=== PATIENT | male | born 1960 | race Caucasian/White ===

== ENCOUNTER 2016-09-27 12:57 | Emergency (ER) | payer MEDICARE, MEDICAID ==
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
[2016-09-27] MEDS ORDERED: Sodium Chloride 0.9% 1,000 ML IV SCH (14:15)
[2016-09-27 15:37] VITALS: BP 91/59
== END 2016-09-27 15:38 | disposition home or self-care (01) ==
LOC: JP.ED 12:57
DX: R53.1 Weakness (principal); A09 Infectious gastroenteritis and colitis, unspecified; F17.210 Nicotine dependence, cigarettes, uncomplicated; Z88.8 Allergy status to other drugs, medicaments and biological substances; Z98.84 Bariatric surgery status; Z90.49 Acquired absence of other specified parts of digestive tract; Z98.890 Other specified postprocedural states
CPT/HCPCS: 36415; 80053; 85025; 96360; 99285; J7040; 99284

== ENCOUNTER 2016-12-14 15:26 | Inpatient (IN) | payer MEDICARE, MEDICAID ==
[2016-12-14] MEDS ORDERED: Sodium Chloride 0.9% 1,000 ML IV SCH (16:15)
[2016-12-14] MEDS ORDERED: Acetaminophen 325 MG Tab PO ONE (16:16)
--- NOTE | 2016-12-14 16:30 | EDM.PDOC ---
ED HPI GENERAL MEDICAL PROBLEM - General Chief Complaint: Abdominal Pain Stated Complaint: pain in l side Time Seen by Provider: 12/14/16 16:25 Source of Information: Reports: Patient, Family History Limitations: Reports: No Limitations - History of Present Illness INITIAL COMMENTS - FREE TEXT/NARRATIVE: pt has a fever and is having left flank pain. He has not been vomiting. He thinks his urine looks dark and is foul smelling. . He has had normal bms. Onset: Gradual Duration: Day(s):, Other ( he has had an ingrown hair on the top of his scalp and it was dug at yesterday. There is pus coming from the site The area is red and hot. ) Location: Reports: Head, Abdomen Associated Symptoms: Reports: Other (pt is having left flank pain. ) - Related Data Allergies Allergy/AdvReac Type Severity Reaction Status Date / Time fluconazole [From Diflucan] Allergy Swelling Verified 12/14/16 17:40 Home Meds: Home Meds ALPRAZolam [Alprazolam Odt] 12/14/16 [History] ARIPiprazole [Abilify] 12/14/16 [History] Mirtazapine [Mirtazapine] 12/14/16 [History] Omeprazole 12/14/16 [History] Pantoprazole Sodium 12/14/16 [History] Pregabalin [Lyrica] 12/14/16 [History] Topiramate 12/14/16 [History] oxyCODONE 12/14/16 [History] Past Medical History HEENT History: Reports: Impaired Vision Cardiovascular History: Reports: Aneurysm, CAD, High Cholesterol, Stents Gastrointestinal History: Reports: GERD Neurological History: Reports: CVA Psychiatric History: Reports: Anxiety, Depression Endocrine/Metabolic History: Reports: Hypothyroidism - Infectious Disease History Infectious Disease History: Reports: Chicken Pox, Mumps - Past Surgical History Cardiovascular Surgical History: Reports: Aneurysm, Carotid Stents GI Surgical History: Reports: Bariatric Procedure, Cholecystectomy, Colonoscopy , EGD, Hernia Repair/Other Social & Family History - Tobacco Use Smoking Status *Q: Current Every Day Smoker Years of Tobacco use: 30 Packs/Tins Daily: 0.5 - Caffeine Use Caffeine Use: Reports: Coffee - Recreational Drug Use Recreational Drug Use: No ED ROS GENERAL - Review of Systems Review Of Systems: See Below Constitutional: Reports: Fever, Chills, Malaise HEENT: Reports: No Symptoms Respiratory: Reports: No Symptoms Cardiovascular: Reports: No Symptoms Endocrine: Reports: No Symptoms GI/Abdominal: Reports: Other ( left flank pain. ) : Reports: Other ( left flankpain) Musculoskeletal: Reports: No Symptoms Skin: Reports: No Symptoms Neurological: Reports: No Symptoms Psychiatric: Reports: No Symptoms ED EXAM, GI/ABD - Physical Exam Exam: See Below Text/Narrative:: pt arrived with pain in left flank. He had an ingrown hair on his scalp and he dug after it. He has a large red area and there is pus draining from the site. Exam Limited By: No Limitations General Appearance: Alert, Anxious, Mild Distress Eyes: Bilateral: Normal Appearance, EOMI Ears: Normal TMs Nose: Normal Inspection Throat/Mouth: Normal Inspection Head: Other (pt has a large red area in the occipital area and there is pus draining from this site. ) Neck: Normal Inspection, Lymphadenopathy (R), Lymphadenopathy (L) Respiratory/Chest: No Respiratory Distress Cardiovascular: Regular Rate, Rhythm, Tachycardia GI/Abdominal: Other ( left flank pain. ) (Male) Exam: Other ( smelly dark looking urine) Rectal (Males) Exam: Deferred Neurological: Alert, Oriented, Normal Cognition Psychiatric: Normal Affect Course - Vital Signs Last Recorded V/S: Last Vital Signs Temp 38.8 C H 12/14/16 16:39 Pulse 85 12/14/16 16:39 Resp 22 H 12/14/16 16:39 BP 110/73 12/14/16 16:39 Pulse Ox 98 12/14/16 16:39 - Orders/Labs/Meds Orders: Active Orders 24 hr Category Date Time Status Abdomen Pelvis w Cont [CT] Stat Exams 12/14/16 16:55 Taken Chest 1V Frontal [CR] Stat Exams 12/14/16 16:13 Taken CULTURE BLOOD [BC] Urgent Lab 12/14/16 16:25 Received CULTURE BLOOD [BC] Urgent Lab 12/14/16 16:30 Received CULTURE URINE [RM] Stat Lab 12/14/16 18:20 Uncollected CULTURE WOUND + SMEAR [RM] Stat Lab 12/14/16 16:28 Results Iopamidol [Isovue-300 (61%)] Med 12/14/16 17:34 Active 96 ml IV . DIRECTED PRN Sodium Chloride 0.9% [Normal Saline] 1,000 ml Med 12/14/16 16:15 Active IV ASDIRECTED Sodium Chloride 0.9% [Normal Saline] 70 ml Med 12/14/16 17:45 Active IV ASDIRECTED Sodium Chloride 0.9% [Saline Flush] Med 12/14/16 17:34 Active 10 ml FLUSH ONETIME PRN Blood Culture x2 Reflex Set [OM.PC] Urgent Oth 12/14/16 16:11 Ordered Medication Orders Sodium Chloride (Normal Saline) 1,000 mls @ 500 mls/hr IV ASDIRECTED ROMAN Last Admin: 12/14/16 16:31 Dose: 500 mls/hr Sodium Chloride (Normal Saline) 70 mls @ 3 mls/sec IV ASDIRECTED ROMAN Last Admin: 12/14/16 17:47 Dose: 3 mls/sec Iopamidol (Isovue-300 (61%)) 96 ml IV . DIRECTED PRN PRN Reason: RADIOLOGY EXAM Stop: 12/15/16 17:35 Last Admin: 12/14/16 17:46 Dose: 96 ml Sodium Chloride (Saline Flush) 10 ml FLUSH ONETIME PRN PRN Reason: per radiology protocol Last Admin: 12/14/16 17:46 Dose: 10 ml Labs: Laboratory Tests 12/14/16 12/14/16 12/14/16 Range/Units 16:05 16:05 16:12 WBC 14.9 H (4.5-11.0) K/uL RBC 4.46 (4.30-5.90) M/uL Hgb 13.4 (12.0-15.0) g/dL Hct 40.2 (40.0-54.0) % MCV 90 (80-98) fL MCH 30 (27-31) pg MCHC 33 (32-36) % Plt Count 182 (150-400) K/uL Neut % (Auto) 80 H (36-66) % Lymph % (Auto) 12 L (24-44) % [place] % (Auto) 6 (2-6) % Eos % (Auto) 2 (2-4) % Baso % (Auto) 0 (0-1) % Sodium 136 L (140-148) mmol/L Potassium 3.9 (3.6-5.2) mmol/L Chloride 103 (100-108) mmol/L Carbon Dioxide 22 (21-32) mmol/L Anion Gap 14.9 H (5.0-14.0) mmol/L BUN 14 (7-18) mg/dL Creatinine 0.8 (0.8-1.3) mg/dL Est Cr Clr Drug Dosing 92.61 mL/min Estimated GFR (MDRD) > 60 (>60) Glucose 98 (74-106) mg/dL Lactic Acid 1.8 (0.4-2.0) mmol/L Calcium 8.3 L (8.5-10.1) mg/dL Total Bilirubin 0.4 (0.2-1.0) mg/dL AST 11 L D (15-37) U/L ALT 15 (12-78) U/L Alkaline Phosphatase 84 (46-116) U/L Total Protein 7.4 (6.4-8.2) g/dL Albumin 2.8 L (3.4-5.0) g/dL Globulin 4.6 H (2.3-3.5) g/dL Albumin/Globulin Ratio 0.6 L (1.2-2.2) Urine Color Urine Appearance Urine pH (4.5-8.0) Ur Specific [place] (1.008-1.030) Urine Protein (NEGATIVE) mg/dL Urine Glucose (UA) (NEGATIVE) mg/dL Urine Ketones (NEGATIVE) mg/dL Urine Occult Blood (NEGATIVE) Urine Nitrite (NEGAITVE) Urine Bilirubin (NEGATIVE) Urine Urobilinogen (NORMAL) mg/dL Ur Leukocyte Esterase (NEGATIVE) Urine RBC (0-5) Urine WBC (0-5) Ur Epithelial Cells Amorphous Sediment Urine Bacteria Urine Mucus 12/14/16 Range/Units 18:08 WBC (4.5-11.0) K/uL RBC (4.30-5.90) M/uL Hgb (12.0-15.0) g/dL Hct (40.0-54.0) % MCV (80-98) fL MCH (27-31) pg MCHC (32-36) % Plt Count (150-400) K/uL Neut % (Auto) (36-66) % Lymph % (Auto) (24-44) % [place] % (Auto) (2-6) % Eos % (Auto) (2-4) % Baso % (Auto) (0-1) % Sodium (140-148) mmol/L Potassium (3.6-5.2) mmol/L Chloride (100-108) mmol/L Carbon Dioxide (21-32) mmol/L Anion Gap (5.0-14.0) mmol/L BUN (7-18) mg/dL Creatinine (0.8-1.3) mg/dL Est Cr Clr Drug Dosing mL/min Estimated GFR (MDRD) (>60) Glucose (74-106) mg/dL Lactic Acid (0.4-2.0) mmol/L Calcium (8.5-10.1) mg/dL Total Bilirubin (0.2-1.0) mg/dL AST (15-37) U/L ALT (12-78) U/L Alkaline Phosphatase (46-116) U/L Total Protein (6.4-8.2) g/dL Albumin (3.4-5.0) g/dL Globulin (2.3-3.5) g/dL Albumin/Globulin Ratio (1.2-2.2) Urine Color Yellow Urine Appearance Turbid Urine pH 6.0 (4.5-8.0) Ur Specific [place] 1.015 (1.008-1.030) Urine Protein Trace (NEGATIVE) mg/dL Urine Glucose (UA) Normal (NEGATIVE) mg/dL Urine Ketones Negative (NEGATIVE) mg/dL Urine Occult Blood Large (NEGATIVE) Urine Nitrite Negative (NEGAITVE) Urine Bilirubin Negative (NEGATIVE) Urine Urobilinogen 1 (NORMAL) mg/dL Ur Leukocyte Esterase Large (NEGATIVE) Urine RBC 20-30 H (0-5) Urine WBC Semi-packed H (0-5) Ur Epithelial Cells Few Amorphous Sediment Not seen Urine Bacteria Many Urine Mucus Moderate Meds: Medications Generic Name Dose Route Start Last Admin Trade Name Freq PRN Reason Stop Dose Admin Sodium Chloride 1,000 mls @ 500 mls/hr 12/14/16 16:15 12/14/16 16:31 Normal Saline IV 500 mls/hr ASDIRECTED ROMAN Administration Sodium Chloride 70 mls @ 3 mls/sec 12/14/16 17:45 12/14/16 17:47 Normal Saline IV 3 mls/sec ASDIRECTED ROMAN Administration Iopamidol 96 ml 12/14/16 17:34 12/14/16 17:46 Isovue-300 (61%) IV 12/15/16 17:35 96 ml . DIRECTED PRN Administration RADIOLOGY EXAM Sodium Chloride 10 ml 12/14/16 17:34 12/14/16 17:46 Saline Flush FLUSH 10 ml ONETIME PRN Administration per radiology protocol Discontinued Medications Generic Name Dose Route Start Last Admin Trade Name Oneil PRN Reason Stop Dose Admin Acetaminophen 650 mg 12/14/16 16:16 12/14/16 16:30 Tylenol PO 12/14/16 16:17 650 mg NOW ONE Administration Hydromorphone HCl 0.5 mg 12/14/16 16:56 12/14/16 17:04 Dilaudid IVPUSH 12/14/16 16:57 0.5 mg ONETIME ONE Administration - Re-Assessments/Exams Free Text/Narrative Re-Assessment/Exam: 12/14/16 16:47 pt arrived with left flank pain. He had a temp of 38. He has a wbc of 14,900. 12/14/16 18:24 pt has a very infected urine. This was culured and he had blood cultures drawn. He had a cat scan of the abdoman to rule out a stone or other type of obstruction. Departure - Departure Time of Disposition: 18:25 Disposition: Admitted As Inpatient 66 Condition: fair Clinical Impression: Pyelonephritis, Infected scalp abrasion - Discharge Information Forms: ED Department Discharge Care Plan Goals: admit to Dr kirk. - My Orders Last 24 Hours: My Active Orders 12/14/16 16:11 Blood Culture x2 Reflex Set [OM.PC] Urgent 12/14/16 16:13 Chest 1V Frontal [CR] Stat 12/14/16 16:15 Sodium Chloride 0.9% [Normal Saline] 1,000 ml IV ASDIRECTED 12/14/16 16:25 CULTURE BLOOD [BC] Urgent 12/14/16 16:28 CULTURE WOUND + SMEAR [RM] Stat 12/14/16 16:30 CULTURE BLOOD [BC] Urgent 12/14/16 16:55 Abdomen Pelvis w Cont [CT] Stat 12/14/16 17:34 Iopamidol [Isovue-300 (61%)] 96 ml IV . DIRECTED PRN Sodium Chloride 0.9% [Saline Flush] 10 ml FLUSH ONETIME PRN 12/14/16 17:45 Sodium Chloride 0.9% [Normal Saline] 70 ml IV ASDIRECTED 12/14/16 18:20 CULTURE URINE [RM] Stat - Assessment/Plan Last 24 Hours: My Active Orders 12/14/16 16:11 Blood Culture x2 Reflex Set [OM.PC] Urgent 12/14/16 16:13 Chest 1V Frontal [CR] Stat 12/14/16 16:15 Sodium Chloride 0.9% [Normal Saline] 1,000 ml IV ASDIRECTED 12/14/16 16:25 CULTURE BLOOD [BC] Urgent 12/14/16 16:28 CULTURE WOUND + SMEAR [RM] Stat 12/14/16 16:30 CULTURE BLOOD [BC] Urgent 12/14/16 16:55 Abdomen Pelvis w Cont [CT] Stat 12/14/16 17:34 Iopamidol [Isovue-300 (61%)] 96 ml IV . DIRECTED PRN Sodium Chloride 0.9% [Saline Flush] 10 ml FLUSH ONETIME PRN 12/14/16 17:45 Sodium Chloride 0.9% [Normal Saline] 70 ml IV ASDIRECTED 12/14/16 18:20 CULTURE URINE [RM] Stat
[2016-12-14] MEDS ORDERED: HYDROmorphone 0.5 MG/0.5 ML Syringe IVPUSH ONE (16:56)
[2016-12-14] MEDS ORDERED: Sodium Chloride 0.9% 10 ML Syringe FLUSH PRN (17:34)
[2016-12-14] MEDS ORDERED: Iopamidol 612 MG/ML 100 ML Bottle IV PRN (17:34)
[2016-12-14] MEDS ORDERED: cefTRIAXone 2 GM in Sodium Chloride 0.9% 50 ML IV SCH (19:15)
--- NOTE | 2016-12-14 19:19 | PCM.HP ---
H&P History of Present Illness - General Date of Service: 12/14/16 Admit Problem/Dx: Admission Diagnosis/Problem Admission Diagnosis/Problem UTI, Urinary tract infectious disease Source of Information: Patient, Family, Provider History Limitations: Reports: No Limitations - History of Present Illness Initial Comments - Free Text/Narative: Jesús presented to the emergency room today with 2 days of progressive left upper quadrant abdominal pain. This is a sharp pain that comes and goes but is worse with laying on his back or his left side. Can be anywhere from mild to severe nature but is moderate for the most part. Moving around makes the pain becomes severe. Pain pills at home help a little bit. Taking a deep breath also makes the pain much worse. He has noticed some chills at home as well as a decrease in energy and appetite. He does not drink much water at home. He has noticed that his urine has been dark and foul-smelling compared normal. He has increased urinary frequency and some urgency but no dysuria. He is not aware of any obvious fevers but does not have a thermometer at home. No complaints of chest pain or shortness of breath beyond baseline shortness of breath. No obvious sick contacts or recent travel. Bowels have been on the slow side of normal moving every 3 days but this has been relatively normal for him. Workup in the emergency room has revealed leukocytosis and evidence for urinary tract infection. CT scan of the abdomen showed moderate stool and a 12 mm left lower lung nodule. He'll be admitted for management of a complicated urinary tract infection with fever and borderline blood pressures. - Related Data Allergies/Adverse Reactions: Allergies Allergy/AdvReac Type Severity Reaction Status Date / Time fluconazole [From Diflucan] Allergy Swelling Verified 12/14/16 17:40 Home Medications: Home Meds ALPRAZolam [Alprazolam Odt] 0.5 mg PO TID PRN 12/14/16 [History] ARIPiprazole [Abilify] 15 mg PO DAILY 12/14/16 [History] Mirtazapine [Mirtazapine] 60 mg PO BEDTIME 12/14/16 [History] Pantoprazole Sodium 40 mg PO DAILY 12/14/16 [History] Pregabalin [Lyrica] 150 mg PO BID 12/14/16 [History] Topiramate 50 mg PO BID 12/14/16 [History] oxyCODONE 5 mg PO QID PRN 12/14/16 [History] Past Medical History HEENT History: Reports: Impaired Vision Cardiovascular History: Reports: Aneurysm, CAD, High Cholesterol, Stents Gastrointestinal History: Reports: GERD Neurological History: Reports: CVA Psychiatric History: Reports: Anxiety, Depression Endocrine/Metabolic History: Reports: Hypothyroidism - Infectious Disease History Infectious Disease History: Reports: Chicken Pox, Mumps - Past Surgical History Cardiovascular Surgical History: Reports: Aneurysm, Carotid Stents GI Surgical History: Reports: Bariatric Procedure, Cholecystectomy, Colonoscopy , EGD, Hernia Repair/Other Social & Family History - Family History Respiratory: Reports: COPD - Tobacco Use Smoking Status *Q: Current Every Day Smoker Years of Tobacco use: 30 Packs/Tins Daily: 0.5 - Caffeine Use Caffeine Use: Reports: Coffee - Alcohol Use Alcohol Use History: No - Recreational Drug Use Recreational Drug Use: No H&P Review of Systems - Review of Systems: Review Of Systems: See Below Free Text/Narrative: A complete 12 point review of systems was obtained. Pertinent positives and negatives are noted in the history of present illness. All other systems were reviewed and were negative except as noted. Exam - Exam Exam: See Below - Vital Signs Vital Signs: Last Vital Signs Temp 37.7 C 12/14/16 18:36 Pulse 67 12/14/16 18:36 Resp 18 12/14/16 18:36 BP 87/33 L 12/14/16 18:36 Pulse Ox 96 12/14/16 18:36 Weight: 63.503 kg - Exam Quality Assessment: No: Supplemental Oxygen General: Alert, Oriented, Cooperative. No: Mild Distress HEENT: Conjunctiva Clear, Other (debrided scalp abscess with mild surrounding erythema left posterior scalp). No: Mucosa Moist & [place] (dry), Scleral Icterus Neck: Supple, Trachea Midline. No: Lymphadenopathy, Thyromegaly Lungs: Clear to Auscultation, Normal Respiratory Effort Cardiovascular: Regular Rate, Regular Rhythm. No: Systolic Murmur Abdomen: Normal Bowel Sounds, Soft. No: Distention, Tenderness, Mass Back Exam: Normal Inspection, Full Range of Motion Extremities: Normal Pulses. No: Cyanosis Skin: Warm, Dry, Other (evidence for skin grafts on legs and arms) Neuro Extensive - Mental Status: Alert, Oriented x3, Nl Response to Commands Neuro Extensive - Motor, Sensory, Reflexes: CN II-XII Intact. No: Dysarthria, Abnormal Motor, Tremor Psychiatric: Alert, Normal Affect - Patient Data Lab Results last 24 hrs: Laboratory Results - last 24 hr 12/14/16 12/14/16 12/14/16 Range/Units 16:05 16:05 16:12 WBC 14.9 H (4.5-11.0) K/uL RBC 4.46 (4.30-5.90) M/uL Hgb 13.4 (12.0-15.0) g/dL Hct 40.2 (40.0-54.0) % MCV 90 (80-98) fL MCH 30 (27-31) pg MCHC 33 (32-36) % Plt Count 182 (150-400) K/uL Neut % (Auto) 80 H (36-66) % Lymph % (Auto) 12 L (24-44) % [place] % (Auto) 6 (2-6) % Eos % (Auto) 2 (2-4) % Baso % (Auto) 0 (0-1) % Sodium 136 L (140-148) mmol/L Potassium 3.9 (3.6-5.2) mmol/L Chloride 103 (100-108) mmol/L Carbon Dioxide 22 (21-32) mmol/L Anion Gap 14.9 H (5.0-14.0) mmol/L BUN 14 (7-18) mg/dL Creatinine 0.8 (0.8-1.3) mg/dL Est Cr Clr Drug Dosing 92.61 mL/min Estimated GFR (MDRD) > 60 (>60) Glucose 98 (74-106) mg/dL Lactic Acid 1.8 (0.4-2.0) mmol/L Calcium 8.3 L (8.5-10.1) mg/dL Total Bilirubin 0.4 (0.2-1.0) mg/dL AST 11 L D (15-37) U/L ALT 15 (12-78) U/L Alkaline Phosphatase 84 (46-116) U/L Total Protein 7.4 (6.4-8.2) g/dL Albumin 2.8 L (3.4-5.0) g/dL Globulin 4.6 H (2.3-3.5) g/dL Albumin/Globulin Ratio 0.6 L (1.2-2.2) Urine Color Urine Appearance Urine pH (4.5-8.0) Ur Specific [place] (1.008-1.030) Urine Protein (NEGATIVE) mg/dL Urine Glucose (UA) (NEGATIVE) mg/dL Urine Ketones (NEGATIVE) mg/dL Urine Occult Blood (NEGATIVE) Urine Nitrite (NEGAITVE) Urine Bilirubin (NEGATIVE) Urine Urobilinogen (NORMAL) mg/dL Ur Leukocyte Esterase (NEGATIVE) Urine RBC (0-5) Urine WBC (0-5) Ur Epithelial Cells Amorphous Sediment Urine Bacteria Urine Mucus 12/14/16 Range/Units 18:08 WBC (4.5-11.0) K/uL RBC (4.30-5.90) M/uL Hgb (12.0-15.0) g/dL Hct (40.0-54.0) % MCV (80-98) fL MCH (27-31) pg MCHC (32-36) % Plt Count (150-400) K/uL Neut % (Auto) (36-66) % Lymph % (Auto) (24-44) % [place] % (Auto) (2-6) % Eos % (Auto) (2-4) % Baso % (Auto) (0-1) % Sodium (140-148) mmol/L Potassium (3.6-5.2) mmol/L Chloride (100-108) mmol/L Carbon Dioxide (21-32) mmol/L Anion Gap (5.0-14.0) mmol/L BUN (7-18) mg/dL Creatinine (0.8-1.3) mg/dL Est Cr Clr Drug Dosing mL/min Estimated GFR (MDRD) (>60) Glucose (74-106) mg/dL Lactic Acid (0.4-2.0) mmol/L Calcium (8.5-10.1) mg/dL Total Bilirubin (0.2-1.0) mg/dL AST (15-37) U/L ALT (12-78) U/L Alkaline Phosphatase (46-116) U/L Total Protein (6.4-8.2) g/dL Albumin (3.4-5.0) g/dL Globulin (2.3-3.5) g/dL Albumin/Globulin Ratio (1.2-2.2) Urine Color Yellow Urine Appearance Turbid Urine pH 6.0 (4.5-8.0) Ur Specific [place] 1.015 (1.008-1.030) Urine Protein Trace (NEGATIVE) mg/dL Urine Glucose (UA) Normal (NEGATIVE) mg/dL Urine Ketones Negative (NEGATIVE) mg/dL Urine Occult Blood Large (NEGATIVE) Urine Nitrite Negative (NEGAITVE) Urine Bilirubin Negative (NEGATIVE) Urine Urobilinogen 1 (NORMAL) mg/dL Ur Leukocyte Esterase Large (NEGATIVE) Urine RBC 20-30 H (0-5) Urine WBC Semi-packed H (0-5) Ur Epithelial Cells Few Amorphous Sediment Not seen Urine Bacteria Many Urine Mucus Moderate Result Diagrams: 12/14/16 16:05 12/14/16 16:05 Bill Results last 24 hrs: Microbiology 12/14/16 16:28 Gram Stain - Final Scalp - Back, Unspecified Imaging Impressions last 24 hrs: cXR - images personally reviewed - there is no infiltrate, mass, effusion or cardiomegally. CT abd/pelvis - images personally reviewed - moderate stool throughout colon. no hydronephrosis or kidney stone. 12 mm left lung nodule, non-calcified *Q Meaningful Use (ADM) - VTE *Q VTE Criteria *Q: - VTE Risk Assess *Q Each Risk Factor Represents 1 Point: Age 41 - 59 years, History of Prior Major Surgery, Abnormal Pulmonary Function (COPD) Total Score 1 Point Risk Factors: 3 Each Risk Factor Represents 2 Points: None Total Score 2 Point Risk Factors: 0 Each Risk Factor Represents 3 Points: None Total Score 3 Point Risk Factors: 0 Each Risk Factor Represents 5 Points: None Total Score 5 Point Risk Factors: 0 Venous Thromboembolism Risk Factor Score *Q: 3 - Stroke *Q Stroke Criteria *Q: - AMI *Q AMI Criteria *Q: - Problem List (1) Complicated UTI (urinary tract infection) SNOMED Code(s): 51318389 ICD Code: N39.0 - URINARY TRACT INFECTION, SITE NOT SPECIFIED Status: Acute Current Visit: Yes (2) 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 Current Visit: Yes (3) Hypothyroidism (acquired) SNOMED Code(s): 450141511 ICD Code: E03.9 - HYPOTHYROIDISM, UNSPECIFIED Status: Chronic Current Visit: Yes (4) Tobacco dependence SNOMED Code(s): 87987328 ICD Code: F17.200 - NICOTINE DEPENDENCE, UNSPECIFIED, UNCOMPLICATED Status : Chronic Current Visit: Yes Problem List Initiated/Reviewed/Updated: Yes Orders Last 24hrs: Active Orders 24 hr Category Date Time Status Patient Status Manage Transfer [TRANSFER] Routine ADT 12/14/16 19:06 Active Abdomen Pelvis w Cont [CT] Stat Exams 12/14/16 16:55 Taken Chest 1V Frontal [CR] Stat Exams 12/14/16 16:13 Taken CULTURE BLOOD [BC] Urgent Lab 12/14/16 16:25 Received CULTURE BLOOD [BC] Urgent Lab 12/14/16 16:30 Received CULTURE URINE [RM] Stat Lab 12/14/16 18:20 Uncollected CULTURE WOUND + SMEAR [RM] Stat Lab 12/14/16 16:28 Results Iopamidol [Isovue-300 (61%)] Med 12/14/16 17:34 Active 96 ml IV . DIRECTED PRN Sodium Chloride 0.9% [Normal Saline] 1,000 ml Med 12/14/16 16:15 Active IV ASDIRECTED Sodium Chloride 0.9% [Normal Saline] 1,000 ml Med 12/14/16 19:15 Active IV ASDIRECTED Sodium Chloride 0.9% [Normal Saline] 70 ml Med 12/14/16 17:45 Active IV ASDIRECTED Sodium Chloride 0.9% [Saline Flush] Med 12/14/16 17:34 Active 10 ml FLUSH ONETIME PRN cefTRIAXone [Rocephin] 2 gm Med 12/14/16 19:15 Active Sodium Chloride 0.9% [Normal Saline] 50 ml IV Q24H Blood Culture x2 Reflex Set [OM.PC] Urgent Oth 12/14/16 16:11 Ordered Resuscitation Status Routine Resus Stat 12/14/16 19:11 Ordered Medication Orders Sodium Chloride (Normal Saline) 1,000 mls @ 500 mls/hr IV ASDIRECTED ROMAN Last Admin: 12/14/16 16:31 Dose: 500 mls/hr Sodium Chloride (Normal Saline) 70 mls @ 3 mls/sec IV ASDIRECTED ROMAN Last Admin: 12/14/16 17:47 Dose: 3 mls/sec Sodium Chloride (Normal Saline) 1,000 mls @ 125 mls/hr IV ASDIRECTED ROMAN Ceftriaxone Sodium 2 gm/ (Sodium Chloride) 50 mls @ 100 mls/hr IV Q24H ROMAN Iopamidol (Isovue-300 (61%)) 96 ml IV . DIRECTED PRN PRN Reason: RADIOLOGY EXAM Stop: 12/15/16 17:35 Last Admin: 12/14/16 17:46 Dose: 96 ml Sodium Chloride (Saline Flush) 10 ml FLUSH ONETIME PRN PRN Reason: per radiology protocol Last Admin: 12/14/16 17:46 Dose: 10 ml Assessment/Plan Comment:: Assessment and plan - Complicated urinary tract infection - this would explain fever and urinary symptoms. Blood pressures are borderline but no obvious evidence for sepsis at this time. Heart rate is okay and lactic acid is normal. No history of resistant organisms. -Ceftriaxone -IV fluids -Follow-up urine culture Pleuritic left-sided pain - no obvious cause on the CT scan but a 12 mm noncalcified nodule was noted. This could possibly be related to the stool noted throughout the colon. No evidence for pulmonary infection. He is not currently hypoxic. -Pain control -He will need follow-up for his pulmonary nodule Tobacco dependence - he is working on cessation at this time. Developed a rash while taking varenicline. 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 -Continue home medications Maintenance issues - - DVT prophylaxis - enoxaparin - GI prophylaxis - PPI - Nutrition - regular diet - Boland catheter - not indicated CODE STATUS - full code Admission justification - This patient will be admitted for inpatient services and is medically appropriate meeting medical necessity for inpatient admission as outlined in my documentation. I reasonably expect the patient will require inpatient services that span a period time over 2 midnights. I reasonably expect this patient to be discharged or transferred within 96 hours [facility] Disposition - anticipate discharge to home after the hospital stay Primary care physician - Dr Phuong Cedeno M.D.
[2016-12-14] MEDS ORDERED: Magnesium Hydroxide 400 MG/5 ML Susp 30 ML Cup PO PRN (19:33)
[2016-12-14] MEDS ORDERED: Albuterol 0.083% 2.5 MG/3 ML Neb Soln NEB PRN (19:33)
[2016-12-14] MEDS ORDERED: ALPRAZolam 0.5 MG Tab PO PRN (19:33)
[2016-12-14] MEDS ORDERED: Ondansetron 4 MG Tab.DIS PO PRN (19:33)
[2016-12-14] MEDS ORDERED: Polyethylene Glycol 3350 Powder 17 GM Packet PO PRN (19:33)
[2016-12-14] MEDS ORDERED: Ondansetron 4 MG/2 ML SDV IV PRN (19:33)
[2016-12-14] MEDS: Sodium Chloride 0.9% 1,000 ML IV SCH (20:21)
[2016-12-14] MEDS: Mirtazapine 15 MG Tab PO SCH (21:33)
[2016-12-14] MEDS: Topiramate 25 MG Tab PO SCH (21:34)
[2016-12-14] MEDS: Pregabalin 75 MG Cap PO SCH (21:34)
[2016-12-14] MEDS: oxyCODONE 5 MG Tab PO PRN (21:34)
[2016-12-14] MEDS: Ibuprofen 600 MG Tab PO PRN (22:53)
[2016-12-15] MEDS: oxyCODONE 5 MG Tab PO PRN ×3 (03:50→17:20)
[2016-12-15] MEDS: Sodium Chloride 0.9% 1,000 ML IV SCH ×3 (03:52→21:33)
[2016-12-15] MEDS ORDERED: Levothyroxine 25 MCG Tab PO SCH (07:30)
[2016-12-15] MEDS: Ibuprofen 600 MG Tab PO PRN ×3 (07:32→19:41)
[2016-12-15] MEDS: ARIPiprazole 10 MG Tab PO SCH (09:52)
[2016-12-15] MEDS: Pantoprazole 40 MG Tab.CR PO SCH (09:53)
[2016-12-15] MEDS: Levothyroxine 50 MCG Tab PO SCH (09:53)
[2016-12-15] MEDS: Topiramate 25 MG Tab PO SCH ×2 (09:54→20:44)
[2016-12-15] MEDS: Enoxaparin 40 MG/0.4 ML Syringe SUBCUT SCH (09:54)
[2016-12-15] MEDS: Acetaminophen 325 MG Tab PO PRN ×2 (10:01→15:36)
[2016-12-15] MEDS: Pregabalin 75 MG Cap PO SCH ×2 (10:01→20:47)
--- NOTE | 2016-12-15 11:16 | CR ---
Chest 1V Frontal INDICATION: fever. FINDINGS: Comparison 09/27/2012. Extensive benign calcified granulomas in both lungs. Small esophagea l hiatal hernia. Right PICC line has been removed. Chest otherwise negative.
[2016-12-15] MEDS ORDERED: Sodium Chloride 0.9% 500 ML IV ONE ×2 (12:38→15:15)
--- NOTE | 2016-12-15 12:46 | PCM.PN ---
- General Info Date of Service: 12/15/16 Functional Status: Reports: pain controlled, tolerating diet, urinating - Review of Systems General: Reports: Fever, Weakness, Chills Pulmonary: Reports: no symptoms Cardiovascular: Reports: No Symptoms Gastrointestinal: Reports: No symptoms Genitourinary: Reports: dysuria, flank pain Systems Review Comment:: This patient is a 56-year-old gentleman who was admitted through the emergency department with fever and probable urinary tract infection. He also has had significant left flank pain, CT scan of the abdomen showed no evidence of pyelonephritis. This morning his shown some evidence of sepsis with hypotension and is currently receiving a fluid bolus for management. In addition he's had a abscess on the posterior aspect of his scalp that was drained yesterday in the emergency department. Blood cultures thus far are growing gram-positive cocci final ID and sensitivities are pending. Urine culture and wound cultures are also pending. - Patient Data Vitals - most recent: Last Vital Signs Temp 99.6 F 12/15/16 12:34 Pulse 88 12/15/16 12:34 Resp 16 12/15/16 12:34 BP 87/45 L 12/15/16 12:34 Pulse Ox 98 12/15/16 12:34 Weight - most recent: 145 lb 8 oz I&O - last 24 hours: Intake & Output 12/14/16 12/15/16 12/15/16 22:59 06:59 14:59 Intake Total 50 1973 360 Output Total 1875 550 Balance 50 98 -190 Lab Results last 24 hrs: Laboratory Results - last 24 hr 12/15/16 12/15/16 Range/Units 06:00 06:00 WBC 12.0 H (4.5-11.0) K/uL RBC 3.76 L (4.30-5.90) M/uL Hgb 11.1 L D (12.0-15.0) g/dL Hct 34.5 L (40.0-54.0) % MCV 92 (80-98) fL MCH 30 (27-31) pg MCHC 32 (32-36) % Plt Count 173 (150-400) K/uL Sodium 144 (140-148) mmol/L Potassium 3.6 (3.6-5.2) mmol/L Chloride 113 H (100-108) mmol/L Carbon Dioxide 23 (21-32) mmol/L Anion Gap 11.6 (5.0-14.0) mmol/L BUN 10 (7-18) mg/dL Creatinine 0.7 L (0.8-1.3) mg/dL Est Cr Clr Drug Dosing 110.00 mL/min Estimated GFR (MDRD) > 60 (>60) Glucose 85 (74-106) mg/dL Calcium 8.0 L (8.5-10.1) mg/dL Med Orders - Current: Current Medications Acetaminophen (Tylenol) 650 mg PO Q4H PRN PRN Reason: Pain (Mild 1-3)/fever Last Admin: 12/15/16 10:01 Dose: 650 mg Albuterol (Proventil Neb Soln) 2.5 mg NEB Q4H PRN PRN Reason: Shortness Of Breath/wheezing Alprazolam (Xanax) 0.5 mg PO TID PRN PRN Reason: Anxiety Aripiprazole (Abilify) 15 mg PO DAILY [facility] Last Admin: 12/15/16 09:52 Dose: 15 mg Bacitracin (Bacitracin Oint) 0 gm TOP BID [facility] Bacitracin (Bacitracin Oint) 0 gm TOP ASDIRECTED PRN PRN Reason: WOUND CARE Enoxaparin Sodium (Lovenox) 40 mg SUBCUT DAILY [facility] Last Admin: 12/15/16 09:54 Dose: 40 mg Sodium Chloride (Normal Saline) 1,000 mls @ 125 mls/hr IV ASDIRECTED [facility] Last Admin: 12/15/16 12:10 Dose: 125 mls/hr Ceftriaxone Sodium 2 gm/ (Sodium Chloride) 50 mls @ 100 mls/hr IV Q24H [facility] Sodium Chloride (Normal Saline) 500 mls @ 500 mls/hr IV .BOLUS ONE Stop: 12/15/16 13:37 Ibuprofen (Motrin) 600 mg PO Q6H PRN PRN Reason: Pain/Fever Last Admin: 12/15/16 07:32 Dose: 600 mg Levothyroxine Sodium (Synthroid) 50 mcg PO DAILY@0730 [facility] Last Admin: 12/15/16 09:53 Dose: 50 mcg Magnesium Hydroxide (Milk Of Magnesia) 30 ml PO Q12H PRN PRN Reason: Constipation Mirtazapine (Remeron) 60 mg PO BEDTIME [facility] Last Admin: 12/14/16 21:33 Dose: 60 mg Ondansetron HCl (Zofran Odt) 4 mg PO Q6H PRN PRN Reason: Nausea able to take PO Ondansetron HCl (Zofran) 4 mg IV Q6H PRN PRN Reason: Nausea/Vomiting Oxycodone HCl (Oxycodone) 5 mg PO QID PRN PRN Reason: Pain Last Admin: 12/15/16 10:02 Dose: 5 mg Pantoprazole Sodium (Protonix) 40 mg PO DAILY@0730 [facility] Last Admin: 12/15/16 09:53 Dose: 40 mg Polyethylene Glycol (Miralax) 17 gm PO DAILY PRN PRN Reason: Constipation Pregabalin (Lyrica) 150 mg PO BID [facility] Last Admin: 12/15/16 10:01 Dose: 150 mg Senna/Docusate Sodium (Senna Plus) 1 tab PO BID PRN PRN Reason: Constipation Sodium Chloride (Saline Flush) 10 ml FLUSH ONETIME PRN PRN Reason: per radiology protocol Last Admin: 12/14/16 17:46 Dose: 10 ml Topiramate (Topamax) 50 mg PO BID [facility] Last Admin: 12/15/16 09:54 Dose: 50 mg Vancomycin HCl (Vancomycin) 1 gm IV .PHARMACY TO DOSE [facility] Discontinued Medications Acetaminophen (Tylenol) 650 mg PO NOW ONE Stop: 12/14/16 16:17 Last Admin: 12/14/16 16:30 Dose: 650 mg Hydromorphone HCl (Dilaudid) 0.5 mg IVPUSH ONETIME ONE Stop: 12/14/16 16:57 Last Admin: 12/14/16 17:04 Dose: 0.5 mg Sodium Chloride (Normal Saline) 1,000 mls @ 500 mls/hr IV ASDIRECTED [facility] Last Admin: 12/14/16 16:31 Dose: 500 mls/hr Sodium Chloride (Normal Saline) 70 mls @ 3 mls/sec IV ASDIRECTED [facility] Last Admin: 12/14/16 17:47 Dose: 3 mls/sec Ceftriaxone Sodium 2 gm/ (Sodium Chloride) 50 mls @ 100 mls/hr IV Q24H [facility] Last Admin: 12/14/16 20:34 Dose: 100 mls/hr Iopamidol (Isovue-300 (61%)) 96 ml IV . DIRECTED PRN PRN Reason: RADIOLOGY EXAM Stop: 12/15/16 17:35 Last Admin: 12/14/16 17:46 Dose: 96 ml - Exam Quality Assessment: DVT prophylaxis General: alert, oriented, cooperative Lungs: Clear to auscultation, Normal respiratory effort Cardiovascular: Regular Rate, Regular Rhythm Abdomen: bowel sounds present, soft, no tenderness, no distension Back Exam: CVA Tenderness (L) Extremities: no edema - Problem List Review Problem List Initiated/Reviewed/Updated: Yes - My Orders Last 24 Hours: My Active Orders 12/15/16 11:49 Bacitracin [Bacitracin Oint] 0 gm TOP ASDIRECTED PRN 12/15/16 12:00 Bacitracin [Bacitracin Oint] 0 gm TOP BID 12/15/16 12:38 Sodium Chloride 0.9% [Normal Saline] 500 ml IV .BOLUS 12/15/16 13:00 Vancomycin 1 gm IV .PHARMACY TO DOSE 12/16/16 05:00 BASIC METABOLIC PANEL,BMP [CHEM] Timed CBC WITH AUTO DIFF [HEME] Timed - Plan Plan:: Assessment and plan - Complicated urinary tract infection -with probable pyelonephritis and sepsis. He has significant flank pain consistent with pyelonephritis although CT scan did not show evidence of inflammation. Blood cultures are growing gram-positive cocci, wound and urine cultures are pending. -Ceftriaxone -IV vancomycin pending culture results and sensitivities -IV fluidsfor management of sepsis -Follow-up urine culture 12 mm pulmonary nodule -He will need follow-up for his pulmonary nodule Tobacco dependence - he is working on cessation at this time. Developed a rash while taking varenicline. 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 -Continue home medications Maintenance issues - - DVT prophylaxis - enoxaparin - GI prophylaxis - PPI - Nutrition - regular diet - Boland catheter - not indicated CODE STATUS - full code Admission justification - This patient will be admitted for inpatient services and is medically appropriate meeting medical necessity for inpatient admission as outlined in my documentation. I reasonably expect the patient will require inpatient services that span a period time over 2 midnights. I reasonably expect this patient to be discharged or transferred within 96 hours [facility]. Disposition - anticipate discharge to home after the hospital stay Primary care physician - Dr Baca
[2016-12-15] MEDS: Bacitracin Oint 28.35 GM Tube TOP SCH ×2 (13:00→20:43)
[2016-12-15] MEDS ORDERED: Vancomycin 1 GM SDV IV SCH (13:00)
[2016-12-15] MEDS ORDERED: Bacitracin Oint 28.35 GM Tube TOP SCH (14:00)
[2016-12-15] MEDS ORDERED: Vancomycin 1.3 GM in Sodium Chloride 0.9% 250 ML IV ONE (14:00)
[2016-12-15] MEDS ORDERED: Sodium Chloride 0.9% 1,000 ML IV ONE (16:32)
[2016-12-15] MEDS ORDERED: Sodium Chloride 0.9% 1,000 ML IV SCH (19:00)
[2016-12-15] MEDS: Mirtazapine 15 MG Tab PO SCH (20:44)
[2016-12-15] MEDS ORDERED: cefTRIAXone 2 GM in Sodium Chloride 0.9% 50 ML IV SCH (21:00)
[2016-12-16] MEDS: Acetaminophen 325 MG Tab PO PRN ×2 (00:53→15:31)
[2016-12-16] MEDS: Ibuprofen 600 MG Tab PO PRN (05:39)
[2016-12-16] MEDS: Levothyroxine 50 MCG Tab PO SCH (07:28)
[2016-12-16] MEDS: Pantoprazole 40 MG Tab.CR PO SCH (07:29)
[2016-12-16] MEDS: Sodium Chloride 0.9% 1,000 ML IV SCH (07:57)
[2016-12-16] MEDS ORDERED: Potassium Chloride 20 MEQ Tab.ER PO ONE (09:00)
[2016-12-16] MEDS: ARIPiprazole 10 MG Tab PO SCH (09:51)
[2016-12-16] MEDS: Bacitracin Oint 28.35 GM Tube TOP SCH ×2 (09:52→21:36)
[2016-12-16] MEDS: Enoxaparin 40 MG/0.4 ML Syringe SUBCUT SCH (09:53)
[2016-12-16] MEDS: Topiramate 25 MG Tab PO SCH ×2 (09:53→21:34)
[2016-12-16] MEDS: Pregabalin 75 MG Cap PO SCH ×2 (10:18→21:33)
--- NOTE | 2016-12-16 16:44 | PCM.PN ---
- General Info Date of Service: 12/16/16 Functional Status: Reports: pain controlled, tolerating diet, urinating - Review of Systems General: Reports: Fever, Weakness. Denies: Chills Pulmonary: Reports: no symptoms Cardiovascular: Reports: No Symptoms Gastrointestinal: Reports: No symptoms Genitourinary: Reports: flank pain. Denies: dysuria, frequency, burning, pain, urgency Systems Review Comment:: This patient has improved since yesterday, vital signs of stabilized and he has been afebrile since yesterday afternoon. Continues to have some flank pain although this is improved from yesterday. Remains fairly weak and fatigued. - Patient Data Vitals - most recent: Last Vital Signs Temp 99.0 F 12/16/16 15:31 Pulse 69 12/16/16 15:13 Resp 16 12/16/16 15:13 BP 93/49 L 12/16/16 15:13 Pulse Ox 99 12/16/16 15:13 Weight - most recent: 145 lb 8.011 oz I&O - last 24 hours: Intake & Output 12/16/16 12/16/16 12/16/16 06:59 14:59 22:59 Intake Total 2200 234 294 Output Total 1875 475 Balance 325 -241 294 Lab Results last 24 hrs: Laboratory Results - last 24 hr 12/16/16 12/16/16 Range/Units 05:15 05:15 WBC 10.6 (4.5-11.0) K/uL RBC 3.63 L (4.30-5.90) M/uL Hgb 10.8 L (12.0-15.0) g/dL Hct 33.3 L (40.0-54.0) % MCV 92 (80-98) fL MCH 30 (27-31) pg MCHC 32 (32-36) % Plt Count 156 (150-400) K/uL Neut % (Auto) 72 H (36-66) % Lymph % (Auto) 17 L (24-44) % [place] % (Auto) 6 (2-6) % Eos % (Auto) 6 H (2-4) % Baso % (Auto) 0 (0-1) % Sodium 146 (140-148) mmol/L Potassium 3.4 L (3.6-5.2) mmol/L Chloride 117 H (100-108) mmol/L Carbon Dioxide 20 L (21-32) mmol/L Anion Gap 12.4 (5.0-14.0) mmol/L BUN 6 L (7-18) mg/dL Creatinine 0.6 L (0.8-1.3) mg/dL Est Cr Clr Drug Dosing 128.33 mL/min Estimated GFR (MDRD) > 60 (>60) Glucose 79 (74-106) mg/dL Calcium 7.6 L (8.5-10.1) mg/dL Bill Results last 24 hrs: Microbiology 12/14/16 19:42 Urine Culture - Final Urine, Clean Catch (Mrsa) Staphylococcus Aureus Med Orders - Current: Current Medications Acetaminophen (Tylenol) 650 mg PO Q4H PRN PRN Reason: Pain (Mild 1-3)/fever Last Admin: 12/16/16 15:31 Dose: 650 mg Albuterol (Proventil Neb Soln) 2.5 mg NEB Q4H PRN PRN Reason: Shortness Of Breath/wheezing Alprazolam (Xanax) 0.5 mg PO TID PRN PRN Reason: Anxiety Aripiprazole (Abilify) 15 mg PO DAILY [facility] Last Admin: 12/16/16 09:51 Dose: 15 mg Bacitracin (Bacitracin Oint) 0 gm TOP BID [facility] Last Admin: 12/16/16 09:52 Dose: 1 applic Bacitracin (Bacitracin Oint) 0 gm TOP ASDIRECTED PRN PRN Reason: WOUND CARE Enoxaparin Sodium (Lovenox) 40 mg SUBCUT DAILY [facility] Last Admin: 12/16/16 09:53 Dose: 40 mg Clindamycin Phosphate 600 mg/ (Sodium Chloride) 54 mls @ 100 mls/hr IV Q6H [facility] Last Admin: 12/16/16 15:32 Dose: 100 mls/hr Sodium Chloride (Sodium Chloride 0.45%) 1,000 mls @ 125 mls/hr IV ASDIRECTED [facility] Ibuprofen (Motrin) 600 mg PO Q6H PRN PRN Reason: Pain/Fever Last Admin: 12/16/16 05:39 Dose: 600 mg Levothyroxine Sodium (Synthroid) 50 mcg PO DAILY@0730 [facility] Last Admin: 12/16/16 07:28 Dose: 50 mcg Magnesium Hydroxide (Milk Of Magnesia) 30 ml PO Q12H PRN PRN Reason: Constipation Mirtazapine (Remeron) 60 mg PO BEDTIME [facility] Last Admin: 12/15/16 20:44 Dose: 60 mg Ondansetron HCl (Zofran Odt) 4 mg PO Q6H PRN PRN Reason: Nausea able to take PO Ondansetron HCl (Zofran) 4 mg IV Q6H PRN PRN Reason: Nausea/Vomiting Oxycodone HCl (Oxycodone) 5 mg PO QID PRN PRN Reason: Pain Last Admin: 12/15/16 17:20 Dose: 5 mg Pantoprazole Sodium (Protonix) 40 mg PO DAILY@0730 [facility] Last Admin: 12/16/16 07:29 Dose: 40 mg Polyethylene Glycol (Miralax) 17 gm PO DAILY PRN PRN Reason: Constipation Pregabalin (Lyrica) 150 mg PO BID [facility] Last Admin: 12/16/16 10:18 Dose: 150 mg Senna/Docusate Sodium (Senna Plus) 1 tab PO BID PRN PRN Reason: Constipation Sodium Chloride (Saline Flush) 10 ml FLUSH ONETIME PRN PRN Reason: per radiology protocol Last Admin: 12/14/16 17:46 Dose: 10 ml Topiramate (Topamax) 50 mg PO BID [facility] Last Admin: 12/16/16 09:53 Dose: 50 mg Discontinued Medications Acetaminophen (Tylenol) 650 mg PO NOW ONE Stop: 12/14/16 16:17 Last Admin: 12/14/16 16:30 Dose: 650 mg Hydromorphone HCl (Dilaudid) 0.5 mg IVPUSH ONETIME ONE Stop: 12/14/16 16:57 Last Admin: 12/14/16 17:04 Dose: 0.5 mg Sodium Chloride (Normal Saline) 1,000 mls @ 500 mls/hr IV ASDIRECTED [facility] Last Admin: 12/14/16 16:31 Dose: 500 mls/hr Sodium Chloride (Normal Saline) 70 mls @ 3 mls/sec IV ASDIRECTED [facility] Last Admin: 12/14/16 17:47 Dose: 3 mls/sec Sodium Chloride (Normal Saline) 1,000 mls @ 125 mls/hr IV ASDIRECTED [facility] Last Admin: 12/16/16 07:57 Dose: 125 mls/hr Ceftriaxone Sodium 2 gm/ (Sodium Chloride) 50 mls @ 100 mls/hr IV Q24H [facility] Last Admin: 12/14/16 20:34 Dose: 100 mls/hr Ceftriaxone Sodium 2 gm/ (Sodium Chloride) 50 mls @ 100 mls/hr IV Q24H [facility] Last Admin: 12/15/16 20:44 Dose: 100 mls/hr Sodium Chloride (Normal Saline) 500 mls @ 500 mls/hr IV .BOLUS ONE Stop: 12/15/16 13:37 Last Admin: 12/15/16 12:58 Dose: 500 mls/hr Vancomycin HCl 1.3 gm/ Sodium (Chloride) 250 mls @ 167 mls/hr IV ONETIME ONE Stop: 12/15/16 15:29 Last Admin: 12/15/16 13:36 Dose: 167 mls/hr Vancomycin HCl 1 gm/ Sodium (Chloride) 250 mls @ 167 mls/hr IV Q12H [facility] Last Admin: 12/16/16 01:54 Dose: 167 mls/hr Sodium Chloride (Normal Saline) 500 mls @ 500 mls/hr IV BOLUS ONE Stop: 12/15/16 16:14 Last Admin: 12/15/16 15:22 Dose: 500 mls/hr Sodium Chloride (Normal Saline) 1,000 mls @ 500 mls/hr IV .BOLUS ONE Stop: 12/15/16 18:31 Last Admin: 12/15/16 16:43 Dose: 500 mls/hr Sodium Chloride (Normal Saline) 1,000 mls @ 500 mls/hr IV STAT [facility] Stop: 12/19/16 18:55 Last Admin: 12/15/16 19:10 Dose: 500 mls/hr Iopamidol (Isovue-300 (61%)) 96 ml IV . DIRECTED PRN PRN Reason: RADIOLOGY EXAM Stop: 12/15/16 17:35 Last Admin: 12/14/16 17:46 Dose: 96 ml Potassium Chloride (Klor-Con M20) 40 meq PO ONETIME ONE Stop: 12/16/16 09:01 Last Admin: 12/16/16 09:52 Dose: 40 meq Vancomycin HCl (Vancomycin) 1 gm IV .PHARMACY TO DOSE [facility] Stop: 12/15/16 14:00 - Exam Quality Assessment: DVT prophylaxis General: alert, oriented, cooperative, mild distress Lungs: Clear to auscultation, Normal respiratory effort Cardiovascular: Regular Rate, Regular Rhythm Abdomen: bowel sounds present, soft, no tenderness, no distension Back Exam: CVA Tenderness (L) Extremities: no edema Skin: other (Continued drainage from skin abscess on the scalp) - Problem List Review Problem List Initiated/Reviewed/Updated: Yes - My Orders Last 24 Hours: My Active Orders 12/16/16 10:00 Clindamycin Phosphate [Cleocin] 600 mg Sodium Chloride 0.9% [Normal Saline] 50 ml IV Q6H 12/16/16 16:45 Sodium Chloride 0.45% 1,000 ml IV ASDIRECTED 12/17/16 05:00 BASIC METABOLIC PANEL,BMP [CHEM] Timed CBC WITH AUTO DIFF [HEME] Timed - Plan Plan:: Assessment and plan - Pyelonephritis with sepsis -He has significant flank pain consistent with pyelonephritis although CT scan did not show evidence of inflammation. Wound and urine cultures are growing MRSA, blood cultures are pending. Flank pain has improved over the past 24 hours and sepsis appears to have resolved. -Clindamycin 600 mg IV every 6 hours -IV fluidsfor management of sepsis -Follow-up urine culture Scalp abscess-continues to drain, culture has grown MRSA. -Clindamycin as above 12 mm pulmonary nodule -He will need follow-up for his pulmonary nodule Tobacco dependence - he is working on cessation at this time. Developed a rash while taking varenicline. 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 -Continue home medications Maintenance issues - - DVT prophylaxis - enoxaparin - GI prophylaxis - PPI - Nutrition - regular diet - Boland catheter - not indicated CODE STATUS - full code Admission justification - This patient will be admitted for inpatient services and is medically appropriate meeting medical necessity for inpatient admission as outlined in my documentation. I reasonably expect the patient will require inpatient services that span a period time over 2 midnights. I reasonably expect this patient to be discharged or transferred within 96 hours [facility] Disposition - anticipate discharge to home after the hospital stay Primary care physician - Dr Baca
[2016-12-16] MEDS: Sodium Chloride 0.45% 1,000 ML IV SCH (17:40)
[2016-12-16] MEDS: Mirtazapine 15 MG Tab PO SCH (21:34)
[2016-12-16] MEDS ORDERED: Calcium Carbonate 500 MG Tab.Chew PO PRN (21:47)
[2016-12-16] MEDS ORDERED: Aluminum Hydroxide/Magnesium Hydroxide/Simethicone Susp 30 ML Cup PO PRN (21:48)
[2016-12-17] MEDS: oxyCODONE 5 MG Tab PO PRN ×2 (01:09→15:16)
[2016-12-17] MEDS: Sodium Chloride 0.45% 1,000 ML IV SCH (02:09)
[2016-12-17] MEDS: Bacitracin Oint 28.35 GM Tube TOP PRN ×2 (05:16→15:18)
[2016-12-17] MEDS: Pantoprazole 40 MG Tab.CR PO SCH (07:30)
[2016-12-17] MEDS: Levothyroxine 50 MCG Tab PO SCH (07:30)
[2016-12-17] MEDS: Acetaminophen 325 MG Tab PO PRN (07:40)
[2016-12-17] MEDS ORDERED: Potassium Chloride 20 MEQ Tab.ER PO ONE (08:00)
[2016-12-17] MEDS: Enoxaparin 40 MG/0.4 ML Syringe SUBCUT SCH (09:46)
[2016-12-17] MEDS: Topiramate 25 MG Tab PO SCH ×2 (09:47→22:27)
[2016-12-17] MEDS: ARIPiprazole 10 MG Tab PO SCH (09:47)
[2016-12-17] MEDS: Bacitracin Oint 28.35 GM Tube TOP SCH ×2 (09:49→22:24)
[2016-12-17] MEDS: Pregabalin 75 MG Cap PO SCH ×2 (09:56→22:54)
--- NOTE | 2016-12-17 13:09 | PCM.PN ---
- General Info Date of Service: 12/17/16 Functional Status: Reports: pain controlled, tolerating diet, ambulating - Review of Systems General: Reports: Weakness. Denies: Fever, Chills Pulmonary: Reports: no symptoms Cardiovascular: Reports: No Symptoms Gastrointestinal: Reports: No symptoms Systems Review Comment:: This patient has improved significantly in the last 24 hours. He has remained hemodynamically stable and has been afebrile, white blood cell count has normalized. Abscess and drainage from his scalp is significantly improved with only minimal drainage at the present time. Energy level has improved and his appetite is also significantly better. - Patient Data Vitals - most recent: Last Vital Signs Temp 98.3 F 12/17/16 10:24 Pulse 69 12/17/16 10:24 Resp 16 12/17/16 10:24 BP 122/72 12/17/16 10:24 Pulse Ox 97 12/17/16 10:24 Weight - most recent: 145 lb 8.011 oz I&O - last 24 hours: Intake & Output 12/16/16 12/17/16 12/17/16 22:59 06:59 14:59 Intake Total 1576 1855 700 Output Total 450 2125 2300 Balance 1126 -270 -1600 Lab Results last 24 hrs: Laboratory Results - last 24 hr 12/17/16 12/17/16 Range/Units 06:27 06:27 WBC 10.0 (4.5-11.0) K/uL RBC 3.83 L (4.30-5.90) M/uL Hgb 11.3 L (12.0-15.0) g/dL Hct 34.7 L (40.0-54.0) % MCV 91 (80-98) fL MCH 30 (27-31) pg MCHC 33 (32-36) % Plt Count 216 (150-400) K/uL Neut % (Auto) 67 H (36-66) % Lymph % (Auto) 21 L (24-44) % [place] % (Auto) 6 (2-6) % Eos % (Auto) 7 H (2-4) % Baso % (Auto) 0 (0-1) % Sodium 141 (140-148) mmol/L Potassium 3.4 L (3.6-5.2) mmol/L Chloride 110 H (100-108) mmol/L Carbon Dioxide 22 (21-32) mmol/L Anion Gap 12.4 (5.0-14.0) mmol/L BUN 4 L (7-18) mg/dL Creatinine 0.6 L (0.8-1.3) mg/dL Est Cr Clr Drug Dosing 128.33 mL/min Estimated GFR (MDRD) > 60 (>60) Glucose 73 L (74-106) mg/dL Calcium 7.8 L (8.5-10.1) mg/dL Med Orders - Current: Current Medications Acetaminophen (Tylenol) 650 mg PO Q4H PRN PRN Reason: Pain (Mild 1-3)/fever Last Admin: 12/17/16 07:40 Dose: 650 mg Al Hydroxide/Mg Hydroxide (Mag-Al Plus) 30 ml PO Q4H PRN PRN Reason: Heartburn Albuterol (Proventil Neb Soln) 2.5 mg NEB Q4H PRN PRN Reason: Shortness Of Breath/wheezing Alprazolam (Xanax) 0.5 mg PO TID PRN PRN Reason: Anxiety Aripiprazole (Abilify) 15 mg PO DAILY [facility] Last Admin: 12/17/16 09:47 Dose: 15 mg Bacitracin (Bacitracin Oint) 0 gm TOP BID [facility] Last Admin: 12/17/16 09:49 Dose: 1 applic Bacitracin (Bacitracin Oint) 0 gm TOP ASDIRECTED PRN PRN Reason: WOUND CARE Last Admin: 12/17/16 05:16 Dose: 1 applic Calcium Carbonate/Glycine (Tums) 1,000 mg PO Q2H PRN PRN Reason: Indigestion Last Admin: 12/16/16 21:58 Dose: 1,000 mg Enoxaparin Sodium (Lovenox) 40 mg SUBCUT DAILY [facility] Last Admin: 12/17/16 09:46 Dose: 40 mg Clindamycin Phosphate 600 mg/ (Sodium Chloride) 54 mls @ 100 mls/hr IV Q6H [facility] Last Admin: 12/17/16 09:48 Dose: 100 mls/hr Ibuprofen (Motrin) 600 mg PO Q6H PRN PRN Reason: Pain/Fever Last Admin: 12/16/16 05:39 Dose: 600 mg Lactobacillus Rhamnosus (Culturelle) 2 cap PO BID [facility] Levothyroxine Sodium (Synthroid) 50 mcg PO DAILY@0730 [facility] Last Admin: 12/17/16 07:30 Dose: 50 mcg Magnesium Hydroxide (Milk Of Magnesia) 30 ml PO Q12H PRN PRN Reason: Constipation Mirtazapine (Remeron) 60 mg PO BEDTIME [facility] Last Admin: 12/16/16 21:34 Dose: 60 mg Ondansetron HCl (Zofran Odt) 4 mg PO Q6H PRN PRN Reason: Nausea able to take PO Last Admin: 12/17/16 05:12 Dose: 4 mg Ondansetron HCl (Zofran) 4 mg IV Q6H PRN PRN Reason: Nausea/Vomiting Oxycodone HCl (Oxycodone) 5 mg PO QID PRN PRN Reason: Pain Last Admin: 12/17/16 01:09 Dose: 5 mg Pantoprazole Sodium (Protonix) 40 mg PO DAILY@0730 [facility] Last Admin: 12/17/16 07:30 Dose: 40 mg Polyethylene Glycol (Miralax) 17 gm PO DAILY PRN PRN Reason: Constipation Pregabalin (Lyrica) 150 mg PO BID [facility] Last Admin: 12/17/16 09:56 Dose: 150 mg Senna/Docusate Sodium (Senna Plus) 1 tab PO BID PRN PRN Reason: Constipation Sodium Chloride (Saline Flush) 10 ml FLUSH ONETIME PRN PRN Reason: per radiology protocol Last Admin: 12/14/16 17:46 Dose: 10 ml Topiramate (Topamax) 50 mg PO BID [facility] Last Admin: 12/17/16 09:47 Dose: 50 mg Discontinued Medications Acetaminophen (Tylenol) 650 mg PO NOW ONE Stop: 12/14/16 16:17 Last Admin: 12/14/16 16:30 Dose: 650 mg Hydromorphone HCl (Dilaudid) 0.5 mg IVPUSH ONETIME ONE Stop: 12/14/16 16:57 Last Admin: 12/14/16 17:04 Dose: 0.5 mg Sodium Chloride (Normal Saline) 1,000 mls @ 500 mls/hr IV ASDIRECTED [facility] Last Admin: 12/14/16 16:31 Dose: 500 mls/hr Sodium Chloride (Normal Saline) 70 mls @ 3 mls/sec IV ASDIRECTED [facility] Last Admin: 12/14/16 17:47 Dose: 3 mls/sec Sodium Chloride (Normal Saline) 1,000 mls @ 125 mls/hr IV ASDIRECTED [facility] Last Admin: 12/16/16 07:57 Dose: 125 mls/hr Ceftriaxone Sodium 2 gm/ (Sodium Chloride) 50 mls @ 100 mls/hr IV Q24H [facility] Last Admin: 12/14/16 20:34 Dose: 100 mls/hr Ceftriaxone Sodium 2 gm/ (Sodium Chloride) 50 mls @ 100 mls/hr IV Q24H [facility] Last Admin: 12/15/16 20:44 Dose: 100 mls/hr Sodium Chloride (Normal Saline) 500 mls @ 500 mls/hr IV .BOLUS ONE Stop: 12/15/16 13:37 Last Admin: 12/15/16 12:58 Dose: 500 mls/hr Vancomycin HCl 1.3 gm/ Sodium (Chloride) 250 mls @ 167 mls/hr IV ONETIME ONE Stop: 12/15/16 15:29 Last Admin: 12/15/16 13:36 Dose: 167 mls/hr Vancomycin HCl 1 gm/ Sodium (Chloride) 250 mls @ 167 mls/hr IV Q12H [facility] Last Admin: 12/16/16 01:54 Dose: 167 mls/hr Sodium Chloride (Normal Saline) 500 mls @ 500 mls/hr IV BOLUS ONE Stop: 12/15/16 16:14 Last Admin: 12/15/16 15:22 Dose: 500 mls/hr Sodium Chloride (Normal Saline) 1,000 mls @ 500 mls/hr IV .BOLUS ONE Stop: 12/15/16 18:31 Last Admin: 12/15/16 16:43 Dose: 500 mls/hr Sodium Chloride (Normal Saline) 1,000 mls @ 500 mls/hr IV STAT [facility] Stop: 12/19/16 18:55 Last Admin: 12/15/16 19:10 Dose: 500 mls/hr Sodium Chloride (Sodium Chloride 0.45%) 1,000 mls @ 125 mls/hr IV ASDIRECTED [facility] Last Admin: 12/17/16 02:09 Dose: 125 mls/hr Iopamidol (Isovue-300 (61%)) 96 ml IV . DIRECTED PRN PRN Reason: RADIOLOGY EXAM Stop: 12/15/16 17:35 Last Admin: 12/14/16 17:46 Dose: 96 ml Potassium Chloride (Klor-Con M20) 40 meq PO ONETIME ONE Stop: 12/16/16 09:01 Last Admin: 12/16/16 09:52 Dose: 40 meq Potassium Chloride (Klor-Con M20) 40 meq PO ONETIME ONE Stop: 12/17/16 08:01 Last Admin: 12/17/16 09:47 Dose: 40 meq Vancomycin HCl (Vancomycin) 1 gm IV .PHARMACY TO DOSE [facility] Stop: 12/15/16 14:00 - Exam Quality Assessment: DVT prophylaxis General: alert, oriented, cooperative, no acute distress Lungs: Clear to auscultation, Normal respiratory effort Cardiovascular: Regular Rate, Regular Rhythm, No Murmurs Abdomen: bowel sounds present, soft, no tenderness, no distension Back Exam: No: CVA Tenderness (L) Extremities: no edema Skin: warm, dry, intact - Problem List Review Problem List Initiated/Reviewed/Updated: Yes - My Orders Last 24 Hours: My Active Orders 12/16/16 21:47 Calcium Carbonate [Tums] 1,000 mg PO Q2H PRN 12/16/16 21:48 Alum Hydrox/Mag Hydrox/Simeth [Mag-Al Plus] 30 ml PO Q4H PRN 12/17/16 13:03 Convert IV to Saline Lock [OM.PC] Routine 12/17/16 13:15 Lactobacillus Rhamnosus GG [Culturelle] 2 cap PO BID 12/18/16 05:00 BASIC METABOLIC PANEL,BMP [CHEM] Timed - Plan Plan:: Assessment and plan - Pyelonephritis with sepsis -He has significant flank pain consistent with pyelonephritis although CT scan did not show evidence of inflammation. Wound and urine cultures are growing MRSA, blood cultures are pending. Flank pain is essentially resolved and he's been hemodynamically stable and afebrile over the past 24 hours -Clindamycin 600 mg IV every 6 hours -Saline lock IV -Follow-up urine culture Scalp abscess-significantly improved since admission with only minimal drainage -Clindamycin as above 12 mm pulmonary nodule -He will need follow-up for his pulmonary nodule Tobacco dependence - he is working on cessation at this time. Developed a rash while taking varenicline. 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 -Continue home medications Maintenance issues - - DVT prophylaxis - enoxaparin - GI prophylaxis - PPI - Nutrition - regular diet - Boland catheter - not indicated CODE STATUS - full code Admission justification - This patient will be admitted for inpatient services and is medically appropriate meeting medical necessity for inpatient admission as outlined in my documentation. I reasonably expect the patient will require inpatient services that span a period time over 2 midnights. I reasonably expect this patient to be discharged or transferred within 96 hours [facility]. Disposition - anticipate discharge to home after the hospital stay Primary care physician - Dr Baca
[2016-12-17] MEDS: Lactobacillus Rhamnosus GG (Probiotic) Cap PO SCH ×2 (15:16→22:25)
[2016-12-17] MEDS: Mirtazapine 15 MG Tab PO SCH (22:27)
[2016-12-18] MEDS: Pantoprazole 40 MG Tab.CR PO SCH (08:46)
[2016-12-18] MEDS: Levothyroxine 50 MCG Tab PO SCH (08:46)
[2016-12-18] MEDS: ARIPiprazole 10 MG Tab PO SCH (08:48)
[2016-12-18] MEDS: Enoxaparin 40 MG/0.4 ML Syringe SUBCUT SCH (08:48)
[2016-12-18] MEDS: Topiramate 25 MG Tab PO SCH (08:48)
[2016-12-18] MEDS: Lactobacillus Rhamnosus GG (Probiotic) Cap PO SCH (08:49)
[2016-12-18] MEDS: Bacitracin Oint 28.35 GM Tube TOP SCH (08:49)
[2016-12-18] MEDS: Pregabalin 75 MG Cap PO SCH (08:59)
[2016-12-18 11:18] VITALS: BP 111/68
--- NOTE | 2016-12-18 11:54 | PCM.DCSUM1 ---
Discharge Summary - Hospital Course Brief History: Mr. López is a 56-year-old gentleman who was admitted through the emergency department with weakness and fever,secondary to complicated urinary tract infection with pyelonephritis. - Discharge Data Discharge Date: 12/18/16 Discharge Disposition: Home, Self-Care 01 Condition: Fair - Discharge Diagnosis/Problem(s) (1) MRSA (methicillin resistant Staphylococcus aureus) septicemia SNOMED Code(s): 110681062, 522586723723 ICD Code: A41.02 - SEPSIS DUE TO METHICILLIN RESISTANT STAPHYLOCOCCUS AUREUS Status: Acute Current Visit: Yes (2) Pyelonephritis SNOMED Code(s): 54400086 ICD Code: N12 - TUBULO-INTERSTITIAL NEPHRITIS, NOT SPCF ACUTE OR CHRONIC Status: Acute Current Visit: Yes (3) Infected scalp abrasion SNOMED Code(s): 733327058 ICD Code: S00.01XA - ABRASION OF SCALP, INITIAL ENCOUNTER; L08.9 - LOCAL INFECTION OF THE SKIN AND SUBCUTANEOUS TISSUE, UNSP Status: Acute Current Visit: Yes (4) Complicated UTI (urinary tract infection) SNOMED Code(s): 74451524 ICD Code: N39.0 - URINARY TRACT INFECTION, SITE NOT SPECIFIED Status: Acute Current Visit: Yes - Patient Summary/Data Hospital Course: This patient presented to the emergency room with fever and severe left flank pain. It been into the emergency department earlier in the day and had a abscess on his scalp lanced. He had ongoing difficulty with severe left flank pain and on evaluation during his second emergency department visit was found to have evidence of urinary tract infection with presumed pyelonephritis. CT scan was obtained and showed no intra-abdominal source of infection and also showed no obvious inflammation with the kidneys. Blood cultures and urine cultures were obtained as well as culture from his scalp lesion. He was admitted to the hospital and placed on IV antibiotic therapy with Rocephin. Was also given IV fluids for hydration. On the second hospital day developed evidence of sepsis with hypotension and tachycardia, vancomycin was added to his antibiotic regimen. His sepsis was managed with vigorous IV fluid replacement and he stabilized with these interventions. Cultures from the scalp as well as urine grew out methicillin-resistant staph aureus and blood cultures also grew out methicillin-resistant staph aureus. Antibiotic coverage was changed to clindamycin 600 mg IV every 6 hours. By the day of discharge was feeling well ambulating and tolerating a regular diet. He had been afebrile and hemodynamically stable for a period of 48 hours. He will be discharged home with oral antibiotic therapy with clindamycin 300 mg every 6 hours for 14 days because of his MRSA bacteremia. Activity will be as tolerated and he will continue his usual diet. Follow-up appointment will be scheduled with his primary care provider Dr. Baca within 1 week. - Patient Instructions Diet: Usual Diet as Tolerated Activity: As Tolerated Other/Special Instructions: Please schedule follow-up appointment with Dr. Baca within 1 week. - Discharge Plan Prescriptions/Med Rec: Clindamycin HCl 300 mg PO Q6H #56 capsule Lactobacillus Rhamnosus GG [Culturelle] 2 cap PO BID #120 cap oxyCODONE 5 mg PO QID PRN #12 tablet PRN Reason: Pain Home Medications: Home Meds ALPRAZolam [Alprazolam Odt] 0.5 mg PO TID PRN 12/14/16 [History] ARIPiprazole [Abilify] 15 mg PO DAILY 12/14/16 [History] Mirtazapine 60 mg PO BEDTIME 12/14/16 [History] Pantoprazole Sodium 40 mg PO DAILY 12/14/16 [History] Pregabalin [Lyrica] 150 mg PO BID 12/14/16 [History] Topiramate 50 mg PO BID 12/14/16 [History] Clindamycin HCl 300 mg PO Q6H #56 capsule 12/18/16 [Rx] Lactobacillus Rhamnosus GG [Culturelle] 2 cap PO BID #120 cap 12/18/16 [Rx] oxyCODONE 5 mg PO QID PRN #12 tablet 12/18/16 [Rx] Referrals: Carlin Baca MD [Primary Care Provider] - - Patient Data Vitals - Most Recent: Last Vital Signs Temp 97.7 F 12/18/16 11:00 Pulse 75 12/18/16 11:00 Resp 16 12/18/16 11:00 BP 111/68 12/18/16 11:00 Pulse Ox 98 12/18/16 11:00 Weight - Most Recent: 145 lb 8.011 oz I&O - Last 24 hours: Intake & Output 12/17/16 12/18/16 12/18/16 22:59 06:59 14:59 Intake Total 170 105 200 Output Total 0 810 Balance 170 -705 200 Lab Results - Last 24 hrs: Laboratory Results - last 24 hr 12/18/16 Range/Units 05:00 Sodium 143 (140-148) mmol/L Potassium 3.8 (3.6-5.2) mmol/L Chloride 110 H (100-108) mmol/L Carbon Dioxide 20 L (21-32) mmol/L Anion Gap 16.8 H (5.0-14.0) mmol/L BUN 6 L (7-18) mg/dL Creatinine 0.6 L (0.8-1.3) mg/dL Est Cr Clr Drug Dosing 128.33 mL/min Estimated GFR (MDRD) > 60 (>60) Glucose 84 (74-106) mg/dL Calcium 8.0 L (8.5-10.1) mg/dL Med Orders - Current: Current Medications Acetaminophen (Tylenol) 650 mg PO Q4H PRN PRN Reason: Pain (Mild 1-3)/fever Last Admin: 12/17/16 07:40 Dose: 650 mg Al Hydroxide/Mg Hydroxide (Mag-Al Plus) 30 ml PO Q4H PRN PRN Reason: Heartburn Albuterol (Proventil Neb Soln) 2.5 mg NEB Q4H PRN PRN Reason: Shortness Of Breath/wheezing Alprazolam (Xanax) 0.5 mg PO TID PRN PRN Reason: Anxiety Aripiprazole (Abilify) 15 mg PO DAILY [facility] Last Admin: 12/18/16 08:48 Dose: 15 mg Bacitracin (Bacitracin Oint) 0 gm TOP BID [facility] Last Admin: 12/18/16 08:49 Dose: 1 applic Bacitracin (Bacitracin Oint) 0 gm TOP ASDIRECTED PRN PRN Reason: WOUND CARE Last Admin: 12/17/16 15:18 Dose: 1 applic Calcium Carbonate/Glycine (Tums) 1,000 mg PO Q2H PRN PRN Reason: Indigestion Last Admin: 12/16/16 21:58 Dose: 1,000 mg Enoxaparin Sodium (Lovenox) 40 mg SUBCUT DAILY [facility] Last Admin: 12/18/16 08:48 Dose: 40 mg Clindamycin Phosphate 600 mg/ (Sodium Chloride) 54 mls @ 100 mls/hr IV Q6H [facility] Last Admin: 12/18/16 04:15 Dose: 100 mls/hr Ibuprofen (Motrin) 600 mg PO Q6H PRN PRN Reason: Pain/Fever Last Admin: 12/16/16 05:39 Dose: 600 mg Lactobacillus Rhamnosus (Culturelle) 2 cap PO BID [facility] Last Admin: 12/18/16 08:49 Dose: 2 cap Levothyroxine Sodium (Synthroid) 50 mcg PO DAILY@0730 [facility] Last Admin: 12/18/16 08:46 Dose: 50 mcg Magnesium Hydroxide (Milk Of Magnesia) 30 ml PO Q12H PRN PRN Reason: Constipation Mirtazapine (Remeron) 60 mg PO BEDTIME [facility] Last Admin: 12/17/16 22:27 Dose: 60 mg Ondansetron HCl (Zofran Odt) 4 mg PO Q6H PRN PRN Reason: Nausea able to take PO Last Admin: 12/17/16 05:12 Dose: 4 mg Ondansetron HCl (Zofran) 4 mg IV Q6H PRN PRN Reason: Nausea/Vomiting Oxycodone HCl (Oxycodone) 5 mg PO QID PRN PRN Reason: Pain Last Admin: 12/17/16 15:16 Dose: 5 mg Pantoprazole Sodium (Protonix) 40 mg PO DAILY@0730 [facility] Last Admin: 12/18/16 08:46 Dose: 40 mg Polyethylene Glycol (Miralax) 17 gm PO DAILY PRN PRN Reason: Constipation Pregabalin (Lyrica) 150 mg PO BID [facility] Last Admin: 12/18/16 08:59 Dose: 150 mg Senna/Docusate Sodium (Senna Plus) 1 tab PO BID PRN PRN Reason: Constipation Sodium Chloride (Saline Flush) 10 ml FLUSH ONETIME PRN PRN Reason: per radiology protocol Last Admin: 12/14/16 17:46 Dose: 10 ml Topiramate (Topamax) 50 mg PO BID [facility] Last Admin: 12/18/16 08:48 Dose: 50 mg Discontinued Medications Acetaminophen (Tylenol) 650 mg PO NOW ONE Stop: 12/14/16 16:17 Last Admin: 12/14/16 16:30 Dose: 650 mg Hydromorphone HCl (Dilaudid) 0.5 mg IVPUSH ONETIME ONE Stop: 12/14/16 16:57 Last Admin: 12/14/16 17:04 Dose: 0.5 mg Sodium Chloride (Normal Saline) 1,000 mls @ 500 mls/hr IV ASDIRECTED [facility] Last Admin: 12/14/16 16:31 Dose: 500 mls/hr Sodium Chloride (Normal Saline) 70 mls @ 3 mls/sec IV ASDIRECTED [facility] Last Admin: 12/14/16 17:47 Dose: 3 mls/sec Sodium Chloride (Normal Saline) 1,000 mls @ 125 mls/hr IV ASDIRECTED [facility] Last Admin: 12/16/16 07:57 Dose: 125 mls/hr Ceftriaxone Sodium 2 gm/ (Sodium Chloride) 50 mls @ 100 mls/hr IV Q24H [facility] Last Admin: 12/14/16 20:34 Dose: 100 mls/hr Ceftriaxone Sodium 2 gm/ (Sodium Chloride) 50 mls @ 100 mls/hr IV Q24H [facility] Last Admin: 12/15/16 20:44 Dose: 100 mls/hr Sodium Chloride (Normal Saline) 500 mls @ 500 mls/hr IV .BOLUS ONE Stop: 12/15/16 13:37 Last Admin: 12/15/16 12:58 Dose: 500 mls/hr Vancomycin HCl 1.3 gm/ Sodium (Chloride) 250 mls @ 167 mls/hr IV ONETIME ONE Stop: 12/15/16 15:29 Last Admin: 12/15/16 13:36 Dose: 167 mls/hr Vancomycin HCl 1 gm/ Sodium (Chloride) 250 mls @ 167 mls/hr IV Q12H [facility] Last Admin: 12/16/16 01:54 Dose: 167 mls/hr Sodium Chloride (Normal Saline) 500 mls @ 500 mls/hr IV BOLUS ONE Stop: 12/15/16 16:14 Last Admin: 12/15/16 15:22 Dose: 500 mls/hr Sodium Chloride (Normal Saline) 1,000 mls @ 500 mls/hr IV .BOLUS ONE Stop: 12/15/16 18:31 Last Admin: 12/15/16 16:43 Dose: 500 mls/hr Sodium Chloride (Normal Saline) 1,000 mls @ 500 mls/hr IV STAT [facility] Stop: 12/19/16 18:55 Last Admin: 12/15/16 19:10 Dose: 500 mls/hr Sodium Chloride (Sodium Chloride 0.45%) 1,000 mls @ 125 mls/hr IV ASDIRECTED [facility] Last Admin: 12/17/16 02:09 Dose: 125 mls/hr Iopamidol (Isovue-300 (61%)) 96 ml IV . DIRECTED PRN PRN Reason: RADIOLOGY EXAM Stop: 12/15/16 17:35 Last Admin: 12/14/16 17:46 Dose: 96 ml Potassium Chloride (Klor-Con M20) 40 meq PO ONETIME ONE Stop: 12/16/16 09:01 Last Admin: 12/16/16 09:52 Dose: 40 meq Potassium Chloride (Klor-Con M20) 40 meq PO ONETIME ONE Stop: 12/17/16 08:01 Last Admin: 12/17/16 09:47 Dose: 40 meq Vancomycin HCl (Vancomycin) 1 gm IV .PHARMACY TO DOSE [facility] Stop: 12/15/16 14:00 *Q Meaningful Use (DIS) - VTE *Q VTE Criteria *Q: - Stroke *Q Stroke Criteria *Q: - AMI *Q AMI Criteria *Q:
== END 2016-12-18 13:20 | disposition home or self-care (01) | DRG 689 ==
LOC: JP.ED 15:26 → JP.MS 19:06
PROVIDERS: ADMIT Internal Medicine; ATTEND Hospitalist
DX: N12 Tubulo-interstitial nephritis, not specified as acute or chronic (principal); A41.02 Sepsis due to Methicillin resistant Staphylococcus aureus; E03.9 Hypothyroidism, unspecified; R65.20 Severe sepsis without septic shock; N39.0 Urinary tract infection, site not specified; R07.89 Other chest pain; S00.01XA Abrasion of scalp, initial encounter; R53.1 Weakness; R50.9 Fever, unspecified; R10.9 Unspecified abdominal pain; L08.9 Local infection of the skin and subcutaneous tissue, unspecified; B95.62 Methicillin resistant Staphylococcus aureus infection as the cause of diseases classified elsewhere; R91.1 Solitary pulmonary nodule; G89.29 Other chronic pain; F17.210 Nicotine dependence, cigarettes, uncomplicated; F41.9 Anxiety disorder, unspecified; F32.9 Major depressive disorder, single episode, unspecified; I25.10 Atherosclerotic heart disease of native coronary artery without angina pectoris; H54.7 Unspecified visual loss; Z95.5 Presence of coronary angioplasty implant and graft; Z86.73 Personal history of transient ischemic attack (TIA), and cerebral infarction without residual deficits; Z98.84 Bariatric surgery status; Z88.8 Allergy status to other drugs, medicaments and biological substances; Z87.898 Personal history of other specified conditions
CPT/HCPCS: 36415; 71010 ×2; 74177; 80053; 81001; 83605; 85025; 87040 ×2; 87070; 87077 ×2; 87088; 87186 ×2; 87205; 96361; 96374; 99284; 99285; A9270; J1170; J7030; J7040; J7050; Q9967; 80048; 85027; 87086; J0696; J1650; J3370; J3490; S0077

== ENCOUNTER 2017-01-13 17:37 | Emergency (ER) | payer MEDICARE, MEDICAID ==
[2017-01-13] MEDS ORDERED: Sodium Chloride 0.9% 10 ML Syringe FLUSH PRN (19:08)
[2017-01-13] MEDS: Sodium Chloride 0.9% 2,000 ML IV SCH ×2 (19:29→20:59)
--- NOTE | 2017-01-13 22:11 | EDM.PDOC ---
ED HPI GENERAL MEDICAL PROBLEM - General Chief Complaint: General Stated Complaint: NAUSEA / TIRED Time Seen by Provider: 01/13/17 18:59 Source of Information: Reports: Patient History Limitations: Reports: No Limitations - History of Present Illness INITIAL COMMENTS - FREE TEXT/NARRATIVE: This patient comes in saying he just feels lethargic. He feels malnourished and dehydrated. He doesn't have much appetite. It's been going on for 3 days. He doesn't eat much that he frequently drinks pop and coffee. He sees Dr. Polk. He denies any fever. Occasionally he is nauseated but there's no vomiting. No diarrhea. He lives alone he cooks for himself but says she's just not been hungry lately. He does not have any problems purchasing food. - Related Data Allergies Allergy/AdvReac Type Severity Reaction Status Date / Time fluconazole [From Diflucan] Allergy Swelling Verified 01/13/17 18:08 Home Meds: Home Meds ALPRAZolam [Alprazolam Odt] 0.5 mg PO TID PRN 12/14/16 [History] ARIPiprazole [Abilify] 15 mg PO DAILY 12/14/16 [History] Mirtazapine 60 mg PO BEDTIME 12/14/16 [History] Pantoprazole Sodium 40 mg PO DAILY 12/14/16 [History] Pregabalin [Lyrica] 150 mg PO BID 12/14/16 [History] Topiramate 50 mg PO BID 12/14/16 [History] Clindamycin HCl 300 mg PO Q6H #56 capsule 12/18/16 [Rx] Lactobacillus Rhamnosus GG [Culturelle] 2 cap PO BID #120 cap 12/18/16 [Rx] oxyCODONE 5 mg PO QID PRN #12 tablet 12/18/16 [Rx] Past Medical History HEENT History: Reports: Impaired Vision Cardiovascular History: Reports: Aneurysm, CAD, High Cholesterol, Stents Gastrointestinal History: Reports: GERD Genitourinary History: Reports: Pyelonephritis Neurological History: Reports: CVA Psychiatric History: Reports: Anxiety, Depression Endocrine/Metabolic History: Reports: Hypothyroidism - Infectious Disease History Infectious Disease History: Reports: MRSA - Past Surgical History Cardiovascular Surgical History: Reports: Aneurysm, Carotid Stents Other Respiratory Surgeries/Procedures: C/O HX OF R LUNG NODULE GI Surgical History: Reports: Bariatric Procedure, Cholecystectomy, Colonoscopy , EGD, Hernia Repair/Other Social & Family History - Family History Respiratory: Reports: COPD - Tobacco Use Smoking Status *Q: Current Every Day Smoker Years of Tobacco use: 40 Packs/Tins Daily: 0.5 - Caffeine Use Caffeine Use: Reports: Coffee, Soda, Tea - Recreational Drug Use Recreational Drug Use: No ED ROS GENERAL - Review of Systems Review Of Systems: See Below Constitutional: Reports: Fatigue, Decreased Appetite HEENT: Reports: No Symptoms Respiratory: Reports: No Symptoms Cardiovascular: Reports: No Symptoms Endocrine: Reports: No Symptoms GI/Abdominal: Reports: Nausea : Reports: No Symptoms Musculoskeletal: Reports: No Symptoms Skin: Reports: No Symptoms Neurological: Reports: No Symptoms Psychiatric: Reports: No Symptoms Hematologic/Lymphatic: Reports: No Symptoms ED EXAM, GENERAL - Physical Exam Exam: See Below Exam Limited By: No Limitations General Appearance: Alert, Thin (Emaciated appearing white male looks like he might be dehydrated.) Eye Exam: Bilateral Eye: Normal Inspection Ears: Normal External Exam Throat/Mouth: Normal Oropharynx Head: Atraumatic (Membranes moist) Neck: Normal Inspection Respiratory/Chest: Lungs Clear Cardiovascular: Regular Rate, Rhythm, No Murmur GI/Abdominal: Normal Bowel Sounds, Soft, Non-Tender Extremities: Normal Inspection Neurological: Alert, Oriented, CN II-XII Intact, Normal Cognition, No Motor/ Sensory Deficits Psychiatric: Normal Affect Skin Exam: Warm, Dry Course - Vital Signs Last Recorded V/S: Last Vital Signs Temp 36.7 C 01/13/17 18:12 Pulse 63 01/13/17 21:01 Resp 14 01/13/17 21:01 BP 97/49 L 01/13/17 21:01 Pulse Ox 96 01/13/17 21:01 - Orders/Labs/Meds Orders: Active Orders 24 hr Category Date Time Status Chest 2V [CR] Urgent Exams 01/13/17 19:07 Taken Sodium Chloride 0.9% [Normal Saline] 2,000 ml Med 01/13/17 19:15 Active IV ASDIRECTED Sodium Chloride 0.9% [Saline Flush] Med 01/13/17 19:08 Active 10 ml FLUSH ASDIRECTED PRN Saline Lock Insert [OM.PC] Urgent Oth 01/13/17 19:08 Ordered Medication Orders Sodium Chloride (Normal Saline) 2,000 mls @ 999 mls/hr IV ASDIRECTED [facility] Last Admin: 01/13/17 20:59 Dose: 999 mls/hr Infusion: 01/13/17 20:59 Dose: 999 mls/hr Admin: 01/13/17 19:29 Dose: 999 mls/hr Sodium Chloride (Saline Flush) 10 ml FLUSH ASDIRECTED PRN PRN Reason: Keep Vein Open Last Admin: 01/13/17 19:28 Dose: 10 ml Labs: Laboratory Tests 01/13/17 01/13/17 01/13/17 Range/Units 18:43 19:17 19:17 WBC 10.3 (4.5-11.0) K/uL RBC 4.71 (4.30-5.90) M/uL Hgb 13.8 D (12.0-15.0) g/dL Hct 42.7 (40.0-54.0) % MCV 91 (80-98) fL MCH 29 (27-31) pg MCHC 32 (32-36) % Plt Count 194 (150-400) K/uL Neut % (Auto) 44 (36-66) % Lymph % (Auto) 41 (24-44) % [place] % (Auto) 6 (2-6) % Eos % (Auto) 8 H (2-4) % Baso % (Auto) 1 (0-1) % Sodium 143 (140-148) mmol/L Potassium 3.7 (3.6-5.2) mmol/L Chloride 110 H (100-108) mmol/L Carbon Dioxide 25 (21-32) mmol/L Anion Gap 11.7 (5.0-14.0) mmol/L BUN 15 D (7-18) mg/dL Creatinine 0.9 (0.8-1.3) mg/dL Est Cr Clr Drug Dosing 82.32 mL/min Estimated GFR (MDRD) > 60 (>60) Glucose 87 (74-106) mg/dL Calcium 8.6 (8.5-10.1) mg/dL Total Bilirubin 0.3 (0.2-1.0) mg/dL AST 5 L (15-37) U/L ALT 15 (12-78) U/L Alkaline Phosphatase 92 (46-116) U/L Total Protein 7.9 (6.4-8.2) g/dL Albumin 3.2 L (3.4-5.0) g/dL Globulin 4.7 H (2.3-3.5) g/dL Albumin/Globulin Ratio 0.7 L (1.2-2.2) Urine Color Yellow Urine Appearance Cloudy Urine pH 6.0 (4.5-8.0) Ur Specific [place] 1.020 (1.008-1.030) Urine Protein Negative (NEGATIVE) mg/dL Urine Glucose (UA) Normal (NEGATIVE) mg/dL Urine Ketones Negative (NEGATIVE) mg/dL Urine Occult Blood Negative (NEGATIVE) Urine Nitrite Negative (NEGAITVE) Urine Bilirubin Small (NEGATIVE) Urine Urobilinogen 4 (NORMAL) mg/dL Ur Leukocyte Esterase Negative (NEGATIVE) Urine RBC 0-5 (0-5) Urine WBC 5-10 H (0-5) Ur Epithelial Cells Few Amorphous Sediment Numerous Urine Bacteria Few Urine Mucus Few Meds: Medications Generic Name Dose Route Start Last Admin Trade Name Freq PRN Reason Stop Dose Admin Sodium Chloride 2,000 mls @ 999 mls/hr 01/13/17 19:15 01/13/17 20:59 Normal Saline IV 999 mls/hr ASDIRECTED ROMAN Administration Sodium Chloride 10 ml 01/13/17 19:08 01/13/17 19:28 Saline Flush FLUSH 10 ml ASDIRECTED PRN Administration Keep Vein Open - Radiology Interpretation Free Text/Narrative:: Chest x-ray shows some chronic granulomatous disease. No evidence of an acute infiltrate - Re-Assessments/Exams Free Text/Narrative Re-Assessment/Exam: 01/13/17 22:12 Patient received 2 L IV normal saline. His blood pressure has come up. He feels quite a bit better. Departure - Departure Time of Disposition: 22:12 Disposition: Home, Self-Care 01 Condition: Fair Clinical Impression: Dehydration, Malnutrition - Discharge Information Forms: ED Department Discharge Additional Instructions: Be sure to drink plenty of liquids. Take and is much calories as you can even if it's just to eat ice cream or something like that. If you are nauseated then try the ondansetron one or 2 tablets under your tongue every 6-8 hours. Follow- up with Dr. Baca in the next couple of days - My Orders Last 24 Hours: My Active Orders 01/13/17 19:07 Chest 2V [CR] Urgent 01/13/17 19:08 Sodium Chloride 0.9% [Saline Flush] 10 ml FLUSH ASDIRECTED PRN Saline Lock Insert [OM.PC] Urgent 01/13/17 19:15 Sodium Chloride 0.9% [Normal Saline] 2,000 ml IV ASDIRECTED - Assessment/Plan Last 24 Hours: My Active Orders 01/13/17 19:07 Chest 2V [CR] Urgent 01/13/17 19:08 Sodium Chloride 0.9% [Saline Flush] 10 ml FLUSH ASDIRECTED PRN Saline Lock Insert [OM.PC] Urgent 01/13/17 19:15 Sodium Chloride 0.9% [Normal Saline] 2,000 ml IV ASDIRECTED
[2017-01-13 22:13] VITALS: BP 126/73
--- NOTE | 2017-01-14 08:56 | CR ---
Chest 2V INDICATION: pain FINDINGS: Comparison 12/14/2016. Stable extensive benign calcified granulomas in both lungs. Small es ophageal hiatal hernia. Chest otherwise unremarkable.
== END 2017-01-13 22:29 | disposition home or self-care (01) ==
LOC: JP.ED 17:37
DX: E86.0 Dehydration (principal); E46 Unspecified protein-calorie malnutrition; I25.10 Atherosclerotic heart disease of native coronary artery without angina pectoris; E78.00 Pure hypercholesterolemia, unspecified; F17.210 Nicotine dependence, cigarettes, uncomplicated; K21.9 Gastro-esophageal reflux disease without esophagitis; F32.9 Major depressive disorder, single episode, unspecified; E03.9 Hypothyroidism, unspecified; Z95.5 Presence of coronary angioplasty implant and graft; Z90.49 Acquired absence of other specified parts of digestive tract; Z98.84 Bariatric surgery status; Z86.73 Personal history of transient ischemic attack (TIA), and cerebral infarction without residual deficits; F41.9 Anxiety disorder, unspecified; Z79.899 Other long term (current) drug therapy; Z88.8 Allergy status to other drugs, medicaments and biological substances
CPT/HCPCS: 36415; 71020; 80053; 81001; 85025; 96360; 96361; 99284; J7040; J7050

== ENCOUNTER 2018-08-18 07:29 | Day surgery (SDC) | payer MEDICARE ==
[~2018-08-18 07:29] MED LIST: Dexamethasone 4 MG/ML SDV ONE; Glycopyrrolate 0.2 MG/ML 5 ML MDV ONE; Neostigmine Methylsulfate 1 MG/ML 5 ML Syringe ONE; Ondansetron 4 MG/2 ML SDV ONE; Propofol 200 MG/20 ML SDV ONE; Rocuronium 50 MG/5 ML Vial ONE; Succinylcholine 200 MG/10 ML MDV ONE; fentaNYL 250 MCG/5 ML SDV ONE
[2018-08-18] MEDS: Sodium Chloride 0.9% 1,000 ML IV SCH (07:47)
[2018-08-18] MEDS: ceFAZolin 1 GM in Premix Bag 1 BAG IV ONE (10:45)
[2018-08-18] MEDS: Bupivacaine 0.5% 50 ML MDV ONE (11:30)
[2018-08-18] MEDS: Morphine 2 MG/ML Syringe IVPUSH ONE (12:16)
[2018-08-18 13:02] VITALS: BP 139/75
[2018-08-18] MEDS: Acetaminophen/HYDROcodone 325-5 MG Tab PO ONE (13:21)
--- NOTE | 2018-08-18 16:55 | PCM.OPNOTE ---
- General Post-Op/Procedure Note Date of Surgery/Procedure: 08/18/18 Operative Procedure(s): Open reduction and internal fixation with tension band wiring of left olecranon Findings: Mildly displaced olecranon fracture Pre Op Diagnosis: Olecranon fracture left elbow Post-Op Diagnosis: Same Anesthesia Technique: General ET Tube Secondary Surgeon: Vinicius Thornton Complications: None Condition: Good Free Text/Narrative:: Intake & Output 08/18/18 08/18/18 08/18/18 06:59 14:59 22:59 Intake Total 1075 Balance 1075 Indications:Luis Fernando is a 58-year-old with a history of fall resulting in a fracture of his left olecranon. This is very mildly displaced. He has a history of stroke with limited use of his right upper extremity and decision is made to proceed with tension band fixation in order to allow him early range of motion. Risks, benefits and potential complications were discussed with the patient and he agrees with the plan. Procedure:After adequate general anesthesia was obtained patient was placed supine and a tourniquet was placed about the left upper arm.The arm was prepped and draped in a sterile fashion.Arm and hand were then exsanguinated and tourniquet inflated to 250 mg of mercury pressure.A longitudinal incision was made over the olecranon. This was carried down through the subcutaneous tissues. Fascia over the olecranon was divided and cleared for a distance of a few centimeters distal to the fracture. Thefracture hematoma was cleared with a [place] elevator. A drill was then used to make drill hole on the medial and lateral sides of the ulna approximately 2-1/2 cm distal to the fracture.A towel clip was used to connect the 2 drill holes and form a passage for placement of wire. Two 0.062 K wires were then placed from the posterior aspect of the olecranon across the fracture site and into the shaft of the ulna. Position was confirmed using fluoroscopy. An 18-gauge wire was then passed through the drill holes and in a figure-of- eight fashion over the fracture site and around the K wires. Excess wire was cut and the tension band wire was then tightened compressing the fracture site. He arm was taken through a range of motion and fixation was stable. The 2 K wires were then cut and bent.Small incisions were made in the triceps tendon in line with the K wires to provide a place to bury the ends of the K wires. Cut end of the tension band wire was bent and buried into the tendon. The bent ends of the K wires were then tapped into the tendon. Thi a flush position for all hardware. Arm was again taken through a range of motion and the fixation was stable. Final fixation was visualized using C-arm. Wound was irrigated. Fascia of the muscle flexor and extensors on the forearm are then closed over the ulna.This was done using a 0 Vicryl in interrupted fashion. Skin was used was closed using a 2-0 Vicryl and a 3-0 Monocryl in running fashion. Steri- Strips were applied. Surgical site was infiltrated with 0.5% Marcaine. Sterile dressing was then applied. A well-padded posterior splint was then placed. Patient tolerated the procedure very well there were no comlications and he was taken from the operating room in stable condition.
== END 2018-08-18 13:47 | disposition home or self-care (01) ==
LOC: JP.SDS 07:29
PROVIDERS: ATTEND Specialist
DX: S52.022A Displaced fracture of olecranon process without intraarticular extension of left ulna, initial encounter for closed fracture (principal); I25.10 Atherosclerotic heart disease of native coronary artery without angina pectoris; J44.9 Chronic obstructive pulmonary disease, unspecified; G47.33 Obstructive sleep apnea (adult) (pediatric); E78.5 Hyperlipidemia, unspecified; E03.9 Hypothyroidism, unspecified; F41.1 Generalized anxiety disorder; Z79.82 Long term (current) use of aspirin; Z79.890 Hormone replacement therapy; Z79.899 Other long term (current) drug therapy; Z88.6 Allergy status to analgesic agent; Z88.8 Allergy status to other drugs, medicaments and biological substances; W00.0XXA Fall on same level due to ice and snow, initial encounter
CPT/HCPCS: 76000; A9270-GY; J0330; J0690; J1100; J2270; J2405; J2704; J2710; J3010; J3490; J7030

== ENCOUNTER 2018-09-10 20:30 | Emergency (ER) | payer MEDICARE ==
--- NOTE | 2018-09-10 20:44 | EDM.PDOC ---
ED HPI GENERAL MEDICAL PROBLEM - General Chief Complaint: Upper Extremity Injury/Pain Stated Complaint: SURGERY AUG 18 HURTING Time Seen by Provider: 09/10/18 21:10 Source of Information: Reports: Patient, Family History Limitations: Reports: No Limitations - History of Present Illness INITIAL COMMENTS - FREE TEXT/NARRATIVE: 50-year-old male who underwent surgery on his left elbow 3 weeks ago after a fracture. He had been doing well but over the past 3 days she's had increased swelling, redness, some increased pain and now purulent drainage from a small hole on the olecranon. No fevers or chills. Onset: Gradual Duration: Day(s): (3 days) Associated Symptoms: Reports: No Other Symptoms left shoulder Pain Score (Numeric/FACES): 9 - Related Data Allergies Allergy/AdvReac Type Severity Reaction Status Date / Time fluconazole [From Diflucan] Allergy Swelling Verified 09/10/18 20:57 Home Meds: Home Meds ARIPiprazole [Abilify] 15 mg PO DAILY 12/14/16 [History] Mirtazapine 60 mg PO BEDTIME 12/14/16 [History] Pantoprazole Sodium 40 mg PO BID 12/14/16 [History] Pregabalin [Lyrica] 150 mg PO BID 12/14/16 [History] Esomeprazole [NexIUM] 40 mg PO DAILY 08/08/18 [History] Levothyroxine 25 mcg PO ACBREAKFAST 08/08/18 [History] Varenicline Tartrate [Chantix] 1 tab PO DAILY 08/08/18 [History] levETIRAcetam [Levetiracetam] 500 mg PO DAILY 08/08/18 [History] oxyCODONE 5 mg PO ASDIRECTED PRN 08/08/18 [History] Past Medical History HEENT History: Reports: Impaired Vision Cardiovascular History: Reports: Aneurysm, CAD, High Cholesterol, Stents Respiratory History: Reports: COPD Gastrointestinal History: Reports: GERD Genitourinary History: Reports: Pyelonephritis Musculoskeletal History: Reports: Fracture, Other (See Below) Other Musculoskeletal History: s/p orif L elbow 08/18/18 Neurological History: Reports: CVA, Headaches, Chronic, Migraines, Seizure Other Neuro History: Right side weakness Psychiatric History: Reports: Anxiety, Depression Endocrine/Metabolic History: Reports: Hypothyroidism Dermatologic History: Reports: Other (See Below) Other Dermatologic History: Severe buns to lower legs - Infectious Disease History Infectious Disease History: Reports: Chicken Pox, MRSA - Past Surgical History Cardiovascular Surgical History: Reports: Aneurysm, Carotid Stents Other Respiratory Surgeries/Procedures: C/O HX OF R LUNG NODULE GI Surgical History: Reports: Bariatric Procedure, Cholecystectomy, Colonoscopy , EGD, Hernia Repair/Other Endocrine Surgical History: Reports: None Musculoskeletal Surgical History: Reports: None Social & Family History - Family History Respiratory: Reports: COPD - Caffeine Use Caffeine Use: Reports: Coffee Review of Systems - Review of Systems Review Of Systems: See Below Constitutional: Denies: Fever Respiratory: Denies: Shortness of Breath GI/Abdominal: Denies: Nausea, Vomiting Skin: Reports: Erythema (Over the surgical wound) Neurological: Denies: Paresthesia ED EXAM, GENERAL - Physical Exam Exam: See Below Exam Limited By: No Limitations General Appearance: Alert, No Apparent Distress Respiratory/Chest: No Respiratory Distress Extremities: Other (Exam is otherwise limited to the left elbow. There is erythema along the underside of the elbow with slight swelling and tenderness. With pressure there is purulent material expelled from the small opening. After sterilizing with alcohol a culture was taken of the exudate. Continued pressure was applied until everything could be expelled that was present.) Course - Vital Signs Last Recorded V/S: Last Vital Signs Temp 97.6 F 09/10/18 20:52 Pulse 78 09/10/18 20:52 Resp 14 09/10/18 20:52 BP 108/69 09/10/18 20:52 Pulse Ox 100 09/10/18 20:52 - Orders/Labs/Meds Orders: Active Orders 24 hr Category Date Time Status CULTURE WOUND + SMEAR [RM] Stat Lab 09/10/18 21:22 Results - Re-Assessments/Exams Free Text/Narrative Re-Assessment/Exam: 09/10/18 21:23 Patient will be placed on Augmentin 875 mg twice daily, given 10 extra Percocet for pain control, and encouraged to have him rechecked on Thursday by the orthopedic surgeon. He can return sooner if worsening despite treatment. It's very important to keep the elbow clean and warm, warm soapy baths would be best several times daily. Departure - Departure Time of Disposition: 21:39 Disposition: Home, Self-Care 01 Condition: Good Clinical Impression: Postoperative infection Qualifiers: Encounter type: initial encounter Postoperative infection type: deep incisional surgical site Qualified Code(s): T81.42XA - Infection following a procedure, deep incisional surgical site, initial encounter - Discharge Information Instructions: Cellulitis, Adult, [id number] Referrals: Alexandre Macdonald MD [Primary Care Provider] - Forms: ED Department Discharge Care Plan Goals: Take antibiotic with food twice daily, moist heat to the elbow frequently and keep the elbow clean. Use pain medication as directed if needed. Call Dr. Thornton on Thursday to discuss a likely recheck. Return sooner if worsening despite treatment - My Orders Last 24 Hours: My Active Orders 09/10/18 21:22 CULTURE WOUND + SMEAR [RM] Stat - Assessment/Plan Last 24 Hours: My Active Orders 09/10/18 21:22 CULTURE WOUND + SMEAR [RM] Stat
[2018-09-10 20:48] VITALS: BP 108/69
== END 2018-09-10 21:39 | disposition home or self-care (01) ==
LOC: JP.ED 20:30
DX: T81.42XA Infection following a procedure, deep incisional surgical site, initial encounter (principal); I25.10 Atherosclerotic heart disease of native coronary artery without angina pectoris; F41.9 Anxiety disorder, unspecified; F32.9 Major depressive disorder, single episode, unspecified; E03.9 Hypothyroidism, unspecified; Z95.5 Presence of coronary angioplasty implant and graft; Z98.84 Bariatric surgery status; Z90.49 Acquired absence of other specified parts of digestive tract
CPT/HCPCS: 87070; 87077; 87186; 87205; 99283

== ENCOUNTER 2019-06-15 07:41 | Day surgery (SDC) | payer MEDICARE ==
[~2019-06-15 07:41] MED LIST changes: +Bupivacaine 0.5% 30 ML SDV ONE; -Dexamethasone 4 MG/ML SDV ONE; -Glycopyrrolate 0.2 MG/ML 5 ML MDV ONE; -Neostigmine Methylsulfate 1 MG/ML 5 ML Syringe ONE; -Ondansetron 4 MG/2 ML SDV ONE; -Propofol 200 MG/20 ML SDV ONE; -Rocuronium 50 MG/5 ML Vial ONE; -Succinylcholine 200 MG/10 ML MDV ONE; -fentaNYL 250 MCG/5 ML SDV ONE
[2019-06-15] MEDS ORDERED: Nozin Nasal Sanitizer NASBOTH ONE (07:50)
[2019-06-15] MEDS ORDERED: Lactated Ringers 1,000 ML IV SCH (08:15)
[2019-06-15] MEDS ORDERED: ceFAZolin 2 GM in Premix Bag 1 BAG IV ONE (09:00)
[2019-06-15] MEDS ORDERED: ceFAZolin 2 GM in Sodium Chloride 0.9% 50 ML IV ONE (09:00)
[2019-06-15] MEDS ORDERED: Propofol 200 MG/20 ML SDV ONE (09:27)
[2019-06-15] MEDS ORDERED: fentaNYL 100 MCG/2 ML SDV ONE (09:27)
[2019-06-15] MEDS ORDERED: Midazolam 1 MG/ML 2 ML SDV ONE (09:27)
[2019-06-15] MEDS ORDERED: Acetaminophen/HYDROcodone 325-5 MG Tab PO ONE (10:46)
[2019-06-15 11:04] VITALS: BP 112/74; PULSE 76
--- NOTE | 2019-06-22 16:17 | OR ---
DATE OF PROCEDURE: 06/15/2019 SURGEON: Vinicius Thornton MD PREOPERATIVE DIAGNOSIS: Infected hardware, left elbow. POSTOPERATIVE DIAGNOSIS: Minor infection, hardware, left elbow. PROCEDURE: Removal of pins and tension band wire, left elbow, with minor debridement of bursa and subcutaneous tissue. ANESTHESIA: General. PROCEDURE IN DETAIL: The patient was placed supine on the operating table with a tourniquet about the upper arm. The area surrounding the small pinhole drainage site was infiltrated with Marcaine. The arm was then prepped and draped in a sterile fashion. Previous incision was utilized, and superior portion of the incision was carried down through the subcutaneous tissue. A very mild amount of bursa was present over the transfixing pins. Dissection carried down through the triceps tendon to the tension band wire. This was cut and then removed with a heavy needle superintendent drivers without difficulty. Both of the K- wires were then removed also without difficulty. There was no excessive drainage, abscesses, pockets of purulent material, or other evidence of an overt infection. A portion of the bursa overlying the wires was sent for Gram stain and culture. Once hardware was removed, the wound was irrigated. A portion of the bursa debrided was excised sharply with a scalpel. Very minor amount of the triceps tendon was also sharply debrided with a scalpel. This was irrigated once again and then the triceps was closed with 0 Vicryl. The skin was closed with 2-0 Vicryl and a running 3-0 Monocryl. Steri-Strips were applied. Light compressive dressing was then placed. The patient tolerated the procedure very well. There were no complications. He was taken from the operating room in stable condition. Vinicius Thornton MD /[id number] [place]
== END 2019-06-15 11:20 | disposition home or self-care (01) ==
LOC: JP.SDS 07:41
PROVIDERS: ATTEND Specialist
DX: T84.59XA Infection and inflammatory reaction due to other internal joint prosthesis, initial encounter (principal); I25.10 Atherosclerotic heart disease of native coronary artery without angina pectoris; E78.00 Pure hypercholesterolemia, unspecified; J44.9 Chronic obstructive pulmonary disease, unspecified; K21.9 Gastro-esophageal reflux disease without esophagitis; E03.9 Hypothyroidism, unspecified; G43.909 Migraine, unspecified, not intractable, without status migrainosus; F41.9 Anxiety disorder, unspecified; F32.9 Major depressive disorder, single episode, unspecified; F17.210 Nicotine dependence, cigarettes, uncomplicated; Z88.3 Allergy status to other anti-infective agents; Z79.899 Other long term (current) drug therapy
CPT/HCPCS: 20680; 36415; 80048; 85027; 85651; 86140; 87070; 87075; 87077; 87186; 87205; A9270; J0690; J2250; J2704; J3010; J3490; J7050; J7120

== ENCOUNTER 2019-07-05 14:20 | Emergency (ER) | payer MEDICARE ==
[2019-07-05] MEDS ORDERED: Ondansetron 4 MG Tab.DIS PO ONE (15:15)
[2019-07-05] MEDS ORDERED: Lactated Ringers 1,000 ML IV ONE (15:17)
--- NOTE | 2019-07-05 15:29 | EDM.PDOC ---
ED HPI GENERAL MEDICAL PROBLEM - General Chief Complaint: General Stated Complaint: NOT FEELING SOB Time Seen by Provider: 07/05/19 14:50 Source of Information: Reports: Patient History Limitations: Reports: No Limitations - History of Present Illness INITIAL COMMENTS - FREE TEXT/NARRATIVE: This 58-year-old male with history of recent infected orthopedic hardware, chronic pain with an implanted spinal stimulator, malnutrition presents with concerns of nausea and generally feeling unwell. He reports that his symptoms started approximately 48-72 hours ago. His primary concern is nausea, but has not had any vomiting. He is unable to take anything by mouth during this time. He denies any significant pain he is having a mild nonproductive cough. He had no fevers. No urinary symptoms. Has been several days since he had a bowel movement, no blood. No abdominal pain. No change in the chronic wound on his right foot. No purulence or change in the wound is left elbow surgical site. He was on antibiotics, surgical wound grew MRSA, until about 3 days ago. Bilateral Leg Pain Score (Numeric/FACES): 7 - Related Data Allergies Allergy/AdvReac Type Severity Reaction Status Date / Time fluconazole [From Diflucan] Allergy Swelling Verified 06/15/19 08:23 Home Meds: Home Meds ARIPiprazole [Abilify] 15 mg PO DAILY 12/14/16 [History] Mirtazapine 60 mg PO BEDTIME 12/14/16 [History] Pantoprazole Sodium 40 mg PO BID 12/14/16 [History] Pregabalin [Lyrica] 150 mg PO BID 12/14/16 [History] Esomeprazole [NexIUM] 40 mg PO DAILY 08/08/18 [History] Levothyroxine 25 mcg PO ACBREAKFAST 08/08/18 [History] levETIRAcetam [Levetiracetam] 500 mg PO DAILY 08/08/18 [History] oxyCODONE 5 mg PO ASDIRECTED PRN 08/08/18 [History] Prochlorperazine [Compazine] 10 mg PO Q6H PRN #6 tab 07/05/19 [Rx] Past Medical History HEENT History: Reports: Impaired Vision Cardiovascular History: Reports: Aneurysm, CAD, High Cholesterol, Stents Respiratory History: Reports: COPD Gastrointestinal History: Reports: GERD Genitourinary History: Reports: None, Pyelonephritis Musculoskeletal History: Reports: Fracture, Other (See Below) Other Musculoskeletal History: s/p orif L elbow 08/18/18. Fell 06/08/19- injured R buttocks and 3rd/4th fingers and upper back. Tips of his 3rd/4th fingers are dark pink and swollen. No other bruising/lacerations noted fx left elbow Neurological History: Reports: CVA, Headaches, Chronic, Migraines, Seizure Other Neuro History: Right side weakness Psychiatric History: Reports: Anxiety, Depression Endocrine/Metabolic History: Reports: Hypothyroidism Hematologic History: Reports: None Immunologic History: Reports: None Oncologic (Cancer) History: Reports: None Dermatologic History: Reports: Other (See Below) Other Dermatologic History: Severe buns to lower legs - Infectious Disease History Infectious Disease History: Reports: Chicken Pox - Past Surgical History Head Surgeries/Procedures: Reports: None HEENT Surgical History: Reports: None Cardiovascular Surgical History: Reports: Aneurysm, Carotid Stents Respiratory Surgical History: Reports: None, Other (See Below) Other Respiratory Surgeries/Procedures: C/O HX OF R LUNG NODULE GI Surgical History: Reports: Bariatric Procedure, Cholecystectomy, Colonoscopy , EGD, Hernia Repair/Other Endocrine Surgical History: Reports: None Musculoskeletal Surgical History: Reports: None Social & Family History - Family History Respiratory: Reports: COPD - Tobacco Use Smoking Status *Q: Current Every Day Smoker Years of Tobacco use: 40 Packs/Tins Daily: 1 - Caffeine Use Caffeine Use: Reports: Coffee - Recreational Drug Use Recreational Drug Use: No ED ROS GENERAL - Review of Systems Review Of Systems: See Below Constitutional: Reports: Malaise, Weakness HEENT: Reports: No Symptoms Respiratory: Reports: Shortness of Breath Cardiovascular: Reports: No Symptoms Endocrine: Reports: No Symptoms GI/Abdominal: Reports: Nausea. Denies: Vomiting : Reports: No Symptoms Musculoskeletal: Reports: No Symptoms Skin: Reports: No Symptoms Neurological: Reports: No Symptoms Psychiatric: Reports: No Symptoms Hematologic/Lymphatic: Reports: No Symptoms Immunologic: Reports: No Symptoms ED EXAM, GENERAL - Physical Exam Exam: See Below Exam Limited By: No Limitations General Appearance: Alert, Mild Distress, Thin Throat/Mouth: Normal Inspection Head: Atraumatic, Normocephalic Neck: Supple, Non-Tender Respiratory/Chest: No Respiratory Distress, Lungs Clear Cardiovascular: Regular Rate, Rhythm GI/Abdominal: Soft, Non-Tender Back Exam: Normal Inspection Extremities: Other (Ambutated toes of the right foot, erythematous chronic wound but does not appear infected) Neurological: Alert, Oriented Psychiatric: Normal Affect, Normal Mood Skin Exam: Warm, Dry Course - Vital Signs Last Recorded V/S: Last Vital Signs Temp 36.8 C 07/05/19 14:45 Pulse 73 07/05/19 16:00 Resp 16 07/05/19 14:45 BP 117/79 07/05/19 16:00 Pulse Ox 99 07/05/19 16:00 - Orders/Labs/Meds Orders: Active Orders 24 hr Category Date Time Status EKG Documentation Completion [RC] ASDIRECTED Care 07/05/19 15:20 Active CULTURE BLOOD [BC] Urgent Lab 07/05/19 15:20 Received CULTURE BLOOD [BC] Urgent Lab 07/05/19 15:30 Received Blood Culture x2 Reflex Set [OM.PC] Urgent Oth 07/05/19 15:16 Ordered EKG 12 Lead [EK] Routine Ther 07/05/19 15:19 Ordered Labs: Laboratory Tests 07/05/19 07/05/19 07/05/19 Range/Units 15:20 15:20 15:20 WBC 10.4 (4.5-11.0) K/uL RBC 5.67 (4.30-5.90) M/uL Hgb 14.2 (12.0-15.0) g/dL Hct 44.7 (40.0-54.0) % MCV 79 L (80-98) fL MCH 25 L (27-31) pg MCHC 32 (32-36) % Plt Count 342 (150-400) K/uL Sodium 134 L (140-148) mmol/L Potassium 4.1 (3.6-5.2) mmol/L Chloride 101 (100-108) mmol/L Carbon Dioxide 21 (21-32) mmol/L Anion Gap 16.1 H (5.0-14.0) mmol/L BUN 9 (7-18) mg/dL Creatinine 0.6 L (0.8-1.3) mg/dL Est Cr Clr Drug Dosing 114.51 mL/min Estimated GFR (MDRD) > 60 (>60) Glucose 91 (74-106) mg/dL Lactic Acid 2.1 H (0.4-2.0) mmol/L Calcium 8.1 L (8.5-10.1) mg/dL Total Bilirubin 0.6 D (0.2-1.0) mg/dL AST 8 L D (15-37) U/L ALT 24 (12-78) U/L Alkaline Phosphatase 137 H (46-116) U/L C-Reactive Protein (0.0-0.3) mg/dL Total Protein 7.9 (6.4-8.2) g/dL Albumin 3.2 L (3.4-5.0) g/dL Globulin 4.7 H (2.3-3.5) g/dL Albumin/Globulin Ratio 0.7 L (1.2-2.2) Lipase 37 L (73-393) U/L Urine Color (YELLOW) Urine Appearance (CLEAR) Urine pH (5.0-8.0) Ur Specific [place] (1.008-1.030) Urine Protein (NEGATIVE) mg/dL Urine Glucose (UA) (NEGATIVE) mg/dL Urine Ketones (NEGATIVE) mg/dL Urine Occult Blood (NEGATIVE) Urine Nitrite (NEGATIVE) Urine Bilirubin (NEGATIVE) Urine Urobilinogen (0.2-1.0) EU/dL Ur Leukocyte Esterase (NEGATIVE) Urine RBC (0-5) Urine WBC (0-5) Ur Epithelial Cells Amorphous Sediment Urine Bacteria Urine Mucus 07/05/19 07/05/19 07/05/19 Range/Units 15:20 16:56 17:36 WBC (4.5-11.0) K/uL RBC (4.30-5.90) M/uL Hgb (12.0-15.0) g/dL Hct (40.0-54.0) % MCV (80-98) fL MCH (27-31) pg MCHC (32-36) % Plt Count (150-400) K/uL Sodium (140-148) mmol/L Potassium (3.6-5.2) mmol/L Chloride (100-108) mmol/L Carbon Dioxide (21-32) mmol/L Anion Gap (5.0-14.0) mmol/L BUN (7-18) mg/dL Creatinine (0.8-1.3) mg/dL Est Cr Clr Drug Dosing mL/min Estimated GFR (MDRD) (>60) Glucose (74-106) mg/dL Lactic Acid 2.1 H (0.4-2.0) mmol/L Calcium (8.5-10.1) mg/dL Total Bilirubin (0.2-1.0) mg/dL AST (15-37) U/L ALT (12-78) U/L Alkaline Phosphatase (46-116) U/L C-Reactive Protein 0.71 H (0.0-0.3) mg/dL Total Protein (6.4-8.2) g/dL Albumin (3.4-5.0) g/dL Globulin (2.3-3.5) g/dL Albumin/Globulin Ratio (1.2-2.2) Lipase (73-393) U/L Urine Color Yellow (YELLOW) Urine Appearance Clear (CLEAR) Urine pH 6.5 (5.0-8.0) Ur Specific [place] 1.025 (1.008-1.030) Urine Protein Negative (NEGATIVE) mg/dL Urine Glucose (UA) Negative (NEGATIVE) mg/dL Urine Ketones 15 H (NEGATIVE) mg/dL Urine Occult Blood Trace-intact H (NEGATIVE) Urine Nitrite Negative (NEGATIVE) Urine Bilirubin Negative (NEGATIVE) Urine Urobilinogen 1.0 (0.2-1.0) EU/dL Ur Leukocyte Esterase Negative (NEGATIVE) Urine RBC 0-5 (0-5) Urine WBC Not seen (0-5) Ur Epithelial Cells Rare Amorphous Sediment Not seen Urine Bacteria Few Urine Mucus Few Meds: Medications Discontinued Medications Generic Name Dose Route Start Last Admin Trade Name Freq PRN Reason Stop Dose Admin Lactated Ringer's 1,000 mls @ 1,000 mls/hr 07/05/19 15:17 07/05/19 15:36 Ringers, Lactated IV 07/05/19 16:16 1,000 mls/hr BOLUS ONE Administration Ondansetron HCl 4 mg 07/05/19 15:15 07/05/19 15:36 Zofran Odt PO 07/05/19 15:16 4 mg ONETIME ONE Administration - Re-Assessments/Exams Free Text/Narrative Re-Assessment/Exam: 58-year-old male, overall appears to be in poor general health is he is cachectic, recently with infected surgical hardware now status post removal presents to concerns of malaise and nausea. He appears quite unwell on exam, although his vital signs are unremarkable. No focal source of infection by history or exam. I am concerned that perhaps he has occult bacterial infection or bacteremia given his overall poor health status, he recently grew MRSA out of his surgical wound and has additional hardware still in place so perhaps bacteremic. We're going to do a broad infectious workup, treat his nausea with Zofran administered IV fluids then re-assess. 07/05/19 15:35 Patient feels much improved after IVF, anti-emetics Labs generally unremarkable - small rise in lactate which did not respond to fluids but he otherwise feels well with normal vitals. I think he is safe for discharge Blood cultures have been drawn. No current indications for antibiotics He knows to return for worsening symptoms 07/05/19 18:08 Departure - Departure Time of Disposition: 18:09 Disposition: Home, Self-Care 01 Clinical Impression: Nausea - Discharge Information Prescriptions: Prochlorperazine [Compazine] 10 mg PO Q6H PRN #6 tab PRN Reason: Nausea Instructions: Nausea, Adult Referrals: PCP,None [Primary Care Provider] - Forms: ED Department Discharge Additional Instructions: We did not reveal a cause for your symptoms on your evaluation in the ED today. You may have a viral illness, however a more serious bacterial infection has not been completely excluded. It is important that you return to the ER if you feel like your symptoms are worsening for this reason. Continue to use the prescribed medications for nausea and push fluids. Sepsis Event Note - Focused Exam Vital Signs: Vital Signs Temp Pulse Resp BP Pulse Ox 07/05/19 16:00 73 117/79 99 07/05/19 14:45 36.8 C 86 16 130/90 98 Date Exam was Performed: 07/05/19 Time Exam was Performed: 18:08 - My Orders Last 24 Hours: My Active Orders 07/05/19 15:16 Blood Culture x2 Reflex Set [OM.PC] Urgent 07/05/19 15:19 EKG 12 Lead [EK] Routine 07/05/19 15:20 EKG Documentation Completion [RC] ASDIRECTED CULTURE BLOOD [BC] Urgent 07/05/19 15:30 CULTURE BLOOD [BC] Urgent - Assessment/Plan Last 24 Hours: My Active Orders 07/05/19 15:16 Blood Culture x2 Reflex Set [OM.PC] Urgent 07/05/19 15:19 EKG 12 Lead [EK] Routine 07/05/19 15:20 EKG Documentation Completion [RC] ASDIRECTED CULTURE BLOOD [BC] Urgent 07/05/19 15:30 CULTURE BLOOD [BC] Urgent
[2019-07-05 16:01] VITALS: BP 117/79; PULSE 73
--- NOTE | 2019-07-05 16:32 | CRLCR ---
INDICATION: Cough COMPARISON: None available. FINDINGS: PA and lateral views of the chest were obtained. There are numerous small calcified granulomata scattered throughout the lower lungs bilaterally and in the left midlung. There is mild prominence of interstitial markings throughout the lungs with a basilar predominance, consistent with mild pulmonary fibrosis. No focal infiltrates are present to suggest pneumonia. There is prominence of the central pulmonary vessels, raising the possibility of pulmonary arterial hypertension. The heart is normal in size. The mediastinum is normal in appearance. The osseous structures are normal in appearance for the patient`s age. Intraspinal stimulator electrodes are seen extending from the mid T7 through the inferior T10 levels. There is moderate anterior wedging of the T5 vertebral body and mild anterior wedging of the T10-T12 vertebral bodies, findings of compression fractures of indeterminate age. IMPRESSION: No active disease seen in the chest. Numerous small calcified granulomata throughout the lower lungs and in the left midlung. Mild pulmonary fibrosis with prominence of central pulmonary vessels suggesting pulmonary arterial hypertension. Moderate T5 and mild T10-T12 compression fractures of indeterminate age. Dictated by Cameron Henson MD @ Jul 05 2019 4:26PM Signed by Dr. Cameron Henson @ Jul 05 2019 4:30PM
== END 2019-07-05 18:28 | disposition home or self-care (01) ==
LOC: JP.ED 14:20
DX: R11.0 Nausea (principal); I25.10 Atherosclerotic heart disease of native coronary artery without angina pectoris; E78.00 Pure hypercholesterolemia, unspecified; J44.9 Chronic obstructive pulmonary disease, unspecified; K21.9 Gastro-esophageal reflux disease without esophagitis; F41.9 Anxiety disorder, unspecified; F32.9 Major depressive disorder, single episode, unspecified; E03.9 Hypothyroidism, unspecified; Z86.73 Personal history of transient ischemic attack (TIA), and cerebral infarction without residual deficits; F17.210 Nicotine dependence, cigarettes, uncomplicated; Z88.8 Allergy status to other drugs, medicaments and biological substances; Z79.899 Other long term (current) drug therapy
CPT/HCPCS: 36415; 71046; 80053; 81001; 83605; 83690; 85027; 86140; 87040; 87804; 93005; 96360; 99284; A9270; J7120; 93010; 99283

== ENCOUNTER 2020-12-07 19:26 | Emergency (ER) | payer MEDICARE ==
[2020-12-07] MEDS ORDERED: Sodium Chloride 0.9% 10 ML Syringe FLUSH PRN (20:25)
[2020-12-07] MEDS ORDERED: Ondansetron 4 MG/2 ML SDV IVPUSH ONE (20:26)
[2020-12-07] MEDS ORDERED: Alum Hydrox/Mag Hydrox/Simeth 15 ML, Lidocaine 2% 15 ML PO ONE ×2 (20:26)
--- NOTE | 2020-12-07 20:29 | EDM.PDOC ---
ED HPI GENERAL MEDICAL PROBLEM - General Chief Complaint: General Stated Complaint: dehydrated, acid reflux Time Seen by Provider: 12/07/20 20:11 Source of Information: Reports: Patient, Family, RN Notes Reviewed History Limitations: Reports: No Limitations - History of Present Illness INITIAL COMMENTS - FREE TEXT/NARRATIVE: 60-year-old gentleman presents emergency department a complaint of weakness and dehydration, he has a known history of gastric bypass status post revision he has been fishing couple days ago admits that he has not had good oral intake because his reflux is so bad complains of burning in the center of his chest he does take Nexium which has not helped him much. He does have shortness of breath but not beyond baseline for his COPD no diaphoresis continued nausea Epigastric Pain Score (Numeric/FACES): 4 - Related Data Allergies Allergy/AdvReac Type Severity Reaction Status Date / Time fluconazole [From Diflucan] Allergy Swelling Verified 12/07/20 20:02 Home Meds: Home Meds Mirtazapine 60 mg PO BEDTIME 12/14/16 [History] Pregabalin [Lyrica] 150 mg PO BID 12/14/16 [History] Esomeprazole [NexIUM] 40 mg PO DAILY 08/08/18 [History] Levothyroxine 25 mcg PO ACBREAKFAST 08/08/18 [History] levETIRAcetam [Levetiracetam] 500 mg PO DAILY 08/08/18 [History] oxyCODONE 5 mg PO ASDIRECTED PRN 08/08/18 [History] Prochlorperazine [Compazine] 10 mg PO Q6H PRN #6 tab 07/05/19 [Rx] ALPRAZolam [Alprazolam] 0.25 mg PO ASDIRECTED 12/07/20 [History] Past Medical History HEENT History: Reports: Cataract, Impaired Vision Cardiovascular History: Reports: Aneurysm, CAD, High Cholesterol, Stents Respiratory History: Reports: COPD, Other (See Below) Other Respiratory History: lung nodule Gastrointestinal History: Reports: GERD Genitourinary History: Reports: Pyelonephritis Musculoskeletal History: Reports: Fracture, Other (See Below) Other Musculoskeletal History: s/p orif L elbow 08/18/18. Fell 06/08/19- injured R buttocks and 3rd/4th fingers and upper back. Tips of his 3rd/4th fingers are dark pink and swollen. No other bruising/lacerations noted fx left elbow Neurological History: Reports: CVA, Headaches, Chronic, Migraines, Seizure Other Neuro History: Right side weakness Psychiatric History: Reports: Anxiety, Depression Endocrine/Metabolic History: Reports: Hypothyroidism, Obesity/BMI 30+ Hematologic History: Reports: None Immunologic History: Reports: None Oncologic (Cancer) History: Reports: None Dermatologic History: Reports: Other (See Below) Other Dermatologic History: Severe buns to lower legs - Infectious Disease History Infectious Disease History: Reports: Chicken Pox, Mumps - Past Surgical History HEENT Surgical History: Reports: Cataract Surgery Cardiovascular Surgical History: Reports: Aneurysm, Carotid Stents Other Respiratory Surgeries/Procedures: C/O HX OF R LUNG NODULE GI Surgical History: Reports: Bariatric Procedure, Cholecystectomy, Colonoscopy, EGD, Hernia Repair/Other, Other (See Below) Other GI Surgeries/Procedures: reversal of RNY at [facility] Musculoskeletal Surgical History: Reports: Other (See Below) Other Musculoskeletal Surgeries/Procedures:: left elbow Social & Family History - Family History Respiratory: Reports: COPD - Tobacco Use Tobacco Use Status *Q: Current Every Day Tobacco User Years of Tobacco use: 40 Packs/Tins Daily: 1 - Caffeine Use Caffeine Use: Reports: Coffee - Recreational Drug Use Recreational Drug Use: No ED ROS GENERAL - Review of Systems Review Of Systems: See Below Constitutional: Reports: Weakness HEENT: Reports: No Symptoms Respiratory: Reports: Shortness of Breath GI/Abdominal: Reports: Abdominal Pain (Epigastric), Nausea. Denies: Constipation, Diarrhea, Vomiting : Reports: No Symptoms ED EXAM, GENERAL - Physical Exam Exam: See Below Exam Limited By: No Limitations General Appearance: Alert, Mild Distress Respiratory/Chest: No Respiratory Distress, No Accessory Muscle Use, Chest Non- Tender, Decreased Breath Sounds. No: Accessory Muscle Use Cardiovascular: Regular Rate, Rhythm, No Murmur GI/Abdominal: Soft, Non-Tender #1 Interpretation EKG Date: 12/07/20 Time: 21:11 Rhythm: NSR [place]: Normal P-Wave: Present QRS: Normal ST-T: Depressed QT: Normal Comparison: Change From Previous EKG Course - Vital Signs Last Recorded V/S: Last Vital Signs Temp 98.1 F 12/07/20 20:08 Pulse 78 12/07/20 22:03 Resp 17 12/07/20 22:03 BP 110/72 12/07/20 22:03 Pulse Ox 94 L 12/07/20 22:03 - Orders/Labs/Meds Orders: Active Orders 24 hr Category Date Time Status EKG Documentation Completion [RC] ASDIRECTED Care 12/07/20 20:28 Active Peripheral IV Care [RC] . DIRECTED Care 12/07/20 20:25 Active Lactated Ringers [Ringers, Lactated] 1,000 ml Med 12/07/20 20:30 Active IV ASDIRECTED Lactated Ringers [Ringers, Lactated] 1,000 ml Med 12/07/20 22:01 Active IV BOLUS Sodium Chloride 0.9% [Saline Flush] Med 12/07/20 20:25 Active 10 ml FLUSH ASDIRECTED PRN Peripheral IV Insertion Adult [OM.PC] Urgent Oth 12/07/20 20:25 Ordered EKG 12 Lead [EK] Stat Ther 12/07/20 20:28 Ordered Medication Orders Lactated Ringer's (Ringers, Lactated) 1,000 mls @ 999 mls/hr IV ASDIRECTED ROMAN Last Admin: 12/07/20 20:54 Dose: 999 mls/hr Documented by: SUSANNA Lactated Ringer's (Ringers, Lactated) 1,000 mls @ 999 mls/hr IV BOLUS ONE Stop: 12/07/20 23:01 Last Admin: 12/07/20 22:05 Dose: 999 mls/hr Documented by: IRIS Sodium Chloride (Sodium Chloride 0.9% 10 Ml Syringe) 10 ml FLUSH ASDIRECTED PRN PRN Reason: Keep Vein Open Last Admin: 12/07/20 20:59 Dose: 10 ml Documented by: SUSANNA Labs: Laboratory Tests 12/07/20 12/07/20 12/07/20 Range/Units 20:48 20:48 20:48 WBC 8.9 (4.5-11.0) K/uL RBC 5.62 (4.30-5.90) M/uL Hgb 16.0 H (12.0-15.0) g/dL Hct 48.6 (40.0-54.0) % MCV 87 (80-98) fL MCH 29 (27-31) pg MCHC 33 (32-36) % Plt Count 201 (150-400) K/uL Neut % (Auto) 50.5 (36-66) % Lymph % (Auto) 39.2 (24-44) % [place] % (Auto) 6.8 H (2-6) % Eos % (Auto) 2.9 (2-4) % Baso % (Auto) 0.6 (0-1) % Sodium 139 L (140-148) mmol/L Potassium 4.0 (3.6-5.2) mmol/L Chloride 104 (100-108) mmol/L Carbon Dioxide 22 (21-32) mmol/L Anion Gap 17.0 H (5.0-14.0) mmol/L BUN 6 L (7-18) mg/dL Creatinine 0.7 L (0.8-1.3) mg/dL Est Cr Clr Drug Dosing 112.22 mL/min Estimated GFR (MDRD) > 60 (>60) Glucose 68 L (74-106) mg/dL Lactic Acid 1.1 (0.4-2.0) mmol/L Calcium 8.6 (8.5-10.1) mg/dL Total Bilirubin 0.5 (0.2-1.0) mg/dL AST 8 L (15-37) U/L ALT 13 (12-78) U/L Alkaline Phosphatase 127 H (46-116) U/L Troponin I < 0.017 (0.000-0.056) ng/mL Total Protein 7.6 (6.4-8.2) g/dL Albumin 2.9 L (3.4-5.0) g/dL Globulin 4.7 H (2.3-3.5) g/dL Albumin/Globulin Ratio 0.6 L (1.2-2.2) Lipase 40 L (73-393) U/L Urine Color (YELLOW) Urine Appearance (CLEAR) Urine pH (5.0-8.0) Ur Specific [place] (1.008-1.030) Urine Protein (NEGATIVE) mg/dL Urine Glucose (UA) (NEGATIVE) mg/dL Urine Ketones (NEGATIVE) mg/dL Urine Occult Blood (NEGATIVE) Urine Nitrite (NEGATIVE) Urine Bilirubin (NEGATIVE) Urine Urobilinogen (0.2-1.0) EU/dL Ur Leukocyte Esterase (NEGATIVE) Urine RBC (0-5) Urine WBC (0-5) Ur Epithelial Cells Amorphous Sediment Urine Bacteria Urine Mucus 12/07/20 Range/Units 22:11 WBC (4.5-11.0) K/uL RBC (4.30-5.90) M/uL Hgb (12.0-15.0) g/dL Hct (40.0-54.0) % MCV (80-98) fL MCH (27-31) pg MCHC (32-36) % Plt Count (150-400) K/uL Neut % (Auto) (36-66) % Lymph % (Auto) (24-44) % [place] % (Auto) (2-6) % Eos % (Auto) (2-4) % Baso % (Auto) (0-1) % Sodium (140-148) mmol/L Potassium (3.6-5.2) mmol/L Chloride (100-108) mmol/L Carbon Dioxide (21-32) mmol/L Anion Gap (5.0-14.0) mmol/L BUN (7-18) mg/dL Creatinine (0.8-1.3) mg/dL Est Cr Clr Drug Dosing mL/min Estimated GFR (MDRD) (>60) Glucose (74-106) mg/dL Lactic Acid (0.4-2.0) mmol/L Calcium (8.5-10.1) mg/dL Total Bilirubin (0.2-1.0) mg/dL AST (15-37) U/L ALT (12-78) U/L Alkaline Phosphatase (46-116) U/L Troponin I (0.000-0.056) ng/mL Total Protein (6.4-8.2) g/dL Albumin (3.4-5.0) g/dL Globulin (2.3-3.5) g/dL Albumin/Globulin Ratio (1.2-2.2) Lipase (73-393) U/L Urine Color Yellow (YELLOW) Urine Appearance Clear (CLEAR) Urine pH 7.5 (5.0-8.0) Ur Specific [place] 1.015 (1.008-1.030) Urine Protein Negative (NEGATIVE) mg/dL Urine Glucose (UA) Negative (NEGATIVE) mg/dL Urine Ketones Negative (NEGATIVE) mg/dL Urine Occult Blood Negative (NEGATIVE) Urine Nitrite Negative (NEGATIVE) Urine Bilirubin Negative (NEGATIVE) Urine Urobilinogen 4.0 H (0.2-1.0) EU/dL Ur Leukocyte Esterase Negative (NEGATIVE) Urine RBC Not seen (0-5) Urine WBC Not seen (0-5) Ur Epithelial Cells Not seen Amorphous Sediment Rare Urine Bacteria Not seen Urine Mucus Not seen Meds: Medications Generic Name Dose Route Start Last Admin Trade Name Freq PRN Reason Stop Dose Admin Lactated Ringer's 1,000 mls @ 999 mls/hr 12/07/20 20:30 12/07/20 20:54 Ringers, Lactated IV 999 mls/hr ASDIRECTED ROMAN Administration Lactated Ringer's 1,000 mls @ 999 mls/hr 12/07/20 22:01 12/07/20 22:05 Ringers, Lactated IV 12/07/20 23:01 999 mls/hr BOLUS ONE Administration Sodium Chloride 10 ml 12/07/20 20:25 12/07/20 20:59 Sodium Chloride 0.9% 10 Ml Syringe FLUSH 10 ml ASDIRECTED PRN Administration Keep Vein Open Discontinued Medications Generic Name Dose Route Start Last Admin Trade Name Freq PRN Reason Stop Dose Admin Al Hydroxide/Mg Hydroxide 15 0 ml 12/07/20 20:26 12/07/20 20:55 ml/ Lidocaine HCl 15 ml PO 12/07/20 20:27 15 ml ONETIME ONE Administration Ondansetron HCl 4 mg 12/07/20 20:26 12/07/20 20:56 Ondansetron 4 Mg/2 Ml Sdv IVPUSH 12/07/20 20:27 4 mg ONETIME ONE Administration Departure - Departure Time of Disposition: 22:30 Disposition: Home, Self-Care 01 Condition: Fair Clinical Impression: Gastroesophageal reflux disease Qualifiers: Esophagitis presence: esophagitis presence not specified Qualified Code(s): K21.9 - Gastro-esophageal reflux disease without esophagitis - Discharge Information Instructions: Gastroesophageal Reflux Disease, Adult, [id number] Referrals: Alexandre Macdonald MD [Primary Care Provider] - Forms: ED Department Discharge Additional Instructions: Continue with your regular medications, please followup with your primary care provider in 3-5 days if not better, please call return to the emergency department with worsening of symptoms. Sepsis Event Note (ED) - Evaluation Sepsis Screening Result: No Definite Risk - Focused Exam Vital Signs: Vital Signs Temp Pulse Resp BP Pulse Ox 12/07/20 22:03 78 17 110/72 94 L 12/07/20 20:08 98.1 F 79 16 125/90 91 L 12/07/20 19:55 98.1 F 79 16 125/90 91 L - My Orders Last 24 Hours: My Active Orders 12/07/20 20:25 Peripheral IV Care [RC] . DIRECTED Sodium Chloride 0.9% [Saline Flush] 10 ml FLUSH ASDIRECTED PRN Peripheral IV Insertion Adult [OM.PC] Urgent 12/07/20 20:28 EKG Documentation Completion [RC] ASDIRECTED EKG 12 Lead [EK] Stat 12/07/20 20:30 Lactated Ringers [Ringers, Lactated] 1,000 ml IV ASDIRECTED 12/07/20 22:01 Lactated Ringers [Ringers, Lactated] 1,000 ml IV BOLUS - Assessment/Plan Last 24 Hours: My Active Orders 12/07/20 20:25 Peripheral IV Care [RC] . DIRECTED Sodium Chloride 0.9% [Saline Flush] 10 ml FLUSH ASDIRECTED PRN Peripheral IV Insertion Adult [OM.PC] Urgent 12/07/20 20:28 EKG Documentation Completion [RC] ASDIRECTED EKG 12 Lead [EK] Stat 12/07/20 20:30 Lactated Ringers [Ringers, Lactated] 1,000 ml IV ASDIRECTED 12/07/20 22:01 Lactated Ringers [Ringers, Lactated] 1,000 ml IV BOLUS Plan: Assessment Acuity = acute Site and laterality = gastroesophageal reflux disease Etiology = unknown Manifestations = none Location of injury = Home Lab values = CBC, CMP, troponin all within normal limits urinalysis unremarkable Plan For good improvement with 1 L of fluids and a GI cocktail plan is to continue w ith his Nexium twice daily follow-up primary care 3 to 5 days if not better This note was dictated using [employer] voice recognition software please call with any questions on syntax or grammar.
[2020-12-07] MEDS ORDERED: Lactated Ringers 1,000 ML IV SCH (20:30)
[2020-12-07] MEDS ORDERED: Lactated Ringers 1,000 ML IV ONE (22:01)
[2020-12-07 22:03] VITALS: BP 110/72; PULSE 78
== END 2020-12-07 23:05 | disposition home or self-care (01) ==
LOC: JP.ED 19:26
DX: K21.9 Gastro-esophageal reflux disease without esophagitis (principal); E03.9 Hypothyroidism, unspecified; E66.9 Obesity, unspecified; I25.10 Atherosclerotic heart disease of native coronary artery without angina pectoris; Z95.5 Presence of coronary angioplasty implant and graft; Z68.30 Body mass index [BMI] 30.0-30.9, adult; Z88.8 Allergy status to other drugs, medicaments and biological substances
CPT/HCPCS: 36415; 80053; 81001; 83605; 83690; 84484; 85025; 93005; 96374; 99285; A9270; J2405; J7120

== ENCOUNTER 2021-05-20 10:14 | Inpatient (IN) | payer MEDICARE ==
--- NOTE | 2021-05-20 10:19 | EDM.PDOC ---
ED HPI GENERAL MEDICAL PROBLEM - General Chief Complaint: Neuro Symptoms/Deficits Stated Complaint: MEDICAL [facility]IA [facility] Time Seen by Provider: 05/20/21 10:19 Source of Information: Reports: EMS, Old Records History Limitations: Reports: Altered Mental Status - History of Present Illness INITIAL COMMENTS - FREE TEXT/NARRATIVE: 60 yo male is brought in by EMS from his home [place] when he awoke today with altered LOC. Is not communicating except in short one word sentences or to say "God Damn it". He is a smoker with a pHx of CVA. He has a pHx of gastric bypass. 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 Had the foot surgery at [facility]. Awoke today with the altered LOC and ? slightly unequal pupils. Onset: Today Onset Date: 05/20/21 Duration: Other (unsure) Location: Reports: Generalized Quality: Reports: Other (pain not reported) Severity: Moderate Improves with: Reports: None Worsens with: Reports: Other (unsure) Context: Reports: Other (See HPI) Associated Symptoms: Reports: Other (expressive aphasia) Treatments [employer]PECTOR: Reports: Other (see below) (IV start by EMS) - Related Data Allergies Allergy/AdvReac Type Severity Reaction Status Date / Time fluconazole [From Diflucan] Allergy Swelling Verified 05/20/21 10:28 Home Meds: Home Meds Mirtazapine 60 mg PO BEDTIME 12/14/16 [History] Pregabalin [Lyrica] 150 mg PO QID 12/14/16 [History] Esomeprazole [NexIUM] 40 mg PO BID 08/08/18 [History] Levothyroxine 25 mcg PO ACBREAKFAST 08/08/18 [History] levETIRAcetam [Levetiracetam] 500 mg PO BID 08/08/18 [History] oxyCODONE 5 mg PO TID 08/08/18 [History] ALPRAZolam [Alprazolam] 0.25 mg PO Q8H PRN 12/07/20 [History] Amitriptyline HCl 50 mg PO BEDTIME 05/20/21 [History] Cholecalciferol (Vitamin D3) [Vitamin D3] 1 cap PO DAILY 05/20/21 [History] Ferrous Sulfate 1 tab PO DAILY 05/20/21 [History] Lovastatin 10 mg PO BEDTIME 05/20/21 [History] Ondansetron [Ondansetron ODT] 1 tab PO Q8H PRN 05/20/21 [History] Sucralfate [Carafate] 1 gram PO QID 05/20/21 [History] hydrOXYzine HCL [Hydroxyzine HCl] 1 tab PO QID PRN 05/20/21 [History] miSOPROStoL [Misoprostol] 1 tab PO QID 05/20/21 [History] Past Medical History HEENT History: Reports: Cataract, Impaired Vision Cardiovascular History: Reports: Aneurysm, CAD, High Cholesterol, Stents Respiratory History: Reports: COPD, Other (See Below) Other Respiratory History: lung nodule Gastrointestinal History: Reports: GERD Genitourinary History: Reports: Pyelonephritis Musculoskeletal History: Reports: Fracture, Other (See Below) Other Musculoskeletal History: s/p orif L elbow 08/18/18. Fell 06/08/19- injured R buttocks and 3rd/4th fingers and upper back. Tips of his 3rd/4th fingers are dark pink and swollen. No other bruising/lacerations noted fx left elbow Neurological History: Reports: CVA, Headaches, Chronic, Migraines, Seizure Other Neuro History: Right side weakness Psychiatric History: Reports: Anxiety, Depression Endocrine/Metabolic History: Reports: Hypothyroidism, Obesity/BMI 30+ Hematologic History: Reports: None Immunologic History: Reports: None Oncologic (Cancer) History: Reports: None Dermatologic History: Reports: Other (See Below) Other Dermatologic History: Severe buns to lower legs - Infectious Disease History Infectious Disease History: Reports: Chicken Pox, Mumps - Past Surgical History HEENT Surgical History: Reports: Cataract Surgery Cardiovascular Surgical History: Reports: Aneurysm, Carotid Stents Other Respiratory Surgeries/Procedures: C/O HX OF R LUNG NODULE GI Surgical History: Reports: Bariatric Procedure, Cholecystectomy, Colonoscopy, EGD, Hernia Repair/Other, Other (See Below) Other GI Surgeries/Procedures: reversal of RNY at [facility] Musculoskeletal Surgical History: Reports: Other (See Below) Other Musculoskeletal Surgeries/Procedures:: left elbow Social & Family History - Family History Respiratory: Reports: COPD - Caffeine Use Caffeine Use: Reports: Coffee ED ROS GENERAL - Review of Systems Review Of Systems: Unable To Obtain Reason Not Obtained: due to altered LOC, ? expressive aphasia ED EXAM, NEURO - Physical Exam Exam: See Below Exam Limited By: Altered Mental Status General Appearance: Alert, No Apparent Distress, Thin Eye Exam: Bilateral Eye: Other (pupils slightly unequal) Ears: Normal External Exam, Normal Canal Nose: Normal Inspection, No Blood Throat/Mouth: Normal Inspection, Normal Lips, No Airway Compromise. No: Normal Teeth (edentulous) Head Exam: Atraumatic, Normocephalic Neck: Normal Inspection Respiratory/Chest: No Respiratory Distress, Lungs Clear, Normal Breath Sounds, No Accessory Muscle Use Cardiovascular: Regular Rate, Rhythm, No Edema GI/Abdominal: Soft, Non-Tender Neurological: Alert, No Motor/Sensory Deficits, Other (speech is clear, but limited. Able to follow simple commands. ) Extremities: Other (R foot in a protective boot) Skin Exam: Warm, Dry, Intact, Normal Color, No Rash, Other (wounds with dressing in place to RLE) #1 Interpretation EKG Date: 05/20/21 Time: 12:20 Rhythm: NSR Rate (Beats/Min): 67 [place]: RAD-Right [place] Deviation P-Wave: Present QRS: Normal QT: Prolonged Comparison: Change From Previous EKG (ST depression anterior leads slightly greater. ? slight ST elevation in II) #2 Interpretation EKG Date: 05/20/21 Time: 13:35 Rhythm: NSR Rate (Beats/Min): 68 [place]: RAD-Right [place] Deviation P-Wave: Present QRS: Normal ST-T: Other (not significantly changed from earlier today EKG) Course - Vital Signs Text/Narrative:: Case discussed with both Dr. Walton(cardiology) and Dr. Wood(hospitalist) @ [facility]. Not able to take. Recommended medical management. Dr. Cedeno called and made aware. Last Recorded V/S: Last Vital Signs Temp 36.7 C 05/20/21 10:21 Pulse 75 05/20/21 15:01 Resp 31 H 05/20/21 16:31 BP 135/88 05/20/21 16:31 Pulse Ox 95 05/20/21 16:31 - Orders/Labs/Meds Orders: Active Orders 24 hr Category Date Time Status HUMAN GRANULOCYTIC ESTELA-HGE Stat Lab 05/20/21 11:05 Received LEVETIRACETAM (KEPPRA), S Stat Lab 05/20/21 10:15 Received PTT,PARTIAL THROMBOPLSTIN TIME [COAG] Stat Lab 05/20/21 19:00 Ordered UA W/MICROSCOPIC [URIN] Stat Lab 05/20/21 15:12 Ordered Sodium Chloride 0.9% [Normal Saline] 1,000 ml Med 05/20/21 17:00 Active IV ASDIRECTED EKG 12 Lead [EK] Routine Ther 05/20/21 11:12 Stop Req EKG 12 Lead [EK] Routine Ther 05/20/21 12:00 Stop Req Medication Orders Acetaminophen (Acetaminophen 325 Mg Tab) 650 mg PO Q4H PRN PRN Reason: Pain (Mild 1-3)/fever Aspirin (Aspirin 81 Mg Tab.Chew) 81 mg PO DAILY ROMAN Aspirin (Aspirin 300 Mg Supp) 300 mg RECTAL ONETIME ONE Stop: 05/20/21 18:01 Hydromorphone HCl (Hydromorphone 1 Mg/Ml Syringe) 0.5 mg IVPUSH Q2H PRN PRN Reason: Pain (severe 7-10) Sodium Chloride (Normal Saline) 1,000 mls @ 100 mls/hr IV ASDIRECTED ROMAN Stop: 05/21/21 03:01 Last Admin: 05/20/21 17:01 Dose: 100 mls/hr Documented by: OLIVIER Heparin Sodium/Dextrose (Heparin 25,000 Units In D5w 500 Ml) 25,000 units in 500 mls @ 20 mls/hr IV TITRATE ROMAN; Protocol Lorazepam (Lorazepam 2 Mg/Ml Sdv) 0.5 mg IVPUSH Q4H PRN PRN Reason: Nausea/Vomiting Magnesium Hydroxide (Magnesium Hydroxide 400 Mg/5 Ml Susp 30 Ml Cup) 30 ml PO Q12H PRN PRN Reason: Constipation Ondansetron HCl (Ondansetron 4 Mg/2 Ml Sdv) 4 mg IV Q6H PRN PRN Reason: Nausea/Vomiting Ondansetron HCl (Ondansetron 4 Mg Tab.Dis) 4 mg PO Q6H PRN PRN Reason: Nausea able to take PO Oxycodone HCl (Oxycodone 5 Mg Tab) 5 - 10 mg PO Q4H PRN PRN Reason: Pain Pantoprazole Sodium (Pantoprazole 40 Mg Vial) 40 mg IV Q24H ROMAN Senna/Docusate Sodium (Docusate Sodium/Sennosides 50-8.6 Mg Tab) 1 tab PO BID PRN PRN Reason: Constipation Labs: Laboratory Tests 05/20/21 05/20/21 05/20/21 Range/Units 10:15 10:15 10:15 WBC 4.8 (4.5-11.0) K/uL RBC 6.04 H (4.30-5.90) M/uL Hgb 16.9 H (12.0-15.0) g/dL Hct 50.6 (40.0-54.0) % MCV 84 (80-98) fL MCH 28 (27-31) pg MCHC 33 (32-36) % Plt Count 86 L (150-400) K/uL D-Dimer, Quantitative (0.0-500.0) ng/mL Sodium 146 (140-148) mmol/L Potassium 4.2 (3.6-5.2) mmol/L Chloride 106 (100-108) mmol/L Carbon Dioxide 25 (21-32) mmol/L Anion Gap 14.6 H (5.0-14.0) mmol/L BUN 14 D (7-18) mg/dL Creatinine 0.8 (0.8-1.3) mg/dL Est Cr Clr Drug Dosing 91.81 mL/min Estimated GFR (MDRD) > 60 (>60) Glucose 100 (74-106) mg/dL Calcium 7.9 L (8.5-10.1) mg/dL Troponin I 1.377 H* (0.000-0.056) ng/mL C-Reactive Protein (0.0-0.3) mg/dL Procalcitonin ng/mL TSH, Ultra Sensitive 0.521 (0.358-3.740) uIU/mL Urine Opiates Screen (NEGATIVE) Ur Oxycodone Screen (NEGATIVE) Urine Methadone Screen (NEGATIVE) Ur Propoxyphene Screen (NEGATIVE) Ur Barbiturates Screen (NEGATIVE) Ur Tricyclics Screen (NEGATIVE) Ur Phencyclidine Scrn (NEGATIVE) Ur Amphetamine Screen (NEGATIVE) U Methamphetamines Scrn (NEGATIVE) Urine MDMA Screen (NEGATIVE) U Benzodiazepines Scrn (NEGATIVE) U Cocaine Metab Screen (NEGATIVE) U Marijuana (THC) Screen (NEGATIVE) SARS CoV-2 RNA Rapid GILMA 05/20/21 05/20/21 05/20/21 Range/Units 11:13 11:20 13:24 WBC (4.5-11.0) K/uL RBC (4.30-5.90) M/uL Hgb (12.0-15.0) g/dL Hct (40.0-54.0) % MCV (80-98) fL MCH (27-31) pg MCHC (32-36) % Plt Count (150-400) K/uL D-Dimer, Quantitative (0.0-500.0) ng/mL Sodium (140-148) mmol/L Potassium (3.6-5.2) mmol/L Chloride (100-108) mmol/L Carbon Dioxide (21-32) mmol/L Anion Gap (5.0-14.0) mmol/L BUN (7-18) mg/dL Creatinine (0.8-1.3) mg/dL Est Cr Clr Drug Dosing mL/min Estimated GFR (MDRD) (>60) Glucose (74-106) mg/dL Calcium (8.5-10.1) mg/dL Troponin I 1.347 H* (0.000-0.056) ng/mL C-Reactive Protein (0.0-0.3) mg/dL Procalcitonin ng/mL TSH, Ultra Sensitive (0.358-3.740) uIU/mL Urine Opiates Screen Negative (NEGATIVE) Ur Oxycodone Screen Negative (NEGATIVE) Urine Methadone Screen Negative (NEGATIVE) Ur Propoxyphene Screen Negative (NEGATIVE) Ur Barbiturates Screen Negative (NEGATIVE) Ur Tricyclics Screen Presumptive positive H (NEGATIVE) Ur Phencyclidine Scrn Negative (NEGATIVE) Ur Amphetamine Screen Negative (NEGATIVE) U Methamphetamines Scrn Negative (NEGATIVE) Urine MDMA Screen Negative (NEGATIVE) U Benzodiazepines Scrn Negative (NEGATIVE) U Cocaine Metab Screen Negative (NEGATIVE) U Marijuana (THC) Screen Negative (NEGATIVE) SARS CoV-2 RNA Rapid GILMA Positive H 05/20/21 05/20/21 05/20/21 Range/Units 14:55 16:47 16:51 WBC (4.5-11.0) K/uL RBC (4.30-5.90) M/uL Hgb (12.0-15.0) g/dL Hct (40.0-54.0) % MCV (80-98) fL MCH (27-31) pg MCHC (32-36) % Plt Count (150-400) K/uL D-Dimer, Quantitative 2083.64 H (0.0-500.0) ng/mL Sodium (140-148) mmol/L Potassium (3.6-5.2) mmol/L Chloride (100-108) mmol/L Carbon Dioxide (21-32) mmol/L Anion Gap (5.0-14.0) mmol/L BUN (7-18) mg/dL Creatinine (0.8-1.3) mg/dL Est Cr Clr Drug Dosing mL/min Estimated GFR (MDRD) (>60) Glucose (74-106) mg/dL Calcium (8.5-10.1) mg/dL Troponin I (0.000-0.056) ng/mL C-Reactive Protein 0.29 (0.0-0.3) mg/dL Procalcitonin < 0.05 ng/mL TSH, Ultra Sensitive (0.358-3.740) uIU/mL Urine Opiates Screen (NEGATIVE) Ur Oxycodone Screen (NEGATIVE) Urine Methadone Screen (NEGATIVE) Ur Propoxyphene Screen (NEGATIVE) Ur Barbiturates Screen (NEGATIVE) Ur Tricyclics Screen (NEGATIVE) Ur Phencyclidine Scrn (NEGATIVE) Ur Amphetamine Screen (NEGATIVE) U Methamphetamines Scrn (NEGATIVE) Urine MDMA Screen (NEGATIVE) U Benzodiazepines Scrn (NEGATIVE) U Cocaine Metab Screen (NEGATIVE) U Marijuana (THC) Screen (NEGATIVE) SARS CoV-2 RNA Rapid GILMA Meds: Medications Generic Name Dose Route Start Last Admin Trade Name Freq PRN Reason Stop Dose Admin Acetaminophen 650 mg 05/20/21 17:18 Acetaminophen 325 Mg Tab PO Q4H PRN Pain (Mild 1-3)/fever Aspirin 81 mg 05/21/21 09:00 Aspirin 81 Mg Tab.Chew PO DAILY ROMAN Aspirin 300 mg 05/20/21 18:00 Aspirin 300 Mg Supp RECTAL 05/20/21 18:01 ONETIME ONE Hydromorphone HCl 0.5 mg 05/20/21 17:18 Hydromorphone 1 Mg/Ml Syringe IVPUSH Q2H PRN Pain (severe 7-10) Sodium Chloride 1,000 mls @ 100 mls/hr 05/20/21 17:00 05/20/21 17:01 Normal Saline IV 05/21/21 03:01 100 mls/hr ASDIRECTED ROMAN Administration Heparin Sodium/Dextrose 25,000 units in 500 mls @ 20 mls/hr 05/20/21 17:18 Heparin 25,000 Units In D5w 500 Ml IV TITRATE ROMAN Protocol Lorazepam 0.5 mg 05/20/21 17:18 Lorazepam 2 Mg/Ml Sdv IVPUSH Q4H PRN Nausea/Vomiting Magnesium Hydroxide 30 ml 05/20/21 17:18 Magnesium Hydroxide 400 Mg/5 Ml Susp 30 Ml Cup PO Q12H PRN Constipation Ondansetron HCl 4 mg 05/20/21 17:18 Ondansetron 4 Mg/2 Ml Sdv IV Q6H PRN Nausea/Vomiting Ondansetron HCl 4 mg 05/20/21 17:18 Ondansetron 4 Mg Tab.Dis PO Q6H PRN Nausea able to take PO Oxycodone HCl 5 - 10 mg 05/20/21 17:18 Oxycodone 5 Mg Tab PO Q4H PRN Pain Pantoprazole Sodium 40 mg 05/20/21 18:00 Pantoprazole 40 Mg Vial IV Q24H ROMAN Senna/Docusate Sodium 1 tab 05/20/21 17:18 Docusate Sodium/Sennosides 50-8.6 Mg Tab PO BID PRN Constipation Discontinued Medications Generic Name Dose Route Start Last Admin Trade Name Freq PRN Reason Stop Dose Admin Aspirin 324 mg 05/20/21 11:13 05/20/21 11:30 Aspirin 81 Mg Tab.Chew PO 05/20/21 11:14 Not Given ONETIME ONE Heparin Sodium (Porcine) 4,000 units 05/20/21 14:46 05/20/21 15:00 Heparin Sodium 5,000 Units/Ml Vial IVPUSH 05/20/21 14:47 4,000 units ONETIME ONE Administration Heparin Sodium/Dextrose 25,000 units in 500 mls @ 18 mls/hr 05/20/21 15:00 05/20/21 15:01 Heparin 25,000 Units In D5w 500 Ml IV 900 units/hr TITRATE ROMAN 18 mls/hr Administration 900 UNITS/HR Sodium Chloride 100 mls @ 3 mls/sec 05/20/21 16:00 05/20/21 16:29 Normal Saline IV 3 mls/sec ASDIRECTED ROMAN Administration Iopamidol 100 ml 05/20/21 16:00 05/20/21 16:29 Iopamidol 755 Mg/Ml 100 Ml Bottle IV 100 ml . DIRECTED ROMAN Administration - Radiology Interpretation Free Text/Narrative:: Head CT scan-nothing acute CTA chest- IMPRESSION: 1. Poor opacification of the pulmonary arterial tree, rendering the exam nondiagnostic for pulmonary embolism. 2. Advanced pulmonary emphysema. No evidence of superimposed airspace disease. 3. Large hiatal hernia. Circumferential wall thickening of the distal esophagus, suggesting esophagitis. Correlate clinically. 4. Other chronic findings, as above. Please note that all CT scans at this facility use dose modulation, iterative reconstruction, and/or weight-based dosing when appropriate to reduce radiation dose to as low as reasonably achievable. Dictated by Lola Fisher MD @ 05/20/2021 5:32:45 PM (Electronic Signature) CT Results Date: 05/20/21 CT Results Time: 11:40 - Re-Assessments/Exams Free Text/Narrative Re-Assessment/Exam: 05/20/21 14:48 refusing ASA so far. Departure - Departure Time of Disposition: 17:36 Disposition: Admitted As Inpatient 66 Condition: Serious Clinical Impression: Elevated troponin, COVID-19 - Discharge Information Sepsis Event Note (ED) - Focused Exam Vital Signs: Vital Signs Temp Pulse Resp BP Pulse Ox 05/20/21 16:31 31 H 135/88 95 05/20/21 15:01 75 28 H 102/78 93 L 05/20/21 13:15 26 H 104/71 96 05/20/21 11:45 25 H 111/72 96 05/20/21 10:47 22 H 108/76 96 05/20/21 10:21 36.7 C 68 15 85/56 L 94 L - My Orders Last 24 Hours: My Active Orders 05/20/21 10:15 LEVETIRACETAM (KEPPRA), S Stat 05/20/21 11:05 HUMAN GRANULOCYTIC ESTELA-HGE Stat 05/20/21 11:12 EKG 12 Lead [EK] Routine 05/20/21 12:00 EKG 12 Lead [EK] Routine 05/20/21 15:12 UA W/MICROSCOPIC [URIN] Stat 05/20/21 19:00 PTT,PARTIAL THROMBOPLSTIN TIME [COAG] Stat - Assessment/Plan Last 24 Hours: My Active Orders 05/20/21 10:15 LEVETIRACETAM (KEPPRA), S Stat 05/20/21 11:05 HUMAN GRANULOCYTIC ESTELA-HGE Stat 05/20/21 11:12 EKG 12 Lead [EK] Routine 05/20/21 12:00 EKG 12 Lead [EK] Routine 05/20/21 15:12 UA W/MICROSCOPIC [URIN] Stat 05/20/21 19:00 PTT,PARTIAL THROMBOPLSTIN TIME [COAG] Stat
[2021-05-20] MEDS: Aspirin 81 MG Tab.Chew PO ONE ×2 (11:18→11:30)
--- NOTE | 2021-05-20 11:31 | CRLCT ---
For Patients: As a result of the Century Cures Act, medical imaging exams and procedure reports are released immediately into your electronic medical record. You may view this report before your referring provider. If you have questions, please contact your health care provider. Indication: Altered mental status Technique: Volumetric multidetector CT images of the head were obtained without the administration of low osmolar intravenous contrast. Comparison: None available Findings: There is no intra-axial or extra-axial fluid collection. There is no mass effect or midline shift. There is age-related cortical atrophy with mild sulcal widening and ex vacuo dilatation of the lateral ventricles. There is extensive encephalomalacia of the left frontal and left parietal lobes with mild leukomalacia of the associated subcortical white matter. There is moderate chronic small vessel disease change within the subcortical and periventricular white matter. Otherwise the brain parenchyma is preserved in attenuation and grouped differentiation. The orbits and their contents are grossly within normal limits. The bony calvarium is grossly intact. The paranasal sinuses are clear. The mastoid air cells are well aerated. Impression: Extensive encephalomalacia of the left frontal and left parietal lobes commensurate with prior infarct with moderate chronic small vessel disease change in the subcortical and periventricular white matter. Otherwise, no definite acute intracranial abnormality is appreciated. Please note that all CT scans at this facility use dose modulation, iterative reconstruction, and/or weight-based dosing when appropriate to reduce radiation dose to as low as reasonably achievable. Dictated by Luis Meredith MD @ 05/20/2021 11:30:13 AM (Electronically Signed)
[2021-05-20] MEDS ORDERED: Heparin Sodium 5,000 Units/ML Vial IVPUSH ONE (14:46)
[2021-05-20] MEDS ORDERED: Heparin Sodium/D5W 25,000 UNITS/500 ML BAG IV SCH ×2 (15:00→17:18)
[2021-05-20] MEDS ORDERED: Iopamidol 755 Mg/ML 100 ML Bottle IV SCH (16:00)
[2021-05-20] MEDS ORDERED: Sodium Chloride 0.9% 100 ML IV SCH (16:00)
[2021-05-20] MEDS ORDERED: Sodium Chloride 0.9% 1,000 ML IV SCH (17:00)
--- NOTE | 2021-05-20 17:08 | PCM.HP.2 ---
H&P History of Present Illness - General Date of Service: 05/20/21 Admit Problem/Dx: Admission Diagnosis/Problem Admission Diagnosis/Problem NSTEMI, initial episode of care Source of Information: Provider. No: Patient History Limitations: Reports: Altered Mental Status - History of Present Illness Initial Comments - Free Text/Narative: CC: confused HPI: Jesús was brought to the emergency room by ambulance today because of a decreased level of consciousness. He is not able to answer any questions or respond during our conversation so history is gathered from emergency room personnel. Per report he was sent from home because he was confused. Since he has been in the emergency room he has been moving all 4 extremities and sometimes answering with one-word but often just saying "God damn it ". He appears restless but does not appear uncomfortable. I tried contacting family members to gather more history but was unable to reach anyone who has seen him recently. His head CT did not show any acute findings. His Covid test was positive. Troponin level is elevated at 1.3. The plan was for transfer to a higher level of care and cardiology evaluation but unfortunately no hospitals in the region have beds available. During discussion with the silk screen painter there was concern for non-ST elevation ACS versus myocarditis with his Covid infection. Heparin infusion and additional work-up was recommended. Patient will be admitted to the intensive care unit for further management. - Related Data Allergies/Adverse Reactions: Allergies Allergy/AdvReac Type Severity Reaction Status Date / Time fluconazole [From Diflucan] Allergy Swelling Verified 05/20/21 10:28 Home Medications: Home Meds Mirtazapine 60 mg PO BEDTIME 12/14/16 [History] Pregabalin [Lyrica] 150 mg PO QID 12/14/16 [History] Esomeprazole [NexIUM] 40 mg PO BID 08/08/18 [History] Levothyroxine 25 mcg PO ACBREAKFAST 08/08/18 [History] levETIRAcetam [Levetiracetam] 500 mg PO BID 08/08/18 [History] oxyCODONE 5 mg PO TID 08/08/18 [History] ALPRAZolam [Alprazolam] 0.25 mg PO Q8H PRN 12/07/20 [History] Amitriptyline HCl 50 mg PO BEDTIME 05/20/21 [History] Cholecalciferol (Vitamin D3) [Vitamin D3] 1 cap PO DAILY 05/20/21 [History] Ferrous Sulfate 1 tab PO DAILY 05/20/21 [History] Lovastatin 10 mg PO BEDTIME 05/20/21 [History] Ondansetron [Ondansetron ODT] 1 tab PO Q8H PRN 05/20/21 [History] Sucralfate [Carafate] 1 gram PO QID 05/20/21 [History] hydrOXYzine HCL [Hydroxyzine HCl] 1 tab PO QID PRN 05/20/21 [History] miSOPROStoL [Misoprostol] 1 tab PO QID 05/20/21 [History] Past Medical History HEENT History: Reports: Cataract, Impaired Vision Cardiovascular History: Reports: Aneurysm, CAD, High Cholesterol, Stents Respiratory History: Reports: COPD, Other (See Below) Other Respiratory History: lung nodule Gastrointestinal History: Reports: GERD Genitourinary History: Reports: Pyelonephritis Musculoskeletal History: Reports: Fracture, Other (See Below) Other Musculoskeletal History: s/p orif L elbow 08/18/18. Fell 06/08/19- injured R buttocks and 3rd/4th fingers and upper back. Tips of his 3rd/4th fingers are dark pink and swollen. No other bruising/lacerations noted fx left elbow Neurological History: Reports: CVA, Headaches, Chronic, Migraines, Seizure Other Neuro History: Right side weakness Psychiatric History: Reports: Anxiety, Depression Endocrine/Metabolic History: Reports: Hypothyroidism, Obesity/BMI 30+ Hematologic History: Reports: None Immunologic History: Reports: None Oncologic (Cancer) History: Reports: None Dermatologic History: Reports: Other (See Below) Other Dermatologic History: Severe buns to lower legs - Infectious Disease History Infectious Disease History: Reports: Chicken Pox, Mumps - Past Surgical History Head Surgeries/Procedures: Reports: None HEENT Surgical History: Reports: Cataract Surgery Cardiovascular Surgical History: Reports: Aneurysm, Carotid Stents Respiratory Surgical History: Reports: None, Other (See Below) Other Respiratory Surgeries/Procedures: C/O HX OF R LUNG NODULE GI Surgical History: Reports: Bariatric Procedure, Cholecystectomy, Colonoscopy, EGD, Hernia Repair/Other, Other (See Below) Other GI Surgeries/Procedures: reversal of RNY at [facility] Endocrine Surgical History: Reports: None Musculoskeletal Surgical History: Reports: Other (See Below) Other Musculoskeletal Surgeries/Procedures:: left elbow Social & Family History - Family History Respiratory: Reports: COPD - Tobacco Use Tobacco Use Status *Q: Heavy Tobacco User Years of Tobacco use: 45 Packs/Tins Daily: 0.5 - Caffeine Use Caffeine Use: Reports: Coffee - Recreational Drug Use Recreational Drug Use: No H&P Review of Systems - Review of Systems: Review Of Systems: Unable To Obtain Reason Not Obtained: does not respond to/answer questions Exam - Exam Exam: See Below - Vital Signs Vital Signs: Last Vital Signs Temp 36.7 C 05/20/21 10: Pulse 75 05/20/21 15:01 Resp 31 H 05/20/21 16:31 BP 135/88 05/20/21 16:31 Pulse Ox 95 05/20/21 16:31 Weight: 73.028 kg - Exam Quality Assessment: No: Supplemental Oxygen General: Alert, Lethargic. No: Oriented, Cooperative, Mild Distress HEENT: No: Conjunctiva Clear, Mucosa Moist & [place] (dry), Pupils Equal (slightly larger on the right ) Neck: Supple, Trachea Midline. No: Lymphadenopathy Lungs: Normal Respiratory Effort, Crackles (mild in both mid lungs, moderate lower lungs) Cardiovascular: Regular Rate, Regular Rhythm. No: Systolic Murmur, Rubs GI/Abdominal Exam: Normal Bowel Sounds, Soft, No Distention, Tender (pt groans with deep palpation) Extremities: No Pedal Edema, Other (right foot with all toes amputated). No: Increased Warmth Skin: Warm, Dry Neuro Extensive - Mental Status: Alert, Slow Response to Commands. No: Oriented x3 Neuro Extensive - Motor, Sensory, Reflexes: Dysarthria. No: Abnormal Motor, Tremor Psychiatric: Alert. No: Agitated - Patient Data Lab Results Last 24 hrs: Laboratory Results - last 24 hr 05/20/21 05/20/21 05/20/21 Range/Units 10:15 10:15 10:15 WBC 4.8 (4.5-11.0) K/uL RBC 6.04 H (4.30-5.90) M/uL Hgb 16.9 H (12.0-15.0) g/dL Hct 50.6 (40.0-54.0) % MCV 84 (80-98) fL MCH 28 (27-31) pg MCHC 33 (32-36) % Plt Count 86 L (150-400) K/uL D-Dimer, Quantitative (0.0-500.0) ng/mL Sodium 146 (140-148) mmol/L Potassium 4.2 (3.6-5.2) mmol/L Chloride 106 (100-108) mmol/L Carbon Dioxide 25 (21-32) mmol/L Anion Gap 14.6 H (5.0-14.0) mmol/L BUN 14 D (7-18) mg/dL Creatinine 0.8 (0.8-1.3) mg/dL Est Cr Clr Drug Dosing 91.81 mL/min Estimated GFR (MDRD) > 60 (>60) Glucose 100 (74-106) mg/dL Calcium 7.9 L (8.5-10.1) mg/dL Troponin I 1.377 H* (0.000-0.056) ng/mL C-Reactive Protein (0.0-0.3) mg/dL TSH, Ultra Sensitive 0.521 (0.358-3.740) uIU/mL Urine Opiates Screen (NEGATIVE) Ur Oxycodone Screen (NEGATIVE) Urine Methadone Screen (NEGATIVE) Ur Propoxyphene Screen (NEGATIVE) Ur Barbiturates Screen (NEGATIVE) Ur Tricyclics Screen (NEGATIVE) Ur Phencyclidine Scrn (NEGATIVE) Ur Amphetamine Screen (NEGATIVE) U Methamphetamines Scrn (NEGATIVE) Urine MDMA Screen (NEGATIVE) U Benzodiazepines Scrn (NEGATIVE) U Cocaine Metab Screen (NEGATIVE) U Marijuana (THC) Screen (NEGATIVE) SARS CoV-2 RNA Rapid GILMA 05/20/21 05/20/21 05/20/21 Range/Units 11:13 11:20 13:24 WBC (4.5-11.0) K/uL RBC (4.30-5.90) M/uL Hgb (12.0-15.0) g/dL Hct (40.0-54.0) % MCV (80-98) fL MCH (27-31) pg MCHC (32-36) % Plt Count (150-400) K/uL D-Dimer, Quantitative (0.0-500.0) ng/mL Sodium (140-148) mmol/L Potassium (3.6-5.2) mmol/L Chloride (100-108) mmol/L Carbon Dioxide (21-32) mmol/L Anion Gap (5.0-14.0) mmol/L BUN (7-18) mg/dL Creatinine (0.8-1.3) mg/dL Est Cr Clr Drug Dosing mL/min Estimated GFR (MDRD) (>60) Glucose (74-106) mg/dL Calcium (8.5-10.1) mg/dL Troponin I 1.347 H* (0.000-0.056) ng/mL C-Reactive Protein (0.0-0.3) mg/dL TSH, Ultra Sensitive (0.358-3.740) uIU/mL Urine Opiates Screen Negative (NEGATIVE) Ur Oxycodone Screen Negative (NEGATIVE) Urine Methadone Screen Negative (NEGATIVE) Ur Propoxyphene Screen Negative (NEGATIVE) Ur Barbiturates Screen Negative (NEGATIVE) Ur Tricyclics Screen Presumptive positive H (NEGATIVE) Ur Phencyclidine Scrn Negative (NEGATIVE) Ur Amphetamine Screen Negative (NEGATIVE) U Methamphetamines Scrn Negative (NEGATIVE) Urine MDMA Screen Negative (NEGATIVE) U Benzodiazepines Scrn Negative (NEGATIVE) U Cocaine Metab Screen Negative (NEGATIVE) U Marijuana (THC) Screen Negative (NEGATIVE) SARS CoV-2 RNA Rapid GILMA Positive H 05/20/21 05/20/21 Range/Units 14:55 16:47 WBC (4.5-11.0) K/uL RBC (4.30-5.90) M/uL Hgb (12.0-15.0) g/dL Hct (40.0-54.0) % MCV (80-98) fL MCH (27-31) pg MCHC (32-36) % Plt Count (150-400) K/uL D-Dimer, Quantitative 2083.64 H (0.0-500.0) ng/mL Sodium (140-148) mmol/L Potassium (3.6-5.2) mmol/L Chloride (100-108) mmol/L Carbon Dioxide (21-32) mmol/L Anion Gap (5.0-14.0) mmol/L BUN (7-18) mg/dL Creatinine (0.8-1.3) mg/dL Est Cr Clr Drug Dosing mL/min Estimated GFR (MDRD) (>60) Glucose (74-106) mg/dL Calcium (8.5-10.1) mg/dL Troponin I (0.000-0.056) ng/mL C-Reactive Protein 0.29 (0.0-0.3) mg/dL TSH, Ultra Sensitive (0.358-3.740) uIU/mL Urine Opiates Screen (NEGATIVE) Ur Oxycodone Screen (NEGATIVE) Urine Methadone Screen (NEGATIVE) Ur Propoxyphene Screen (NEGATIVE) Ur Barbiturates Screen (NEGATIVE) Ur Tricyclics Screen (NEGATIVE) Ur Phencyclidine Scrn (NEGATIVE) Ur Amphetamine Screen (NEGATIVE) U Methamphetamines Scrn (NEGATIVE) Urine MDMA Screen (NEGATIVE) U Benzodiazepines Scrn (NEGATIVE) U Cocaine Metab Screen (NEGATIVE) U Marijuana (THC) Screen (NEGATIVE) SARS CoV-2 RNA Rapid GILMA Result Diagrams: 05/20/21 10:15 05/20/21 10:15 Imaging Impressions Last 24 hrs: Head CT -extensive encephalomalacia left frontal lobe with history of infarct in this region. There is some chronic small vessel ischemic disease. No acute findings such as mass or hemorrhage. CT pulmonary angiogram-these images were also personally reviewed-part opacification of the contrast bolus. Nondiagnostic for pulmonary embolism. Heart size is normal with coronary artery calcifications. Extensive emphysema. No obvious mass or infiltrate. #1 Interpretation EKG Date: 05/20/21 Time: 12:20 Rhythm: NSR Rate (Beats/Min): 67 [place]: Normal P-Wave: Present QRS: Normal ST-T: Normal QT: Normal PA/PQ Interval: normal Comparison: No Change #2 Interpretation EKG Date: 05/20/21 Time: 13:36 Rhythm: NSR Rate (Beats/Min): 68 [place]: Normal P-Wave: Present QRS: Normal ST-T: Normal QT: Normal PA/PQ Interval: normal Comparison: No Change Sepsis Event Note - Evaluation Sepsis Screening Result: No Definite Risk - Focused Exam Vital Signs: Vital Signs Temp Pulse Resp BP Pulse Ox 05/20/21 16:31 31 H 135/88 95 05/20/21 15:01 75 28 H 102/78 93 L 05/20/21 13:15 26 H 104/71 96 05/20/21 11:45 25 H 111/72 96 05/20/21 10:47 22 H 108/76 96 05/20/21 10:21 36.7 C 68 15 85/56 L 94 L *Q Meaningful Use (ADM) - VTE Risk Assess *Q Each Risk Factor Represents 1 Point: Serious lung disease including pneumonia Total Score 1 Point Risk Factors: 1 Each Risk Factor Represents 2 Points: Age 60 - 74 Years Total Score 2 Point Risk Factors: 2 Each Risk Factor Represents 3 Points: None Total Score 3 Point Risk Factors: 0 Each Risk Factor Represents 5 Points: None Total Score 5 Point Risk Factors: 0 Venous Thromboembolism Risk Factor Score *Q: 3 - Problem List (1) NSTEMI (non-ST elevated myocardial infarction) SNOMED Code(s): 15075600 ICD Code: I21.4 - NON-ST ELEVATION (NSTEMI) MYOCARDIAL INFARCTION Status: Acute Current Visit: Yes (2) COVID-19 SNOMED Code(s): 288269251 ICD Code: U07.1 - COVID-19 Status: Acute Current Visit: Yes (3) Acute hypoactive delirium due to multiple etiologies SNOMED Code(s): 940661511, 185073437 ICD Code: F05 - DELIRIUM DUE TO KNOWN PHYSIOLOGICAL CONDITION Status: Acute Current Visit: Yes (4) Tobacco dependence SNOMED Code(s): 89160032 ICD Code: F17.200 - NICOTINE DEPENDENCE, UNSPECIFIED, UNCOMPLICATED Status: Chronic Current Visit: No Problem List Initiated/Reviewed/Updated: Yes Orders Last 24hrs: Active Orders 24 hr Category Date Time Status Patient Status Manage Transfer [TRANSFER] Routine ADT 05/20/21 16:53 Active Cardiac Monitoring [RC] .As Directed Care 05/20/21 10:21 Active Ang Chest [CT] Stat Exams 05/20/21 15:43 Taken HUMAN GRANULOCYTIC ESTELA-HGE Stat Lab 05/20/21 11:05 Received LEVETIRACETAM (KEPPRA), S Stat Lab 05/20/21 10:15 Received PROCALCITONIN [CHEM] Stat Lab 05/20/21 16:51 Received PTT,PARTIAL THROMBOPLSTIN TIME [COAG] Stat Lab 05/20/21 19:00 Ordered UA W/MICROSCOPIC [URIN] Stat Lab 05/20/21 15:12 Ordered Heparin Sodium/D5W [Heparin 25,000 Units in D5W 500 ML] Med 05/20/21 15:00 Active 25,000 units in 500 ml IV TITRATE Iopamidol [Isovue-370 (76%)] Med 05/20/21 16:00 Active 100 ml IV . DIRECTED Sodium Chloride 0.9% [Normal Saline] 1,000 ml Med 05/20/21 17:00 Active IV ASDIRECTED Resuscitation Status Routine Resus Stat 05/20/21 16:55 Ordered EKG 12 Lead [EK] Routine Ther 05/20/21 11:12 Ordered EKG 12 Lead [EK] Routine Ther 05/20/21 12:00 Ordered Medication Orders Heparin Sodium/Dextrose (Heparin 25,000 Units In D5w 500 Ml) 25,000 units in 500 mls @ 18 mls/hr IV TITRATE ROMAN Last Admin: 05/20/21 15:01 Dose: 900 units/hr, 18 mls/hr Documented by: OLIVIER Cosigned by: PAOLA Sodium Chloride (Normal Saline) 1,000 mls @ 100 mls/hr IV ASDIRECTED ROMAN Stop: 05/21/21 03:01 Last Admin: 05/20/21 17:01 Dose: 100 mls/hr Documented by: OLIVIER Iopamidol (Iopamidol 755 Mg/Ml 100 Ml Bottle) 100 ml IV . DIRECTED ROMAN Last Admin: 05/20/21 16:29 Dose: 100 ml Documented by: MINH Assessment/Plan Comment:: ASSESSMENT AND PLAN - Non-ST elevation ACS-differential would include myocarditis from Covid infection. First 2 troponin levels are similar. Patient does not able to provide any history. High risk for vascular disease. -Continue heparin infusion -Daily aspirin if he will take it -Serial troponins -Cardiac monitoring -echo in the morning COVID-19 positive-unable to get any history so duration of symptoms if they are present is unclear. Unable to reach family for additional information. He is not currently hypoxic. D-dimer moderately elevated. CRP normal. -Isolation protocol -Steroids if he becomes hypoxic Hypoactive delirium-etiology not entirely clear. Could be related to Covid. Could be related to medications. Drug screen was clear other than tricyclic's. Does not seem like a seizure or postictal state. He is quite dehydrated. Head CT with no acute findings. -Gentle IV fluids -Hold home medications Tobacco dependence- -encourage cessation Maintenance issues - -DVT prophylaxis-enoxaparin -GI prophylaxis-PPI -Nutrition-n.p.o. until he wakes up -Boland catheter-not currently indicated but could be considered if vital signs deteriorate CODE STATUS -presumed to be full code Admission justification -this patient will be admitted for inpatient services and is medically appropriate meeting medical necessity for inpatient admission as outlined in my documentation. I reasonably expect the patient will require inpatient services that span a period time over 2 midnights. I reasonably expect this patient to be discharged or transferred within 96 hours after admission to the [facility]. Disposition -I anticipate discharge home after the hospital stay Primary care physician - Dr Srinivasan Cedeno M.D. - Mortality Measure Prognosis:: Poor
[2021-05-20] MEDS ORDERED: Magnesium Hydroxide 400 MG/5 ML Susp 30 ML Cup PO PRN (17:18)
[2021-05-20] MEDS ORDERED: Ondansetron 4 MG/2 ML SDV IV PRN (17:18)
[2021-05-20] MEDS ORDERED: LORazepam 2 MG/ML SDV IVPUSH PRN (17:18)
[2021-05-20] MEDS ORDERED: Acetaminophen 325 MG Tab PO PRN (17:18)
[2021-05-20] MEDS ORDERED: Ondansetron 4 MG Tab.DIS PO PRN (17:18)
--- NOTE | 2021-05-20 17:33 | CRLCT ---
For Patients: As a result of the 21st Century Cures Act, medical imaging exams and procedure reports are released immediately into your electronic medical record. You may view this report before your referring provider. If you have questions, please contact your health care provider. INDICATION: COVID positive, elevated D-dimer, elevated troponin, mild tachypnea TECHNIQUE: Contrast enhanced axial CT imaging through the chest, optimized for assessment of the pulmonary arterial tree. 100 mL Isovue 370 contrast agent was administered intravenously. Sagittal and coronal reconstructions are provided. COMPARISON: None FINDINGS: There is poor opacification of the pulmonary arterial tree, rendering the exam nondiagnostic for pulmonary embolism. The main pulmonary artery is nonenlarged. The heart is normal in size. Coronary artery calcification is present. There is no pericardial effusion. The thoracic aorta is normal in caliber. There are advanced changes of pulmonary emphysema. There is no pleural effusion or pneumothorax. Scattered bilateral small calcified pulmonary nodules and calcified lymph nodes in the mediastinum and pulmonary romero are consistent with chronic granulomatous disease. There is a large hiatal hernia containing at least half the stomach. Circumferential wall thickening is noted in the distal esophagus. There is diffuse osseous demineralization, consistent osteopenia. Chronic vertebral compression deformities noted at T6. There is exaggerated thoracic kyphosis. IMPRESSION: 1. Poor opacification of the pulmonary arterial tree, rendering the exam nondiagnostic for pulmonary embolism. 2. Advanced pulmonary emphysema. No evidence of superimposed airspace disease. 3. Large hiatal hernia. Circumferential wall thickening of the distal esophagus, suggesting esophagitis. Correlate clinically. 4. Other chronic findings, as above. Please note that all CT scans at this facility use dose modulation, iterative reconstruction, and/or weight-based dosing when appropriate to reduce radiation dose to as low as reasonably achievable. Dictated by Lola Fisher MD @ 05/20/2021 5:32:45 PM (Electronically Signed)
[2021-05-20] MEDS ORDERED: Aspirin 300 MG Supp RECTAL ONE (18:00)
[2021-05-20] MEDS: Pantoprazole 40 MG Vial IV SCH (18:34)
[2021-05-20] MEDS: levETIRAcetam 500 MG in Sodium Chloride 0.9% 100 ML IV SCH (22:15)
[2021-05-21] MEDS: HYDROmorphone 1 MG/ML Syringe IVPUSH PRN ×2 (08:09→15:38)
[2021-05-21] MEDS: Aspirin 81 MG Tab.Chew PO SCH (08:15)
--- NOTE | 2021-05-21 09:27 | PCM.PN ---
- General Info Date of Service: 05/21/21 Subjective Update: There were no acute events overnight. Patient's troponin level has remained essentially stable between 1 and 1.3. He is a little bit more talkative today but still mostly minimally responsive. He is able to tell me that he is having some pain in his back as well as some pain in his abdomen. He did not report shortness of breath. He has not required supplemental oxygen. He is moving all 4 extremities. He is able to swallow pills. Vital signs have been stable. - Review of Systems General: Reports: Weakness. Denies: Fever Neurological: Reports: Confusion - Patient Data Vitals - Most Recent: Last Vital Signs Temp 36.7 C 05/21/21 08:00 Pulse 94 05/21/21 08:00 Resp 27 H 05/21/21 08:00 BP 126/74 05/21/21 08:00 Pulse Ox 93 L 05/21/21 08:00 Weight - Most Recent: 73.028 kg I&O - Last 24 Hours: Intake & Output 05/20/21 05/21/21 05/21/21 22:59 06:59 14:59 Intake Total 1320 Balance 1320 Lab Results Last 24 Hours: Laboratory Results - last 24 hr 05/20/21 05/20/21 05/20/21 Range/Units 10:15 10:15 10:15 WBC 4.8 (4.5-11.0) K/uL RBC 6.04 H (4.30-5.90) M/uL Hgb 16.9 H (12.0-15.0) g/dL Hct 50.6 (40.0-54.0) % MCV 84 (80-98) fL MCH 28 (27-31) pg MCHC 33 (32-36) % Plt Count 86 L (150-400) K/uL APTT (21.4-31.8) sec D-Dimer, Quantitative (0.0-500.0) ng/mL Sodium 146 (140-148) mmol/L Potassium 4.2 (3.6-5.2) mmol/L Chloride 106 (100-108) mmol/L Carbon Dioxide 25 (21-32) mmol/L Anion Gap 14.6 H (5.0-14.0) mmol/L BUN 14 D (7-18) mg/dL Creatinine 0.8 (0.8-1.3) mg/dL Est Cr Clr Drug Dosing 91.81 mL/min Estimated GFR (MDRD) > 60 (>60) Glucose 100 (74-106) mg/dL Calcium 7.9 L (8.5-10.1) mg/dL Troponin I 1.377 H* (0.000-0.056) ng/mL C-Reactive Protein (0.0-0.3) mg/dL Procalcitonin ng/mL TSH, Ultra Sensitive 0.521 (0.358-3.740) uIU/mL Urine Opiates Screen (NEGATIVE) Ur Oxycodone Screen (NEGATIVE) Urine Methadone Screen (NEGATIVE) Ur Propoxyphene Screen (NEGATIVE) Ur Barbiturates Screen (NEGATIVE) Ur Tricyclics Screen (NEGATIVE) Ur Phencyclidine Scrn (NEGATIVE) Ur Amphetamine Screen (NEGATIVE) U Methamphetamines Scrn (NEGATIVE) Urine MDMA Screen (NEGATIVE) U Benzodiazepines Scrn (NEGATIVE) U Cocaine Metab Screen (NEGATIVE) U Marijuana (THC) Screen (NEGATIVE) SARS CoV-2 RNA Rapid [facility] 05/20/21 05/20/21 05/20/21 Range/Units 11:13 11:20 13:24 WBC (4.5-11.0) K/uL RBC (4.30-5.90) M/uL Hgb (12.0-15.0) g/dL Hct (40.0-54.0) % MCV (80-98) fL MCH (27-31) pg MCHC (32-36) % Plt Count (150-400) K/uL APTT (21.4-31.8) sec D-Dimer, Quantitative (0.0-500.0) ng/mL Sodium (140-148) mmol/L Potassium (3.6-5.2) mmol/L Chloride (100-108) mmol/L Carbon Dioxide (21-32) mmol/L Anion Gap (5.0-14.0) mmol/L BUN (7-18) mg/dL Creatinine (0.8-1.3) mg/dL Est Cr Clr Drug Dosing mL/min Estimated GFR (MDRD) (>60) Glucose (74-106) mg/dL Calcium (8.5-10.1) mg/dL Troponin I 1.347 H* (0.000-0.056) ng/mL C-Reactive Protein (0.0-0.3) mg/dL Procalcitonin ng/mL TSH, Ultra Sensitive (0.358-3.740) uIU/mL Urine Opiates Screen Negative (NEGATIVE) Ur Oxycodone Screen Negative (NEGATIVE) Urine Methadone Screen Negative (NEGATIVE) Ur Propoxyphene Screen Negative (NEGATIVE) Ur Barbiturates Screen Negative (NEGATIVE) Ur Tricyclics Screen Presumptive positive H (NEGATIVE) Ur Phencyclidine Scrn Negative (NEGATIVE) Ur Amphetamine Screen Negative (NEGATIVE) U Methamphetamines Scrn Negative (NEGATIVE) Urine MDMA Screen Negative (NEGATIVE) U Benzodiazepines Scrn Negative (NEGATIVE) U Cocaine Metab Screen Negative (NEGATIVE) U Marijuana (THC) Screen Negative (NEGATIVE) SARS CoV-2 RNA Rapid [facility] Positive H 05/20/21 05/20/21 05/20/21 Range/Units 14:55 16:47 16:51 WBC (4.5-11.0) K/uL RBC (4.30-5.90) M/uL Hgb (12.0-15.0) g/dL Hct (40.0-54.0) % MCV (80-98) fL MCH (27-31) pg MCHC (32-36) % Plt Count (150-400) K/uL APTT (21.4-31.8) sec D-Dimer, Quantitative 2083.64 H (0.0-500.0) ng/mL Sodium (140-148) mmol/L Potassium (3.6-5.2) mmol/L Chloride (100-108) mmol/L Carbon Dioxide (21-32) mmol/L Anion Gap (5.0-14.0) mmol/L BUN (7-18) mg/dL Creatinine (0.8-1.3) mg/dL Est Cr Clr Drug Dosing mL/min Estimated GFR (MDRD) (>60) Glucose (74-106) mg/dL Calcium (8.5-10.1) mg/dL Troponin I (0.000-0.056) ng/mL C-Reactive Protein 0.29 (0.0-0.3) mg/dL Procalcitonin < 0.05 ng/mL TSH, Ultra Sensitive (0.358-3.740) uIU/mL Urine Opiates Screen (NEGATIVE) Ur Oxycodone Screen (NEGATIVE) Urine Methadone Screen (NEGATIVE) Ur Propoxyphene Screen (NEGATIVE) Ur Barbiturates Screen (NEGATIVE) Ur Tricyclics Screen (NEGATIVE) Ur Phencyclidine Scrn (NEGATIVE) Ur Amphetamine Screen (NEGATIVE) U Methamphetamines Scrn (NEGATIVE) Urine MDMA Screen (NEGATIVE) U Benzodiazepines Scrn (NEGATIVE) U Cocaine Metab Screen (NEGATIVE) U Marijuana (THC) Screen (NEGATIVE) SARS CoV-2 RNA Rapid GILMA 05/20/21 05/20/21 05/21/21 Range/Units 19:11 19:11 03:43 WBC (4.5-11.0) K/uL RBC (4.30-5.90) M/uL Hgb (12.0-15.0) g/dL Hct (40.0-54.0) % MCV (80-98) fL MCH (27-31) pg MCHC (32-36) % Plt Count (150-400) K/uL APTT 96.0 H* (21.4-31.8) sec D-Dimer, Quantitative (0.0-500.0) ng/mL Sodium (140-148) mmol/L Potassium (3.6-5.2) mmol/L Chloride (100-108) mmol/L Carbon Dioxide (21-32) mmol/L Anion Gap (5.0-14.0) mmol/L BUN (7-18) mg/dL Creatinine (0.8-1.3) mg/dL Est Cr Clr Drug Dosing mL/min Estimated GFR (MDRD) (>60) Glucose (74-106) mg/dL Calcium (8.5-10.1) mg/dL Troponin I 1.080 H* 1.322 H* (0.000-0.056) ng/mL C-Reactive Protein (0.0-0.3) mg/dL Procalcitonin ng/mL TSH, Ultra Sensitive (0.358-3.740) uIU/mL Urine Opiates Screen (NEGATIVE) Ur Oxycodone Screen (NEGATIVE) Urine Methadone Screen (NEGATIVE) Ur Propoxyphene Screen (NEGATIVE) Ur Barbiturates Screen (NEGATIVE) Ur Tricyclics Screen (NEGATIVE) Ur Phencyclidine Scrn (NEGATIVE) Ur Amphetamine Screen (NEGATIVE) U Methamphetamines Scrn (NEGATIVE) Urine MDMA Screen (NEGATIVE) U Benzodiazepines Scrn (NEGATIVE) U Cocaine Metab Screen (NEGATIVE) U Marijuana (THC) Screen (NEGATIVE) SARS CoV-2 RNA Rapid [facility] 05/21/21 05/21/21 05/21/21 Range/Units 03:43 03:43 03:43 WBC 4.9 (4.5-11.0) K/uL RBC 5.60 (4.30-5.90) M/uL Hgb 15.8 H (12.0-15.0) g/dL Hct 47.3 (40.0-54.0) % MCV 85 (80-98) fL MCH 28 (27-31) pg MCHC 33 (32-36) % Plt Count 85 L (150-400) K/uL APTT 64.9 H (21.4-31.8) sec D-Dimer, Quantitative (0.0-500.0) ng/mL Sodium 147 (140-148) mmol/L Potassium 3.5 L (3.6-5.2) mmol/L Chloride 110 H (100-108) mmol/L Carbon Dioxide 25 (21-32) mmol/L Anion Gap 15.5 H (5.0-14.0) mmol/L BUN 9 (7-18) mg/dL Creatinine 0.7 L (0.8-1.3) mg/dL Est Cr Clr Drug Dosing 104.92 mL/min Estimated GFR (MDRD) > 60 (>60) Glucose 90 (74-106) mg/dL Calcium 7.5 L (8.5-10.1) mg/dL Troponin I (0.000-0.056) ng/mL C-Reactive Protein (0.0-0.3) mg/dL Procalcitonin ng/mL TSH, Ultra Sensitive (0.358-3.740) uIU/mL Urine Opiates Screen (NEGATIVE) Ur Oxycodone Screen (NEGATIVE) Urine Methadone Screen (NEGATIVE) Ur Propoxyphene Screen (NEGATIVE) Ur Barbiturates Screen (NEGATIVE) Ur Tricyclics Screen (NEGATIVE) Ur Phencyclidine Scrn (NEGATIVE) Ur Amphetamine Screen (NEGATIVE) U Methamphetamines Scrn (NEGATIVE) Urine MDMA Screen (NEGATIVE) U Benzodiazepines Scrn (NEGATIVE) U Cocaine Metab Screen (NEGATIVE) U Marijuana (THC) Screen (NEGATIVE) SARS CoV-2 RNA Rapid GIL[facility] Med Orders - Current: Current Medications Acetaminophen (Acetaminophen 325 Mg Tab) 650 mg PO Q4H PRN PRN Reason: Pain (Mild 1-3)/fever Aspirin (Aspirin 81 Mg Tab.Chew) 81 mg PO DAILY [facility] Last Admin: 05/21/21 08:15 Dose: 81 mg Documented by: Hydromorphone HCl (Hydromorphone 1 Mg/Ml Syringe) 0.5 mg IVPUSH Q2H PRN PRN Reason: Pain (severe 7-10) Last Admin: 05/21/21 08:09 Dose: 0.5 mg Documented by: Heparin Sodium/Dextrose (Heparin 25,000 Units In D5w 500 Ml) 25,000 units in 500 mls @ 20 mls/hr IV TITRATE [facility]; Protocol Last Admin: 05/20/21 21:35 Dose: 13.6 ml/hr, 13.6 mls/hr Documented by: Levetiracetam 500 mg/ Sodium (Chloride) 105 mls @ 400 mls/hr IV Q12H [facility] Last Admin: 05/20/21 22:15 Dose: 400 mls/hr Documented by: Lorazepam (Lorazepam 2 Mg/Ml Sdv) 0.5 mg IVPUSH Q4H PRN PRN Reason: Nausea/Vomiting Magnesium Hydroxide (Magnesium Hydroxide 400 Mg/5 Ml Susp 30 Ml Cup) 30 ml PO Q12H PRN PRN Reason: Constipation Ondansetron HCl (Ondansetron 4 Mg/2 Ml Sdv) 4 mg IV Q6H PRN PRN Reason: Nausea/Vomiting Ondansetron HCl (Ondansetron 4 Mg Tab.Dis) 4 mg PO Q6H PRN PRN Reason: Nausea able to take PO Oxycodone HCl (Oxycodone 5 Mg Tab) 5 - 10 mg PO Q4H PRN PRN Reason: Pain Pantoprazole Sodium (Pantoprazole 40 Mg Vial) 40 mg IV Q24H [facility] Last Admin: 05/20/21 18:34 Dose: 40 mg Documented by: Senna/Docusate Sodium (Docusate Sodium/Sennosides 50-8.6 Mg Tab) 1 tab PO BID PRN PRN Reason: Constipation Discontinued Medications Aspirin (Aspirin 81 Mg Tab.Chew) 324 mg PO ONETIME ONE Stop: 05/20/21 11:14 Last Admin: 05/20/21 11:30 Dose: Not Given Documented by: Aspirin (Aspirin 300 Mg Supp) 300 mg RECTAL ONETIME ONE Stop: 05/20/21 18:01 Last Admin: 05/20/21 18:23 Dose: 300 mg Documented by: Heparin Sodium (Porcine) (Heparin Sodium 5,000 Units/Ml Vial) 4,000 units IVPUSH ONETIME ONE Stop: 05/20/21 14:47 Last Admin: 05/20/21 15:00 Dose: 4,000 units Documented by: Heparin Sodium/Dextrose (Heparin 25,000 Units In D5w 500 Ml) 25,000 units in 500 mls @ 18 mls/hr IV TITRATE [facility] Last Admin: 05/20/21 15:01 Dose: 900 units/hr, 18 mls/hr Documented by: Sodium Chloride (Normal Saline) 100 mls @ 3 mls/sec IV ASDIRECTED [facility] Last Admin: 05/20/21 16:29 Dose: 3 mls/sec Documented by: Sodium Chloride (Normal Saline) 1,000 mls @ 100 mls/hr IV ASDIRECTED [facility] Stop: 05/21/21 03:01 Last Admin: 05/20/21 17:01 Dose: 100 mls/hr Documented by: Iopamidol (Iopamidol 755 Mg/Ml 100 Ml Bottle) 100 ml IV . DIRECTED [facility] Last Admin: 05/20/21 16:29 Dose: 100 ml Documented by: - Exam Quality Assessment: Supplemental Oxygen General: Alert, Cooperative, No Acute Distress, Lethargic. No: Oriented HEENT: No: Pupils Equal (right slightly larger) Lungs: Normal Respiratory Effort, Crackles (mild scattered diffusely ) Cardiovascular: Regular Rate, Regular Rhythm, No Murmurs. No: Rubs GI/Abdominal Exam: Soft, No Distention, Tender (mild diffuse ) Extremities: No Pedal Edema, Other (multiple skin grafts on lower extremities ). No: Increased Warmth Skin: Warm, Dry Psy/Mental Status: Alert. No: Agitated - Patient Data Lab Results Last 24 hrs: Laboratory Results - last 24 hr 05/20/21 05/20/21 05/20/21 Range/Units 10:15 10:15 10:15 WBC 4.8 (4.5-11.0) K/uL RBC 6.04 H (4.30-5.90) M/uL Hgb 16.9 H (12.0-15.0) g/dL Hct 50.6 (40.0-54.0) % MCV 84 (80-98) fL MCH 28 (27-31) pg MCHC 33 (32-36) % Plt Count 86 L (150-400) K/uL APTT (21.4-31.8) sec D-Dimer, Quantitative (0.0-500.0) ng/mL Sodium 146 (140-148) mmol/L Potassium 4.2 (3.6-5.2) mmol/L Chloride 106 (100-108) mmol/L Carbon Dioxide 25 (21-32) mmol/L Anion Gap 14.6 H (5.0-14.0) mmol/L BUN 14 D (7-18) mg/dL Creatinine 0.8 (0.8-1.3) mg/dL Est Cr Clr Drug Dosing 91.81 mL/min Estimated GFR (MDRD) > 60 (>60) Glucose 100 (74-106) mg/dL Calcium 7.9 L (8.5-10.1) mg/dL Troponin I 1.377 H* (0.000-0.056) ng/mL C-Reactive Protein (0.0-0.3) mg/dL Procalcitonin ng/mL TSH, Ultra Sensitive 0.521 (0.358-3.740) uIU/mL Urine Opiates Screen (NEGATIVE) Ur Oxycodone Screen (NEGATIVE) Urine Methadone Screen (NEGATIVE) Ur Propoxyphene Screen (NEGATIVE) Ur Barbiturates Screen (NEGATIVE) Ur Tricyclics Screen (NEGATIVE) Ur Phencyclidine Scrn (NEGATIVE) Ur Amphetamine Screen (NEGATIVE) U Methamphetamines Scrn (NEGATIVE) Urine MDMA Screen (NEGATIVE) U Benzodiazepines Scrn (NEGATIVE) U Cocaine Metab Screen (NEGATIVE) U Marijuana (THC) Screen (NEGATIVE) SARS CoV-2 RNA Rapid [facility] 05/20/21 05/20/21 05/20/21 Range/Units 11:13 11:20 13:24 WBC (4.5-11.0) K/uL RBC (4.30-5.90) M/uL Hgb (12.0-15.0) g/dL Hct (40.0-54.0) % MCV (80-98) fL MCH (27-31) pg MCHC (32-36) % Plt Count (150-400) K/uL APTT (21.4-31.8) sec D-Dimer, Quantitative (0.0-500.0) ng/mL Sodium (140-148) mmol/L Potassium (3.6-5.2) mmol/L Chloride (100-108) mmol/L Carbon Dioxide (21-32) mmol/L Anion Gap (5.0-14.0) mmol/L BUN (7-18) mg/dL Creatinine (0.8-1.3) mg/dL Est Cr Clr Drug Dosing mL/min Estimated GFR (MDRD) (>60) Glucose (74-106) mg/dL Calcium (8.5-10.1) mg/dL Troponin I 1.347 H* (0.000-0.056) ng/mL C-Reactive Protein (0.0-0.3) mg/dL Procalcitonin ng/mL TSH, Ultra Sensitive (0.358-3.740) uIU/mL Urine Opiates Screen Negative (NEGATIVE) Ur Oxycodone Screen Negative (NEGATIVE) Urine Methadone Screen Negative (NEGATIVE) Ur Propoxyphene Screen Negative (NEGATIVE) Ur Barbiturates Screen Negative (NEGATIVE) Ur Tricyclics Screen Presumptive positive H (NEGATIVE) Ur Phencyclidine Scrn Negative (NEGATIVE) Ur Amphetamine Screen Negative (NEGATIVE) U Methamphetamines Scrn Negative (NEGATIVE) Urine MDMA Screen Negative (NEGATIVE) U Benzodiazepines Scrn Negative (NEGATIVE) U Cocaine Metab Screen Negative (NEGATIVE) U Marijuana (THC) Screen Negative (NEGATIVE) SARS CoV-2 RNA Rapid [facility] Positive H 05/20/21 05/20/21 05/20/21 Range/Units 14:55 16:47 16:51 WBC (4.5-11.0) K/uL RBC (4.30-5.90) M/uL Hgb (12.0-15.0) g/dL Hct (40.0-54.0) % MCV (80-98) fL MCH (27-31) pg MCHC (32-36) % Plt Count (150-400) K/uL APTT (21.4-31.8) sec D-Dimer, Quantitative 2083.64 H (0.0-500.0) ng/mL Sodium (140-148) mmol/L Potassium (3.6-5.2) mmol/L Chloride (100-108) mmol/L Carbon Dioxide (21-32) mmol/L Anion Gap (5.0-14.0) mmol/L BUN (7-18) mg/dL Creatinine (0.8-1.3) mg/dL Est Cr Clr Drug Dosing mL/min Estimated GFR (MDRD) (>60) Glucose (74-106) mg/dL Calcium (8.5-10.1) mg/dL Troponin I (0.000-0.056) ng/mL C-Reactive Protein 0.29 (0.0-0.3) mg/dL Procalcitonin < 0.05 ng/mL TSH, Ultra Sensitive (0.358-3.740) uIU/mL Urine Opiates Screen (NEGATIVE) Ur Oxycodone Screen (NEGATIVE) Urine Methadone Screen (NEGATIVE) Ur Propoxyphene Screen (NEGATIVE) Ur Barbiturates Screen (NEGATIVE) Ur Tricyclics Screen (NEGATIVE) Ur Phencyclidine Scrn (NEGATIVE) Ur Amphetamine Screen (NEGATIVE) U Methamphetamines Scrn (NEGATIVE) Urine MDMA Screen (NEGATIVE) U Benzodiazepines Scrn (NEGATIVE) U Cocaine Metab Screen (NEGATIVE) U Marijuana (THC) Screen (NEGATIVE) SARS CoV-2 RNA Rapid [facility] 05/20/21 05/20/21 05/21/21 Range/Units 19:11 19:11 03:43 WBC (4.5-11.0) K/uL RBC (4.30-5.90) M/uL Hgb (12.0-15.0) g/dL Hct (40.0-54.0) % MCV (80-98) fL MCH (27-31) pg MCHC (32-36) % Plt Count (150-400) K/uL APTT 96.0 H* (21.4-31.8) sec D-Dimer, Quantitative (0.0-500.0) ng/mL Sodium (140-148) mmol/L Potassium (3.6-5.2) mmol/L Chloride (100-108) mmol/L Carbon Dioxide (21-32) mmol/L Anion Gap (5.0-14.0) mmol/L BUN (7-18) mg/dL Creatinine (0.8-1.3) mg/dL Est Cr Clr Drug Dosing mL/min Estimated GFR (MDRD) (>60) Glucose (74-106) mg/dL Calcium (8.5-10.1) mg/dL Troponin I 1.080 H* 1.322 H* (0.000-0.056) ng/mL C-Reactive Protein (0.0-0.3) mg/dL Procalcitonin ng/mL TSH, Ultra Sensitive (0.358-3.740) uIU/mL Urine Opiates Screen (NEGATIVE) Ur Oxycodone Screen (NEGATIVE) Urine Methadone Screen (NEGATIVE) Ur Propoxyphene Screen (NEGATIVE) Ur Barbiturates Screen (NEGATIVE) Ur Tricyclics Screen (NEGATIVE) Ur Phencyclidine Scrn (NEGATIVE) Ur Amphetamine Screen (NEGATIVE) U Methamphetamines Scrn (NEGATIVE) Urine MDMA Screen (NEGATIVE) U Benzodiazepines Scrn (NEGATIVE) U Cocaine Metab Screen (NEGATIVE) U Marijuana (THC) Screen (NEGATIVE) SARS CoV-2 RNA Rapid [facility] 05/21/21 05/21/21 05/21/21 Range/Units 03:43 03:43 03:43 WBC 4.9 (4.5-11.0) K/uL RBC 5.60 (4.30-5.90) M/uL Hgb 15.8 H (12.0-15.0) g/dL Hct 47.3 (40.0-54.0) % MCV 85 (80-98) fL MCH 28 (27-31) pg MCHC 33 (32-36) % Plt Count 85 L (150-400) K/uL APTT 64.9 H (21.4-31.8) sec D-Dimer, Quantitative (0.0-500.0) ng/mL Sodium 147 (140-148) mmol/L Potassium 3.5 L (3.6-5.2) mmol/L Chloride 110 H (100-108) mmol/L Carbon Dioxide 25 (21-32) mmol/L Anion Gap 15.5 H (5.0-14.0) mmol/L BUN 9 (7-18) mg/dL Creatinine 0.7 L (0.8-1.3) mg/dL Est Cr Clr Drug Dosing 104.92 mL/min Estimated GFR (MDRD) > 60 (>60) Glucose 90 (74-106) mg/dL Calcium 7.5 L (8.5-10.1) mg/dL Troponin I (0.000-0.056) ng/mL C-Reactive Protein (0.0-0.3) mg/dL Procalcitonin ng/mL TSH, Ultra Sensitive (0.358-3.740) uIU/mL Urine Opiates Screen (NEGATIVE) Ur Oxycodone Screen (NEGATIVE) Urine Methadone Screen (NEGATIVE) Ur Propoxyphene Screen (NEGATIVE) Ur Barbiturates Screen (NEGATIVE) Ur Tricyclics Screen (NEGATIVE) Ur Phencyclidine Scrn (NEGATIVE) Ur Amphetamine Screen (NEGATIVE) U Methamphetamines Scrn (NEGATIVE) Urine MDMA Screen (NEGATIVE) U Benzodiazepines Scrn (NEGATIVE) U Cocaine Metab Screen (NEGATIVE) U Marijuana (THC) Screen (NEGATIVE) SARS CoV-2 RNA Rapid [facility] Result Diagrams: 05/21/21 03:43 05/21/21 03:43 Sepsis Event Note - Evaluation Sepsis Screening Result: No Definite Risk - Focused Exam Vital Signs: Vital Signs Temp Pulse Resp BP Pulse Ox 05/21/21 08:00 36.7 C 94 27 H 126/74 93 L 05/21/21 06:00 66 26 H 115/68 93 L 05/21/21 03:25 36.4 C 66 14 107/66 93 L 05/21/21 02:00 62 26 H 107/66 92 L 05/21/21 01:52 91 L 05/21/21 00:00 65 28 H 118/72 94 L 05/20/21 22:00 36.4 C 64 29 H 114/73 93 L - Problem List & Annotations (1) NSTEMI (non-ST elevated myocardial infarction) SNOMED Code(s): 06586777 Code(s): I21.4 - NON-ST ELEVATION (NSTEMI) MYOCARDIAL INFARCTION Status: Acute Current Visit: Yes (2) COVID-19 SNOMED Code(s): 433913752 Code(s): U07.1 - COVID-19 Status: Acute Current Visit: Yes (3) Acute hypoactive delirium due to multiple etiologies SNOMED Code(s): 836008821, 436186329 Code(s): F05 - DELIRIUM DUE TO KNOWN PHYSIOLOGICAL CONDITION Status: Acute Current Visit: Yes (4) Tobacco dependence SNOMED Code(s): 89611782 Code(s): F17.200 - NICOTINE DEPENDENCE, UNSPECIFIED, UNCOMPLICATED Status: Chronic Current Visit: No - Problem List Review Problem List Initiated/Reviewed/Updated: Yes - My Orders Last 24 Hours: My Active Orders 05/20/21 16:55 Resuscitation Status Routine 05/20/21 Dinner Nothing per Oral Now Diet [DIET] 05/20/21 17:18 Acetaminophen [TylenoL] 650 mg PO Q4H PRN Docusate Sodium/Sennosides [Senna Plus] 1 tab PO BID PRN HYDROmorphone [Dilaudid] 0.5 mg IVPUSH Q2H PRN Heparin Sodium/D5W [Heparin 25,000 Units in D5W 500 ML] 25,000 units in 500 ml IV TITRATE LORazepam [Ativan] 0.5 mg IVPUSH Q4H PRN Magnesium Hydroxide [Milk of Magnesia] 30 ml PO Q12H PRN Ondansetron [Zofran ODT] 4 mg PO Q6H PRN Ondansetron [Zofran] 4 mg IV Q6H PRN oxyCODONE 5 - 10 mg PO Q4H PRN 05/20/21 17:18 Patient Status [ADT] Routine Bedrest Bedside Commode [RC] ASDIRECTED Cardiac Monitoring [RC] CONTINUOUS Intake and Output [RC] QSHIFT Notify Provider Vital Signs [RC] ASDIRECTED Oxygen Therapy [RC] PRN Pulse Oximetry [RC] CONTINUOUS VTE/DVT Education [RC] Per Unit Routine Vital Signs [RC] Q2HR Isolation [COMM] Routine 05/20/21 18:00 Pantoprazole [ProTONIX IV] 40 mg IV Q24H 05/20/21 21:00 levETIRAcetam [Keppra] 500 mg Sodium Chloride 0.9% [Normal Saline] 100 ml IV Q12H 05/21/21 07:00 TXCOM [] Routine 05/21/21 09:00 Aspirin 81 mg PO DAILY 05/21/21 09:30 PTT,PARTIAL THROMBOPLSTIN TIME [COAG] Routine Pregabalin [Lyrica] 150 mg PO BID 05/21/21 10:00 miSOPROStoL [Cytotec] 200 mcg PO QID 05/21/21 15:00 TROPONIN I [CHEM] Timed 05/21/21 21:00 Lovastatin [Lovastatin] 10 mg PO BEDTIME Mirtazapine [Mirtazapine] 60 mg PO BEDTIME levETIRAcetam [Keppra] 500 mg PO BID 05/22/21 05:00 CBC W/O DIFF,HEMOGRAM [HEME] Timed (1) COMPREHENSIVE METABOLIC PN,CMP [CHEM] Timed CRP [C-REACTIVE PROTEIN] [CHEM] Timed D-DIMER QUANTITATIVE [COAG] Timed TROPONIN I [CHEM] Timed 05/22/21 07:30 Levothyroxine 25 mcg PO ACBREAKFAST - Plan Plan:: ASSESSMENT AND PLAN - Non-ST elevation ACS-differential would include myocarditis from Covid infection . Troponin level has been stable. I did discuss the case with cardiology at [facility] in [place]. They felt this was not consistent with a primary ACS and probably fit better with clinically suspicious myocarditis. They did not recommend any specific treatment. Patient was not cooperative with the echoc ardiogram today but limited images did show a normal ejection fraction. -Continue heparin infusion today, transition to oral medications tomorrow -Daily aspirin if he will take it -Repeat troponin in the morning -Cardiac monitoring -Try to repeat echo on COVID-19 positive-I was able to gather some history from his ex-. He was normal on Thursday other than an upset stomach. He did have a Covid exposure last week at [employer] six mile run. Since he has not been hypoxic and was admitted for his acute coronary syndrome and also has a very high risk for progression to severe disease our plan is to give him monoclonal antibodies today. -Monoclonal antibodies per protocol -Isolation protocol -Steroids if he becomes hypoxic Hypoactive delirium-etiology not entirely clear. Could be related to Covid. Could be related to medications. Head CT stable. Doing little better today but not back to baseline. No strong evidence to support bacterial infection. -Continue to monitor with dose reductions of home medications Tobacco dependence- -encourage cessation Maintenance issues - -DVT prophylaxis-Heparin -GI prophylaxis-PPI -Nutrition-mechanical soft diet -[place] catheter-not currently indicated but could be considered if vital signs deteriorate Disposition -I anticipate discharge home after the hospital stay Primary care physician - Dr Srinivasan Cedeno M.D.
[2021-05-21] MEDS ORDERED: diphenhydrAMINE 50 MG/ML SDV IVPUSH PRN (09:57)
[2021-05-21] MEDS ORDERED: Famotidine 20 MG/2 ML SDV IVPUSH PRN (09:57)
[2021-05-21] MEDS ORDERED: EPINEPHrine 1 MG/ML SDV IM PRN (09:57)
[2021-05-21] MEDS ORDERED: methylPREDNISolone Sodium Succinate 125 MG/2 ML SDV IVPUSH PRN (09:57)
[2021-05-21] MEDS ORDERED: Potassium Chloride 20 MEQ Tab.ER PO ONE (09:58)
[2021-05-21] MEDS ORDERED: Sodium Chloride 0.9% 10 ML Syringe FLUSH SCH (10:00)
[2021-05-21] MEDS: levETIRAcetam 500 MG in Sodium Chloride 0.9% 100 ML IV SCH (10:35)
[2021-05-21] MEDS: Misoprostol 200 MCG Tab PO SCH ×3 (11:02→21:27)
[2021-05-21] MEDS ORDERED: Bamlanivimab 700 MG, ETESEVIMAB 1,400 MG in Sodium Chloride 0.9% 100 ML IV ONE (11:30)
[2021-05-21] MEDS: oxyCODONE 5 MG Tab PO PRN (11:32)
[2021-05-21] MEDS ORDERED: [UNRECOGNIZED DRUG - OTHER] SUBCUT ONE (14:00)
[2021-05-21] MEDS ORDERED: [UNRECOGNIZED DRUG - OTHER] SUBCUT ONE (14:00)
[2021-05-21] MEDS: Pantoprazole 40 MG Vial IV SCH (18:20)
[2021-05-21] MEDS: Pregabalin 75 MG Cap PO SCH (21:27)
[2021-05-21] MEDS: Mirtazapine 15 MG Tab PO SCH (21:27)
[2021-05-21] MEDS: levETIRAcetam 250 MG Tab PO SCH (21:27)
[2021-05-21] MEDS ORDERED: Sodium Chloride 0.9% 10 ML Syringe FLUSH PRN (22:01)
[2021-05-22] MEDS: Misoprostol 200 MCG Tab PO SCH ×4 (06:39→21:21)
[2021-05-22] MEDS: Levothyroxine 25 MCG Tab PO SCH (08:50)
[2021-05-22] MEDS ORDERED: Potassium Chloride 20 MEQ Tab.ER PO ONE (09:00)
--- NOTE | 2021-05-22 09:05 | PCM.PN ---
- General Info Date of Service: 05/22/21 Subjective Update: No acute events overnight. Patient is a little bit more alert and interactive today but mostly minimally conversant. He is reporting ongoing back pain but thinks it is about his usual level. No report of abdominal pain today. No nausea. He does not feel short of breath. No fevers. Blood pressures were slightly low overnight. Troponin level is trending down. Heparin was stopped overnight after it infiltrated. Functional Status: Reports: Pain Controlled, Tolerating Diet - Review of Systems General: Reports: Weakness Musculoskeletal: Reports: Back Pain Neurological: Reports: Confusion - Patient Data Vitals - Most Recent: Last Vital Signs Temp 37.3 C 05/22/21 04:00 Pulse 83 05/22/21 06:00 Resp 29 H 05/22/21 06:00 BP 86/57 L 05/22/21 06:00 Pulse Ox 92 L 05/22/21 07:37 Weight - Most Recent: 73.028 kg I&O - Last 24 Hours: Intake & Output 05/21/21 05/22/21 05/22/21 22:59 06:59 14:59 Intake Total 770 600 Output Total 50 Balance 720 600 Lab Results Last 24 Hours: Laboratory Results - last 24 hr 05/21/21 05/21/21 05/21/21 Range/Units 09:30 15:52 15:52 WBC (4.5-11.0) K/uL RBC (4.30-5.90) M/uL Hgb (12.0-15.0) g/dL Hct (40.0-54.0) % MCV (80-98) fL MCH (27-31) pg MCHC (32-36) % Plt Count (150-400) K/uL APTT 61.7 H 69.5 H (21.4-31.8) sec D-Dimer, Quantitative (0.0-500.0) ng/mL Sodium (140-148) mmol/L Potassium (3.6-5.2) mmol/L Chloride (100-108) mmol/L Carbon Dioxide (21-32) mmol/L Anion Gap (5.0-14.0) mmol/L BUN (7-18) mg/dL Creatinine (0.8-1.3) mg/dL Est Cr Clr Drug Dosing mL/min Estimated GFR (MDRD) (>60) Glucose (74-106) mg/dL Calcium (8.5-10.1) mg/dL Total Bilirubin (0.2-1.0) mg/dL AST (15-37) U/L ALT (12-78) U/L Alkaline Phosphatase (46-116) U/L Troponin I 0.997 H* (0.000-0.056) ng/mL C-Reactive Protein (0.0-0.3) mg/dL Total Protein (6.4-8.2) g/dL Albumin (3.4-5.0) g/dL Globulin (2.3-3.5) g/dL Albumin/Globulin Ratio (1.2-2.2) 05/22/21 05/22/21 05/22/21 Range/Units 06:28 06:28 06:28 WBC 4.0 L (4.5-11.0) K/uL RBC 5.49 (4.30-5.90) M/uL Hgb 15.6 H (12.0-15.0) g/dL Hct 46.3 (40.0-54.0) % MCV 84 (80-98) fL MCH 28 (27-31) pg MCHC 34 (32-36) % Plt Count 80 L (150-400) K/uL APTT (21.4-31.8) sec D-Dimer, Quantitative 723.17 H (0.0-500.0) ng/mL Sodium 144 (140-148) mmol/L Potassium 3.4 L (3.6-5.2) mmol/L Chloride 109 H (100-108) mmol/L Carbon Dioxide 23 (21-32) mmol/L Anion Gap 15.4 H (5.0-14.0) mmol/L BUN 7 (7-18) mg/dL Creatinine 0.5 L (0.8-1.3) mg/dL Est Cr Clr Drug Dosing 146.89 mL/min Estimated GFR (MDRD) > 60 (>60) Glucose 71 L (74-106) mg/dL Calcium 7.2 L (8.5-10.1) mg/dL Total Bilirubin 0.8 D (0.2-1.0) mg/dL AST 174 H D (15-37) U/L ALT 94 H (12-78) U/L Alkaline Phosphatase 150 H (46-116) U/L Troponin I 0.902 H* (0.000-0.056) ng/mL C-Reactive Protein 1.03 H (0.0-0.3) mg/dL Total Protein 6.3 L (6.4-8.2) g/dL Albumin 2.4 L (3.4-5.0) g/dL Globulin 3.9 H (2.3-3.5) g/dL Albumin/Globulin Ratio 0.6 L (1.2-2.2) 05/22/21 Range/Units 06:28 WBC (4.5-11.0) K/uL RBC (4.30-5.90) M/uL Hgb (12.0-15.0) g/dL Hct (40.0-54.0) % MCV (80-98) fL MCH (27-31) pg MCHC (32-36) % Plt Count (150-400) K/uL APTT 33.2 H (21.4-31.8) sec D-Dimer, Quantitative (0.0-500.0) ng/mL Sodium (140-148) mmol/L Potassium (3.6-5.2) mmol/L Chloride (100-108) mmol/L Carbon Dioxide (21-32) mmol/L Anion Gap (5.0-14.0) mmol/L BUN (7-18) mg/dL Creatinine (0.8-1.3) mg/dL Est Cr Clr Drug Dosing mL/min Estimated GFR (MDRD) (>60) Glucose (74-106) mg/dL Calcium (8.5-10.1) mg/dL Total Bilirubin (0.2-1.0) mg/dL AST (15-37) U/L ALT (12-78) U/L Alkaline Phosphatase (46-116) U/L Troponin I (0.000-0.056) ng/mL C-Reactive Protein (0.0-0.3) mg/dL Total Protein (6.4-8.2) g/dL Albumin (3.4-5.0) g/dL Globulin (2.3-3.5) g/dL Albumin/Globulin Ratio (1.2-2.2) Med Orders - Current: Current Medications Acetaminophen (Acetaminophen 325 Mg Tab) 650 mg PO Q4H PRN PRN Reason: Pain (Mild 1-3)/fever Aspirin (Aspirin 81 Mg Tab.Chew) 81 mg PO DAILY [facility] Last Admin: 05/21/21 08:15 Dose: 81 mg Documented by: Hydromorphone HCl (Hydromorphone 1 Mg/Ml Syringe) 0.5 mg IVPUSH Q2H PRN PRN Reason: Pain (severe 7-10) Last Admin: 05/21/21 15:38 Dose: 0.5 mg Documented by: Levetiracetam (Levetiracetam 250 Mg Tab) 500 mg PO BID [facility] Last Admin: 05/21/21 21:27 Dose: 500 mg Documented by: Levothyroxine Sodium (Levothyroxine 25 Mcg Tab) 25 mcg PO ACBREAKFAST [facility] Lorazepam (Lorazepam 2 Mg/Ml Sdv) 0.5 mg IVPUSH Q4H PRN PRN Reason: Nausea/Vomiting Lovastatin (Lovastatin 20 Mg Tab) 10 mg PO BEDTIME [facility] Last Admin: 05/21/21 21:27 Dose: 10 mg Documented by: Magnesium Hydroxide (Magnesium Hydroxide 400 Mg/5 Ml Susp 30 Ml Cup) 30 ml PO Q12H PRN PRN Reason: Constipation Mirtazapine (Mirtazapine 15 Mg Tab) 60 mg PO BEDTIME [facility] Last Admin: 05/21/21 21:27 Dose: 60 mg Documented by: Misoprostol (Misoprostol 200 Mcg Tab) 200 mcg PO QID [facility] Last Admin: 05/22/21 06:39 Dose: 200 mcg Documented by: Ondansetron HCl (Ondansetron 4 Mg/2 Ml Sdv) 4 mg IV Q6H PRN PRN Reason: Nausea/Vomiting Ondansetron HCl (Ondansetron 4 Mg Tab.Dis) 4 mg PO Q6H PRN PRN Reason: Nausea able to take PO Oxycodone HCl (Oxycodone 5 Mg Tab) 5 - 10 mg PO Q4H PRN PRN Reason: Pain Last Admin: 05/21/21 11:32 Dose: 5 mg Documented by: Pantoprazole Sodium (Pantoprazole 40 Mg Vial) 40 mg IV Q24H [facility] Last Admin: 05/21/21 18:20 Dose: 40 mg Documented by: Pregabalin (Pregabalin 75 Mg Cap) 150 mg PO BID [facility] Last Admin: 05/21/21 21:27 Dose: 150 mg Documented by: Senna/Docusate Sodium (Docusate Sodium/Sennosides 50-8.6 Mg Tab) 1 tab PO BID PRN PRN Reason: Constipation Sodium Chloride (Sodium Chloride 0.9% 10 Ml Syringe) 30 ml FLUSH ASDIRECTED PRN PRN Reason: saline lock Discontinued Medications Aspirin (Aspirin 81 Mg Tab.Chew) 324 mg PO ONETIME ONE Stop: 05/20/21 11:14 Last Admin: 05/20/21 11:30 Dose: Not Given Documented by: Aspirin (Aspirin 300 Mg Supp) 300 mg RECTAL ONETIME ONE Stop: 05/20/21 18:01 Last Admin: 05/20/21 18:23 Dose: 300 mg Documented by: Casirivimab (Casirivimab ([id number]) 1,332 Mg/11.1 Ml Vial) 600 mg SUBCUT ONETIME ONE Stop: 05/21/21 14:01 Last Admin: 05/21/21 14:29 Dose: 600 mg Documented by: Diphenhydramine HCl (Diphenhydramine 50 Mg/Ml Sdv) 50 mg IVPUSH ASDIRECTED PRN PRN Reason: hypersensitivity reaction Stop: 05/21/21 20:00 Epinephrine HCl (Epinephrine 1 Mg/Ml Sdv) 0.3 mg IM ASDIRECTED PRN PRN Reason: hypersensitivity reaction Stop: 05/21/21 20:00 Famotidine (Famotidine 20 Mg/2 Ml Sdv) 20 mg IVPUSH ASDIRECTED PRN PRN Reason: hypersensitivity reaction Stop: 05/21/21 20:00 Heparin Sodium (Porcine) (Heparin Sodium 5,000 Units/Ml Vial) 4,000 units IVPUSH ONETIME ONE Stop: 05/20/21 14:47 Last Admin: 05/20/21 15:00 Dose: 4,000 units Documented by: Heparin Sodium/Dextrose (Heparin 25,000 Units In D5w 500 Ml) 25,000 units in 500 mls @ 18 mls/hr IV TITRATE [facility] Last Admin: 05/20/21 15:01 Dose: 900 units/hr, 18 mls/hr Documented by: Sodium Chloride (Normal Saline) 100 mls @ 3 mls/sec IV ASDIRECTED [facility] Last Admin: 05/20/21 16:29 Dose: 3 mls/sec Documented by: Sodium Chloride (Normal Saline) 1,000 mls @ 100 mls/hr IV ASDIRECTED [facility] Stop: 05/21/21 03:01 Last Admin: 05/20/21 17:01 Dose: 100 mls/hr Documented by: Heparin Sodium/Dextrose (Heparin 25,000 Units In D5w 500 Ml) 25,000 units in 500 mls @ 20 mls/hr IV TITRATE [facility]; Protocol Last Admin: 05/20/21 21:35 Dose: 13.6 ml/hr, 13.6 mls/hr Documented by: Levetiracetam 500 mg/ Sodium (Chloride) 105 mls @ 400 mls/hr IV Q12H [facility] Stop: 05/21/21 12:00 Last Admin: 05/21/21 10:35 Dose: 400 mls/hr Documented by: Imdevimab (Imdevimab ([id number]) 1,332 Mg/11.1 Ml Vial) 600 mg SUBCUT ONETIME ONE Stop: 05/21/21 14:01 Last Admin: 05/21/21 14:46 Dose: 600 mg Documented by: Iopamidol (Iopamidol 755 Mg/Ml 100 Ml Bottle) 100 ml IV . DIRECTED [facility] Last Admin: 05/20/21 16:29 Dose: 100 ml Documented by: Methylprednisolone Sodium Succinate (Methylprednisolone Sodium Succinate 125 Mg/2 Ml Sdv) 125 mg IVPUSH ASDIRECTED PRN PRN Reason: hypersensitivity reaction Stop: 05/21/21 20:00 Potassium Chloride (Potassium Chloride 20 Meq Tab.Er) 40 meq PO ONETIME ONE Stop: 05/21/21 09:59 Last Admin: 05/21/21 10:59 Dose: 40 meq Documented by: Potassium Chloride (Potassium Chloride 20 Meq Tab.Er) 40 meq PO ONETIME ONE Stop: 05/22/21 09:01 Sodium Chloride (Sodium Chloride 0.9% 10 Ml Syringe) 30 ml FLUSH ASDIRECTED [facility] - Exam Quality Assessment: Supplemental Oxygen General: Alert, Cooperative, No Acute Distress Lungs: Normal Respiratory Effort, Crackles (few left lower lung ). No: Wheezing Cardiovascular: Regular Rate, Regular Rhythm GI/Abdominal Exam: Normal Bowel Sounds, Soft, Non-Tender, No Distention Extremities: No Pedal Edema, Other (allevyn dressings in multiple sites right lower leg at ankle and knee ). No: Increased Warmth Skin: Warm, Dry Psy/Mental Status: Alert, Other (slow response to questions ) - Patient Data Lab Results Last 24 hrs: Laboratory Results - last 24 hr 05/21/21 05/21/21 05/21/21 Range/Units 09:30 15:52 15:52 WBC (4.5-11.0) K/uL RBC (4.30-5.90) M/uL Hgb (12.0-15.0) g/dL Hct (40.0-54.0) % MCV (80-98) fL MCH (27-31) pg MCHC (32-36) % Plt Count (150-400) K/uL APTT 61.7 H 69.5 H (21.4-31.8) sec D-Dimer, Quantitative (0.0-500.0) ng/mL Sodium (140-148) mmol/L Potassium (3.6-5.2) mmol/L Chloride (100-108) mmol/L Carbon Dioxide (21-32) mmol/L Anion Gap (5.0-14.0) mmol/L BUN (7-18) mg/dL Creatinine (0.8-1.3) mg/dL Est Cr Clr Drug Dosing mL/min Estimated GFR (MDRD) (>60) Glucose (74-106) mg/dL Calcium (8.5-10.1) mg/dL Total Bilirubin (0.2-1.0) mg/dL AST (15-37) U/L ALT (12-78) U/L Alkaline Phosphatase (46-116) U/L Troponin I 0.997 H* (0.000-0.056) ng/mL C-Reactive Protein (0.0-0.3) mg/dL Total Protein (6.4-8.2) g/dL Albumin (3.4-5.0) g/dL Globulin (2.3-3.5) g/dL Albumin/Globulin Ratio (1.2-2.2) 05/22/21 05/22/21 05/22/21 Range/Units 06:28 06:28 06:28 WBC 4.0 L (4.5-11.0) K/uL RBC 5.49 (4.30-5.90) M/uL Hgb 15.6 H (12.0-15.0) g/dL Hct 46.3 (40.0-54.0) % MCV 84 (80-98) fL MCH 28 (27-31) pg MCHC 34 (32-36) % Plt Count 80 L (150-400) K/uL APTT (21.4-31.8) sec D-Dimer, Quantitative 723.17 H (0.0-500.0) ng/mL Sodium 144 (140-148) mmol/L Potassium 3.4 L (3.6-5.2) mmol/L Chloride 109 H (100-108) mmol/L Carbon Dioxide 23 (21-32) mmol/L Anion Gap 15.4 H (5.0-14.0) mmol/L BUN 7 (7-18) mg/dL Creatinine 0.5 L (0.8-1.3) mg/dL Est Cr Clr Drug Dosing 146.89 mL/min Estimated GFR (MDRD) > 60 (>60) Glucose 71 L (74-106) mg/dL Calcium 7.2 L (8.5-10.1) mg/dL Total Bilirubin 0.8 D (0.2-1.0) mg/dL AST 174 H D (15-37) U/L ALT 94 H (12-78) U/L Alkaline Phosphatase 150 H (46-116) U/L Troponin I 0.902 H* (0.000-0.056) ng/mL C-Reactive Protein 1.03 H (0.0-0.3) mg/dL Total Protein 6.3 L (6.4-8.2) g/dL Albumin 2.4 L (3.4-5.0) g/dL Globulin 3.9 H (2.3-3.5) g/dL Albumin/Globulin Ratio 0.6 L (1.2-2.2) 05/22/21 Range/Units 06:28 WBC (4.5-11.0) K/uL RBC (4.30-5.90) M/uL Hgb (12.0-15.0) g/dL Hct (40.0-54.0) % MCV (80-98) fL MCH (27-31) pg MCHC (32-36) % Plt Count (150-400) K/uL APTT 33.2 H (21.4-31.8) sec D-Dimer, Quantitative (0.0-500.0) ng/mL Sodium (140-148) mmol/L Potassium (3.6-5.2) mmol/L Chloride (100-108) mmol/L Carbon Dioxide (21-32) mmol/L Anion Gap (5.0-14.0) mmol/L BUN (7-18) mg/dL Creatinine (0.8-1.3) mg/dL Est Cr Clr Drug Dosing mL/min Estimated GFR (MDRD) (>60) Glucose (74-106) mg/dL Calcium (8.5-10.1) mg/dL Total Bilirubin (0.2-1.0) mg/dL AST (15-37) U/L ALT (12-78) U/L Alkaline Phosphatase (46-116) U/L Troponin I (0.000-0.056) ng/mL C-Reactive Protein (0.0-0.3) mg/dL Total Protein (6.4-8.2) g/dL Albumin (3.4-5.0) g/dL Globulin (2.3-3.5) g/dL Albumin/Globulin Ratio (1.2-2.2) Result Diagrams: 05/22/21 06:28 05/22/21 06:28 Sepsis Event Note - Evaluation Sepsis Screening Result: No Definite Risk - Focused Exam Vital Signs: Vital Signs Temp Pulse Resp BP Pulse Ox 05/22/21 07:37 92 L 05/22/21 06:00 83 29 H 86/57 L 96 05/22/21 04:00 37.3 C 80 20 87/54 L 95 05/22/21 02:00 79 12 88/58 L 95 05/22/21 01:00 94 L 05/22/21 00:00 36.6 C 78 22 H 106/72 96 05/21/21 22:00 71 26 H 86/60 L 95 - Problem List & Annotations (1) NSTEMI (non-ST elevated myocardial infarction) SNOMED Code(s): 19968166 Code(s): I21.4 - NON-ST ELEVATION (NSTEMI) MYOCARDIAL INFARCTION Status: Acute Current Visit: Yes (2) COVID-19 SNOMED Code(s): 545078590 Code(s): U07.1 - COVID-19 Status: Acute Current Visit: Yes (3) Acute hypoactive delirium due to multiple etiologies SNOMED Code(s): 946443115, 444098156 Code(s): F05 - DELIRIUM DUE TO KNOWN PHYSIOLOGICAL CONDITION Status: Acute Current Visit: Yes (4) Tobacco dependence SNOMED Code(s): 64853793 Code(s): F17.200 - NICOTINE DEPENDENCE, UNSPECIFIED, UNCOMPLICATED Status: Chronic Current Visit: No - Problem List Review Problem List Initiated/Reviewed/Updated: Yes - My Orders Last 24 Hours: My Active Orders 05/21/21 09:00 Aspirin 81 mg PO DAILY 05/21/21 10:00 miSOPROStoL [Cytotec] 200 mcg PO QID 05/21/21 Dinner Mechanical Soft Diet [DIET] 05/21/21 21:00 Lovastatin [Mevacor] 10 mg PO BEDTIME Mirtazapine [Remeron] 60 mg PO BEDTIME Pregabalin [Lyrica] 150 mg PO BID levETIRAcetam [Keppra] 500 mg PO BID 05/21/21 22:01 Sodium Chloride 0.9% [Saline Flush] 30 ml FLUSH ASDIRECTED PRN 05/22/21 07:30 Levothyroxine 25 mcg PO ACBREAKFAST 05/22/21 09:02 Up With Assistance [RC] ASDIRECTED 05/22/21 09:15 dexAMETHasone [Decadron] 6 mg IVPUSH Q24H 05/23/21 05:00 BASIC METABOLIC PANEL,BMP [CHEM] Timed CBC W/O DIFF,HEMOGRAM [HEME] Timed (1) TROPONIN I [CHEM] Timed 05/23/21 09:00 Pantoprazole [ProTONIX] 40 mg PO DAILY - Plan Plan:: ASSESSMENT AND PLAN - Non-ST elevation ACS versus viral myocarditis-troponin level trending down. No chest pain. Borderline low blood pressure but otherwise stable. -Heparin discontinued -Medical management of coronary artery disease -Repeat troponin in the morning -Continue cardiac monitoring -repeat echo on COVID-19 pneumonia-complicated by mild hypoxia. He did receive monoclonal antibodies yesterday. Mild elevation of D-dimer and CRP. -Initiate dexamethasone -Isolation protocol -Supplemental oxygen as needed, wean as able Hypoactive delirium-etiology not entirely clear but is slowly improving. -Continue to monitor with dose reductions of home medications Tobacco dependence- -encourage cessation Chronic back pain-stable. -Continue home medications with dose reduction in Lyrica Maintenance issues - -DVT prophylaxis-enoxaparin -GI prophylaxis-PPI -Nutrition-mechanical soft diet -[place] catheter-not currently indicated but could be considered if vital signs deteriorate Disposition -I anticipate discharge home after the hospital stay Primary care physician - Dr Srinivasan Cedeno M.D.
[2021-05-22] MEDS: levETIRAcetam 250 MG Tab PO SCH ×2 (09:15→21:21)
[2021-05-22] MEDS: Aspirin 81 MG Tab.Chew PO SCH (09:15)
[2021-05-22] MEDS: oxyCODONE 5 MG Tab PO PRN (09:19)
[2021-05-22] MEDS: Pregabalin 75 MG Cap PO SCH ×2 (09:38→21:21)
[2021-05-22] MEDS: Dexamethasone 4 MG/ML SDV IVPUSH SCH (09:38)
[2021-05-22 14:11] LABS: HGE IGG TITER Negative (Neg:<1:64); HGE IGM TITER Negative (Neg:<1:20)
[2021-05-22] MEDS: Enoxaparin 40 MG/0.4 ML Syringe SUBCUT SCH (16:07)
[2021-05-22] MEDS: Mirtazapine 15 MG Tab PO SCH (21:20)
[2021-05-23] MEDS: Misoprostol 200 MCG Tab PO SCH ×4 (06:06→21:15)
[2021-05-23] MEDS: oxyCODONE 5 MG Tab PO PRN ×2 (06:08→18:00)
[2021-05-23] MEDS: Levothyroxine 25 MCG Tab PO SCH (08:01)
[2021-05-23] MEDS: Pantoprazole 40 MG Tab.CR PO SCH (08:01)
[2021-05-23] MEDS ORDERED: Furosemide 20 MG/2 ML VIAL IVPUSH ONE (09:00)
[2021-05-23] MEDS ORDERED: Benzonatate 100 MG Cap PO PRN (09:15)
[2021-05-23] MEDS ORDERED: guaiFENesin/Dextromethorphan 100-10 MG/5 ML Soln 10 ML Cup PO PRN (09:15)
--- NOTE | 2021-05-23 09:18 | PCM.PN ---
- General Info Date of Service: 05/23/21 Subjective Update: No acute events overnight. Patient has had borderline low blood pressures but heart rate has been stable. Supplemental oxygen requirement is higher today at 5 to 6 L. He is more alert and interactive today. He reports that he feels okay other than being tired and weak. No chest pain. No abdominal pain or nausea. Troponin level is down to 0.3. Functional Status: Reports: Pain Controlled, Tolerating Diet - Review of Systems General: Reports: Weakness Pulmonary: Denies: Shortness of Breath Gastrointestinal: Denies: Abdominal Pain - Patient Data Vitals - Most Recent: Last Vital Signs Temp 36.9 C 05/23/21 08:00 Pulse 94 05/23/21 08:00 Resp 44 H 05/23/21 08:00 BP 81/57 L 05/23/21 08:00 Pulse Ox 93 L 05/23/21 08:00 Weight - Most Recent: 73.028 kg I&O - Last 24 Hours: Intake & Output 05/22/21 05/23/21 05/23/21 22:59 06:59 14:59 Intake Total 455 360 Output Total 100 Balance 355 360 Lab Results Last 24 Hours: Laboratory Results - last 24 hr 05/20/21 05/23/21 05/23/21 Range/Units 11:05 05:57 05:57 WBC 5.7 (4.5-11.0) K/uL RBC 5.64 (4.30-5.90) M/uL Hgb 16.1 H (12.0-15.0) g/dL Hct 47.5 (40.0-54.0) % MCV 84 (80-98) fL MCH 29 (27-31) pg MCHC 34 (32-36) % Plt Count 83 L (150-400) K/uL Sodium 142 (140-148) mmol/L Potassium 3.5 L (3.6-5.2) mmol/L Chloride 104 (100-108) mmol/L Carbon Dioxide 24 (21-32) mmol/L Anion Gap 17.5 H (5.0-14.0) mmol/L BUN 8 (7-18) mg/dL Creatinine 0.6 L (0.8-1.3) mg/dL Est Cr Clr Drug Dosing 122.41 mL/min Estimated GFR (MDRD) > 60 (>60) Glucose 62 L (74-106) mg/dL Calcium 7.8 L (8.5-10.1) mg/dL Troponin I 0.391 H* (0.000-0.056) ng/mL HGE IgG Antibody Negative (Neg:<1:64) HGE IgM Antibody Negative (Neg:<1:20) Med Orders - Current: Current Medications Acetaminophen (Acetaminophen 325 Mg Tab) 650 mg PO Q4H PRN PRN Reason: Pain (Mild 1-3)/fever Aspirin (Aspirin 81 Mg Tab.Chew) 81 mg PO DAILY [facility] Last Admin: 05/22/21 09:15 Dose: 81 mg Documented by: Benzonatate (Benzonatate 100 Mg Cap) 100 mg PO Q8H PRN PRN Reason: Cough Dexamethasone (Dexamethasone 4 Mg/Ml Sdv) 6 mg IVPUSH Q24H [facility] Last Admin: 05/22/21 09:38 Dose: 6 mg Documented by: Enoxaparin Sodium (Enoxaparin 40 Mg/0.4 Ml Syringe) 40 mg SUBCUT Q24H [facility] Last Admin: 05/22/21 16:07 Dose: 40 mg Documented by: Guaifenesin/Dextromethorphan (Guaifenesin/Dextromethorphan 100-10 Mg/5 Ml Soln 10 Ml Cup) 10 ml PO Q4H PRN PRN Reason: Cough Hydromorphone HCl (Hydromorphone 1 Mg/Ml Syringe) 0.5 mg IVPUSH Q2H PRN PRN Reason: Pain (severe 7-10) Last Admin: 05/21/21 15:38 Dose: 0.5 mg Documented by: Remdesivir 100 mg/ Sodium (Chloride) 100 mls @ 100 mls/hr IV Q24H [facility] Stop: 05/27/21 10:59 Remdesivir 200 mg/ Sodium (Chloride) 250 mls @ 250 mls/hr IV ONETIME ONE Stop: 05/23/21 09:16 Levetiracetam (Levetiracetam 250 Mg Tab) 500 mg PO BID [facility] Last Admin: 05/22/21 21:21 Dose: 500 mg Documented by: Levothyroxine Sodium (Levothyroxine 25 Mcg Tab) 25 mcg PO ACBREAKFAST [facility] Last Admin: 05/23/21 08:01 Dose: 25 mcg Documented by: Lorazepam (Lorazepam 2 Mg/Ml Sdv) 0.5 mg IVPUSH Q4H PRN PRN Reason: Nausea/Vomiting Lovastatin (Lovastatin 20 Mg Tab) 10 mg PO BEDTIME [facility] Last Admin: 05/22/21 21:21 Dose: 10 mg Documented by: Magnesium Hydroxide (Magnesium Hydroxide 400 Mg/5 Ml Susp 30 Ml Cup) 30 ml PO Q12H PRN PRN Reason: Constipation Mirtazapine (Mirtazapine 15 Mg Tab) 60 mg PO BEDTIME [facility] Last Admin: 05/22/21 21:20 Dose: 60 mg Documented by: Misoprostol (Misoprostol 200 Mcg Tab) 200 mcg PO QID [facility] Last Admin: 05/23/21 06:06 Dose: 200 mcg Documented by: Ondansetron HCl (Ondansetron 4 Mg/2 Ml Sdv) 4 mg IV Q6H PRN PRN Reason: Nausea/Vomiting Ondansetron HCl (Ondansetron 4 Mg Tab.Dis) 4 mg PO Q6H PRN PRN Reason: Nausea able to take PO Oxycodone HCl (Oxycodone 5 Mg Tab) 5 - 10 mg PO Q4H PRN PRN Reason: Pain Last Admin: 05/23/21 06:08 Dose: 5 mg Documented by: Pantoprazole Sodium (Pantoprazole 40 Mg Tab.Cr) 40 mg PO ACBREAKFAST [facility] Last Admin: 05/23/21 08:01 Dose: 40 mg Documented by: Potassium Chloride (Potassium Chloride 20 Meq Tab.Er) 40 meq PO BID [facility] Stop: 05/23/21 21:01 Pregabalin (Pregabalin 75 Mg Cap) 150 mg PO BID [facility] Last Admin: 05/22/21 21:21 Dose: 150 mg Documented by: Senna/Docusate Sodium (Docusate Sodium/Sennosides 50-8.6 Mg Tab) 1 tab PO BID PRN PRN Reason: Constipation Sodium Chloride (Sodium Chloride 0.9% 10 Ml Syringe) 30 ml FLUSH ASDIRECTED PRN PRN Reason: saline lock Discontinued Medications Aspirin (Aspirin 81 Mg Tab.Chew) 324 mg PO ONETIME ONE Stop: 05/20/21 11:14 Last Admin: 05/20/21 11:30 Dose: Not Given Documented by: Aspirin (Aspirin 300 Mg Supp) 300 mg RECTAL ONETIME ONE Stop: 05/20/21 18:01 Last Admin: 05/20/21 18:23 Dose: 300 mg Documented by: Casirivimab (Casirivimab ([id number]) 1,332 Mg/11.1 Ml Vial) 600 mg SUBCUT ONETIME ONE Stop: 05/21/21 14:01 Last Admin: 05/21/21 14:29 Dose: 600 mg Documented by: Diphenhydramine HCl (Diphenhydramine 50 Mg/Ml Sdv) 50 mg IVPUSH ASDIRECTED PRN PRN Reason: hypersensitivity reaction Stop: 05/21/21 20:00 Epinephrine HCl (Epinephrine 1 Mg/Ml Sdv) 0.3 mg IM ASDIRECTED PRN PRN Reason: hypersensitivity reaction Stop: 05/21/21 20:00 Famotidine (Famotidine 20 Mg/2 Ml Sdv) 20 mg IVPUSH ASDIRECTED PRN PRN Reason: hypersensitivity reaction Stop: 05/21/21 20:00 Furosemide (Furosemide 20 Mg/2 Ml Vial) 20 mg IVPUSH NOW ONE Stop: 05/23/21 09:01 Heparin Sodium (Porcine) (Heparin Sodium 5,000 Units/Ml Vial) 4,000 units IVPUSH ONETIME ONE Stop: 05/20/21 14:47 Last Admin: 05/20/21 15:00 Dose: 4,000 units Documented by: Heparin Sodium/Dextrose (Heparin 25,000 Units In D5w 500 Ml) 25,000 units in 500 mls @ 18 mls/hr IV TITRATE [facility] Last Admin: 05/20/21 15:01 Dose: 900 units/hr, 18 mls/hr Documented by: Sodium Chloride (Normal Saline) 100 mls @ 3 mls/sec IV ASDIRECTED [facility] Last Admin: 05/20/21 16:29 Dose: 3 mls/sec Documented by: Sodium Chloride (Normal Saline) 1,000 mls @ 100 mls/hr IV ASDIRECTED [facility] Stop: 05/21/21 03:01 Last Admin: 05/20/21 17:01 Dose: 100 mls/hr Documented by: Heparin Sodium/Dextrose (Heparin 25,000 Units In D5w 500 Ml) 25,000 units in 500 mls @ 20 mls/hr IV TITRATE [facility]; Protocol Last Admin: 05/20/21 21:35 Dose: 13.6 ml/hr, 13.6 mls/hr Documented by: Levetiracetam 500 mg/ Sodium (Chloride) 105 mls @ 400 mls/hr IV Q12H [facility] Stop: 05/21/21 12:00 Last Admin: 05/21/21 10:35 Dose: 400 mls/hr Documented by: Imdevimab (Imdevimab ([id number]) 1,332 Mg/11.1 Ml Vial) 600 mg SUBCUT ONETIME ONE Stop: 05/21/21 14:01 Last Admin: 05/21/21 14:46 Dose: 600 mg Documented by: Iopamidol (Iopamidol 755 Mg/Ml 100 Ml Bottle) 100 ml IV . DIRECTED [facility] Last Admin: 05/20/21 16:29 Dose: 100 ml Documented by: Methylprednisolone Sodium Succinate (Methylprednisolone Sodium Succinate 125 Mg/2 Ml Sdv) 125 mg IVPUSH ASDIRECTED PRN PRN Reason: hypersensitivity reaction Stop: 05/21/21 20:00 Pantoprazole Sodium (Pantoprazole 40 Mg Vial) 40 mg IV Q24H [facility] Last Admin: 05/21/21 18:20 Dose: 40 mg Documented by: Potassium Chloride (Potassium Chloride 20 Meq Tab.Er) 40 meq PO ONETIME ONE Stop: 05/21/21 09:59 Last Admin: 05/21/21 10:59 Dose: 40 meq Documented by: Potassium Chloride (Potassium Chloride 20 Meq Tab.Er) 40 meq PO ONETIME ONE Stop: 05/22/21 09:01 Last Admin: 05/22/21 09:16 Dose: 40 meq Documented by: Sodium Chloride (Sodium Chloride 0.9% 10 Ml Syringe) 30 ml FLUSH ASDIRECTED [facility] - Exam Quality Assessment: Supplemental Oxygen General: Alert, Oriented, Cooperative, No Acute Distress Lungs: Normal Respiratory Effort, Crackles (mild right base and moderate left lower and mid lung ) Cardiovascular: Regular Rate, Regular Rhythm GI/Abdominal Exam: Normal Bowel Sounds, Soft, No Distention Extremities: No Pedal Edema. No: Increased Warmth Skin: Warm, Dry Psy/Mental Status: Alert, Normal Affect - Patient Data Lab Results Last 24 hrs: Laboratory Results - last 24 hr 05/20/21 05/23/21 05/23/21 Range/Units 11:05 05:57 05:57 WBC 5.7 (4.5-11.0) K/uL RBC 5.64 (4.30-5.90) M/uL Hgb 16.1 H (12.0-15.0) g/dL Hct 47.5 (40.0-54.0) % MCV 84 (80-98) fL MCH 29 (27-31) pg MCHC 34 (32-36) % Plt Count 83 L (150-400) K/uL Sodium 142 (140-148) mmol/L Potassium 3.5 L (3.6-5.2) mmol/L Chloride 104 (100-108) mmol/L Carbon Dioxide 24 (21-32) mmol/L Anion Gap 17.5 H (5.0-14.0) mmol/L BUN 8 (7-18) mg/dL Creatinine 0.6 L (0.8-1.3) mg/dL Est Cr Clr Drug Dosing 122.41 mL/min Estimated GFR (MDRD) > 60 (>60) Glucose 62 L (74-106) mg/dL Calcium 7.8 L (8.5-10.1) mg/dL Troponin I 0.391 H* (0.000-0.056) ng/mL HGE IgG Antibody Negative (Neg:<1:64) HGE IgM Antibody Negative (Neg:<1:20) Result Diagrams: 05/23/21 05:57 05/23/21 05:57 Sepsis Event Note - Evaluation Sepsis Screening Result: Severe Sepsis Risk - Focused Exam Vital Signs: Vital Signs Temp Pulse Resp BP Pulse Ox 05/23/21 08:00 36.9 C 94 44 H 81/57 L 93 L 05/23/21 07:26 90 L 05/23/21 06:00 94 29 H 99/67 88 L 05/23/21 04:00 36.7 C 80 20 92/59 L 91 L 05/23/21 02:00 75 36 H 93/61 93 L 05/23/21 00:00 37.0 C 66 30 H 93/65 94 L 05/22/21 22:00 70 28 H 106/70 88 L - Problem List & Annotations (1) Myocarditis due to 2019 novel coronavirus SNOMED Code(s): 1126040866899337 Code(s): U07.1 - COVID-19; I40.0 - INFECTIVE MYOCARDITIS Status: Suspected Current Visit: Yes (2) NSTEMI (non-ST elevated myocardial infarction) SNOMED Code(s): 37158105 Code(s): I21.4 - NON-ST ELEVATION (NSTEMI) MYOCARDIAL INFARCTION Status: Ruled-out Current Visit: Yes (3) COVID-19 SNOMED Code(s): 515265191 Code(s): U07.1 - COVID-19 Status: Acute Current Visit: Yes (4) Acute hypoactive delirium due to multiple etiologies SNOMED Code(s): 177780799, 600260065 Code(s): F05 - DELIRIUM DUE TO KNOWN PHYSIOLOGICAL CONDITION Status: Acute Current Visit: Yes (5) Tobacco dependence SNOMED Code(s): 25017038 Code(s): F17.200 - NICOTINE DEPENDENCE, UNSPECIFIED, UNCOMPLICATED Status: Chronic Current Visit: No - Problem List Review Problem List Initiated/Reviewed/Updated: Yes - My Orders Last 24 Hours: My Active Orders 05/22/21 09:02 Up With Assistance [RC] ASDIRECTED 05/22/21 09:30 dexAMETHasone [Decadron] 6 mg IVPUSH Q24H 05/22/21 15:30 Enoxaparin [Lovenox] 40 mg SUBCUT Q24H 05/23/21 07:00 Echo Comp wo Cont [US] Routine 05/23/21 07:30 Pantoprazole [ProTONIX] 40 mg PO ACBREAKFAST 05/23/21 09:00 Potassium Chloride [Klor-Con M20] 40 meq PO BID 05/23/21 09:15 Benzonatate [Tessalon Perles] 100 mg PO Q8H PRN Dextromethorphan/guaiFENesin [Robitussin DM] 10 ml PO Q4H PRN Remdesivir 200 mg Sodium Chloride 0.9% [Normal Saline] 250 ml IV ONETIME 05/24/21 05:00 BASIC METABOLIC PANEL,BMP [CHEM] Timed C-REACTIVE PROTEIN [CHEM] Timed CBC W/O DIFF,HEMOGRAM [HEME] Timed (1) D-DIMER QUANTITATIVE [COAG] Timed TROPONIN I [CHEM] Timed 05/24/21 10:00 Remdesivir 100 mg Sodium Chloride 0.9% [Normal Saline] 100 ml IV Q24H - Plan Plan:: ASSESSMENT AND PLAN - Clinically suspected viral myocarditis-initially thought this may represent non- ST elevation ACS but now more suspicious this is Covid myocarditis. Troponin level trending down. No chest pain. Borderline low blood pressure but otherwise stable. Echo showed normal left ventricular function with no significant abnormalities still this was a limited study. -Supportive cares -Medical management of coronary artery disease -Repeat troponin in the morning -Continue cardiac monitoring COVID-19 pneumonia-complicated by acute respiratory failure with hypoxia. He did receive monoclonal antibodies 05/21 but unfortunately has decompensated. Mild elevation of D-dimer and CRP. -Continue dexamethasone (day 2) -Remdesivir x5 days (day 1) -Enoxaparin daily -Isolation protocol -Supplemental oxygen as needed, wean as able Hypoactive delirium-etiology not entirely clear, suspect multifactorial with contribution from Covid. Clinically improving. -Continue to monitor with dose reductions of home medications Tobacco dependence- -encourage cessation Chronic back pain-stable. -Continue home medications with dose reduction in Lyrica Maintenance issues - -DVT prophylaxis-enoxaparin -GI prophylaxis-PPI -Nutrition-mechanical soft diet Disposition -I anticipate discharge home after the hospital stay Primary care physician - Dr Srinivasan Cedeno M.D.
[2021-05-23] MEDS: Dexamethasone 4 MG/ML SDV IVPUSH SCH (09:51)
[2021-05-23] MEDS: Aspirin 81 MG Tab.Chew PO SCH (09:51)
[2021-05-23] MEDS: Potassium Chloride 20 MEQ Tab.ER PO SCH ×2 (09:51→21:20)
[2021-05-23] MEDS: levETIRAcetam 250 MG Tab PO SCH ×2 (09:51→21:00)
[2021-05-23] MEDS: Pregabalin 75 MG Cap PO SCH ×2 (09:53→21:17)
[2021-05-23] MEDS ORDERED: REMDESIVIR 200 MG in Sodium Chloride 0.9% 250 ML IV ONE (10:00)
[2021-05-23] MEDS: Enoxaparin 40 MG/0.4 ML Syringe SUBCUT SCH (16:08)
[2021-05-23] MEDS: Mirtazapine 15 MG Tab PO SCH (21:00)
[2021-05-23] MEDS: HYDROmorphone 1 MG/ML Syringe IVPUSH PRN (22:02)
[2021-05-24] MEDS: Misoprostol 200 MCG Tab PO SCH ×4 (05:00→21:00)
[2021-05-24] MEDS: Levothyroxine 25 MCG Tab PO SCH (08:33)
[2021-05-24] MEDS: Pantoprazole 40 MG Tab.CR PO SCH (08:33)
[2021-05-24] MEDS: Aspirin 81 MG Tab.Chew PO SCH (08:34)
[2021-05-24] MEDS: levETIRAcetam 250 MG Tab PO SCH ×2 (08:35→21:00)
[2021-05-24] MEDS: Pregabalin 75 MG Cap PO SCH ×2 (08:43→20:59)
--- NOTE | 2021-05-24 09:07 | PCM.PN ---
- General Info Date of Service: 05/24/21 Subjective Update: There were no acute events overnight. Patient has had an increase in his supplemental oxygen requirements. He is currently requiring about 10 L of oxygen. He feels a little bit more fatigued this morning. He does feel short of breath. Occasionally has a cough. Does report mild generalized abdominal pain as well as some heartburn and hiccups. Blood pressures have been on the low side of normal but slightly better than yesterday. No fevers. CRP has j umped over the past 48 hours. Functional Status: Reports: Pain Controlled - Review of Systems General: Reports: Weakness Pulmonary: Denies: Shortness of Breath Gastrointestinal: Reports: Nausea - Patient Data Vitals - Most Recent: Last Vital Signs Temp 36.8 C 05/24/21 04:00 Pulse 79 05/24/21 06:00 Resp 23 H 05/24/21 06:00 BP 120/70 05/24/21 06:00 Pulse Ox 95 05/24/21 07:00 Weight - Most Recent: 73.028 kg I&O - Last 24 Hours: Intake & Output 05/23/21 05/24/21 05/24/21 22:59 06:59 14:59 Intake Total 400 Output Total 100 Balance 300 Lab Results Last 24 Hours: Laboratory Results - last 24 hr 05/24/21 05/24/21 05/24/21 Range/Units 05:14 05:14 05:14 WBC 6.4 (4.5-11.0) K/uL RBC 5.64 (4.30-5.90) M/uL Hgb 15.8 H (12.0-15.0) g/dL Hct 47.6 (40.0-54.0) % MCV 84 (80-98) fL MCH 28 (27-31) pg MCHC 33 (32-36) % Plt Count 87 L (150-400) K/uL D-Dimer, Quantitative 772.89 H (0.0-500.0) ng/mL Sodium 143 (140-148) mmol/L Potassium 3.6 (3.6-5.2) mmol/L Chloride 105 (100-108) mmol/L Carbon Dioxide 25 (21-32) mmol/L Anion Gap 12.6 (5.0-14.0) mmol/L BUN 10 (7-18) mg/dL Creatinine 0.5 L (0.8-1.3) mg/dL Est Cr Clr Drug Dosing 146.89 mL/min Estimated GFR (MDRD) > 60 (>60) Glucose 82 (74-106) mg/dL Calcium 7.9 L (8.5-10.1) mg/dL Troponin I 0.139 H* (0.000-0.056) ng/mL C-Reactive Protein 11.66 H (0.0-0.3) mg/dL Procalcitonin ng/mL 05/24/21 Range/Units 05:14 WBC (4.5-11.0) K/uL RBC (4.30-5.90) M/uL Hgb (12.0-15.0) g/dL Hct (40.0-54.0) % MCV (80-98) fL MCH (27-31) pg MCHC (32-36) % Plt Count (150-400) K/uL D-Dimer, Quantitative (0.0-500.0) ng/mL Sodium (140-148) mmol/L Potassium (3.6-5.2) mmol/L Chloride (100-108) mmol/L Carbon Dioxide (21-32) mmol/L Anion Gap (5.0-14.0) mmol/L BUN (7-18) mg/dL Creatinine (0.8-1.3) mg/dL Est Cr Clr Drug Dosing mL/min Estimated GFR (MDRD) (>60) Glucose (74-106) mg/dL Calcium (8.5-10.1) mg/dL Troponin I (0.000-0.056) ng/mL C-Reactive Protein (0.0-0.3) mg/dL Procalcitonin 0.16 ng/mL Med Orders - Current: Current Medications Acetaminophen (Acetaminophen 325 Mg Tab) 650 mg PO Q4H PRN PRN Reason: Pain (Mild 1-3)/fever Aspirin (Aspirin 81 Mg Tab.Chew) 81 mg PO DAILY [facility]AN Last Admin: 05/24/21 08:34 Dose: 81 mg Documented by: Benzonatate (Benzonatate 100 Mg Cap) 100 mg PO Q8H PRN PRN Reason: Cough Calcium Carbonate/Glycine (Calcium Carbonate 500 Mg Tab.Chew) 1,000 mg PO Q2HR PRN PRN Reason: Indigestion Dexamethasone (Dexamethasone 4 Mg/Ml Sdv) 6 mg IVPUSH Q24H [facility] Last Admin: 05/23/21 09:51 Dose: 6 mg Documented by: Enoxaparin Sodium (Enoxaparin 40 Mg/0.4 Ml Syringe) 40 mg SUBCUT Q24H [facility] Last Admin: 05/23/21 16:08 Dose: 40 mg Documented by: Guaifenesin/Dextromethorphan (Guaifenesin/Dextromethorphan 100-10 Mg/5 Ml Soln 10 Ml Cup) 10 ml PO Q4H PRN PRN Reason: Cough Hydromorphone HCl (Hydromorphone 1 Mg/Ml Syringe) 0.5 mg IVPUSH Q2H PRN PRN Reason: Pain (severe 7-10) Last Admin: 05/23/21 22:02 Dose: 0.5 mg Documented by: Remdesivir 100 mg/ Sodium (Chloride) 100 mls @ 100 mls/hr IV Q24H [facility] Stop: 05/27/21 10:59 Potassium Chloride 20 meq/Lidocaine HCl 2 ml/ Sodium Chloride 112 mls @ 50 mls/hr IV Q2H [facility] Stop: 05/24/21 13:14 Levetiracetam (Levetiracetam 250 Mg Tab) 500 mg PO BID [facility] Last Admin: 05/24/21 08:35 Dose: 500 mg Documented by: Levothyroxine Sodium (Levothyroxine 25 Mcg Tab) 25 mcg PO ACBREAKFAST [facility] Last Admin: 05/24/21 08:33 Dose: 25 mcg Documented by: Lorazepam (Lorazepam 2 Mg/Ml Sdv) 0.5 mg IVPUSH Q4H PRN PRN Reason: Nausea/Vomiting Lovastatin (Lovastatin 20 Mg Tab) 10 mg PO BEDTIME [facility] Last Admin: 05/23/21 21:20 Dose: 10 mg Documented by: Magnesium Hydroxide (Magnesium Hydroxide 400 Mg/5 Ml Susp 30 Ml Cup) 30 ml PO Q12H PRN PRN Reason: Constipation Mirtazapine (Mirtazapine 15 Mg Tab) 60 mg PO BEDTIME [facility] Last Admin: 05/23/21 21:00 Dose: 60 mg Documented by: Misoprostol (Misoprostol 200 Mcg Tab) 200 mcg PO QID [facility] Last Admin: 05/24/21 05:00 Dose: 200 mcg Documented by: Ondansetron HCl (Ondansetron 4 Mg/2 Ml Sdv) 4 mg IV Q6H PRN PRN Reason: Nausea/Vomiting Last Admin: 05/23/21 22:00 Dose: 4 mg Documented by: Ondansetron HCl (Ondansetron 4 Mg Tab.Dis) 4 mg PO Q6H PRN PRN Reason: Nausea able to take PO Oxycodone HCl (Oxycodone 5 Mg Tab) 5 - 10 mg PO Q4H PRN PRN Reason: Pain Last Admin: 05/23/21 18:00 Dose: 5 mg Documented by: Pantoprazole Sodium (Pantoprazole 40 Mg Tab.Cr) 40 mg PO ACBREAKFAST [facility] Last Admin: 05/24/21 08:33 Dose: 40 mg Documented by: Pregabalin (Pregabalin 75 Mg Cap) 150 mg PO BID [facility] Last Admin: 05/24/21 08:43 Dose: 150 mg Documented by: Senna/Docusate Sodium (Docusate Sodium/Sennosides 50-8.6 Mg Tab) 1 tab PO BID PRN PRN Reason: Constipation Sodium Chloride (Sodium Chloride 0.9% 10 Ml Syringe) 30 ml FLUSH ASDIRECTED PRN PRN Reason: saline lock Discontinued Medications Aspirin (Aspirin 81 Mg Tab.Chew) 324 mg PO ONETIME ONE Stop: 05/20/21 11:14 Last Admin: 05/20/21 11:30 Dose: Not Given Documented by: Aspirin (Aspirin 300 Mg Supp) 300 mg RECTAL ONETIME ONE Stop: 05/20/21 18:01 Last Admin: 05/20/21 18:23 Dose: 300 mg Documented by: Casirivimab (Casirivimab ([id number]) 1,332 Mg/11.1 Ml Vial) 600 mg SUBCUT ONETIME ONE Stop: 05/21/21 14:01 Last Admin: 05/21/21 14:29 Dose: 600 mg Documented by: Diphenhydramine HCl (Diphenhydramine 50 Mg/Ml Sdv) 50 mg IVPUSH ASDIRECTED PRN PRN Reason: hypersensitivity reaction Stop: 05/21/21 20:00 Epinephrine HCl (Epinephrine 1 Mg/Ml Sdv) 0.3 mg IM ASDIRECTED PRN PRN Reason: hypersensitivity reaction Stop: 05/21/21 20:00 Famotidine (Famotidine 20 Mg/2 Ml Sdv) 20 mg IVPUSH ASDIRECTED PRN PRN Reason: hypersensitivity reaction Stop: 05/21/21 20:00 Furosemide (Furosemide 20 Mg/2 Ml Vial) 20 mg IVPUSH NOW ONE Stop: 05/23/21 09:01 Last Admin: 05/23/21 10:03 Dose: Not Given Documented by: Heparin Sodium (Porcine) (Heparin Sodium 5,000 Units/Ml Vial) 4,000 units IVPUSH ONETIME ONE Stop: 05/20/21 14:47 Last Admin: 05/20/21 15:00 Dose: 4,000 units Documented by: Heparin Sodium/Dextrose (Heparin 25,000 Units In D5w 500 Ml) 25,000 units in 500 mls @ 18 mls/hr IV TITRATE [facility] Last Admin: 05/20/21 15:01 Dose: 900 units/hr, 18 mls/hr Documented by: Sodium Chloride (Normal Saline) 100 mls @ 3 mls/sec IV ASDIRECTED [facility]AN Last Admin: 05/20/21 16:29 Dose: 3 mls/sec Documented by: Sodium Chloride (Normal Saline) 1,000 mls @ 100 mls/hr IV ASDIRECTED [facility] Stop: 05/21/21 03:01 Last Admin: 05/20/21 17:01 Dose: 100 mls/hr Documented by: Heparin Sodium/Dextrose (Heparin 25,000 Units In D5w 500 Ml) 25,000 units in 500 mls @ 20 mls/hr IV TITRATE ROMAN; Protocol Last Admin: 05/20/21 21:35 Dose: 13.6 ml/hr, 13.6 mls/hr Documented by: Levetiracetam 500 mg/ Sodium (Chloride) 105 mls @ 400 mls/hr IV Q12H [facility] Stop: 05/21/21 12:00 Last Admin: 05/21/21 10:35 Dose: 400 mls/hr Documented by: Remdesivir 200 mg/ Sodium (Chloride) 250 mls @ 250 mls/hr IV ONETIME ONE Stop: 05/23/21 10:59 Last Admin: 05/23/21 09:55 Dose: 250 mls/hr Documented by: Imdevimab (Imdevimab ([id number]) 1,332 Mg/11.1 Ml Vial) 600 mg SUBCUT ONETIME ONE Stop: 05/21/21 14:01 Last Admin: 05/21/21 14:46 Dose: 600 mg Documented by: Iopamidol (Iopamidol 755 Mg/Ml 100 Ml Bottle) 100 ml IV . DIRECTED [facility] Last Admin: 05/20/21 16:29 Dose: 100 ml Documented by: Methylprednisolone Sodium Succinate (Methylprednisolone Sodium Succinate 125 Mg/2 Ml Sdv) 125 mg IVPUSH ASDIRECTED PRN PRN Reason: hypersensitivity reaction Stop: 05/21/21 20:00 Pantoprazole Sodium (Pantoprazole 40 Mg Vial) 40 mg IV Q24H [facility] Last Admin: 05/21/21 18:20 Dose: 40 mg Documented by: Potassium Chloride (Potassium Chloride 20 Meq Tab.Er) 40 meq PO ONETIME ONE Stop: 05/21/21 09:59 Last Admin: 05/21/21 10:59 Dose: 40 meq Documented by: Potassium Chloride (Potassium Chloride 20 Meq Tab.Er) 40 meq PO ONETIME ONE Stop: 05/22/21 09:01 Last Admin: 05/22/21 09:16 Dose: 40 meq Documented by: Potassium Chloride (Potassium Chloride 20 Meq Tab.Er) 40 meq PO BID [facility] Stop: 05/23/21 21:01 Last Admin: 05/23/21 21:20 Dose: 40 meq Documented by: Sodium Chloride (Sodium Chloride 0.9% 10 Ml Syringe) 30 ml FLUSH ASDIRECTED ROMAN - Exam Quality Assessment: Supplemental Oxygen General: Alert, Oriented, Cooperative, Mild Distress Neck: Supple Lungs: Normal Respiratory Effort, Crackles (few both bases) Cardiovascular: Regular Rate, Regular Rhythm GI/Abdominal Exam: Normal Bowel Sounds, Soft, No Distention Extremities: No Pedal Edema. No: Increased Warmth Skin: Warm, Dry Wound/Incisions: Dressing Dry and Intact, No Drainage Psy/Mental Status: Alert, Normal Affect - Patient Data Lab Results Last 24 hrs: Laboratory Results - last 24 hr 05/24/21 05/24/21 05/24/21 Range/Units 05:14 05:14 05:14 WBC 6.4 (4.5-11.0) K/uL RBC 5.64 (4.30-5.90) M/uL Hgb 15.8 H (12.0-15.0) g/dL Hct 47.6 (40.0-54.0) % MCV 84 (80-98) fL MCH 28 (27-31) pg MCHC 33 (32-36) % Plt Count 87 L (150-400) K/uL D-Dimer, Quantitative 772.89 H (0.0-500.0) ng/mL Sodium 143 (140-148) mmol/L Potassium 3.6 (3.6-5.2) mmol/L Chloride 105 (100-108) mmol/L Carbon Dioxide 25 (21-32) mmol/L Anion Gap 12.6 (5.0-14.0) mmol/L BUN 10 (7-18) mg/dL Creatinine 0.5 L (0.8-1.3) mg/dL Est Cr Clr Drug Dosing 146.89 mL/min Estimated GFR (MDRD) > 60 (>60) Glucose 82 (74-106) mg/dL Calcium 7.9 L (8.5-10.1) mg/dL Troponin I 0.139 H* (0.000-0.056) ng/mL C-Reactive Protein 11.66 H (0.0-0.3) mg/dL Procalcitonin ng/mL 05/24/21 Range/Units 05:14 WBC (4.5-11.0) K/uL RBC (4.30-5.90) M/uL Hgb (12.0-15.0) g/dL Hct (40.0-54.0) % MCV (80-98) fL MCH (27-31) pg MCHC (32-36) % Plt Count (150-400) K/uL D-Dimer, Quantitative (0.0-500.0) ng/mL Sodium (140-148) mmol/L Potassium (3.6-5.2) mmol/L Chloride (100-108) mmol/L Carbon Dioxide (21-32) mmol/L Anion Gap (5.0-14.0) mmol/L BUN (7-18) mg/dL Creatinine (0.8-1.3) mg/dL Est Cr Clr Drug Dosing mL/min Estimated GFR (MDRD) (>60) Glucose (74-106) mg/dL Calcium (8.5-10.1) mg/dL Troponin I (0.000-0.056) ng/mL C-Reactive Protein (0.0-0.3) mg/dL Procalcitonin 0.16 ng/mL Result Diagrams: 05/24/21 05:14 05/24/21 05:14 Sepsis Event Note - Evaluation Sepsis Screening Result: Possible Sepsis Risk - Focused Exam Vital Signs: Vital Signs Temp Pulse Resp BP Pulse Ox 05/24/21 07:00 95 05/24/21 06:00 79 23 H 120/70 92 L 05/24/21 04:00 36.8 C 82 29 H 109/62 92 L 05/24/21 02:00 86 18 105/54 L 92 L 05/24/21 00:00 36.6 C 87 17 101/64 93 L 05/23/21 22:00 82 15 104/69 92 L - Problem List & Annotations (1) Myocarditis due to 2019 novel coronavirus SNOMED Code(s): 8319459214434857 Code(s): U07.1 - COVID-19; I40.0 - INFECTIVE MYOCARDITIS Status: Suspected Current Visit: Yes (2) NSTEMI (non-ST elevated myocardial infarction) SNOMED Code(s): 60638487 Code(s): I21.4 - NON-ST ELEVATION (NSTEMI) MYOCARDIAL INFARCTION Status: Ruled-out Current Visit: Yes (3) COVID-19 SNOMED Code(s): 751672095 Code(s): U07.1 - COVID-19 Status: Acute Current Visit: Yes (4) Acute hypoactive delirium due to multiple etiologies SNOMED Code(s): 772559902, 580683185 Code(s): F05 - DELIRIUM DUE TO KNOWN PHYSIOLOGICAL CONDITION Status: Acute Current Visit: Yes (5) Tobacco dependence SNOMED Code(s): 97943074 Code(s): F17.200 - NICOTINE DEPENDENCE, UNSPECIFIED, UNCOMPLICATED Status: Chronic Current Visit: No - Problem List Review Problem List Initiated/Reviewed/Updated: Yes - My Orders Last 24 Hours: My Active Orders 05/23/21 09:15 Benzonatate [Tessalon Perles] 100 mg PO Q8H PRN Dextromethorphan/guaiFENesin [Robitussin DM] 10 ml PO Q4H PRN 05/24/21 09:04 Calcium Carbonate [Tums] 1,000 mg PO Q2HR PRN 05/24/21 09:15 Potassium Chloride 20 MEQ,Lidocaine 1% 2 ML IN 100ML NS @ 50 MLS/HR Potassium Chloride 20 meq Lidocaine 1% [Xylocaine 1%] 2 ml Sodium Chloride 0.9% [Normal Saline] 100 ml IV Q2H 05/24/21 10:00 Remdesivir 100 mg Sodium Chloride 0.9% [Normal Saline] 100 ml IV Q24H 05/25/21 05:00 CBC W/O DIFF,HEMOGRAM [HEME] Timed (1) COMPREHENSIVE METABOLIC PN,CMP [CHEM] Timed MAGNESIUM [CHEM] Timed TROPONIN I [CHEM] Timed - Plan Plan:: ASSESSMENT AND PLAN - Clinically suspected viral myocarditis-initially thought this may represent non- ST elevation ACS but now more suspicious this is Covid myocarditis. Troponin level trending down. No chest pain. Echo unremarkable. -Supportive cares -Medical management of coronary artery disease -Repeat troponin in the morning -Continue cardiac monitoring COVID-19 pneumonia-complicated by acute respiratory failure with hypoxia. He di d receive monoclonal antibodies 05/21 but unfortunately has decompensated. Increasing supplemental oxygen requirements. Significant jump in his CRP. He is at high risk for progression given his vascular disease, lung disease and weakened immune system. -Continue dexamethasone (day 3) -Remdesivir x5 days (day 2) -Enoxaparin daily -Isolation protocol -Supplemental oxygen as needed, wean as able Hypoactive delirium-etiology not entirely clear, suspect multifactorial with contribution from Covid. This has resolved. -Continue to monitor with dose reductions of home medications Tobacco dependence- -encourage cessation Chronic back pain-stable. -Continue home medications with dose reduction in Lyrica Maintenance issues - -DVT prophylaxis-enoxaparin -GI prophylaxis-PPI -Nutrition-mechanical soft diet Disposition -I anticipate discharge home after the hospital stay Primary care physician - Dr Srinivasan Cedeno M.D.
[2021-05-24] MEDS: Dexamethasone 4 MG/ML SDV IVPUSH SCH (10:43)
[2021-05-24] MEDS: Potassium Chloride 20 MEQ, Lidocaine 1% 2 ML in Sodium Chloride 0.9% 100 ML IV SCH ×2 (10:45→12:02)
[2021-05-24] MEDS: REMDESIVIR 100 MG in Sodium Chloride 0.9% 100 ML IV SCH (10:48)
[2021-05-24] MEDS: Calcium Carbonate 500 MG Tab.Chew PO PRN (10:53)
[2021-05-24] MEDS: Enoxaparin 40 MG/0.4 ML Syringe SUBCUT SCH (15:55)
[2021-05-24] MEDS: Mirtazapine 15 MG Tab PO SCH (20:59)
[2021-05-25] MEDS: oxyCODONE 5 MG Tab PO PRN (00:50)
[2021-05-25] MEDS: Misoprostol 200 MCG Tab PO SCH ×4 (05:26→21:12)
[2021-05-25] MEDS: Levothyroxine 25 MCG Tab PO SCH (08:04)
[2021-05-25] MEDS: Pantoprazole 40 MG Tab.CR PO SCH (08:05)
--- NOTE | 2021-05-25 09:19 | PCM.PN ---
- General Info Date of Service: 05/25/21 Subjective Update: There were no acute events overnight. Patient remains fatigued and weak. There has been a slight increase in his supplemental oxygen requirements. He was up t o 12 L this morning. Heart rate and blood pressure have been stable. No fevers. Troponin level slightly higher today at 0.4. Potassium still a little low despite supplementation. - Review of Systems General: Reports: Weakness Pulmonary: Reports: Shortness of Breath, Cough - Patient Data Vitals - Most Recent: Last Vital Signs Temp 36.4 C 05/25/21 08:00 Pulse 79 05/25/21 08:00 Resp 20 05/25/21 08:00 BP 119/78 05/25/21 08:00 Pulse Ox 93 L 05/25/21 08:24 Weight - Most Recent: 73.028 kg I&O - Last 24 Hours: Intake & Output 05/24/21 05/25/21 05/25/21 22:59 06:59 14:59 Intake Total 660 500 Balance 660 500 Lab Results Last 24 Hours: Laboratory Results - last 24 hr 05/25/21 05/25/21 Range/Units 05:10 05:10 WBC 6.0 (4.5-11.0) K/uL RBC 5.70 (4.30-5.90) M/uL Hgb 15.9 H (12.0-15.0) g/dL Hct 48.3 (40.0-54.0) % MCV 85 (80-98) fL MCH 28 (27-31) pg MCHC 33 (32-36) % Plt Count 125 L (150-400) K/uL Sodium 143 (140-148) mmol/L Potassium 3.4 L (3.6-5.2) mmol/L Chloride 104 (100-108) mmol/L Carbon Dioxide 24 (21-32) mmol/L Anion Gap 18.4 H (5.0-14.0) mmol/L BUN 11 (7-18) mg/dL Creatinine 0.4 L (0.8-1.3) mg/dL Est Cr Clr Drug Dosing 183.61 mL/min Estimated GFR (MDRD) > 60 (>60) Glucose 86 (74-106) mg/dL Calcium 8.2 L (8.5-10.1) mg/dL Magnesium 1.9 (1.8-2.4) mg/dL Total Bilirubin 0.7 (0.2-1.0) mg/dL AST 43 H D (15-37) U/L ALT 40 (12-78) U/L Alkaline Phosphatase 108 (46-116) U/L Troponin I 0.487 H* (0.000-0.056) ng/mL Total Protein 6.7 (6.4-8.2) g/dL Albumin 2.3 L (3.4-5.0) g/dL Globulin 4.4 H (2.3-3.5) g/dL Albumin/Globulin Ratio 0.5 L (1.2-2.2) Med Orders - Current: Current Medications Acetaminophen (Acetaminophen 325 Mg Tab) 650 mg PO Q4H PRN PRN Reason: Pain (Mild 1-3)/fever Aspirin (Aspirin 81 Mg Tab.Chew) 81 mg PO DAILY [facility] Last Admin: 05/24/21 08:34 Dose: 81 mg Documented by: Benzonatate (Benzonatate 100 Mg Cap) 100 mg PO Q8H PRN PRN Reason: Cough Calcium Carbonate/Glycine (Calcium Carbonate 500 Mg Tab.Chew) 1,000 mg PO Q2H PRN PRN Reason: Indigestion Last Admin: 05/24/21 10:53 Dose: 1,000 mg Documented by: Dexamethasone (Dexamethasone 4 Mg/Ml Sdv) 6 mg IVPUSH Q24H [facility] Last Admin: 05/24/21 10:43 Dose: 6 mg Documented by: Enoxaparin Sodium (Enoxaparin 40 Mg/0.4 Ml Syringe) 40 mg SUBCUT Q24H [facility] Last Admin: 05/24/21 15:55 Dose: 40 mg Documented by: Guaifenesin/Dextromethorphan (Guaifenesin/Dextromethorphan 100-10 Mg/5 Ml Soln 10 Ml Cup) 10 ml PO Q4H PRN PRN Reason: Cough Hydromorphone HCl (Hydromorphone 1 Mg/Ml Syringe) 0.5 mg IVPUSH Q2H PRN PRN Reason: Pain (severe 7-10) Last Admin: 05/23/21 22:02 Dose: 0.5 mg Documented by: Remdesivir 100 mg/ Sodium (Chloride) 100 mls @ 100 mls/hr IV Q24H [facility] Stop: 05/27/21 10:59 Last Admin: 05/24/21 10:48 Dose: 100 mls/hr Documented by: Potassium Chloride 20 meq/Lidocaine HCl 2 ml/ Sodium Chloride 112 mls @ 50 mls/hr IV Q2H [facility] Stop: 05/25/21 13:14 Levetiracetam (Levetiracetam 250 Mg Tab) 500 mg PO BID [facility] Last Admin: 05/24/21 21:00 Dose: 500 mg Documented by: Levothyroxine Sodium (Levothyroxine 25 Mcg Tab) 25 mcg PO ACBREAKFAST [facility] Last Admin: 05/25/21 08:04 Dose: 25 mcg Documented by: Lorazepam (Lorazepam 2 Mg/Ml Sdv) 0.5 mg IVPUSH Q4H PRN PRN Reason: Nausea/Vomiting Lovastatin (Lovastatin 20 Mg Tab) 10 mg PO BEDTIME [facility] Last Admin: 05/24/21 21:00 Dose: 10 mg Documented by: Magnesium Hydroxide (Magnesium Hydroxide 400 Mg/5 Ml Susp 30 Ml Cup) 30 ml PO Q12H PRN PRN Reason: Constipation Mirtazapine (Mirtazapine 15 Mg Tab) 60 mg PO BEDTIME [facility] Last Admin: 05/24/21 20:59 Dose: 60 mg Documented by: Misoprostol (Misoprostol 200 Mcg Tab) 200 mcg PO QID [facility] Last Admin: 05/25/21 05:26 Dose: 200 mcg Documented by: Ondansetron HCl (Ondansetron 4 Mg/2 Ml Sdv) 4 mg IV Q6H PRN PRN Reason: Nausea/Vomiting Last Admin: 05/23/21 22:00 Dose: 4 mg Documented by: Ondansetron HCl (Ondansetron 4 Mg Tab.Dis) 4 mg PO Q6H PRN PRN Reason: Nausea able to take PO Last Admin: 05/25/21 00:50 Dose: 4 mg Documented by: Oxycodone HCl (Oxycodone 5 Mg Tab) 5 - 10 mg PO Q4H PRN PRN Reason: Pain Last Admin: 05/25/21 00:50 Dose: 5 mg Documented by: Pantoprazole Sodium (Pantoprazole 40 Mg Tab.Cr) 40 mg PO ACBREAKFAST [facility] Last Admin: 05/25/21 08:05 Dose: 40 mg Documented by: Pregabalin (Pregabalin 75 Mg Cap) 150 mg PO BID [facility] Last Admin: 05/24/21 20:59 Dose: 150 mg Documented by: Senna/Docusate Sodium (Docusate Sodium/Sennosides 50-8.6 Mg Tab) 1 tab PO BID PRN PRN Reason: Constipation Sodium Chloride (Sodium Chloride 0.9% 10 Ml Syringe) 30 ml FLUSH ASDIRECTED PRN PRN Reason: saline lock Discontinued Medications Aspirin (Aspirin 81 Mg Tab.Chew) 324 mg PO ONETIME ONE Stop: 05/20/21 11:14 Last Admin: 05/20/21 11:30 Dose: Not Given Documented by: Aspirin (Aspirin 300 Mg Supp) 300 mg RECTAL ONETIME ONE Stop: 05/20/21 18:01 Last Admin: 05/20/21 18:23 Dose: 300 mg Documented by: Casirivimab (Casirivimab ([id number]) 1,332 Mg/11.1 Ml Vial) 600 mg SUBCUT ONETIME ONE Stop: 05/21/21 14:01 Last Admin: 05/21/21 14:29 Dose: 600 mg Documented by: Diphenhydramine HCl (Diphenhydramine 50 Mg/Ml Sdv) 50 mg IVPUSH ASDIRECTED PRN PRN Reason: hypersensitivity reaction Stop: 05/21/21 20:00 Epinephrine HCl (Epinephrine 1 Mg/Ml Sdv) 0.3 mg IM ASDIRECTED PRN PRN Reason: hypersensitivity reaction Stop: 05/21/21 20:00 Famotidine (Famotidine 20 Mg/2 Ml Sdv) 20 mg IVPUSH ASDIRECTED PRN PRN Reason: hypersensitivity reaction Stop: 05/21/21 20:00 Furosemide (Furosemide 20 Mg/2 Ml Vial) 20 mg IVPUSH NOW ONE Stop: 05/23/21 09:01 Last Admin: 05/23/21 10:03 Dose: Not Given Documented by: Heparin Sodium (Porcine) (Heparin Sodium 5,000 Units/Ml Vial) 4,000 units IVPUSH ONETIME ONE Stop: 05/20/21 14:47 Last Admin: 05/20/21 15:00 Dose: 4,000 units Documented by: Heparin Sodium/Dextrose (Heparin 25,000 Units In D5w 500 Ml) 25,000 units in 500 mls @ 18 mls/hr IV TITRATE [facility] Last Admin: 05/20/21 15:01 Dose: 900 units/hr, 18 mls/hr Documented by: Sodium Chloride (Normal Saline) 100 mls @ 3 mls/sec IV ASDIRECTED [facility] Last Admin: 05/20/21 16:29 Dose: 3 mls/sec Documented by: Sodium Chloride (Normal Saline) 1,000 mls @ 100 mls/hr IV ASDIRECTED [facility] Stop: 05/21/21 03:01 Last Admin: 05/20/21 17:01 Dose: 100 mls/hr Documented by: Heparin Sodium/Dextrose (Heparin 25,000 Units In D5w 500 Ml) 25,000 units in 500 mls @ 20 mls/hr IV TITRATE [facility]; Protocol Last Admin: 05/20/21 21:35 Dose: 13.6 ml/hr, 13.6 mls/hr Documented by: Levetiracetam 500 mg/ Sodium (Chloride) 105 mls @ 400 mls/hr IV Q12H [facility] Stop: 05/21/21 12:00 Last Admin: 05/21/21 10:35 Dose: 400 mls/hr Documented by: Remdesivir 200 mg/ Sodium (Chloride) 250 mls @ 250 mls/hr IV ONETIME ONE Stop: 05/23/21 10:59 Last Admin: 05/23/21 09:55 Dose: 250 mls/hr Documented by: Potassium Chloride 20 meq/Lidocaine HCl 2 ml/ Sodium Chloride 112 mls @ 50 mls/hr IV Q2H [facility] Stop: 05/24/21 13:14 Last Admin: 05/24/21 12:02 Dose: 50 mls/hr Documented by: Imdevimab (Imdevimab ([id number]) 1,332 Mg/11.1 Ml Vial) 600 mg SUBCUT ONETIME ONE Stop: 05/21/21 14:01 Last Admin: 05/21/21 14:46 Dose: 600 mg Documented by: Iopamidol (Iopamidol 755 Mg/Ml 100 Ml Bottle) 100 ml IV . DIRECTED [facility] Last Admin: 05/20/21 16:29 Dose: 100 ml Documented by: Methylprednisolone Sodium Succinate (Methylprednisolone Sodium Succinate 125 Mg/2 Ml Sdv) 125 mg IVPUSH ASDIRECTED PRN PRN Reason: hypersensitivity reaction Stop: 05/21/21 20:00 Pantoprazole Sodium (Pantoprazole 40 Mg Vial) 40 mg IV Q24H [facility] Last Admin: 05/21/21 18:20 Dose: 40 mg Documented by: Potassium Chloride (Potassium Chloride 20 Meq Tab.Er) 40 meq PO ONETIME ONE Stop: 05/21/21 09:59 Last Admin: 05/21/21 10:59 Dose: 40 meq Documented by: Potassium Chloride (Potassium Chloride 20 Meq Tab.Er) 40 meq PO ONETIME ONE Stop: 05/22/21 09:01 Last Admin: 05/22/21 09:16 Dose: 40 meq Documented by: Potassium Chloride (Potassium Chloride 20 Meq Tab.Er) 40 meq PO BID [facility] Stop: 05/23/21 21:01 Last Admin: 05/23/21 21:20 Dose: 40 meq Documented by: Sodium Chloride (Sodium Chloride 0.9% 10 Ml Syringe) 30 ml FLUSH ASDIRECTED [facility] - Exam Quality Assessment: Supplemental Oxygen General: Alert, Oriented, Cooperative, No Acute Distress, Lethargic Lungs: Crackles (mild both lower lungs L>R). No: Normal Respiratory Effort (tachypnea) Cardiovascular: Regular Rate, Regular Rhythm, No Murmurs GI/Abdominal Exam: Soft, No Distention Extremities: No Pedal Edema. No: Increased Warmth Skin: Warm, Dry Psy/Mental Status: Alert, Normal Affect - Patient Data Lab Results Last 24 hrs: Laboratory Results - last 24 hr 05/25/21 05/25/21 Range/Units 05:10 05:10 WBC 6.0 (4.5-11.0) K/uL RBC 5.70 (4.30-5.90) M/uL Hgb 15.9 H (12.0-15.0) g/dL Hct 48.3 (40.0-54.0) % MCV 85 (80-98) fL MCH 28 (27-31) pg MCHC 33 (32-36) % Plt Count 125 L (150-400) K/uL Sodium 143 (140-148) mmol/L Potassium 3.4 L (3.6-5.2) mmol/L Chloride 104 (100-108) mmol/L Carbon Dioxide 24 (21-32) mmol/L Anion Gap 18.4 H (5.0-14.0) mmol/L BUN 11 (7-18) mg/dL Creatinine 0.4 L (0.8-1.3) mg/dL Est Cr Clr Drug Dosing 183.61 mL/min Estimated GFR (MDRD) > 60 (>60) Glucose 86 (74-106) mg/dL Calcium 8.2 L (8.5-10.1) mg/dL Magnesium 1.9 (1.8-2.4) mg/dL Total Bilirubin 0.7 (0.2-1.0) mg/dL AST 43 H D (15-37) U/L ALT 40 (12-78) U/L Alkaline Phosphatase 108 (46-116) U/L Troponin I 0.487 H* (0.000-0.056) ng/mL Total Protein 6.7 (6.4-8.2) g/dL Albumin 2.3 L (3.4-5.0) g/dL Globulin 4.4 H (2.3-3.5) g/dL Albumin/Globulin Ratio 0.5 L (1.2-2.2) Result Diagrams: 05/25/21 05:10 05/25/21 05:10 Sepsis Event Note - Evaluation Sepsis Screening Result: Possible Sepsis Risk - Focused Exam Vital Signs: Vital Signs Temp Pulse Resp BP Pulse Ox Pulse Ox 05/25/21 08:24 93 L 05/25/21 08:00 36.4 C 79 20 119/78 96 05/25/21 07:00 97 05/25/21 06:00 24 H 124/85 90 L 05/25/21 04:00 36.3 C 19 114/81 92 L 05/25/21 02:00 36.4 C 28 H 105/75 94 L 05/25/21 00:00 36.6 C 24 H 104/70 92 L 05/24/21 22:00 15 123/77 93 L - Problem List & Annotations (1) Myocarditis due to 2019 novel coronavirus SNOMED Code(s): 9490322030869945 Code(s): U07.1 - COVID-19; I40.0 - INFECTIVE MYOCARDITIS Status: Suspected Current Visit: Yes (2) NSTEMI (non-ST elevated myocardial infarction) SNOMED Code(s): 17377268 Code(s): I21.4 - NON-ST ELEVATION (NSTEMI) MYOCARDIAL INFARCTION Status: Ruled-out Current Visit: Yes (3) COVID-19 SNOMED Code(s): 765487322 Code(s): U07.1 - COVID-19 Status: Acute Current Visit: Yes (4) Acute hypoactive delirium due to multiple etiologies SNOMED Code(s): 605536385, 224489533 Code(s): F05 - DELIRIUM DUE TO KNOWN PHYSIOLOGICAL CONDITION Status: Acute Current Visit: Yes (5) Tobacco dependence SNOMED Code(s): 21111739 Code(s): F17.200 - NICOTINE DEPENDENCE, UNSPECIFIED, UNCOMPLICATED Status: Chronic Current Visit: No - Problem List Review Problem List Initiated/Reviewed/Updated: Yes - My Orders Last 24 Hours: My Active Orders 05/24/21 09:04 Calcium Carbonate [Tums] 1,000 mg PO Q2H PRN 05/24/21 10:00 Remdesivir 100 mg Sodium Chloride 0.9% [Normal Saline] 100 ml IV Q24H 05/25/21 09:15 Potassium Chloride 20 MEQ,Lidocaine 1% 2 ML IN 100ML NS @ 50 MLS/HR Potassium Chloride 20 meq Lidocaine 1% [Xylocaine 1%] 2 ml Sodium Chloride 0.9% [Normal Saline] 100 ml IV Q2H 05/25/21 09:17 Dietary Supplements [RC] TIDMEALS 05/26/21 05:00 CBC W/O DIFF,HEMOGRAM [HEME] Timed (1) COMPREHENSIVE METABOLIC PN,CMP [CHEM] Timed CRP [C-REACTIVE PROTEIN] [CHEM] Timed D-DIMER QUANTITATIVE [COAG] Timed TROPONIN I [CHEM] Timed - Plan Plan:: ASSESSMENT AND PLAN - Clinically suspected viral myocarditis-initially thought this may represent non- ST elevation ACS but now more suspicious this is Covid myocarditis. Troponin level slightly higher today. No chest pain. -Supportive cares -Medical management of coronary artery disease -Repeat troponin in the morning -Continue cardiac monitoring COVID-19 pneumonia-complicated by acute respiratory failure with hypoxia. He did receive monoclonal antibodies 05/21 but unfortunately has decompensated. Slight increase in supplemental oxygen requirements again overnight but otherwise stable. -Continue dexamethasone (day 4) -Remdesivir x5 days (day 3) -Enoxaparin daily -Isolation protocol -Supplemental oxygen as needed, wean as able Hypoactive delirium-etiology not entirely clear, suspect multifactorial with contribution from Covid. This has resolved. -Continue to monitor with dose reductions of home medications Tobacco dependence- -encourage cessation Chronic back pain-stable. -Continue home medications with dose reduction in Lyrica Maintenance issues - -DVT prophylaxis-enoxaparin -GI prophylaxis-PPI -Nutrition-mechanical soft diet Disposition -I anticipate discharge home after the hospital stay. Patient will remain in the intensive care unit with increasing supplemental oxygen requirements. Primary care physician - Dr Srinivasan Cedeno M.D.
[2021-05-25] MEDS: Aspirin 81 MG Tab.Chew PO SCH (09:20)
[2021-05-25] MEDS: Dexamethasone 4 MG/ML SDV IVPUSH SCH (09:20)
[2021-05-25] MEDS: Pregabalin 75 MG Cap PO SCH ×2 (09:23→21:12)
[2021-05-25] MEDS: levETIRAcetam 250 MG Tab PO SCH ×2 (09:26→21:12)
[2021-05-25] MEDS: REMDESIVIR 100 MG in Sodium Chloride 0.9% 100 ML IV SCH (10:15)
[2021-05-25] MEDS: Potassium Chloride 20 MEQ, Lidocaine 1% 2 ML in Sodium Chloride 0.9% 100 ML IV SCH ×2 (10:17→13:24)
[2021-05-25] MEDS: Enoxaparin 40 MG/0.4 ML Syringe SUBCUT SCH (16:08)
[2021-05-25] MEDS: Mirtazapine 15 MG Tab PO SCH (21:12)
[2021-05-26] MEDS: Misoprostol 200 MCG Tab PO SCH ×4 (06:25→22:26)
[2021-05-26] MEDS: Aspirin 81 MG Tab.Chew PO SCH (08:11)
[2021-05-26] MEDS: Pantoprazole 40 MG Tab.CR PO SCH (08:11)
[2021-05-26] MEDS: Levothyroxine 25 MCG Tab PO SCH (08:11)
[2021-05-26] MEDS: levETIRAcetam 250 MG Tab PO SCH ×2 (08:12→20:24)
[2021-05-26] MEDS: Pregabalin 75 MG Cap PO SCH ×2 (08:13→20:28)
[2021-05-26] MEDS: Dexamethasone 4 MG/ML SDV IVPUSH SCH (08:33)
--- NOTE | 2021-05-26 09:13 | PCM.PN ---
- General Info Date of Service: 05/26/21 Subjective Update: No acute events overnight. Blood pressure and heart rate have been stable. Oxygen requirement has increased slightly since yesterday. He has been on 15 L of high flow with borderline oxygen saturations. Patient reports he feels better today with less shortness of breath. He does have a loose cough. Back pain is stable. No complaints of abdominal pain or nausea. Functional Status: Reports: Pain Controlled, Tolerating Diet - Review of Systems General: Reports: Weakness Pulmonary: Reports: Shortness of Breath, Cough - Patient Data Vitals - Most Recent: Last Vital Signs Temp 36.8 C 05/26/21 08:00 Pulse 66 05/26/21 08:00 Resp 26 H 05/26/21 08:00 BP 87/53 L 05/26/21 08:00 Pulse Ox 97 05/26/21 08:24 Weight - Most Recent: 73.028 kg I&O - Last 24 Hours: Intake & Output 05/25/21 05/26/21 05/26/21 22:59 06:59 14:59 Intake Total 780 Balance 780 Lab Results Last 24 Hours: Laboratory Results - last 24 hr 05/26/21 05/26/21 05/26/21 Range/Units 04:10 04:10 04:10 WBC 6.8 (4.5-11.0) K/uL RBC 5.22 (4.30-5.90) M/uL Hgb 14.7 (12.0-15.0) g/dL Hct 44.6 (40.0-54.0) % MCV 85 (80-98) fL MCH 28 (27-31) pg MCHC 33 (32-36) % Plt Count 150 (150-400) K/uL D-Dimer, Quantitative 1003.37 H (0.0-500.0) ng/mL Sodium 145 (140-148) mmol/L Potassium 3.5 L (3.6-5.2) mmol/L Chloride 106 (100-108) mmol/L Carbon Dioxide 27 (21-32) mmol/L Anion Gap 15.5 H (5.0-14.0) mmol/L BUN 13 (7-18) mg/dL Creatinine 0.5 L (0.8-1.3) mg/dL Est Cr Clr Drug Dosing 146.89 mL/min Estimated GFR (MDRD) > 60 (>60) Glucose 86 (74-106) mg/dL Calcium 7.8 L (8.5-10.1) mg/dL Total Bilirubin 0.6 (0.2-1.0) mg/dL AST 26 (15-37) U/L ALT 34 (12-78) U/L Alkaline Phosphatase 91 (46-116) U/L Troponin I 0.276 H* (0.000-0.056) ng/mL C-Reactive Protein 1.65 H (0.0-0.3) mg/dL Total Protein 6.2 L (6.4-8.2) g/dL Albumin 2.2 L (3.4-5.0) g/dL Globulin 4.0 H (2.3-3.5) g/dL Albumin/Globulin Ratio 0.6 L (1.2-2.2) Med Orders - Current: Current Medications Acetaminophen (Acetaminophen 325 Mg Tab) 650 mg PO Q4H PRN PRN Reason: Pain (Mild 1-3)/fever Aspirin (Aspirin 81 Mg Tab.Chew) 81 mg PO DAILY [facility] Last Admin: 05/26/21 08:11 Dose: 81 mg Documented by: Benzonatate (Benzonatate 100 Mg Cap) 100 mg PO Q8H PRN PRN Reason: Cough Calcium Carbonate/Glycine (Calcium Carbonate 500 Mg Tab.Chew) 1,000 mg PO Q2H PRN PRN Reason: Indigestion Last Admin: 05/24/21 10:53 Dose: 1,000 mg Documented by: Dexamethasone (Dexamethasone 4 Mg/Ml Sdv) 6 mg IVPUSH Q24H [facility] Last Admin: 05/26/21 08:33 Dose: 6 mg Documented by: Enoxaparin Sodium (Enoxaparin 40 Mg/0.4 Ml Syringe) 40 mg SUBCUT Q24H [facility] Last Admin: 05/25/21 16:08 Dose: 40 mg Documented by: Guaifenesin/Dextromethorphan (Guaifenesin/Dextromethorphan 100-10 Mg/5 Ml Soln 10 Ml Cup) 10 ml PO Q4H PRN PRN Reason: Cough Hydromorphone HCl (Hydromorphone 1 Mg/Ml Syringe) 0.5 mg IVPUSH Q2H PRN PRN Reason: Pain (severe 7-10) Last Admin: 05/23/21 22:02 Dose: 0.5 mg Documented by: Remdesivir 100 mg/ Sodium (Chloride) 100 mls @ 100 mls/hr IV Q24H [facility] Stop: 05/27/21 10:59 Last Admin: 05/25/21 10:15 Dose: 100 mls/hr Documented by: Levetiracetam (Levetiracetam 250 Mg Tab) 500 mg PO BID [facility] Last Admin: 05/26/21 08:12 Dose: 500 mg Documented by: Levothyroxine Sodium (Levothyroxine 25 Mcg Tab) 25 mcg PO ACBREAKFAST [facility] Last Admin: 05/26/21 08:11 Dose: 25 mcg Documented by: Lorazepam (Lorazepam 2 Mg/Ml Sdv) 0.5 mg IVPUSH Q4H PRN PRN Reason: Nausea/Vomiting Lovastatin (Lovastatin 20 Mg Tab) 10 mg PO BEDTIME [facility] Last Admin: 05/25/21 21:12 Dose: 10 mg Documented by: Magnesium Hydroxide (Magnesium Hydroxide 400 Mg/5 Ml Susp 30 Ml Cup) 30 ml PO Q12H PRN PRN Reason: Constipation Mirtazapine (Mirtazapine 15 Mg Tab) 60 mg PO BEDTIME [facility] Last Admin: 05/25/21 21:12 Dose: 60 mg Documented by: Misoprostol (Misoprostol 200 Mcg Tab) 200 mcg PO QID [facility] Last Admin: 05/26/21 09:04 Dose: 200 mcg Documented by: Ondansetron HCl (Ondansetron 4 Mg/2 Ml Sdv) 4 mg IV Q6H PRN PRN Reason: Nausea/Vomiting Last Admin: 05/23/21 22:00 Dose: 4 mg Documented by: Ondansetron HCl (Ondansetron 4 Mg Tab.Dis) 4 mg PO Q6H PRN PRN Reason: Nausea able to take PO Last Admin: 05/25/21 00:50 Dose: 4 mg Documented by: Oxycodone HCl (Oxycodone 5 Mg Tab) 5 - 10 mg PO Q4H PRN PRN Reason: Pain Last Admin: 05/25/21 00:50 Dose: 5 mg Documented by: Pantoprazole Sodium (Pantoprazole 40 Mg Tab.Cr) 40 mg PO ACBREAKFAST [facility] Last Admin: 05/26/21 08:11 Dose: 40 mg Documented by: Pregabalin (Pregabalin 75 Mg Cap) 150 mg PO BID [facility] Last Admin: 05/26/21 08:13 Dose: 150 mg Documented by: Senna/Docusate Sodium (Docusate Sodium/Sennosides 50-8.6 Mg Tab) 1 tab PO BID PRN PRN Reason: Constipation Sodium Chloride (Sodium Chloride 0.9% 10 Ml Syringe) 30 ml FLUSH ASDIRECTED PRN PRN Reason: saline lock Discontinued Medications Aspirin (Aspirin 81 Mg Tab.Chew) 324 mg PO ONETIME ONE Stop: 05/20/21 11:14 Last Admin: 05/20/21 11:30 Dose: Not Given Documented by: Aspirin (Aspirin 300 Mg Supp) 300 mg RECTAL ONETIME ONE Stop: 05/20/21 18:01 Last Admin: 05/20/21 18:23 Dose: 300 mg Documented by: Casirivimab (Casirivimab ([id number]) 1,332 Mg/11.1 Ml Vial) 600 mg SUBCUT ONETIME ONE Stop: 05/21/21 14:01 Last Admin: 05/21/21 14:29 Dose: 600 mg Documented by: Diphenhydramine HCl (Diphenhydramine 50 Mg/Ml Sdv) 50 mg IVPUSH ASDIRECTED PRN PRN Reason: hypersensitivity reaction Stop: 05/21/21 20:00 Epinephrine HCl (Epinephrine 1 Mg/Ml Sdv) 0.3 mg IM ASDIRECTED PRN PRN Reason: hypersensitivity reaction Stop: 05/21/21 20:00 Famotidine (Famotidine 20 Mg/2 Ml Sdv) 20 mg IVPUSH ASDIRECTED PRN PRN Reason: hypersensitivity reaction Stop: 05/21/21 20:00 Furosemide (Furosemide 20 Mg/2 Ml Vial) 20 mg IVPUSH NOW ONE Stop: 05/23/21 09:01 Last Admin: 05/23/21 10:03 Dose: Not Given Documented by: Heparin Sodium (Porcine) (Heparin Sodium 5,000 Units/Ml Vial) 4,000 units IVPUSH ONETIME ONE Stop: 05/20/21 14:47 Last Admin: 05/20/21 15:00 Dose: 4,000 units Documented by: Heparin Sodium/Dextrose (Heparin 25,000 Units In D5w 500 Ml) 25,000 units in 500 mls @ 18 mls/hr IV TITRATE [facility] Last Admin: 05/20/21 15:01 Dose: 900 units/hr, 18 mls/hr Documented by: Sodium Chloride (Normal Saline) 100 mls @ 3 mls/sec IV ASDIRECTED [facility] Last Admin: 05/20/21 16:29 Dose: 3 mls/sec Documented by: Sodium Chloride (Normal Saline) 1,000 mls @ 100 mls/hr IV ASDIRECTED [facility] Stop: 05/21/21 03:01 Last Admin: 05/20/21 17:01 Dose: 100 mls/hr Documented by: Heparin Sodium/Dextrose (Heparin 25,000 Units In D5w 500 Ml) 25,000 units in 500 mls @ 20 mls/hr IV TITRATE [facility]; Protocol Last Admin: 05/20/21 21:35 Dose: 13.6 ml/hr, 13.6 mls/hr Documented by: Levetiracetam 500 mg/ Sodium (Chloride) 105 mls @ 400 mls/hr IV Q12H [facility] Stop: 05/21/21 12:00 Last Admin: 05/21/21 10:35 Dose: 400 mls/hr Documented by: Remdesivir 200 mg/ Sodium (Chloride) 250 mls @ 250 mls/hr IV ONETIME ONE Stop: 05/23/21 10:59 Last Admin: 05/23/21 09:55 Dose: 250 mls/hr Documented by: Potassium Chloride 20 meq/Lidocaine HCl 2 ml/ Sodium Chloride 112 mls @ 50 mls/hr IV Q2H [facility] Stop: 05/24/21 13:14 Last Admin: 05/24/21 12:02 Dose: 50 mls/hr Documented by: Potassium Chloride 20 meq/Lidocaine HCl 2 ml/ Sodium Chloride 112 mls @ 56 mls/hr IV Q2H [facility] Stop: 05/25/21 13:59 Last Admin: 05/25/21 13:24 Dose: 56 mls/hr Documented by: Imdevimab (Imdevimab ([id number]) 1,332 Mg/11.1 Ml Vial) 600 mg SUBCUT ONETIME ONE Stop: 05/21/21 14:01 Last Admin: 05/21/21 14:46 Dose: 600 mg Documented by: Iopamidol (Iopamidol 755 Mg/Ml 100 Ml Bottle) 100 ml IV . DIRECTED [facility] Last Admin: 05/20/21 16:29 Dose: 100 ml Documented by: Methylprednisolone Sodium Succinate (Methylprednisolone Sodium Succinate 125 Mg/2 Ml Sdv) 125 mg IVPUSH ASDIRECTED PRN PRN Reason: hypersensitivity reaction Stop: 05/21/21 20:00 Pantoprazole Sodium (Pantoprazole 40 Mg Vial) 40 mg IV Q24H [facility] Last Admin: 05/21/21 18:20 Dose: 40 mg Documented by: Potassium Chloride (Potassium Chloride 20 Meq Tab.Er) 40 meq PO ONETIME ONE Stop: 05/21/21 09:59 Last Admin: 05/21/21 10:59 Dose: 40 meq Documented by: Potassium Chloride (Potassium Chloride 20 Meq Tab.Er) 40 meq PO ONETIME ONE Stop: 05/22/21 09:01 Last Admin: 05/22/21 09:16 Dose: 40 meq Documented by: Potassium Chloride (Potassium Chloride 20 Meq Tab.Er) 40 meq PO BID [facility] Stop: 05/23/21 21:01 Last Admin: 05/23/21 21:20 Dose: 40 meq Documented by: Sodium Chloride (Sodium Chloride 0.9% 10 Ml Syringe) 30 ml FLUSH ASDIRECTED [facility] - Exam Quality Assessment: Supplemental Oxygen General: Alert, Oriented, Cooperative, No Acute Distress Lungs: Crackles (moderate right mid and lower, mild left ). No: Normal Respiratory Effort (tachypnea) Cardiovascular: Regular Rate, Regular Rhythm GI/Abdominal Exam: Soft, No Distention Extremities: No Pedal Edema. No: Increased Warmth Skin: Warm, Dry, Other (multiple old skin grafts with no erythema or drainage ) Psy/Mental Status: Alert, Normal Affect - Patient Data Lab Results Last 24 hrs: Laboratory Results - last 24 hr 05/26/21 05/26/21 05/26/21 Range/Units 04:10 04:10 04:10 WBC 6.8 (4.5-11.0) K/uL RBC 5.22 (4.30-5.90) M/uL Hgb 14.7 (12.0-15.0) g/dL Hct 44.6 (40.0-54.0) % MCV 85 (80-98) fL MCH 28 (27-31) pg MCHC 33 (32-36) % Plt Count 150 (150-400) K/uL D-Dimer, Quantitative 1003.37 H (0.0-500.0) ng/mL Sodium 145 (140-148) mmol/L Potassium 3.5 L (3.6-5.2) mmol/L Chloride 106 (100-108) mmol/L Carbon Dioxide 27 (21-32) mmol/L Anion Gap 15.5 H (5.0-14.0) mmol/L BUN 13 (7-18) mg/dL Creatinine 0.5 L (0.8-1.3) mg/dL Est Cr Clr Drug Dosing 146.89 mL/min Estimated GFR (MDRD) > 60 (>60) Glucose 86 (74-106) mg/dL Calcium 7.8 L (8.5-10.1) mg/dL Total Bilirubin 0.6 (0.2-1.0) mg/dL AST 26 (15-37) U/L ALT 34 (12-78) U/L Alkaline Phosphatase 91 (46-116) U/L Troponin I 0.276 H* (0.000-0.056) ng/mL C-Reactive Protein 1.65 H (0.0-0.3) mg/dL Total Protein 6.2 L (6.4-8.2) g/dL Albumin 2.2 L (3.4-5.0) g/dL Globulin 4.0 H (2.3-3.5) g/dL Albumin/Globulin Ratio 0.6 L (1.2-2.2) Result Diagrams: 05/26/21 04:10 05/26/21 04:10 Sepsis Event Note - Evaluation Sepsis Screening Result: No Definite Risk - Focused Exam Vital Signs: Vital Signs Temp Pulse Resp BP Pulse Ox Pulse Ox 05/26/21 08:24 97 05/26/21 08:00 36.8 C 66 26 H 87/53 L 96 05/26/21 07:00 94 L 05/26/21 06:00 20 83/57 L 96 05/26/21 04:00 36.6 C 28 H 86/59 L 96 05/26/21 02:00 28 H 88/57 L 89 L 05/26/21 00:00 36.3 C 29 H 107/69 91 L 05/25/21 22:00 23 H 96/67 91 L - Problem List & Annotations (1) Myocarditis due to 2019 novel coronavirus SNOMED Code(s): 1507683100496721 Code(s): U07.1 - COVID-19; I40.0 - INFECTIVE MYOCARDITIS Status: Suspected Current Visit: Yes (2) NSTEMI (non-ST elevated myocardial infarction) SNOMED Code(s): 75662705 Code(s): I21.4 - NON-ST ELEVATION (NSTEMI) MYOCARDIAL INFARCTION Status: Ruled-out Current Visit: Yes (3) COVID-19 SNOMED Code(s): 101483130 Code(s): U07.1 - COVID-19 Status: Acute Current Visit: Yes (4) Acute hypoactive delirium due to multiple etiologies SNOMED Code(s): 263825207, 853182547 Code(s): F05 - DELIRIUM DUE TO KNOWN PHYSIOLOGICAL CONDITION Status: Acute Current Visit: Yes (5) Tobacco dependence SNOMED Code(s): 05459175 Code(s): F17.200 - NICOTINE DEPENDENCE, UNSPECIFIED, UNCOMPLICATED Status: Chronic Current Visit: No - Problem List Review Problem List Initiated/Reviewed/Updated: Yes - My Orders Last 24 Hours: My Active Orders 05/25/21 09:17 Dietary Supplements [RC] TIDMEALS 05/26/21 09:11 Potassium Chloride [Klor-Con M20] 40 meq PO ONETIME ONE 05/27/21 05:00 BASIC METABOLIC PANEL,BMP [CHEM] Timed TROPONIN I [CHEM] Timed - Plan Plan:: ASSESSMENT AND PLAN - Clinically suspected viral myocarditis-initially thought this may represent non- ST elevation ACS but now more suspicious this is Covid myocarditis. Troponin level slightly better today. No significant chest pain. -Supportive cares -Medical management of coronary artery disease -Repeat troponin in the morning -Continue cardiac monitoring COVID-19 pneumonia-complicated by acute respiratory failure with hypoxia. He did receive monoclonal antibodies 05/21 but unfortunately has decompensated. Supplemental oxygen requirements have increased over the past couple of days. CRP is better and patient is feeling better today. -Continue dexamethasone (day 5) -Remdesivir x5 days (day 4) -Enoxaparin daily -Isolation protocol -Supplemental oxygen as needed, wean as able. He may need a transition to AirVo Hypoactive delirium-etiology not entirely clear, suspect multifactorial with contribution from Covid. This has resolved. -Continue to monitor with dose reductions of home medications Tobacco dependence- -encourage cessation Chronic back pain-stable. -Continue home medications with dose reduction in Lyrica Maintenance issues - -DVT prophylaxis-enoxaparin -GI prophylaxis-PPI -Nutrition-mechanical soft diet Disposition -I anticipate discharge home after the hospital stay. Patient will remain in the intensive care unit with increasing supplemental oxygen requirements. Primary care physician - Dr Srinivasan Cedeno M.D.
[2021-05-26] MEDS ORDERED: Potassium Chloride 20 MEQ Tab.ER PO ONE (09:30)
[2021-05-26] MEDS: REMDESIVIR 100 MG in Sodium Chloride 0.9% 100 ML IV SCH (10:03)
[2021-05-26] MEDS: Calcium Carbonate 500 MG Tab.Chew PO PRN (12:41)
[2021-05-26] MEDS: Enoxaparin 40 MG/0.4 ML Syringe SUBCUT SCH (15:37)
[2021-05-26] MEDS: Mirtazapine 15 MG Tab PO SCH (20:25)
[2021-05-27] MEDS: Misoprostol 200 MCG Tab PO SCH ×4 (08:05→21:50)
[2021-05-27] MEDS: Levothyroxine 25 MCG Tab PO SCH (08:26)
[2021-05-27] MEDS: Pantoprazole 40 MG Tab.CR PO SCH (08:26)
[2021-05-27] MEDS: Pregabalin 75 MG Cap PO SCH ×2 (08:29→21:59)
[2021-05-27] MEDS: Aspirin 81 MG Tab.Chew PO SCH (08:29)
[2021-05-27] MEDS: levETIRAcetam 250 MG Tab PO SCH ×2 (08:29→21:50)
[2021-05-27] MEDS ORDERED: Potassium Chloride 20 MEQ Tab.ER PO ONE (09:00)
[2021-05-27] MEDS: Dexamethasone 4 MG/ML SDV IVPUSH SCH (09:20)
[2021-05-27] MEDS: REMDESIVIR 100 MG in Sodium Chloride 0.9% 100 ML IV SCH (11:35)
--- NOTE | 2021-05-27 15:46 | CR ---
CHEST: Portable 05/27/2021 at 1520 CLINICAL HISTORY:Worsening hypoxia COMPARISON:CT 05/20/2021 FINDINGS: Patient has severe underlying chronic lung disease with emphysematous changes as well as diffuse pulmonary calcifications. There are superimposed diffuse bilateral pulmonary infiltrates. Heart and pulmonary vascularity appear normal. Impression: Diffuse bilateral pulmonary infiltrate superimposed over advanced chronic lung disease Previous granulomatous exposure
[2021-05-27] MEDS: Enoxaparin 40 MG/0.4 ML Syringe SUBCUT SCH (16:08)
[2021-05-27] MEDS ORDERED: Sodium Chloride 0.9% 500 ML IV ONE (16:24)
[2021-05-27] MEDS ORDERED: Sodium Chloride 0.9% 1,000 ML IV SCH ×2 (16:30)
[2021-05-27] MEDS: Sodium Chloride 0.9% 1,000 ML IV SCH (17:46)
--- NOTE | 2021-05-27 17:51 | PCM.PN ---
- General Info Date of Service: 05/27/21 Subjective Update: Mr. López continues to require high level of supplemental oxygen, currently on nonrebreather mask. At current level oxygenation is adequate and he denies feeling significantly short of breath. He is very weak with poor oral intake. Urine has become very concentrated and this afternoon he has been hypotensive. Functional Status: Denies: Tolerating Diet, Ambulating - Review of Systems General: Reports: Weakness, Fatigue. Denies: Fever, Chills Pulmonary: Reports: Shortness of Breath, Cough. Denies: Pleuritic Chest Pain, Sputum, Hemoptysis, Wheezing Cardiovascular: Reports: Dyspnea on Exertion. Denies: Chest Pain, Palpitations, Orthopnea, PND, Edema, Lightheadedness Gastrointestinal: Reports: No Symptoms Genitourinary: Reports: No Symptoms - Patient Data Vitals - Most Recent: Last Vital Signs Temp 97.7 F 05/27/21 16:00 Pulse 74 05/27/21 16:00 Resp 24 H 05/27/21 16:00 BP 78/52 L 05/27/21 16:00 Pulse Ox 94 L 05/27/21 16:00 Weight - Most Recent: 161 lb I&O - Last 24 Hours: Intake & Output 05/27/21 05/27/21 05/27/21 06:59 14:59 22:59 Intake Total 240 325 Balance 240 325 Lab Results Last 24 Hours: Laboratory Results - last 24 hr 05/27/21 Range/Units 04:40 Sodium 143 (140-148) mmol/L Potassium 3.4 L (3.6-5.2) mmol/L Chloride 106 (100-108) mmol/L Carbon Dioxide 27 (21-32) mmol/L Anion Gap 13.4 (5.0-14.0) mmol/L BUN 13 (7-18) mg/dL Creatinine 0.5 L (0.8-1.3) mg/dL Est Cr Clr Drug Dosing 146.89 mL/min Estimated GFR (MDRD) > 60 (>60) Glucose 76 (74-106) mg/dL Calcium 8.0 L (8.5-10.1) mg/dL Troponin I 0.149 H* (0.000-0.056) ng/mL Med Orders - Current: Current Medications Acetaminophen (Acetaminophen 325 Mg Tab) 650 mg PO Q4H PRN PRN Reason: Pain (Mild 1-3)/fever Aspirin (Aspirin 81 Mg Tab.Chew) 81 mg PO DAILY [facility] Last Admin: 05/27/21 08:29 Dose: 81 mg Documented by: Benzonatate (Benzonatate 100 Mg Cap) 100 mg PO Q8H PRN PRN Reason: Cough Calcium Carbonate/Glycine (Calcium Carbonate 500 Mg Tab.Chew) 1,000 mg PO Q2H PRN PRN Reason: Indigestion Last Admin: 05/26/21 12:41 Dose: 1,000 mg Documented by: Dexamethasone (Dexamethasone 4 Mg/Ml Sdv) 6 mg IVPUSH Q24H [facility] Last Admin: 05/27/21 09:20 Dose: 6 mg Documented by: Enoxaparin Sodium (Enoxaparin 40 Mg/0.4 Ml Syringe) 40 mg SUBCUT Q24H [facility] Last Admin: 05/27/21 16:08 Dose: 40 mg Documented by: Guaifenesin/Dextromethorphan (Guaifenesin/Dextromethorphan 100-10 Mg/5 Ml Soln 10 Ml Cup) 10 ml PO Q4H PRN PRN Reason: Cough Hydromorphone HCl (Hydromorphone 1 Mg/Ml Syringe) 0.5 mg IVPUSH Q2H PRN PRN Reason: Pain (severe 7-10) Last Admin: 05/23/21 22:02 Dose: 0.5 mg Documented by: Sodium Chloride (Normal Saline) 1,000 mls @ 100 mls/hr IV ASDIRECTED [facility] Levetiracetam (Levetiracetam 250 Mg Tab) 500 mg PO BID [facility] Last Admin: 05/27/21 08:29 Dose: 500 mg Documented by: Levothyroxine Sodium (Levothyroxine 25 Mcg Tab) 25 mcg PO ACBREAKFAST [facility] Last Admin: 05/27/21 08:26 Dose: 25 mcg Documented by: Lorazepam (Lorazepam 2 Mg/Ml Sdv) 0.5 mg IVPUSH Q4H PRN PRN Reason: Nausea/Vomiting Lovastatin (Lovastatin 20 Mg Tab) 10 mg PO BEDTIME [facility] Last Admin: 05/26/21 20:24 Dose: 10 mg Documented by: Magnesium Hydroxide (Magnesium Hydroxide 400 Mg/5 Ml Susp 30 Ml Cup) 30 ml PO Q12H PRN PRN Reason: Constipation Mirtazapine (Mirtazapine 15 Mg Tab) 60 mg PO BEDTIME [facility] Last Admin: 05/26/21 20:25 Dose: 60 mg Documented by: Misoprostol (Misoprostol 200 Mcg Tab) 200 mcg PO QID [facility] Last Admin: 05/27/21 16:09 Dose: 200 mcg Documented by: Ondansetron HCl (Ondansetron 4 Mg/2 Ml Sdv) 4 mg IV Q6H PRN PRN Reason: Nausea/Vomiting Last Admin: 05/23/21 22:00 Dose: 4 mg Documented by: Ondansetron HCl (Ondansetron 4 Mg Tab.Dis) 4 mg PO Q6H PRN PRN Reason: Nausea able to take PO Last Admin: 05/25/21 00:50 Dose: 4 mg Documented by: Oxycodone HCl (Oxycodone 5 Mg Tab) 5 - 10 mg PO Q4H PRN PRN Reason: Pain Last Admin: 05/25/21 00:50 Dose: 5 mg Documented by: Pantoprazole Sodium (Pantoprazole 40 Mg Tab.Cr) 40 mg PO ACBREAKFAST [facility] Last Admin: 05/27/21 08:26 Dose: 40 mg Documented by: Pregabalin (Pregabalin 75 Mg Cap) 150 mg PO BID [facility] Last Admin: 05/27/21 08:29 Dose: 150 mg Documented by: Senna/Docusate Sodium (Docusate Sodium/Sennosides 50-8.6 Mg Tab) 1 tab PO BID PRN PRN Reason: Constipation Sodium Chloride (Sodium Chloride 0.9% 10 Ml Syringe) 30 ml FLUSH ASDIRECTED PRN PRN Reason: saline lock Discontinued Medications Aspirin (Aspirin 81 Mg Tab.Chew) 324 mg PO ONETIME ONE Stop: 05/20/21 11:14 Last Admin: 05/20/21 11:30 Dose: Not Given Documented by: Aspirin (Aspirin 300 Mg Supp) 300 mg RECTAL ONETIME ONE Stop: 05/20/21 18:01 Last Admin: 05/20/21 18:23 Dose: 300 mg Documented by: Casirivimab (Casirivimab ([id number]) 1,332 Mg/11.1 Ml Vial) 600 mg SUBCUT ON ETIME ONE Stop: 05/21/21 14:01 Last Admin: 05/21/21 14:29 Dose: 600 mg Documented by: Diphenhydramine HCl (Diphenhydramine 50 Mg/Ml Sdv) 50 mg IVPUSH ASDIRECTED PRN PRN Reason: hypersensitivity reaction Stop: 05/21/21 20:00 Epinephrine HCl (Epinephrine 1 Mg/Ml Sdv) 0.3 mg IM ASDIRECTED PRN PRN Reason: hypersensitivity reaction Stop: 05/21/21 20:00 Famotidine (Famotidine 20 Mg/2 Ml Sdv) 20 mg IVPUSH ASDIRECTED PRN PRN Reason: hypersensitivity reaction Stop: 05/21/21 20:00 Furosemide (Furosemide 20 Mg/2 Ml Vial) 20 mg IVPUSH NOW ONE Stop: 05/23/21 09:01 Last Admin: 05/23/21 10:03 Dose: Not Given Documented by: Heparin Sodium (Porcine) (Heparin Sodium 5,000 Units/Ml Vial) 4,000 units IVPUSH ONETIME ONE Stop: 05/20/21 14:47 Last Admin: 05/20/21 15:00 Dose: 4,000 units Documented by: Heparin Sodium/Dextrose (Heparin 25,000 Units In D5w 500 Ml) 25,000 units in 500 mls @ 18 mls/hr IV TITRATE [facility] Last Admin: 05/20/21 15:01 Dose: 900 units/hr, 18 mls/hr Documented by: Sodium Chloride (Normal Saline) 100 mls @ 3 mls/sec IV ASDIRECTED [facility] Last Admin: 05/20/21 16:29 Dose: 3 mls/sec Documented by: Sodium Chloride (Normal Saline) 1,000 mls @ 100 mls/hr IV ASDIRECTED [facility] Stop: 05/21/21 03:01 Last Admin: 05/20/21 17:01 Dose: 100 mls/hr Documented by: Heparin Sodium/Dextrose (Heparin 25,000 Units In D5w 500 Ml) 25,000 units in 500 mls @ 20 mls/hr IV TITRATE [facility]; Protocol Last Admin: 05/20/21 21:35 Dose: 13.6 ml/hr, 13.6 mls/hr Documented by: Levetiracetam 500 mg/ Sodium (Chloride) 105 mls @ 400 mls/hr IV Q12H [facility] Stop: 05/21/21 12:00 Last Admin: 05/21/21 10:35 Dose: 400 mls/hr Documented by: Remdesivir 100 mg/ Sodium (Chloride) 100 mls @ 100 mls/hr IV Q24H [facility] Stop: 05/27/21 10:59 Last Admin: 05/27/21 11:35 Dose: 100 mls/hr Documented by: Remdesivir 200 mg/ Sodium (Chloride) 250 mls @ 250 mls/hr IV ONETIME ONE Stop: 05/23/21 10:59 Last Admin: 05/23/21 09:55 Dose: 250 mls/hr Documented by: Potassium Chloride 20 meq/Lidocaine HCl 2 ml/ Sodium Chloride 112 mls @ 50 mls/hr IV Q2H [facility] Stop: 05/24/21 13:14 Last Admin: 05/24/21 12:02 Dose: 50 mls/hr Documented by: Potassium Chloride 20 meq/Lidocaine HCl 2 ml/ Sodium Chloride 112 mls @ 56 mls/hr IV Q2H [facility] Stop: 05/25/21 13:59 Last Admin: 05/25/21 13:24 Dose: 56 mls/hr Documented by: Sodium Chloride (Normal Saline) 500 mls @ 999 mls/hr IV .BOLUS ONE Stop: 05/27/21 16:54 Last Admin: 05/27/21 16:40 Dose: 999 mls/hr Documented by: Imdevimab (Imdevimab ([id number]) 1,332 Mg/11.1 Ml Vial) 600 mg SUBCUT ONETIME ONE Stop: 05/21/21 14:01 Last Admin: 05/21/21 14:46 Dose: 600 mg Documented by: Iopamidol (Iopamidol 755 Mg/Ml 100 Ml Bottle) 100 ml IV . DIRECTED [facility] Last Admin: 05/20/21 16:29 Dose: 100 ml Documented by: Methylprednisolone Sodium Succinate (Methylprednisolone Sodium Succinate 125 Mg/2 Ml Sdv) 125 mg IVPUSH ASDIRECTED PRN PRN Reason: hypersensitivity reaction Stop: 05/21/21 20:00 Pantoprazole Sodium (Pantoprazole 40 Mg Vial) 40 mg IV Q24H [facility] Last Admin: 05/21/21 18:20 Dose: 40 mg Documented by: Potassium Chloride (Potassium Chloride 20 Meq Tab.Er) 40 meq PO ONETIME ONE Stop: 05/21/21 09:59 Last Admin: 05/21/21 10:59 Dose: 40 meq Documented by: Potassium Chloride (Potassium Chloride 20 Meq Tab.Er) 40 meq PO ONETIME ONE Stop: 05/22/21 09:01 Last Admin: 05/22/21 09:16 Dose: 40 meq Documented by: Potassium Chloride (Potassium Chloride 20 Meq Tab.Er) 40 meq PO BID [facility] Stop: 05/23/21 21:01 Last Admin: 05/23/21 21:20 Dose: 40 meq Documented by: Potassium Chloride (Potassium Chloride 20 Meq Tab.Er) 40 meq PO ONETIME ONE Stop: 05/26/21 09:31 Last Admin: 05/26/21 10:04 Dose: 40 meq Documented by: Potassium Chloride (Potassium Chloride 20 Meq Tab.Er) 40 meq PO ONETIME ONE Stop: 05/27/21 09:01 Last Admin: 05/27/21 08:59 Dose: 40 meq Documented by: Sodium Chloride (Sodium Chloride 0.9% 10 Ml Syringe) 30 ml FLUSH ASDIRECTED [facility] - Exam Quality Assessment: Supplemental Oxygen, DVT Prophylaxis General: Alert, Oriented, Cooperative, Moderate Distress Lungs: Normal Respiratory Effort, Crackles, Rhonchi. No: Rales, Wheezing Cardiovascular: Regular Rate, Regular Rhythm, Murmurs GI/Abdominal Exam: Soft, Non-Tender, No Organomegaly, No Distention Extremities: Non-Tender, No Pedal Edema - Patient Data Lab Results Last 24 hrs: Laboratory Results - last 24 hr 05/27/21 Range/Units 04:40 Sodium 143 (140-148) mmol/L Potassium 3.4 L (3.6-5.2) mmol/L Chloride 106 (100-108) mmol/L Carbon Dioxide 27 (21-32) mmol/L Anion Gap 13.4 (5.0-14.0) mmol/L BUN 13 (7-18) mg/dL Creatinine 0.5 L (0.8-1.3) mg/dL Est Cr Clr Drug Dosing 146.89 mL/min Estimated GFR (MDRD) > 60 (>60) Glucose 76 (74-106) mg/dL Calcium 8.0 L (8.5-10.1) mg/dL Troponin I 0.149 H* (0.000-0.056) ng/mL Result Diagrams: 05/26/21 04:10 05/27/21 04:40 Sepsis Event Note - Evaluation Sepsis Screening Result: No Definite Risk - Focused Exam Vital Signs: Vital Signs Temp Pulse Resp BP BP Pulse Ox 05/27/21 16:00 97.7 F 74 24 H 78/52 L 94 L 05/27/21 14:00 80 23 H 97/59 L 96 05/27/21 12:00 97.6 F 78 22 H 88/61 L 98 05/27/21 10:00 75 21 H 112/74 95 05/27/21 08:00 98.1 F 69 24 H 91/63 94 L 05/27/21 06:00 96.8 F L 71 25 H 104/63 94 L - Problem List Review Problem List Initiated/Reviewed/Updated: Yes - My Orders Last 24 Hours: My Active Orders 05/27/21 17:00 Sodium Chloride 0.9% [Normal Saline] 1,000 ml IV ASDIRECTED 05/28/21 05:00 CBC WITH AUTO DIFF [HEME] Timed COMPREHENSIVE METABOLIC PN,CMP [CHEM] Timed TROPONIN I [CHEM] Timed 05/28/21 05:11 CRP [C-REACTIVE PROTEIN] [CHEM] AM D Dimer [D-DIMER QUANTITATIVE] [COAG] AM - Plan Plan:: ASSESSMENT AND PLAN COVID MYOCARDITIS-initially thought this may represent non-ST elevation ACS but now more suspicious this is Covid myocarditis. Troponin level remains mildly elevated -Supportive cares -Medical management of coronary artery disease -Repeat troponin in the morning -Continue cardiac monitoring COVID-19 pneumonia-complicated by acute respiratory failure with hypoxia. He remains very weak and is requiring high level of supplemental oxygen. -Continue dexamethasone (day 6) -Remdesivir x5 days (day 5) -Enoxaparin daily -Isolation protocol -Supplemental oxygen as needed, wean as able. He may need a transition to AirVo Hypoactive delirium-resolved Hypotension-suspect that this is secondary to intravascular volume depletion, urine is extremely concentrated and decreased volume -Fluid bolus now -Cautious IV fluids through the night, reassess in a.m. Tobacco dependence- -encourage cessation Chronic back pain-stable. -Continue home medications with dose reduction in Lyrica Maintenance issues - -DVT prophylaxis-enoxaparin -GI prophylaxis-PPI -Nutrition-mechanical soft diet Disposition -I anticipate discharge home after the hospital stay. Patient will remain in the intensive care unit with increasing supplemental oxygen require ments. Primary care physician - Dr Srinivasan Baca
[2021-05-27] MEDS: Mirtazapine 15 MG Tab PO SCH (21:49)
[2021-05-28] MEDS: Sodium Chloride 0.9% 1,000 ML IV SCH (03:40)
[2021-05-28] MEDS: Misoprostol 200 MCG Tab PO SCH ×4 (05:45→21:37)
[2021-05-28] MEDS: Levothyroxine 25 MCG Tab PO SCH (08:20)
[2021-05-28] MEDS: Pantoprazole 40 MG Tab.CR PO SCH (08:20)
[2021-05-28] MEDS: levETIRAcetam 250 MG Tab PO SCH ×2 (08:24→21:37)
[2021-05-28] MEDS: Aspirin 81 MG Tab.Chew PO SCH (08:24)
[2021-05-28] MEDS ORDERED: Potassium Chloride 20 MEQ Tab.ER PO ONE ×3 (08:31→17:00)
[2021-05-28] MEDS: Dexamethasone 4 MG/ML SDV IVPUSH SCH (10:47)
[2021-05-28] MEDS: Pregabalin 75 MG Cap PO SCH ×2 (11:43→21:37)
--- NOTE | 2021-05-28 14:03 | PCM.PN ---
- General Info Date of Service: 05/28/21 Subjective Update: Mr. López has improved since yesterday, now only requiring 8 L/min via high flow nasal cannula. Energy level and appetite also seems to be improved. He is more alert and interactive. Functional Status: Reports: Urinating - Review of Systems General: Reports: Weakness, Fatigue. Denies: Fever, Chills Pulmonary: Reports: Shortness of Breath, Cough. Denies: Pleuritic Chest Pain, Sputum, Hemoptysis, Wheezing Cardiovascular: Reports: Dyspnea on Exertion. Denies: Chest Pain, Palpitations, Orthopnea, PND, Edema, Lightheadedness Gastrointestinal: Reports: No Symptoms Genitourinary: Reports: No Symptoms - Patient Data Vitals - Most Recent: Last Vital Signs Temp 97.8 F 05/28/21 12:00 Pulse 71 05/28/21 12:00 Resp 23 H 05/28/21 12:00 BP 86/56 L 05/28/21 12:00 Pulse Ox 96 05/28/21 12:00 Weight - Most Recent: 161 lb I&O - Last 24 Hours: Intake & Output 05/27/21 05/28/21 05/28/21 22:59 06:59 14:59 Intake Total 1353 Output Total 200 200 Balance 1153 -200 Lab Results Last 24 Hours: Laboratory Results - last 24 hr 05/28/21 05/28/21 05/28/21 Range/Units 04:55 04:55 04:55 WBC 8.1 (4.5-11.0) K/uL RBC 4.76 (4.30-5.90) M/uL Hgb 13.4 (12.0-15.0) g/dL Hct 41.2 (40.0-54.0) % MCV 87 (80-98) fL MCH 28 (27-31) pg MCHC 33 (32-36) % Plt Count 163 (150-400) K/uL Neut % (Auto) 73.6 H (36-66) % Lymph % (Auto) 17.7 L (24-44) % Mccreary % (Auto) 7.9 H (2-6) % Eos % (Auto) 0.4 L (2-4) % Baso % (Auto) 0.4 (0-1) % D-Dimer, Quantitative 779.34 H (0.0-500.0) ng/mL Sodium 145 (140-148) mmol/L Potassium 3.1 L (3.6-5.2) mmol/L Chloride 110 H (100-108) mmol/L Carbon Dioxide 26 (21-32) mmol/L Anion Gap 12.1 (5.0-14.0) mmol/L BUN 8 (7-18) mg/dL Creatinine 0.5 L (0.8-1.3) mg/dL Est Cr Clr Drug Dosing 146.89 mL/min Estimated GFR (MDRD) > 60 (>60) Glucose 67 L (74-106) mg/dL Calcium 7.2 L (8.5-10.1) mg/dL Total Bilirubin 0.7 (0.2-1.0) mg/dL AST 27 (15-37) U/L ALT 41 (12-78) U/L Alkaline Phosphatase 81 (46-116) U/L Troponin I 0.097 H* (0.000-0.056) ng/mL C-Reactive Protein (0.0-0.3) mg/dL Total Protein 5.4 L (6.4-8.2) g/dL Albumin 2.0 L (3.4-5.0) g/dL Globulin 3.4 (2.3-3.5) g/dL Albumin/Globulin Ratio 0.6 L (1.2-2.2) 05/28/21 Range/Units 04:55 WBC (4.5-11.0) K/uL RBC (4.30-5.90) M/uL Hgb (12.0-15.0) g/dL Hct (40.0-54.0) % MCV (80-98) fL MCH (27-31) pg MCHC (32-36) % Plt Count (150-400) K/uL Neut % (Auto) (36-66) % Lymph % (Auto) (24-44) % Mccreary % (Auto) (2-6) % Eos % (Auto) (2-4) % Baso % (Auto) (0-1) % D-Dimer, Quantitative (0.0-500.0) ng/mL Sodium (140-148) mmol/L Potassium (3.6-5.2) mmol/L Chloride (100-108) mmol/L Carbon Dioxide (21-32) mmol/L Anion Gap (5.0-14.0) mmol/L BUN (7-18) mg/dL Creatinine (0.8-1.3) mg/dL Est Cr Clr Drug Dosing mL/min Estimated GFR (MDRD) (>60) Glucose (74-106) mg/dL Calcium (8.5-10.1) mg/dL Total Bilirubin (0.2-1.0) mg/dL AST (15-37) U/L ALT (12-78) U/L Alkaline Phosphatase (46-116) U/L Troponin I (0.000-0.056) ng/mL C-Reactive Protein 0.72 H (0.0-0.3) mg/dL Total Protein (6.4-8.2) g/dL Albumin (3.4-5.0) g/dL Globulin (2.3-3.5) g/dL Albumin/Globulin Ratio (1.2-2.2) Med Orders - Current: Current Medications Acetaminophen (Acetaminophen 325 Mg Tab) 650 mg PO Q4H PRN PRN Reason: Pain (Mild 1-3)/fever Aspirin (Aspirin 81 Mg Tab.Chew) 81 mg PO DAILY [facility] Last Admin: 05/28/21 08:24 Dose: 81 mg Documented by: Benzonatate (Benzonatate 100 Mg Cap) 100 mg PO Q8H PRN PRN Reason: Cough Calcium Carbonate/Glycine (Calcium Carbonate 500 Mg Tab.Chew) 1,000 mg PO Q2H PRN PRN Reason: Indigestion Last Admin: 05/26/21 12:41 Dose: 1,000 mg Documented by: Dexamethasone (Dexamethasone 4 Mg/Ml Sdv) 6 mg IVPUSH Q24H [facility] Last Admin: 05/28/21 10:47 Dose: 6 mg Documented by: Enoxaparin Sodium (Enoxaparin 40 Mg/0.4 Ml Syringe) 40 mg SUBCUT Q24H [facility] Last Admin: 05/27/21 16:08 Dose: 40 mg Documented by: Guaifenesin/Dextromethorphan (Guaifenesin/Dextromethorphan 100-10 Mg/5 Ml Soln 10 Ml Cup) 10 ml PO Q4H PRN PRN Reason: Cough Hydromorphone HCl (Hydromorphone 1 Mg/Ml Syringe) 0.5 mg IVPUSH Q2H PRN PRN Reason: Pain (severe 7-10) Last Admin: 05/23/21 22:02 Dose: 0.5 mg Documented by: Levetiracetam (Levetiracetam 250 Mg Tab) 500 mg PO BID [facility] Last Admin: 05/28/21 08:24 Dose: 500 mg Documented by: Levothyroxine Sodium (Levothyroxine 25 Mcg Tab) 25 mcg PO ACBREAKFAST [facility] Last Admin: 05/28/21 08:20 Dose: 25 mcg Documented by: Lorazepam (Lorazepam 2 Mg/Ml Sdv) 0.5 mg IVPUSH Q4H PRN PRN Reason: Nausea/Vomiting Lovastatin (Lovastatin 20 Mg Tab) 10 mg PO BEDTIME [facility] Last Admin: 05/27/21 21:49 Dose: 10 mg Documented by: Magnesium Hydroxide (Magnesium Hydroxide 400 Mg/5 Ml Susp 30 Ml Cup) 30 ml PO Q12H PRN PRN Reason: Constipation Mirtazapine (Mirtazapine 15 Mg Tab) 60 mg PO BEDTIME [facility] Last Admin: 05/27/21 21:49 Dose: 60 mg Documented by: Misoprostol (Misoprostol 200 Mcg Tab) 200 mcg PO QID [facility] Last Admin: 05/28/21 10:47 Dose: 200 mcg Documented by: Ondansetron HCl (Ondansetron 4 Mg/2 Ml Sdv) 4 mg IV Q6H PRN PRN Reason: Nausea/Vomiting Last Admin: 05/23/21 22:00 Dose: 4 mg Documented by: Ondansetron HCl (Ondansetron 4 Mg Tab.Dis) 4 mg PO Q6H PRN PRN Reason: Nausea able to take PO Last Admin: 05/25/21 00:50 Dose: 4 mg Documented by: Oxycodone HCl (Oxycodone 5 Mg Tab) 5 - 10 mg PO Q4H PRN PRN Reason: Pain Last Admin: 05/25/21 00:50 Dose: 5 mg Documented by: Pantoprazole Sodium (Pantoprazole 40 Mg Tab.Cr) 40 mg PO ACBREAKFAST [facility] Last Admin: 05/28/21 08:20 Dose: 40 mg Documented by: Pregabalin (Pregabalin 75 Mg Cap) 150 mg PO BID [facility] Last Admin: 05/28/21 11:43 Dose: 150 mg Documented by: Senna/Docusate Sodium (Docusate Sodium/Sennosides 50-8.6 Mg Tab) 1 tab PO BID PRN PRN Reason: Constipation Sodium Chloride (Sodium Chloride 0.9% 10 Ml Syringe) 30 ml FLUSH ASDIRECTED PRN PRN Reason: saline lock Discontinued Medications Aspirin (Aspirin 81 Mg Tab.Chew) 324 mg PO ONETIME ONE Stop: 05/20/21 11:14 Last Admin: 05/20/21 11:30 Dose: Not Given Documented by: Aspirin (Aspirin 300 Mg Supp) 300 mg RECTAL ONETIME ONE Stop: 05/20/21 18:01 Last Admin: 05/20/21 18:23 Dose: 300 mg Documented by: Casirivimab (Casirivimab ([id number]) 1,332 Mg/11.1 Ml Vial) 600 mg SUBCUT ONETIME ONE Stop: 05/21/21 14:01 Last Admin: 05/21/21 14:29 Dose: 600 mg Documented by: Diphenhydramine HCl (Diphenhydramine 50 Mg/Ml Sdv) 50 mg IVPUSH ASDIRECTED PRN PRN Reason: hypersensitivity reaction Stop: 05/21/21 20:00 Epinephrine HCl (Epinephrine 1 Mg/Ml Sdv) 0.3 mg IM ASDIRECTED PRN PRN Reason: hypersensitivity reaction Stop: 05/21/21 20:00 Famotidine (Famotidine 20 Mg/2 Ml Sdv) 20 mg IVPUSH ASDIRECTED PRN PRN Reason: hypersensitivity reaction Stop: 05/21/21 20:00 Furosemide (Furosemide 20 Mg/2 Ml Vial) 20 mg IVPUSH NOW ONE Stop: 05/23/21 09:01 Last Admin: 05/23/21 10:03 Dose: Not Given Documented by: Heparin Sodium (Porcine) (Heparin Sodium 5,000 Units/Ml Vial) 4,000 units IVPUSH ONETIME ONE Stop: 05/20/21 14:47 Last Admin: 05/20/21 15:00 Dose: 4,000 units Documented by: Heparin Sodium/Dextrose (Heparin 25,000 Units In D5w 500 Ml) 25,000 units in 500 mls @ 18 mls/hr IV TITRATE [facility] Last Admin: 05/20/21 15:01 Dose: 900 units/hr, 18 mls/hr Documented by: Sodium Chloride (Normal Saline) 100 mls @ 3 mls/sec IV ASDIRECTED [facility] Last Admin: 05/20/21 16:29 Dose: 3 mls/sec Documented by: Sodium Chloride (Normal Saline) 1,000 mls @ 100 mls/hr IV ASDIRECTED [facility] Stop: 05/21/21 03:01 Last Admin: 05/20/21 17:01 Dose: 100 mls/hr Documented by: Heparin Sodium/Dextrose (Heparin 25,000 Units In D5w 500 Ml) 25,000 units in 500 mls @ 20 mls/hr IV TITRATE [facility]; Protocol Last Admin: 05/20/21 21:35 Dose: 13.6 ml/hr, 13.6 mls/hr Documented by: Levetiracetam 500 mg/ Sodium (Chloride) 105 mls @ 400 mls/hr IV Q12H [facility] Stop: 05/21/21 12:00 Last Admin: 05/21/21 10:35 Dose: 400 mls/hr Documented by: Remdesivir 100 mg/ Sodium (Chloride) 100 mls @ 100 mls/hr IV Q24H [facility] Stop: 05/27/21 10:59 Last Admin: 05/27/21 11:35 Dose: 100 mls/hr Documented by: Remdesivir 200 mg/ Sodium (Chloride) 250 mls @ 250 mls/hr IV ONETIME ONE Stop: 05/23/21 10:59 Last Admin: 05/23/21 09:55 Dose: 250 mls/hr Documented by: Potassium Chloride 20 meq/Lidocaine HCl 2 ml/ Sodium Chloride 112 mls @ 50 mls/hr IV Q2H [facility] Stop: 05/24/21 13:14 Last Admin: 05/24/21 12:02 Dose: 50 mls/hr Documented by: Potassium Chloride 20 meq/Lidocaine HCl 2 ml/ Sodium Chloride 112 mls @ 56 mls/hr IV Q2H [facility] Stop: 05/25/21 13:59 Last Admin: 05/25/21 13:24 Dose: 56 mls/hr Documented by: Sodium Chloride (Normal Saline) 1,000 mls @ 100 mls/hr IV ASDIRECTED [facility] Last Admin: 05/28/21 03:40 Dose: 100 mls/hr Documented by: Sodium Chloride (Normal Saline) 500 mls @ 999 mls/hr IV .BOLUS ONE Stop: 05/27/21 16:54 Last Admin: 05/27/21 16:40 Dose: 999 mls/hr Documented by: Imdevimab (Imdevimab ([id number]) 1,332 Mg/11.1 Ml Vial) 600 mg SUBCUT ONETIME ONE Stop: 05/21/21 14:01 Last Admin: 05/21/21 14:46 Dose: 600 mg Documented by: Iopamidol (Iopamidol 755 Mg/Ml 100 Ml Bottle) 100 ml IV . DIRECTED [facility] Last Admin: 05/20/21 16:29 Dose: 100 ml Documented by: Methylprednisolone Sodium Succinate (Methylprednisolone Sodium Succinate 125 Mg/2 Ml Sdv) 125 mg IVPUSH ASDIRECTED PRN PRN Reason: hypersensitivity reaction Stop: 05/21/21 20:00 Pantoprazole Sodium (Pantoprazole 40 Mg Vial) 40 mg IV Q24H [facility] Last Admin: 05/21/21 18:20 Dose: 40 mg Documented by: Potassium Chloride (Potassium Chloride 20 Meq Tab.Er) 40 meq PO ONETIME ONE Stop: 05/21/21 09:59 Last Admin: 05/21/21 10:59 Dose: 40 meq Documented by: Potassium Chloride (Potassium Chloride 20 Meq Tab.Er) 40 meq PO ONETIME ONE Stop: 05/22/21 09:01 Last Admin: 05/22/21 09:16 Dose: 40 meq Documented by: Potassium Chloride (Potassium Chloride 20 Meq Tab.Er) 40 meq PO BID [facility] Stop: 05/23/21 21:01 Last Admin: 05/23/21 21:20 Dose: 40 meq Documented by: Potassium Chloride (Potassium Chloride 20 Meq Tab.Er) 40 meq PO ONETIME ONE Stop: 05/26/21 09:31 Last Admin: 05/26/21 10:04 Dose: 40 meq Documented by: Potassium Chloride (Potassium Chloride 20 Meq Tab.Er) 40 meq PO ONETIME ONE Stop: 05/27/21 09:01 Last Admin: 05/27/21 08:59 Dose: 40 meq Documented by: Potassium Chloride (Potassium Chloride 20 Meq Tab.Er) 40 meq PO ONETIME ONE Stop: 05/28/21 10:31 Last Admin: 05/28/21 10:47 Dose: 40 meq Documented by: Pregabalin (Pregabalin 75 Mg Cap) 150 mg PO BID [facility] Stop: 05/28/21 20:00 Last Admin: 05/27/21 21:59 Dose: 150 mg Documented by: Sodium Chloride (Sodium Chloride 0.9% 10 Ml Syringe) 30 ml FLUSH ASDIRECTED [facility] - Exam Quality Assessment: Supplemental Oxygen, DVT Prophylaxis General: Alert, Oriented, Cooperative, Mild Distress Lungs: Decreased Breath Sounds. No: Crackles, Rales, Rhonchi, Wheezing Cardiovascular: Regular Rate, Regular Rhythm, No Murmurs GI/Abdominal Exam: Soft, Non-Tender, No Organomegaly, No Distention Extremities: Non-Tender, No Pedal Edema, Other (Ulcers on the left knee and foot/ankle area appear to be healing well with no evidence of underlying infection) - Patient Data Lab Results Last 24 hrs: Laboratory Results - last 24 hr 05/28/21 05/28/21 05/28/21 Range/Units 04:55 04:55 04:55 WBC 8.1 (4.5-11.0) K/uL RBC 4.76 (4.30-5.90) M/uL Hgb 13.4 (12.0-15.0) g/dL Hct 41.2 (40.0-54.0) % MCV 87 (80-98) fL MCH 28 (27-31) pg MCHC 33 (32-36) % Plt Count 163 (150-400) K/uL Neut % (Auto) 73.6 H (36-66) % Lymph % (Auto) 17.7 L (24-44) % Mccreary % (Auto) 7.9 H (2-6) % Eos % (Auto) 0.4 L (2-4) % Baso % (Auto) 0.4 (0-1) % D-Dimer, Quantitative 779.34 H (0.0-500.0) ng/mL Sodium 145 (140-148) mmol/L Potassium 3.1 L (3.6-5.2) mmol/L Chloride 110 H (100-108) mmol/L Carbon Dioxide 26 (21-32) mmol/L Anion Gap 12.1 (5.0-14.0) mmol/L BUN 8 (7-18) mg/dL Creatinine 0.5 L (0.8-1.3) mg/dL Est Cr Clr Drug Dosing 146.89 mL/min Estimated GFR (MDRD) > 60 (>60) Glucose 67 L (74-106) mg/dL Calcium 7.2 L (8.5-10.1) mg/dL Total Bilirubin 0.7 (0.2-1.0) mg/dL AST 27 (15-37) U/L ALT 41 (12-78) U/L Alkaline Phosphatase 81 (46-116) U/L Troponin I 0.097 H* (0.000-0.056) ng/mL C-Reactive Protein (0.0-0.3) mg/dL Total Protein 5.4 L (6.4-8.2) g/dL Albumin 2.0 L (3.4-5.0) g/dL Globulin 3.4 (2.3-3.5) g/dL Albumin/Globulin Ratio 0.6 L (1.2-2.2) 05/28/21 Range/Units 04:55 WBC (4.5-11.0) K/uL RBC (4.30-5.90) M/uL Hgb (12.0-15.0) g/dL Hct (40.0-54.0) % MCV (80-98) fL MCH (27-31) pg MCHC (32-36) % Plt Count (150-400) K/uL Neut % (Auto) (36-66) % Lymph % (Auto) (24-44) % Mccreary % (Auto) (2-6) % Eos % (Auto) (2-4) % Baso % (Auto) (0-1) % D-Dimer, Quantitative (0.0-500.0) ng/mL Sodium (140-148) mmol/L Potassium (3.6-5.2) mmol/L Chloride (100-108) mmol/L Carbon Dioxide (21-32) mmol/L Anion Gap (5.0-14.0) mmol/L BUN (7-18) mg/dL Creatinine (0.8-1.3) mg/dL Est Cr Clr Drug Dosing mL/min Estimated GFR (MDRD) (>60) Glucose (74-106) mg/dL Calcium (8.5-10.1) mg/dL Total Bilirubin (0.2-1.0) mg/dL AST (15-37) U/L ALT (12-78) U/L Alkaline Phosphatase (46-116) U/L Troponin I (0.000-0.056) ng/mL C-Reactive Protein 0.72 H (0.0-0.3) mg/dL Total Protein (6.4-8.2) g/dL Albumin (3.4-5.0) g/dL Globulin (2.3-3.5) g/dL Albumin/Globulin Ratio (1.2-2.2) Result Diagrams: 05/28/21 04:55 05/28/21 04:55 Sepsis Event Note - Evaluation Sepsis Screening Result: No Definite Risk - Focused Exam Vital Signs: Vital Signs Temp Pulse Resp BP Pulse Ox 05/28/21 12:00 97.8 F 71 23 H 86/56 L 96 05/28/21 10:00 70 22 H 106/64 98 05/28/21 08:00 98.1 F 74 21 H 91/59 L 93 L 05/28/21 04:00 70 22 H 103/64 98 - Problem List Review Problem List Initiated/Reviewed/Updated: Yes - My Orders Last 24 Hours: My Active Orders 05/28/21 12:14 Consult to Physical Therapy [PT Evaluation and Treatment] [CONS] Routine Convert IV to Saline Lock [OM.PC] Routine 05/28/21 12:15 Patient Status [ADT] Routine 05/28/21 17:00 Potassium Chloride [Klor-Con M20] 40 meq PO ONETIME ONE 05/29/21 05:11 POTASSIUM,K [CHEM] AM - Plan Plan:: ASSESSMENT AND PLAN COVID MYOCARDITIS-initially thought this may represent non-ST elevation ACS but now more suspicious this is Covid myocarditis. Troponin level remains mildly elevated, but improved from yesterday -Supportive cares -Medical management of coronary artery disease -Continue cardiac monitoring COVID-19 pneumonia-complicated by acute respiratory failure with hypoxia. He remains very weak and is requiring high level of supplemental oxygen. -Continue dexamethasone (day 7) -Remdesivir x5 days, completed -Enoxaparin daily -Isolation protocol -Supplemental oxygen as needed, wean as able. He may need a transition to AirVo Hypoactive delirium-resolved Hypotension-resolved -Saline lock IV Tobacco dependence- -encourage cessation Chronic back pain-stable. -Continue home medications with dose reduction in Lyrica Maintenance issues - -DVT prophylaxis-enoxaparin -GI prophylaxis-PPI -Nutrition-mechanical soft diet Disposition -I anticipate discharge home after the hospital stay. Patient will remain in the intensive care unit with increasing supplemental oxygen requirements. Primary care physician - Dr Srinivasan Baca
[2021-05-28] MEDS: Enoxaparin 40 MG/0.4 ML Syringe SUBCUT SCH (15:54)
[2021-05-28] MEDS: Mirtazapine 15 MG Tab PO SCH (21:36)
[2021-05-29] MEDS: Misoprostol 200 MCG Tab PO SCH ×4 (06:17→21:35)
[2021-05-29] MEDS: Levothyroxine 25 MCG Tab PO SCH (08:09)
[2021-05-29] MEDS: Pantoprazole 40 MG Tab.CR PO SCH (08:09)
[2021-05-29] MEDS: Aspirin 81 MG Tab.Chew PO SCH (08:10)
[2021-05-29] MEDS: levETIRAcetam 250 MG Tab PO SCH ×2 (08:10→21:35)
[2021-05-29] MEDS: Pregabalin 75 MG Cap PO SCH ×2 (08:17→21:34)
[2021-05-29] MEDS: Dexamethasone 4 MG/ML SDV IVPUSH SCH ×2 (08:20→09:07)
--- NOTE | 2021-05-29 14:42 | PCM.PN ---
- General Info Date of Service: 05/29/21 Subjective Update: Mr. López has experienced further improvement since yesterday, now down to 5 L/min via high flow nasal cannula. Strength and energy levels seem to be improv ing. Reports less shortness of breath with activity and does seem to recover faster. Functional Status: Reports: Tolerating Diet, Urinating - Review of Systems General: Reports: Weakness, Fatigue. Denies: Fever, Chills Pulmonary: Reports: Shortness of Breath. Denies: Pleuritic Chest Pain, Cough, Sputum, Hemoptysis, Wheezing Cardiovascular: Reports: Dyspnea on Exertion. Denies: Chest Pain, Palpitations, Orthopnea, PND, Edema, Lightheadedness Gastrointestinal: Reports: No Symptoms Genitourinary: Reports: No Symptoms - Patient Data Vitals - Most Recent: Last Vital Signs Temp 96.5 F L 05/29/21 10:40 Pulse 69 05/29/21 10:40 Resp 18 05/29/21 10:40 BP 101/53 L 05/29/21 10:40 Pulse Ox 100 05/29/21 10:40 Weight - Most Recent: 161 lb I&O - Last 24 Hours: Intake & Output 05/28/21 05/29/21 05/29/21 22:59 06:59 14:59 Intake Total 560 500 Output Total 300 500 Balance 260 -500 500 Lab Results Last 24 Hours: Laboratory Results - last 24 hr 05/29/21 Range/Units 04:30 Potassium 3.9 (3.6-5.2) mmol/L Med Orders - Current: Current Medications Acetaminophen (Acetaminophen 325 Mg Tab) 650 mg PO Q4H PRN PRN Reason: Pain (Mild 1-3)/fever Aspirin (Aspirin 81 Mg Tab.Chew) 81 mg PO DAILY [facility] Last Admin: 05/29/21 08:10 Dose: 81 mg Documented by: Benzonatate (Benzonatate 100 Mg Cap) 100 mg PO Q8H PRN PRN Reason: Cough Calcium Carbonate/Glycine (Calcium Carbonate 500 Mg Tab.Chew) 1,000 mg PO Q2H PRN PRN Reason: Indigestion Last Admin: 05/26/21 12:41 Dose: 1,000 mg Documented by: Dexamethasone (Dexamethasone 4 Mg/Ml Sdv) 6 mg IVPUSH Q24H [facility] Last Admin: 05/29/21 09:07 Dose: Not Given Documented by: Enoxaparin Sodium (Enoxaparin 40 Mg/0.4 Ml Syringe) 40 mg SUBCUT Q24H [facility] Last Admin: 05/28/21 15:54 Dose: 40 mg Documented by: Guaifenesin/Dextromethorphan (Guaifenesin/Dextromethorphan 100-10 Mg/5 Ml Soln 10 Ml Cup) 10 ml PO Q4H PRN PRN Reason: Cough Hydromorphone HCl (Hydromorphone 1 Mg/Ml Syringe) 0.5 mg IVPUSH Q2H PRN PRN Reason: Pain (severe 7-10) Last Admin: 05/23/21 22:02 Dose: 0.5 mg Documented by: Levetiracetam (Levetiracetam 250 Mg Tab) 500 mg PO BID [facility] Last Admin: 05/29/21 08:10 Dose: 500 mg Documented by: Levothyroxine Sodium (Levothyroxine 25 Mcg Tab) 25 mcg PO ACBREAKFAST [facility] Last Admin: 05/29/21 08:09 Dose: 25 mcg Documented by: Lorazepam (Lorazepam 2 Mg/Ml Sdv) 0.5 mg IVPUSH Q4H PRN PRN Reason: Nausea/Vomiting Lovastatin (Lovastatin 20 Mg Tab) 10 mg PO BEDTIME [facility] Last Admin: 05/28/21 21:37 Dose: 10 mg Documented by: Magnesium Hydroxide (Magnesium Hydroxide 400 Mg/5 Ml Susp 30 Ml Cup) 30 ml PO Q12H PRN PRN Reason: Constipation Mirtazapine (Mirtazapine 15 Mg Tab) 60 mg PO BEDTIME [facility] Last Admin: 05/28/21 21:36 Dose: 60 mg Documented by: Misoprostol (Misoprostol 200 Mcg Tab) 200 mcg PO QID [facility] Last Admin: 05/29/21 09:35 Dose: 200 mcg Documented by: Ondansetron HCl (Ondansetron 4 Mg/2 Ml Sdv) 4 mg IV Q6H PRN PRN Reason: Nausea/Vomiting Last Admin: 05/23/21 22:00 Dose: 4 mg Documented by: Ondansetron HCl (Ondansetron 4 Mg Tab.Dis) 4 mg PO Q6H PRN PRN Reason: Nausea able to take PO Last Admin: 05/25/21 00:50 Dose: 4 mg Documented by: Oxycodone HCl (Oxycodone 5 Mg Tab) 5 - 10 mg PO Q4H PRN PRN Reason: Pain Last Admin: 05/25/21 00:50 Dose: 5 mg Documented by: Pantoprazole Sodium (Pantoprazole 40 Mg Tab.Cr) 40 mg PO ACBREAKFAST [facility] Last Admin: 05/29/21 08:09 Dose: 40 mg Documented by: Pregabalin (Pregabalin 75 Mg Cap) 150 mg PO BID [facility] Last Admin: 05/29/21 08:17 Dose: 150 mg Documented by: Senna/Docusate Sodium (Docusate Sodium/Sennosides 50-8.6 Mg Tab) 1 tab PO BID PRN PRN Reason: Constipation Last Admin: 05/29/21 06:17 Dose: 1 tab Documented by: Sodium Chloride (Sodium Chloride 0.9% 10 Ml Syringe) 30 ml FLUSH ASDIRECTED PRN PRN Reason: saline lock Discontinued Medications Aspirin (Aspirin 81 Mg Tab.Chew) 324 mg PO ONETIME ONE Stop: 05/20/21 11:14 Last Admin: 05/20/21 11:30 Dose: Not Given Documented by: Aspirin (Aspirin 300 Mg Supp) 300 mg RECTAL ONETIME ONE Stop: 05/20/21 18:01 Last Admin: 05/20/21 18:23 Dose: 300 mg Documented by: Casirivimab (Casirivimab ([id number]) 1,332 Mg/11.1 Ml Vial) 600 mg SUBCUT ONETIME ONE Stop: 05/21/21 14:01 Last Admin: 05/21/21 14:29 Dose: 600 mg Documented by: Diphenhydramine HCl (Diphenhydramine 50 Mg/Ml Sdv) 50 mg IVPUSH ASDIRECTED PRN PRN Reason: hypersensitivity reaction Stop: 05/21/21 20:00 Epinephrine HCl (Epinephrine 1 Mg/Ml Sdv) 0.3 mg IM ASDIRECTED PRN PRN Reason: hypersensitivity reaction Stop: 05/21/21 20:00 Famotidine (Famotidine 20 Mg/2 Ml Sdv) 20 mg IVPUSH ASDIRECTED PRN PRN Reason: hypersensitivity reaction Stop: 05/21/21 20:00 Furosemide (Furosemide 20 Mg/2 Ml Vial) 20 mg IVPUSH NOW ONE Stop: 05/23/21 09:01 Last Admin: 05/23/21 10:03 Dose: Not Given Documented by: Heparin Sodium (Porcine) (Heparin Sodium 5,000 Units/Ml Vial) 4,000 units IVPUSH ONETIME ONE Stop: 05/20/21 14:47 Last Admin: 05/20/21 15:00 Dose: 4,000 units Documented by: Heparin Sodium/Dextrose (Heparin 25,000 Units In D5w 500 Ml) 25,000 units in 500 mls @ 18 mls/hr IV TITRATE [facility] Last Admin: 05/20/21 15:01 Dose: 900 units/hr, 18 mls/hr Documented by: Sodium Chloride (Normal Saline) 100 mls @ 3 mls/sec IV ASDIRECTED [facility] Last Admin: 05/20/21 16:29 Dose: 3 mls/sec Documented by: Sodium Chloride (Normal Saline) 1,000 mls @ 100 mls/hr IV ASDIRECTED [facility] Stop: 05/21/21 03:01 Last Admin: 05/20/21 17:01 Dose: 100 mls/hr Documented by: Heparin Sodium/Dextrose (Heparin 25,000 Units In D5w 500 Ml) 25,000 units in 500 mls @ 20 mls/hr IV TITRATE [facility]; Protocol Last Admin: 05/20/21 21:35 Dose: 13.6 ml/hr, 13.6 mls/hr Documented by: Levetiracetam 500 mg/ Sodium (Chloride) 105 mls @ 400 mls/hr IV Q12H [facility] Stop: 05/21/21 12:00 Last Admin: 05/21/21 10:35 Dose: 400 mls/hr Documented by: Remdesivir 100 mg/ Sodium (Chloride) 100 mls @ 100 mls/hr IV Q24H [facility] Stop: 05/27/21 10:59 Last Admin: 05/27/21 11:35 Dose: 100 mls/hr Documented by: Remdesivir 200 mg/ Sodium (Chloride) 250 mls @ 250 mls/hr IV ONETIME ONE Stop: 05/23/21 10:59 Last Admin: 05/23/21 09:55 Dose: 250 mls/hr Documented by: Potassium Chloride 20 meq/Lidocaine HCl 2 ml/ Sodium Chloride 112 mls @ 50 mls/hr IV Q2H [facility] Stop: 05/24/21 13:14 Last Admin: 05/24/21 12:02 Dose: 50 mls/hr Documented by: Potassium Chloride 20 meq/Lidocaine HCl 2 ml/ Sodium Chloride 112 mls @ 56 mls/hr IV Q2H [facility] Stop: 05/25/21 13:59 Last Admin: 05/25/21 13:24 Dose: 56 mls/hr Documented by: Sodium Chloride (Normal Saline) 1,000 mls @ 100 mls/hr IV ASDIRECTED [facility] Last Admin: 05/28/21 03:40 Dose: 100 mls/hr Documented by: Sodium Chloride (Normal Saline) 500 mls @ 999 mls/hr IV .BOLUS ONE Stop: 05/27/21 16:54 Last Admin: 05/27/21 16:40 Dose: 999 mls/hr Documented by: Imdevimab (Imdevimab ([id number]) 1,332 Mg/11.1 Ml Vial) 600 mg SUBCUT ONETIME ONE Stop: 05/21/21 14:01 Last Admin: 05/21/21 14:46 Dose: 600 mg Documented by: Iopamidol (Iopamidol 755 Mg/Ml 100 Ml Bottle) 100 ml IV . DIRECTED [facility] Last Admin: 05/20/21 16:29 Dose: 100 ml Documented by: Methylprednisolone Sodium Succinate (Methylprednisolone Sodium Succinate 125 Mg/2 Ml Sdv) 125 mg IVPUSH ASDIRECTED PRN PRN Reason: hypersensitivity reaction Stop: 05/21/21 20:00 Pantoprazole Sodium (Pantoprazole 40 Mg Vial) 40 mg IV Q24H [facility] Last Admin: 05/21/21 18:20 Dose: 40 mg Documented by: Potassium Chloride (Potassium Chloride 20 Meq Tab.Er) 40 meq PO ONETIME ONE Stop: 05/21/21 09:59 Last Admin: 05/21/21 10:59 Dose: 40 meq Documented by: Potassium Chloride (Potassium Chloride 20 Meq Tab.Er) 40 meq PO ONETIME ONE Stop: 05/22/21 09:01 Last Admin: 05/22/21 09:16 Dose: 40 meq Documented by: Potassium Chloride (Potassium Chloride 20 Meq Tab.Er) 40 meq PO BID [facility] Stop: 05/23/21 21:01 Last Admin: 05/23/21 21:20 Dose: 40 meq Documented by: Potassium Chloride (Potassium Chloride 20 Meq Tab.Er) 40 meq PO ONETIME ONE Stop: 05/26/21 09:31 Last Admin: 05/26/21 10:04 Dose: 40 meq Documented by: Potassium Chloride (Potassium Chloride 20 Meq Tab.Er) 40 meq PO ONETIME ONE Stop: 05/27/21 09:01 Last Admin: 05/27/21 08:59 Dose: 40 meq Documented by: Potassium Chloride (Potassium Chloride 20 Meq Tab.Er) 40 meq PO ONETIME ONE Stop: 05/28/21 10:31 Last Admin: 05/28/21 10:47 Dose: 40 meq Documented by: Potassium Chloride (Potassium Chloride 20 Meq Tab.Er) 40 meq PO ONETIME ONE Stop: 05/28/21 17:01 Last Admin: 05/28/21 18:29 Dose: 40 meq Documented by: Pregabalin (Pregabalin 75 Mg Cap) 150 mg PO BID [facility] Stop: 05/28/21 20:00 Last Admin: 05/27/21 21:59 Dose: 150 mg Documented by: Sodium Chloride (Sodium Chloride 0.9% 10 Ml Syringe) 30 ml FLUSH ASDIRECTED [facility] - Exam Quality Assessment: Supplemental Oxygen, DVT Prophylaxis General: Alert, Oriented, Cooperative, Mild Distress Lungs: Normal Respiratory Effort, Decreased Breath Sounds. No: Crackles, Rales, Rhonchi, Wheezing Cardiovascular: Regular Rate, Regular Rhythm, No Murmurs GI/Abdominal Exam: Soft, Non-Tender, No Organomegaly, No Distention Extremities: Non-Tender, No Pedal Edema - Patient Data Lab Results Last 24 hrs: Laboratory Results - last 24 hr 05/29/21 Range/Units 04:30 Potassium 3.9 (3.6-5.2) mmol/L Result Diagrams: 05/28/21 04:55 05/29/21 04:30 Sepsis Event Note - Evaluation Sepsis Screening Result: No Definite Risk - Focused Exam Vital Signs: Vital Signs Temp Pulse Resp BP Pulse Ox 05/29/21 10:40 96.5 F L 69 18 101/53 L 100 05/29/21 07:19 89 L 05/29/21 07:00 71 16 115/61 98 - Problem List Review Problem List Initiated/Reviewed/Updated: Yes - Plan Plan:: ASSESSMENT AND PLAN COVID MYOCARDITIS-initially thought this may represent non-ST elevation ACS but now more suspicious this is Covid myocarditis. -Supportive cares -Medical management of coronary artery disease -Continue cardiac monitoring COVID-19 pneumonia-complicated by acute respiratory failure with hypoxia. Oxygenation has improved significantly over the past few days, now requiring only 5 L of oxygen via high flow nasal cannula -Continue dexamethasone (day 8) -Remdesivir x5 days, completed -Enoxaparin daily -Isolation protocol -Supplemental oxygen as needed, wean as able. He may need a transition to AirVo Hypoactive delirium-resolved Hypotension-resolved -Saline lock IV Tobacco dependence- -encourage cessation Chronic back pain-stable. -Continue home medications with dose reduction in Lyrica Maintenance issues - -DVT prophylaxis-enoxaparin -GI prophylaxis-PPI -Nutrition-mechanical soft diet Disposition -I anticipate discharge home after the hospital stay. Patient will remain in the intensive care unit with increasing supplemental oxygen requirements. Primary care physician - Dr Srinivasan Baca
[2021-05-29] MEDS: Enoxaparin 40 MG/0.4 ML Syringe SUBCUT SCH (15:32)
[2021-05-29] MEDS: Mirtazapine 15 MG Tab PO SCH (21:35)
[2021-05-30] MEDS: Misoprostol 200 MCG Tab PO SCH ×4 (05:14→21:10)
[2021-05-30] MEDS: Pregabalin 75 MG Cap PO SCH ×2 (09:50→20:24)
[2021-05-30] MEDS: Levothyroxine 25 MCG Tab PO SCH (10:06)
[2021-05-30] MEDS: Pantoprazole 40 MG Tab.CR PO SCH (10:07)
[2021-05-30] MEDS: levETIRAcetam 250 MG Tab PO SCH ×2 (10:07→20:25)
[2021-05-30] MEDS: Dexamethasone 4 MG/ML SDV IVPUSH SCH (10:07)
[2021-05-30] MEDS: Aspirin 81 MG Tab.Chew PO SCH (10:07)
--- NOTE | 2021-05-30 13:52 | PCM.PN ---
- General Info Date of Service: 05/30/21 Subjective Update: Mr. López has remained stable since yesterday, now down to 4 L of supplemental oxygen per minute via nasal cannula. He is feeling improved with more strength and improved appetite. Functional Status: Reports: Tolerating Diet, Ambulating, Urinating - Review of Systems General: Reports: Weakness, Fatigue. Denies: Fever, Chills Pulmonary: Reports: Shortness of Breath, Cough. Denies: Pleuritic Chest Pain, Sputum, Hemoptysis, Wheezing Cardiovascular: Reports: Dyspnea on Exertion. Denies: Chest Pain, Palpitations, Orthopnea, PND, Edema, Lightheadedness Gastrointestinal: Reports: No Symptoms Genitourinary: Reports: No Symptoms - Patient Data Vitals - Most Recent: Last Vital Signs Temp 97.4 F 05/30/21 11:42 Pulse 69 05/30/21 11:42 Resp 24 H 05/30/21 11:42 BP 87/54 L 05/30/21 11:42 Pulse Ox 95 05/30/21 11:42 Weight - Most Recent: 161 lb I&O - Last 24 Hours: Intake & Output 05/29/21 05/30/21 05/30/21 22:59 06:59 14:59 Intake Total 300 300 Output Total 250 Balance 300 50 Med Orders - Current: Current Medications Acetaminophen (Acetaminophen 325 Mg Tab) 650 mg PO Q4H PRN PRN Reason: Pain (Mild 1-3)/fever Aspirin (Aspirin 81 Mg Tab.Chew) 81 mg PO DAILY [facility] Last Admin: 05/30/21 10:07 Dose: 81 mg Documented by: Benzonatate (Benzonatate 100 Mg Cap) 100 mg PO Q8H PRN PRN Reason: Cough Calcium Carbonate/Glycine (Calcium Carbonate 500 Mg Tab.Chew) 1,000 mg PO Q2H PRN PRN Reason: Indigestion Last Admin: 05/26/21 12:41 Dose: 1,000 mg Documented by: Dexamethasone (Dexamethasone 4 Mg/Ml Sdv) 6 mg IVPUSH Q24H [facility] Last Admin: 05/30/21 10:07 Dose: 6 mg Documented by: Enoxaparin Sodium (Enoxaparin 40 Mg/0.4 Ml Syringe) 40 mg SUBCUT Q24H [facility] Last Admin: 05/29/21 15:32 Dose: 40 mg Documented by: Guaifenesin/Dextromethorphan (Guaifenesin/Dextromethorphan 100-10 Mg/5 Ml Soln 10 Ml Cup) 10 ml PO Q4H PRN PRN Reason: Cough Hydromorphone HCl (Hydromorphone 1 Mg/Ml Syringe) 0.5 mg IVPUSH Q2H PRN PRN Reason: Pain (severe 7-10) Last Admin: 05/23/21 22:02 Dose: 0.5 mg Documented by: Levetiracetam (Levetiracetam 250 Mg Tab) 500 mg PO BID [facility] Last Admin: 05/30/21 10:07 Dose: 500 mg Documented by: Levothyroxine Sodium (Levothyroxine 25 Mcg Tab) 25 mcg PO ACBREAKFAST [facility] Last Admin: 05/30/21 10:06 Dose: 25 mcg Documented by: Lorazepam (Lorazepam 2 Mg/Ml Sdv) 0.5 mg IVPUSH Q4H PRN PRN Reason: Nausea/Vomiting Lovastatin (Lovastatin 20 Mg Tab) 10 mg PO BEDTIME [facility] Last Admin: 05/29/21 21:35 Dose: 10 mg Documented by: Magnesium Hydroxide (Magnesium Hydroxide 400 Mg/5 Ml Susp 30 Ml Cup) 30 ml PO Q12H PRN PRN Reason: Constipation Mirtazapine (Mirtazapine 15 Mg Tab) 60 mg PO BEDTIME [facility] Last Admin: 05/29/21 21:35 Dose: 60 mg Documented by: Misoprostol (Misoprostol 200 Mcg Tab) 200 mcg PO QID [facility] Last Admin: 05/30/21 10:08 Dose: 200 mcg Documented by: Ondansetron HCl (Ondansetron 4 Mg/2 Ml Sdv) 4 mg IV Q6H PRN PRN Reason: Nausea/Vomiting Last Admin: 05/23/21 22:00 Dose: 4 mg Documented by: Ondansetron HCl (Ondansetron 4 Mg Tab.Dis) 4 mg PO Q6H PRN PRN Reason: Nausea able to take PO Last Admin: 05/25/21 00:50 Dose: 4 mg Documented by: Oxycodone HCl (Oxycodone 5 Mg Tab) 5 - 10 mg PO Q4H PRN PRN Reason: Pain Last Admin: 05/25/21 00:50 Dose: 5 mg Documented by: Pantoprazole Sodium (Pantoprazole 40 Mg Tab.Cr) 40 mg PO ACBREAKFAST [facility] Last Admin: 05/30/21 10:07 Dose: 40 mg Documented by: Pregabalin (Pregabalin 75 Mg Cap) 150 mg PO BID [facility] Last Admin: 05/30/21 09:50 Dose: 150 mg Documented by: Senna/Docusate Sodium (Docusate Sodium/Sennosides 50-8.6 Mg Tab) 1 tab PO BID PRN PRN Reason: Constipation Last Admin: 05/29/21 06:17 Dose: 1 tab Documented by: Sodium Chloride (Sodium Chloride 0.9% 10 Ml Syringe) 30 ml FLUSH ASDIRECTED PRN PRN Reason: saline lock Discontinued Medications Aspirin (Aspirin 81 Mg Tab.Chew) 324 mg PO ONETIME ONE Stop: 05/20/21 11:14 Last Admin: 05/20/21 11:30 Dose: Not Given Documented by: Aspirin (Aspirin 300 Mg Supp) 300 mg RECTAL ONETIME ONE Stop: 05/20/21 18:01 Last Admin: 05/20/21 18:23 Dose: 300 mg Documented by: Casirivimab (Casirivimab ([id number]) 1,332 Mg/11.1 Ml Vial) 600 mg SUBCUT ONETIME ONE Stop: 05/21/21 14:01 Last Admin: 05/21/21 14:29 Dose: 600 mg Documented by: Diphenhydramine HCl (Diphenhydramine 50 Mg/Ml Sdv) 50 mg IVPUSH ASDIRECTED PRN PRN Reason: hypersensitivity reaction Stop: 05/21/21 20:00 Epinephrine HCl (Epinephrine 1 Mg/Ml Sdv) 0.3 mg IM ASDIRECTED PRN PRN Reason: hypersensitivity reaction Stop: 05/21/21 20:00 Famotidine (Famotidine 20 Mg/2 Ml Sdv) 20 mg IVPUSH ASDIRECTED PRN PRN Reason: hypersensitivity reaction Stop: 05/21/21 20:00 Furosemide (Furosemide 20 Mg/2 Ml Vial) 20 mg IVPUSH NOW ONE Stop: 05/23/21 09:01 Last Admin: 05/23/21 10:03 Dose: Not Given Documented by: Heparin Sodium (Porcine) (Heparin Sodium 5,000 Units/Ml Vial) 4,000 units IVPUSH ONETIME ONE Stop: 05/20/21 14:47 Last Admin: 05/20/21 15:00 Dose: 4,000 units Documented by: Heparin Sodium/Dextrose (Heparin 25,000 Units In D5w 500 Ml) 25,000 units in 500 mls @ 18 mls/hr IV TITRATE [facility] Last Admin: 05/20/21 15:01 Dose: 900 units/hr, 18 mls/hr Documented by: Sodium Chloride (Normal Saline) 100 mls @ 3 mls/sec IV ASDIRECTED [facility] Last Admin: 05/20/21 16:29 Dose: 3 mls/sec Documented by: Sodium Chloride (Normal Saline) 1,000 mls @ 100 mls/hr IV ASDIRECTED [facility] Stop: 05/21/21 03:01 Last Admin: 05/20/21 17:01 Dose: 100 mls/hr Documented by: Heparin Sodium/Dextrose (Heparin 25,000 Units In D5w 500 Ml) 25,000 units in 500 mls @ 20 mls/hr IV TITRATE [facility]; Protocol Last Admin: 05/20/21 21:35 Dose: 13.6 ml/hr, 13.6 mls/hr Documented by: Levetiracetam 500 mg/ Sodium (Chloride) 105 mls @ 400 mls/hr IV Q12H [facility] Stop: 05/21/21 12:00 Last Admin: 05/21/21 10:35 Dose: 400 mls/hr Documented by: Remdesivir 100 mg/ Sodium (Chloride) 100 mls @ 100 mls/hr IV Q24H [facility] Stop: 05/27/21 10:59 Last Admin: 05/27/21 11:35 Dose: 100 mls/hr Documented by: Remdesivir 200 mg/ Sodium (Chloride) 250 mls @ 250 mls/hr IV ONETIME ONE Stop: 05/23/21 10:59 Last Admin: 05/23/21 09:55 Dose: 250 mls/hr Documented by: Potassium Chloride 20 meq/Lidocaine HCl 2 ml/ Sodium Chloride 112 mls @ 50 mls/hr IV Q2H [facility] Stop: 05/24/21 13:14 Last Admin: 05/24/21 12:02 Dose: 50 mls/hr Documented by: Potassium Chloride 20 meq/Lidocaine HCl 2 ml/ Sodium Chloride 112 mls @ 56 mls/hr IV Q2H [facility] Stop: 05/25/21 13:59 Last Admin: 05/25/21 13:24 Dose: 56 mls/hr Documented by: Sodium Chloride (Normal Saline) 1,000 mls @ 100 mls/hr IV ASDIRECTED [facility] Last Admin: 05/28/21 03:40 Dose: 100 mls/hr Documented by: Sodium Chloride (Normal Saline) 500 mls @ 999 mls/hr IV .BOLUS ONE Stop: 05/27/21 16:54 Last Admin: 05/27/21 16:40 Dose: 999 mls/hr Documented by: Imdevimab (Imdevimab ([id number]) 1,332 Mg/11.1 Ml Vial) 600 mg SUBCUT ONETIME ONE Stop: 05/21/21 14:01 Last Admin: 05/21/21 14:46 Dose: 600 mg Documented by: Iopamidol (Iopamidol 755 Mg/Ml 100 Ml Bottle) 100 ml IV . DIRECTED [facility] Last Admin: 05/20/21 16:29 Dose: 100 ml Documented by: Methylprednisolone Sodium Succinate (Methylprednisolone Sodium Succinate 125 Mg/2 Ml Sdv) 125 mg IVPUSH ASDIRECTED PRN PRN Reason: hypersensitivity reaction Stop: 05/21/21 20:00 Pantoprazole Sodium (Pantoprazole 40 Mg Vial) 40 mg IV Q24H [facility] Last Admin: 05/21/21 18:20 Dose: 40 mg Documented by: Potassium Chloride (Potassium Chloride 20 Meq Tab.Er) 40 meq PO ONETIME ONE Stop: 05/21/21 09:59 Last Admin: 05/21/21 10:59 Dose: 40 meq Documented by: Potassium Chloride (Potassium Chloride 20 Meq Tab.Er) 40 meq PO ONETIME ONE Stop: 05/22/21 09:01 Last Admin: 05/22/21 09:16 Dose: 40 meq Documented by: Potassium Chloride (Potassium Chloride 20 Meq Tab.Er) 40 meq PO BID [facility] Stop: 05/23/21 21:01 Last Admin: 05/23/21 21:20 Dose: 40 meq Documented by: Potassium Chloride (Potassium Chloride 20 Meq Tab.Er) 40 meq PO ONETIME ONE Stop: 05/26/21 09:31 Last Admin: 05/26/21 10:04 Dose: 40 meq Documented by: Potassium Chloride (Potassium Chloride 20 Meq Tab.Er) 40 meq PO ONETIME ONE Stop: 05/27/21 09:01 Last Admin: 05/27/21 08:59 Dose: 40 meq Documented by: Potassium Chloride (Potassium Chloride 20 Meq Tab.Er) 40 meq PO ONETIME ONE Stop: 05/28/21 10:31 Last Admin: 05/28/21 10:47 Dose: 40 meq Documented by: Potassium Chloride (Potassium Chloride 20 Meq Tab.Er) 40 meq PO ONETIME ONE Stop: 05/28/21 17:01 Last Admin: 05/28/21 18:29 Dose: 40 meq Documented by: Pregabalin (Pregabalin 75 Mg Cap) 150 mg PO BID [facility] Stop: 05/28/21 20:00 Last Admin: 05/27/21 21:59 Dose: 150 mg Documented by: Sodium Chloride (Sodium Chloride 0.9% 10 Ml Syringe) 30 ml FLUSH ASDIRECTED [facility] - Exam Quality Assessment: Supplemental Oxygen, DVT Prophylaxis General: Alert, Oriented, Cooperative, Mild Distress Lungs: Clear to Auscultation, Normal Respiratory Effort, Decreased Breath Sounds. No: Crackles, Rales, Rhonchi, Wheezing Cardiovascular: Regular Rate, Regular Rhythm, No Murmurs GI/Abdominal Exam: Soft, Non-Tender, No Organomegaly, No Distention Extremities: Non-Tender, No Pedal Edema - Patient Data Result Diagrams: 05/28/21 04:55 05/29/21 04:30 Sepsis Event Note - Evaluation Sepsis Screening Result: No Definite Risk - Focused Exam Vital Signs: Vital Signs Temp Pulse Resp BP Pulse Ox 05/30/21 11:42 97.4 F 69 24 H 87/54 L 95 05/30/21 09:00 96.6 F L 87 18 124/79 94 L 05/30/21 07:00 96.1 F L 70 18 100/61 97 05/30/21 03:00 97.0 F 62 18 124/68 99 - Problem List Review Problem List Initiated/Reviewed/Updated: Yes - Plan Plan:: ASSESSMENT AND PLAN COVID MYOCARDITIS-initially thought this may represent non-ST elevation ACS but now more suspicious this is Covid myocarditis. -Supportive cares -Medical management of coronary artery disease -Continue cardiac monitoring COVID-19 pneumonia-complicated by acute respiratory failure with hypoxia. Oxygenation has improved significantly over the past few days, now requiring only 4 L of oxygen via high flow nasal cannula -Continue dexamethasone, completed -Remdesivir x5 days, completed -Enoxaparin daily -Isolation protocol -Supplemental oxygen as needed, wean as able. He may need a transition to AirVo Hypoactive delirium-resolved Hypotension-resolved -Saline lock IV Tobacco dependence- -encourage cessation Chronic back pain-stable. -Continue home medications with dose reduction in Lyrica Maintenance issues - -DVT prophylaxis-enoxaparin -GI prophylaxis-PPI -Nutrition-mechanical soft diet Disposition -I anticipate discharge home after the hospital stay. Patient will remain in the intensive care unit with increasing supplemental oxygen requirements. Primary care physician - Dr Srinivasan Baca
[2021-05-30] MEDS: Enoxaparin 40 MG/0.4 ML Syringe SUBCUT SCH (15:34)
[2021-05-30] MEDS: Mirtazapine 15 MG Tab PO SCH (20:24)
[2021-05-31] MEDS: Misoprostol 200 MCG Tab PO SCH ×4 (06:05→21:39)
[2021-05-31] MEDS: Pantoprazole 40 MG Tab.CR PO SCH (07:54)
[2021-05-31] MEDS: Levothyroxine 25 MCG Tab PO SCH (07:54)
[2021-05-31] MEDS: Aspirin 81 MG Tab.Chew PO SCH (08:11)
[2021-05-31] MEDS: levETIRAcetam 250 MG Tab PO SCH ×2 (08:11→21:39)
[2021-05-31] MEDS: Pregabalin 75 MG Cap PO SCH ×2 (08:19→21:49)
--- NOTE | 2021-05-31 13:46 | PCM.PN ---
- General Info Date of Service: 05/31/21 Subjective Update: Mr. López has remained stable since yesterday, continues to require 4 L/min of oxygen via nasal cannula. Energy level, strength, and appetite have all improved. Functional Status: Reports: Tolerating Diet, Ambulating, Urinating - Review of Systems General: Reports: Weakness, Fatigue. Denies: Fever, Chills Pulmonary: Reports: Shortness of Breath, Cough. Denies: Pleuritic Chest Pain, Sputum, Hemoptysis, Wheezing Cardiovascular: Reports: Dyspnea on Exertion. Denies: Chest Pain, Palpitations, Orthopnea, PND, Edema, Lightheadedness Gastrointestinal: Reports: No Symptoms Genitourinary: Reports: No Symptoms - Patient Data Vitals - Most Recent: Last Vital Signs Temp 95.4 F L 05/31/21 10:24 Pulse 85 05/31/21 10:24 Resp 20 05/31/21 10:24 BP 91/66 05/31/21 11:02 Pulse Ox 95 05/31/21 10:24 Weight - Most Recent: 161 lb I&O - Last 24 Hours: Intake & Output 05/30/21 05/31/21 05/31/21 22:59 06:59 14:59 Intake Total 350 280 Output Total 300 300 Balance 350 -300 -20 Med Orders - Current: Current Medications Acetaminophen (Acetaminophen 325 Mg Tab) 650 mg PO Q4H PRN PRN Reason: Pain (Mild 1-3)/fever Aspirin (Aspirin 81 Mg Tab.Chew) 81 mg PO DAILY [facility] Last Admin: 05/31/21 08:11 Dose: 81 mg Documented by: Benzonatate (Benzonatate 100 Mg Cap) 100 mg PO Q8H PRN PRN Reason: Cough Calcium Carbonate/Glycine (Calcium Carbonate 500 Mg Tab.Chew) 1,000 mg PO Q2H PRN PRN Reason: Indigestion Last Admin: 05/26/21 12:41 Dose: 1,000 mg Documented by: Enoxaparin Sodium (Enoxaparin 40 Mg/0.4 Ml Syringe) 40 mg SUBCUT Q24H [facility] Last Admin: 05/30/21 15:34 Dose: 40 mg Documented by: Guaifenesin/Dextromethorphan (Guaifenesin/Dextromethorphan 100-10 Mg/5 Ml Soln 10 Ml Cup) 10 ml PO Q4H PRN PRN Reason: Cough Hydromorphone HCl (Hydromorphone 1 Mg/Ml Syringe) 0.5 mg IVPUSH Q2H PRN PRN Reason: Pain (severe 7-10) Last Admin: 05/23/21 22:02 Dose: 0.5 mg Documented by: Levetiracetam (Levetiracetam 250 Mg Tab) 500 mg PO BID [facility] Last Admin: 05/31/21 08:11 Dose: 500 mg Documented by: Levothyroxine Sodium (Levothyroxine 25 Mcg Tab) 25 mcg PO ACBREAKFAST [facility] Last Admin: 05/31/21 07:54 Dose: 25 mcg Documented by: Lorazepam (Lorazepam 2 Mg/Ml Sdv) 0.5 mg IVPUSH Q4H PRN PRN Reason: Nausea/Vomiting Lovastatin (Lovastatin 20 Mg Tab) 10 mg PO BEDTIME [facility] Last Admin: 05/30/21 20:25 Dose: 10 mg Documented by: Magnesium Hydroxide (Magnesium Hydroxide 400 Mg/5 Ml Susp 30 Ml Cup) 30 ml PO Q12H PRN PRN Reason: Constipation Mirtazapine (Mirtazapine 15 Mg Tab) 60 mg PO BEDTIME [facility] Last Admin: 05/30/21 20:24 Dose: 60 mg Documented by: Misoprostol (Misoprostol 200 Mcg Tab) 200 mcg PO QID [facility] Last Admin: 05/31/21 11:02 Dose: 200 mcg Documented by: Ondansetron HCl (Ondansetron 4 Mg/2 Ml Sdv) 4 mg IV Q6H PRN PRN Reason: Nausea/Vomiting Last Admin: 05/23/21 22:00 Dose: 4 mg Documented by: Ondansetron HCl (Ondansetron 4 Mg Tab.Dis) 4 mg PO Q6H PRN PRN Reason: Nausea able to take PO Last Admin: 05/25/21 00:50 Dose: 4 mg Documented by: Oxycodone HCl (Oxycodone 5 Mg Tab) 5 - 10 mg PO Q4H PRN PRN Reason: Pain Last Admin: 05/25/21 00:50 Dose: 5 mg Documented by: Pantoprazole Sodium (Pantoprazole 40 Mg Tab.Cr) 40 mg PO ACBREAKFAST [facility] Last Admin: 05/31/21 07:54 Dose: 40 mg Documented by: Pregabalin (Pregabalin 75 Mg Cap) 150 mg PO BID [facility] Last Admin: 05/31/21 08:19 Dose: 150 mg Documented by: Senna/Docusate Sodium (Docusate Sodium/Sennosides 50-8.6 Mg Tab) 1 tab PO BID PRN PRN Reason: Constipation Last Admin: 05/29/21 06:17 Dose: 1 tab Documented by: Sodium Chloride (Sodium Chloride 0.9% 10 Ml Syringe) 30 ml FLUSH ASDIRECTED PRN PRN Reason: saline lock Discontinued Medications Aspirin (Aspirin 81 Mg Tab.Chew) 324 mg PO ONETIME ONE Stop: 05/20/21 11:14 Last Admin: 05/20/21 11:30 Dose: Not Given Documented by: Aspirin (Aspirin 300 Mg Supp) 300 mg RECTAL ONETIME ONE Stop: 05/20/21 18:01 Last Admin: 05/20/21 18:23 Dose: 300 mg Documented by: Casirivimab (Casirivimab ([id number]) 1,332 Mg/11.1 Ml Vial) 600 mg SUBCUT ONETIME ONE Stop: 05/21/21 14:01 Last Admin: 05/21/21 14:29 Dose: 600 mg Documented by: Dexamethasone (Dexamethasone 4 Mg/Ml Sdv) 6 mg IVPUSH Q24H [facility] Last Admin: 05/30/21 10:07 Dose: 6 mg Documented by: Diphenhydramine HCl (Diphenhydramine 50 Mg/Ml Sdv) 50 mg IVPUSH ASDIRECTED PRN PRN Reason: hypersensitivity reaction Stop: 05/21/21 20:00 Epinephrine HCl (Epinephrine 1 Mg/Ml Sdv) 0.3 mg IM ASDIRECTED PRN PRN Reason: hypersensitivity reaction Stop: 05/21/21 20:00 Famotidine (Famotidine 20 Mg/2 Ml Sdv) 20 mg IVPUSH ASDIRECTED PRN PRN Reason: hypersensitivity reaction Stop: 05/21/21 20:00 Furosemide (Furosemide 20 Mg/2 Ml Vial) 20 mg IVPUSH NOW ONE Stop: 05/23/21 09:01 Last Admin: 05/23/21 10:03 Dose: Not Given Documented by: Heparin Sodium (Porcine) (Heparin Sodium 5,000 Units/Ml Vial) 4,000 units IVPUSH ONETIME ONE Stop: 05/20/21 14:47 Last Admin: 05/20/21 15:00 Dose: 4,000 units Documented by: Heparin Sodium/Dextrose (Heparin 25,000 Units In D5w 500 Ml) 25,000 units in 500 mls @ 18 mls/hr IV TITRATE [facility] Last Admin: 05/20/21 15:01 Dose: 900 units/hr, 18 mls/hr Documented by: Sodium Chloride (Normal Saline) 100 mls @ 3 mls/sec IV ASDIRECTED [facility] Last Admin: 05/20/21 16:29 Dose: 3 mls/sec Documented by: Sodium Chloride (Normal Saline) 1,000 mls @ 100 mls/hr IV ASDIRECTED [facility] Stop: 05/21/21 03:01 Last Admin: 05/20/21 17:01 Dose: 100 mls/hr Documented by: Heparin Sodium/Dextrose (Heparin 25,000 Units In D5w 500 Ml) 25,000 units in 500 mls @ 20 mls/hr IV TITRATE [facility]; Protocol Last Admin: 05/20/21 21:35 Dose: 13.6 ml/hr, 13.6 mls/hr Documented by: Levetiracetam 500 mg/ Sodium (Chloride) 105 mls @ 400 mls/hr IV Q12H [facility] Stop: 05/21/21 12:00 Last Admin: 05/21/21 10:35 Dose: 400 mls/hr Documented by: Remdesivir 100 mg/ Sodium (Chloride) 100 mls @ 100 mls/hr IV Q24H [facility] Stop: 05/27/21 10:59 Last Admin: 05/27/21 11:35 Dose: 100 mls/hr Documented by: Remdesivir 200 mg/ Sodium (Chloride) 250 mls @ 250 mls/hr IV ONETIME ONE Stop: 05/23/21 10:59 Last Admin: 05/23/21 09:55 Dose: 250 mls/hr Documented by: Potassium Chloride 20 meq/Lidocaine HCl 2 ml/ Sodium Chloride 112 mls @ 50 mls/hr IV Q2H [facility] Stop: 05/24/21 13:14 Last Admin: 05/24/21 12:02 Dose: 50 mls/hr Documented by: Potassium Chloride 20 meq/Lidocaine HCl 2 ml/ Sodium Chloride 112 mls @ 56 mls/hr IV Q2H [facility] Stop: 05/25/21 13:59 Last Admin: 05/25/21 13:24 Dose: 56 mls/hr Documented by: Sodium Chloride (Normal Saline) 1,000 mls @ 100 mls/hr IV ASDIRECTED [facility] Last Admin: 05/28/21 03:40 Dose: 100 mls/hr Documented by: Sodium Chloride (Normal Saline) 500 mls @ 999 mls/hr IV .BOLUS ONE Stop: 05/27/21 16:54 Last Admin: 05/27/21 16:40 Dose: 999 mls/hr Documented by: Imdevimab (Imdevimab ([id number]) 1,332 Mg/11.1 Ml Vial) 600 mg SUBCUT ONETIME ONE Stop: 05/21/21 14:01 Last Admin: 05/21/21 14:46 Dose: 600 mg Documented by: Iopamidol (Iopamidol 755 Mg/Ml 100 Ml Bottle) 100 ml IV . DIRECTED [facility] Last Admin: 05/20/21 16:29 Dose: 100 ml Documented by: Methylprednisolone Sodium Succinate (Methylprednisolone Sodium Succinate 125 M g/2 Ml Sdv) 125 mg IVPUSH ASDIRECTED PRN PRN Reason: hypersensitivity reaction Stop: 05/21/21 20:00 Pantoprazole Sodium (Pantoprazole 40 Mg Vial) 40 mg IV Q24H [facility] Last Admin: 05/21/21 18:20 Dose: 40 mg Documented by: Potassium Chloride (Potassium Chloride 20 Meq Tab.Er) 40 meq PO ONETIME ONE Stop: 05/21/21 09:59 Last Admin: 05/21/21 10:59 Dose: 40 meq Documented by: Potassium Chloride (Potassium Chloride 20 Meq Tab.Er) 40 meq PO ONETIME ONE Stop: 05/22/21 09:01 Last Admin: 05/22/21 09:16 Dose: 40 meq Documented by: Potassium Chloride (Potassium Chloride 20 Meq Tab.Er) 40 meq PO BID [facility] Stop: 05/23/21 21:01 Last Admin: 05/23/21 21:20 Dose: 40 meq Documented by: Potassium Chloride (Potassium Chloride 20 Meq Tab.Er) 40 meq PO ONETIME ONE Stop: 05/26/21 09:31 Last Admin: 05/26/21 10:04 Dose: 40 meq Documented by: Potassium Chloride (Potassium Chloride 20 Meq Tab.Er) 40 meq PO ONETIME ONE Stop: 05/27/21 09:01 Last Admin: 05/27/21 08:59 Dose: 40 meq Documented by: Potassium Chloride (Potassium Chloride 20 Meq Tab.Er) 40 meq PO ONETIME ONE Stop: 05/28/21 10:31 Last Admin: 05/28/21 10:47 Dose: 40 meq Documented by: Potassium Chloride (Potassium Chloride 20 Meq Tab.Er) 40 meq PO ONETIME ONE Stop: 05/28/21 17:01 Last Admin: 05/28/21 18:29 Dose: 40 meq Documented by: Pregabalin (Pregabalin 75 Mg Cap) 150 mg PO BID [facility] Stop: 05/28/21 20:00 Last Admin: 05/27/21 21:59 Dose: 150 mg Documented by: Sodium Chloride (Sodium Chloride 0.9% 10 Ml Syringe) 30 ml FLUSH ASDIRECTED [facility] - Exam Quality Assessment: Supplemental Oxygen, DVT Prophylaxis General: Alert, Oriented, Cooperative, Mild Distress Lungs: Normal Respiratory Effort, Decreased Breath Sounds. No: Crackles, Rales, Rhonchi, Wheezing Cardiovascular: Regular Rate, Regular Rhythm, No Murmurs GI/Abdominal Exam: Soft, Non-Tender, No Organomegaly, No Distention Extremities: Non-Tender, No Pedal Edema - Patient Data Result Diagrams: 05/28/21 04:55 05/29/21 04:30 Sepsis Event Note - Evaluation Sepsis Screening Result: No Definite Risk - Focused Exam Vital Signs: Vital Signs Temp Pulse Resp BP Pulse Ox Pulse Ox 05/31/21 11:02 91/66 05/31/21 10:24 95.4 F L 85 20 71/49 L 95 05/31/21 08:08 94 L 05/31/21 07:55 97.0 F 74 18 101/56 L 91 L 05/31/21 03:57 96.7 F L 62 18 123/74 90 L - Problem List Review Problem List Initiated/Reviewed/Updated: Yes - Plan Plan:: ASSESSMENT AND PLAN COVID MYOCARDITIS-initially thought this may represent non-ST elevation ACS but now more suspicious this is Covid myocarditis. -Supportive cares -Medical management of coronary artery disease -Continue cardiac monitoring COVID-19 pneumonia-complicated by acute respiratory failure with hypoxia. Oxygenation has improved significantly over the past few days, now requiring only 4 L of oxygen via high flow nasal cannula -Continue dexamethasone, completed -Remdesivir x5 days, completed -Enoxaparin daily -Isolation protocol -Supplemental oxygen as needed, wean as able. He may need a transition to AirVo Hypoactive delirium-resolved Hypotension-resolved -Saline lock IV Tobacco dependence- -encourage cessation Chronic back pain-stable. -Continue home medications with dose reduction in Lyrica Maintenance issues - -DVT prophylaxis-enoxaparin -GI prophylaxis-PPI -Nutrition-mechanical soft diet Disposition -I anticipate discharge home after the hospital stay. Patient will remain in the intensive care unit with increasing supplemental oxygen requirements. Primary care physician - Dr Srinivasan Baca
[2021-05-31] MEDS: Enoxaparin 40 MG/0.4 ML Syringe SUBCUT SCH (14:39)
[2021-05-31] MEDS: Mirtazapine 15 MG Tab PO SCH (21:40)
[2021-06-01] MEDS: Misoprostol 200 MCG Tab PO SCH ×4 (07:22→21:22)
[2021-06-01] MEDS: Levothyroxine 25 MCG Tab PO SCH (07:22)
[2021-06-01] MEDS: Pantoprazole 40 MG Tab.CR PO SCH (07:22)
[2021-06-01] MEDS: Aspirin 81 MG Tab.Chew PO SCH (08:06)
[2021-06-01] MEDS: levETIRAcetam 250 MG Tab PO SCH ×2 (08:06→21:21)
[2021-06-01] MEDS: Pregabalin 75 MG Cap PO SCH ×2 (08:07→21:21)
[2021-06-01] MEDS ORDERED: Sodium Chloride 0.9% 500 ML IV ONE (10:10)
--- NOTE | 2021-06-01 11:12 | PCM.PN ---
- General Info Date of Service: 06/01/21 Subjective Update: Stable since yesterday, continues to require 4 L/min via nasal cannula. Blood pressure is been somewhat low this morning, with systolic pressures into the 80s. Currently on no antihypertensive therapy and is asymptomatic with current pressures. Functional Status: Reports: Tolerating Diet, Ambulating, Urinating - Review of Systems General: Reports: Weakness, Fatigue. Denies: Fever, Chills Pulmonary: Reports: Shortness of Breath, Cough. Denies: Pleuritic Chest Pain, Sputum, Hemoptysis, Wheezing Cardiovascular: Reports: Dyspnea on Exertion. Denies: Chest Pain, Palpitations, Orthopnea, PND, Edema, Lightheadedness Gastrointestinal: Reports: No Symptoms Genitourinary: Reports: No Symptoms - Patient Data Vitals - Most Recent: Last Vital Signs Temp 95 F L 06/01/21 11:01 Pulse 73 06/01/21 11:01 Resp 18 06/01/21 11:01 BP 87/57 L 06/01/21 11:01 Pulse Ox 97 06/01/21 11:01 Weight - Most Recent: 161 lb I&O - Last 24 Hours: Intake & Output 05/31/21 06/01/21 06/01/21 22:59 06:59 14:59 Intake Total 280 296 740 Output Total 350 325 Balance 280 -54 415 Med Orders - Current: Current Medications Acetaminophen (Acetaminophen 325 Mg Tab) 650 mg PO Q4H PRN PRN Reason: Pain (Mild 1-3)/fever Aspirin (Aspirin 81 Mg Tab.Chew) 81 mg PO DAILY [facility] Last Admin: 06/01/21 08:06 Dose: 81 mg Documented by: Benzonatate (Benzonatate 100 Mg Cap) 100 mg PO Q8H PRN PRN Reason: Cough Calcium Carbonate/Glycine (Calcium Carbonate 500 Mg Tab.Chew) 1,000 mg PO Q2H PRN PRN Reason: Indigestion Last Admin: 05/26/21 12:41 Dose: 1,000 mg Documented by: Enoxaparin Sodium (Enoxaparin 40 Mg/0.4 Ml Syringe) 40 mg SUBCUT Q24H [facility] Last Admin: 05/31/21 14:39 Dose: 40 mg Documented by: Guaifenesin/Dextromethorphan (Guaifenesin/Dextromethorphan 100-10 Mg/5 Ml Soln 10 Ml Cup) 10 ml PO Q4H PRN PRN Reason: Cough Hydromorphone HCl (Hydromorphone 1 Mg/Ml Syringe) 0.5 mg IVPUSH Q2H PRN PRN Reason: Pain (severe 7-10) Last Admin: 05/23/21 22:02 Dose: 0.5 mg Documented by: Levetiracetam (Levetiracetam 250 Mg Tab) 500 mg PO BID [facility] Last Admin: 06/01/21 08:06 Dose: 500 mg Documented by: Levothyroxine Sodium (Levothyroxine 25 Mcg Tab) 25 mcg PO ACBREAKFAST [facility] Last Admin: 06/01/21 07:22 Dose: 25 mcg Documented by: Lorazepam (Lorazepam 2 Mg/Ml Sdv) 0.5 mg IVPUSH Q4H PRN PRN Reason: Nausea/Vomiting Lovastatin (Lovastatin 20 Mg Tab) 10 mg PO BEDTIME [facility] Last Admin: 05/31/21 21:40 Dose: 10 mg Documented by: Magnesium Hydroxide (Magnesium Hydroxide 400 Mg/5 Ml Susp 30 Ml Cup) 30 ml PO Q12H PRN PRN Reason: Constipation Mirtazapine (Mirtazapine 15 Mg Tab) 60 mg PO BEDTIME [facility] Last Admin: 05/31/21 21:40 Dose: 60 mg Documented by: Misoprostol (Misoprostol 200 Mcg Tab) 200 mcg PO QID [facility] Last Admin: 06/01/21 10:59 Dose: 200 mcg Documented by: Ondansetron HCl (Ondansetron 4 Mg/2 Ml Sdv) 4 mg IV Q6H PRN PRN Reason: Nausea/Vomiting Last Admin: 05/23/21 22:00 Dose: 4 mg Documented by: Ondansetron HCl (Ondansetron 4 Mg Tab.Dis) 4 mg PO Q6H PRN PRN Reason: Nausea able to take PO Last Admin: 05/25/21 00:50 Dose: 4 mg Documented by: Oxycodone HCl (Oxycodone 5 Mg Tab) 5 - 10 mg PO Q4H PRN PRN Reason: Pain Last Admin: 05/25/21 00:50 Dose: 5 mg Documented by: Pantoprazole Sodium (Pantoprazole 40 Mg Tab.Cr) 40 mg PO ACBREAKFAST [facility] Last Admin: 06/01/21 07:22 Dose: 40 mg Documented by: Pregabalin (Pregabalin 75 Mg Cap) 150 mg PO BID [facility] Last Admin: 06/01/21 08:07 Dose: 150 mg Documented by: Senna/Docusate Sodium (Docusate Sodium/Sennosides 50-8.6 Mg Tab) 1 tab PO BID PRN PRN Reason: Constipation Last Admin: 05/29/21 06:17 Dose: 1 tab Documented by: Sodium Chloride (Sodium Chloride 0.9% 10 Ml Syringe) 30 ml FLUSH ASDIRECTED PRN PRN Reason: saline lock Discontinued Medications Aspirin (Aspirin 81 Mg Tab.Chew) 324 mg PO ONETIME ONE Stop: 05/20/21 11:14 Last Admin: 05/20/21 11:30 Dose: Not Given Documented by: Aspirin (Aspirin 300 Mg Supp) 300 mg RECTAL ONETIME ONE Stop: 05/20/21 18:01 Last Admin: 05/20/21 18:23 Dose: 300 mg Documented by: Casirivimab (Casirivimab ([id number]) 1,332 Mg/11.1 Ml Vial) 600 mg SUBCUT ONETIME ONE Stop: 05/21/21 14:01 Last Admin: 05/21/21 14:29 Dose: 600 mg Documented by: Dexamethasone (Dexamethasone 4 Mg/Ml Sdv) 6 mg IVPUSH Q24H [facility] Last Admin: 05/30/21 10:07 Dose: 6 mg Documented by: Diphenhydramine HCl (Diphenhydramine 50 Mg/Ml Sdv) 50 mg IVPUSH ASDIRECTED PRN PRN Reason: hypersensitivity reaction Stop: 05/21/21 20:00 Epinephrine HCl (Epinephrine 1 Mg/Ml Sdv) 0.3 mg IM ASDIRECTED PRN PRN Reason: hypersensitivity reaction Stop: 05/21/21 20:00 Famotidine (Famotidine 20 Mg/2 Ml Sdv) 20 mg IVPUSH ASDIRECTED PRN PRN Reason: hypersensitivity reaction Stop: 05/21/21 20:00 Furosemide (Furosemide 20 Mg/2 Ml Vial) 20 mg IVPUSH NOW ONE Stop: 05/23/21 09:01 Last Admin: 05/23/21 10:03 Dose: Not Given Documented by: Heparin Sodium (Porcine) (Heparin Sodium 5,000 Units/Ml Vial) 4,000 units IVPUSH ONETIME ONE Stop: 05/20/21 14:47 Last Admin: 05/20/21 15:00 Dose: 4,000 units Documented by: Heparin Sodium/Dextrose (Heparin 25,000 Units In D5w 500 Ml) 25,000 units in 500 mls @ 18 mls/hr IV TITRATE [facility] Last Admin: 05/20/21 15:01 Dose: 900 units/hr, 18 mls/hr Documented by: Sodium Chloride (Normal Saline) 100 mls @ 3 mls/sec IV ASDIRECTED [facility] Last Admin: 05/20/21 16:29 Dose: 3 mls/sec Documented by: Sodium Chloride (Normal Saline) 1,000 mls @ 100 mls/hr IV ASDIRECTED [facility] Stop: 05/21/21 03:01 Last Admin: 05/20/21 17:01 Dose: 100 mls/hr Documented by: Heparin Sodium/Dextrose (Heparin 25,000 Units In D5w 500 Ml) 25,000 units in 500 mls @ 20 mls/hr IV TITRATE [facility]; Protocol Last Admin: 05/20/21 21:35 Dose: 13.6 ml/hr, 13.6 mls/hr Documented by: Levetiracetam 500 mg/ Sodium (Chloride) 105 mls @ 400 mls/hr IV Q12H [facility] Stop: 05/21/21 12:00 Last Admin: 05/21/21 10:35 Dose: 400 mls/hr Documented by: Remdesivir 100 mg/ Sodium (Chloride) 100 mls @ 100 mls/hr IV Q24H [facility] Stop: 05/27/21 10:59 Last Admin: 05/27/21 11:35 Dose: 100 mls/hr Documented by: Remdesivir 200 mg/ Sodium (Chloride) 250 mls @ 250 mls/hr IV ONETIME ONE Stop: 05/23/21 10:59 Last Admin: 05/23/21 09:55 Dose: 250 mls/hr Documented by: Potassium Chloride 20 meq/Lidocaine HCl 2 ml/ Sodium Chloride 112 mls @ 50 mls/hr IV Q2H [facility] Stop: 05/24/21 13:14 Last Admin: 05/24/21 12:02 Dose: 50 mls/hr Documented by: Potassium Chloride 20 meq/Lidocaine HCl 2 ml/ Sodium Chloride 112 mls @ 56 mls/hr IV Q2H [facility] Stop: 05/25/21 13:59 Last Admin: 05/25/21 13:24 Dose: 56 mls/hr Documented by: Sodium Chloride (Normal Saline) 1,000 mls @ 100 mls/hr IV ASDIRECTED [facility] Last Admin: 05/28/21 03:40 Dose: 100 mls/hr Documented by: Sodium Chloride (Normal Saline) 500 mls @ 999 mls/hr IV .BOLUS ONE Stop: 05/27/21 16:54 Last Admin: 05/27/21 16:40 Dose: 999 mls/hr Documented by: Sodium Chloride (Normal Saline) 500 mls @ 500 mls/hr IV .BOLUS ONE Stop: 06/01/21 11:09 Last Admin: 06/01/21 10:15 Dose: 500 mls/hr Documented by: Imdevimab (Imdevimab ([id number]) 1,332 Mg/11.1 Ml Vial) 600 mg SUBCUT ONETIME ONE Stop: 05/21/21 14:01 Last Admin: 05/21/21 14:46 Dose: 600 mg Documented by: Iopamidol (Iopamidol 755 Mg/Ml 100 Ml Bottle) 100 ml IV . DIRECTED [facility] Last Admin: 05/20/21 16:29 Dose: 100 ml Documented by: Methylprednisolone Sodium Succinate (Methylprednisolone Sodium Succinate 125 Mg/2 Ml Sdv) 125 mg IVPUSH ASDIRECTED PRN PRN Reason: hypersensitivity reaction Stop: 05/21/21 20:00 Pantoprazole Sodium (Pantoprazole 40 Mg Vial) 40 mg IV Q24H [facility] Last Admin: 05/21/21 18:20 Dose: 40 mg Documented by: Potassium Chloride (Potassium Chloride 20 Meq Tab.Er) 40 meq PO ONETIME ONE Stop: 05/21/21 09:59 Last Admin: 05/21/21 10:59 Dose: 40 meq Documented by: Potassium Chloride (Potassium Chloride 20 Meq Tab.Er) 40 meq PO ONETIME ONE Stop: 05/22/21 09:01 Last Admin: 05/22/21 09:16 Dose: 40 meq Documented by: Potassium Chloride (Potassium Chloride 20 Meq Tab.Er) 40 meq PO BID [facility] Stop: 05/23/21 21:01 Last Admin: 05/23/21 21:20 Dose: 40 meq Documented by: Potassium Chloride (Potassium Chloride 20 Meq Tab.Er) 40 meq PO ONETIME ONE Stop: 05/26/21 09:31 Last Admin: 05/26/21 10:04 Dose: 40 meq Documented by: Potassium Chloride (Potassium Chloride 20 Meq Tab.Er) 40 meq PO ONETIME ONE Stop: 05/27/21 09:01 Last Admin: 05/27/21 08:59 Dose: 40 meq Documented by: Potassium Chloride (Potassium Chloride 20 Meq Tab.Er) 40 meq PO ONETIME ONE Stop: 05/28/21 10:31 Last Admin: 05/28/21 10:47 Dose: 40 meq Documented by: Potassium Chloride (Potassium Chloride 20 Meq Tab.Er) 40 meq PO ONETIME ONE Stop: 05/28/21 17:01 Last Admin: 05/28/21 18:29 Dose: 40 meq Documented by: Pregabalin (Pregabalin 75 Mg Cap) 150 mg PO BID [facility] Stop: 05/28/21 20:00 Last Admin: 05/27/21 21:59 Dose: 150 mg Documented by: Sodium Chloride (Sodium Chloride 0.9% 10 Ml Syringe) 30 ml FLUSH ASDIRECTED [facility] - Exam Quality Assessment: Supplemental Oxygen, DVT Prophylaxis General: Alert, Oriented, Cooperative, Mild Distress Lungs: Decreased Breath Sounds. No: Crackles, Rales, Rhonchi, Wheezing Cardiovascular: Regular Rate, Regular Rhythm, No Murmurs GI/Abdominal Exam: Soft, Non-Tender, No Organomegaly, No Distention Extremities: Non-Tender, No Pedal Edema - Patient Data Result Diagrams: 05/28/21 04:55 05/29/21 04:30 Sepsis Event Note - Evaluation Sepsis Screening Result: No Definite Risk - Focused Exam Vital Signs: Vital Signs Temp Pulse Resp BP Pulse Ox Pulse Ox 06/01/21 11:01 95 F L 73 18 87/57 L 97 06/01/21 08:21 94 L 06/01/21 07:25 95.8 F L 67 16 82/51 L 96 06/01/21 03:00 97.7 F 68 16 86/50 L 95 06/01/21 01:00 95 - Problem List Review Problem List Initiated/Reviewed/Updated: Yes - Plan Plan:: ASSESSMENT AND PLAN COVID MYOCARDITIS-initially thought this may represent non-ST elevation ACS but now more suspicious this is Covid myocarditis. Hypotensive this morning with systolic pressures into the 80s -Fluid bolus 500 cc of normal saline -Supportive cares -Medical management of coronary artery disease -Continue cardiac monitoring COVID-19 pneumonia-complicated by acute respiratory failure with hypoxia. Oxygenation has improved significantly over the past few days, now requiring only 4 L of oxygen via high flow nasal cannula -dexamethasone, completed -Remdesivir x5 days, completed -Enoxaparin daily -Isolation protocol -Supplemental oxygen as needed, wean as able. Hypoactive delirium-resolved Hypotension-resolved -Saline lock IV Tobacco dependence- -encourage cessation Chronic back pain-stable. -Continue home medications with dose reduction in Lyrica Maintenance issues - -DVT prophylaxis-enoxaparin -GI prophylaxis-PPI -Nutrition-mechanical soft diet Disposition -I anticipate discharge home after the hospital stay. Patient will remain in the intensive care unit with increasing supplemental oxygen requirements. Primary care physician - Dr Srinivasan Baca
[2021-06-01] MEDS: Enoxaparin 40 MG/0.4 ML Syringe SUBCUT SCH (15:14)
[2021-06-01] MEDS: Mirtazapine 15 MG Tab PO SCH (21:22)
[2021-06-02] MEDS: Misoprostol 200 MCG Tab PO SCH ×2 (06:20→09:53)
[2021-06-02] MEDS: Calcium Carbonate 500 MG Tab.Chew PO PRN (06:24)
[2021-06-02 07:50] VITALS: BP 103/66; PULSE 91
[2021-06-02] MEDS: Aspirin 81 MG Tab.Chew PO SCH (07:59)
[2021-06-02] MEDS: levETIRAcetam 250 MG Tab PO SCH (07:59)
[2021-06-02] MEDS: Pantoprazole 40 MG Tab.CR PO SCH (07:59)
[2021-06-02] MEDS: Levothyroxine 25 MCG Tab PO SCH (07:59)
[2021-06-02] MEDS: Pregabalin 75 MG Cap PO SCH (08:06)
--- NOTE | 2021-06-02 12:32 | PCM.DCSUM1 ---
Discharge Summary - Hospital Course Brief History: Mr. López is a 60-year-old gentleman who was admitted through the emergency department with weakness and decreased level of consciousness secondary to underlying COVID-19 infection and myocarditis. - Discharge Data Discharge Date: 06/02/21 Discharge Disposition: Home, Self-Care 01 Condition: Fair - Referral to Home Health Primary Care Physician: PCP Unknown - Discharge Diagnosis/Problem(s) (1) Acute respiratory failure with hypoxia SNOMED Code(s): 39653362, 595803314 ICD Code: J96.01 - ACUTE RESPIRATORY FAILURE WITH HYPOXIA Status: Acute Current Visit: Yes (2) Myocarditis due to 2019 novel coronavirus SNOMED Code(s): 2182246635940551 ICD Code: U07.1 - COVID-19; I40.0 - INFECTIVE MYOCARDITIS Status: Suspected Current Visit: Yes (3) Elevated troponin SNOMED Code(s): 350036963, 519562361, 540993619 ICD Code: R77.8 - OTHER SPECIFIED ABNORMALITIES OF PLASMA PROTEINS Status: Acute Current Visit: Yes (4) COVID-19 SNOMED Code(s): 803936800 ICD Code: U07.1 - COVID-19 Status: Acute Current Visit: Yes (5) Acute hypoactive delirium due to multiple etiologies SNOMED Code(s): 337060375, 160171651 ICD Code: F05 - DELIRIUM DUE TO KNOWN PHYSIOLOGICAL CONDITION Status: Acute Current Visit: Yes (6) Tobacco dependence SNOMED Code(s): 85128844 ICD Code: F17.200 - NICOTINE DEPENDENCE, UNSPECIFIED, UNCOMPLICATED Status: Chronic Current Visit: No - Patient Summary/Data Consults: Consultations 05/28/21 12:14 Consult to Physical Therapy [PT Evaluation and Treatment] [CONS] Routine Please Evaluate and Treat. PT Reason for Consult: COVID-19, weakness This query below is only for informational purposes and is not editable. Admission Diagnosis/Problem: NSTEMI, initial episode of care Hospital Course: Mr. López was brought to the emergency room by ambulance because of a decreased level of consciousness. He is not able to answer any questions or respond during our conversation so history is gathered from emergency room personnel. Per report he was sent from home because he was confused. Since he has been in the emergency room he has been moving all 4 extremities and sometimes answering with one-word but often just saying "God damn it ". He appears restless but does not appear uncomfortable. I tried contacting family members to gather more history but was unable to reach anyone who has seen him recently. His head CT did not show any acute findings. His Covid test was positive. Troponin level is elevated at 1.3. The plan was for transfer to a higher level of care and cardiology evaluation but unfortunately no hospitals in the region have beds available. During discussion with the pc support specialist there was concern for non-ST elevation ACS versus myocarditis with his Covid inf ection. Heparin infusion and additional work-up was recommended. Patient was admitted to the intensive care unit for further management. He was monitored closely after admission and during hospital stay troponin level did gradually decrease and normalize. Echocardiogram was obtained which showed preserved left ventricular function and no other significant abnormalities. He was not initially hypoxic and did receive monoclonal antibody after admission. Unfortunately he then did develop progressive hypoxia and was treated with remdesivir and dexamethasone. He did require fairly high level of supplemental oxygen, but was not treated with baricitinib because of potential cardiac complications. Simply over the next several days prior to discharge. On the day of discharge she was still requiring 2 L of oxygen via nasal cannula to maintain adequate oxygenation. He was qualified for home oxygen on the day of discharge with an oxygen saturation of 85% on room air while at rest. He will be discharged on 2 L/min via nasal cannula. Follow-up appointment will be scheduled with primary care provider within 1 week. - Patient Instructions Diet: Usual Diet as Tolerated Activity: As Tolerated Other/Special Instructions: Please schedule follow-up appointment with primary care provider within 1 week. Please arrange for home oxygen 2 L/min via nasal cannula. - Discharge Plan *PRESCRIPTION DRUG MONITORING PROGRAM REVIEWED*: Not Applicable *COPY OF PRESCRIPTION DRUG MONITORING REPORT IN PATIENT MELONY: Not Applicable Home Medications: Home Meds Mirtazapine 60 mg PO BEDTIME 12/14/16 [History] Pregabalin [Lyrica] 150 mg PO QID 12/14/16 [History] Esomeprazole [NexIUM] 40 mg PO BID 08/08/18 [History] Levothyroxine 25 mcg PO ACBREAKFAST 08/08/18 [History] levETIRAcetam [Levetiracetam] 500 mg PO BID 08/08/18 [History] oxyCODONE 5 mg PO TID 08/08/18 [History] ALPRAZolam [Alprazolam] 0.25 mg PO Q8H PRN 12/07/20 [History] Amitriptyline HCl 50 mg PO BEDTIME 05/20/21 [History] Cholecalciferol (Vitamin D3) [Vitamin D3] 1 cap PO DAILY 05/20/21 [History] Ferrous Sulfate 1 tab PO DAILY 05/20/21 [History] Lovastatin 10 mg PO BEDTIME 05/20/21 [History] Ondansetron [Ondansetron ODT] 1 tab PO Q8H PRN 05/20/21 [History] Sucralfate [Carafate] 1 gram PO QID 05/20/21 [History] hydrOXYzine HCL [Hydroxyzine HCl] 1 tab PO QID PRN 05/20/21 [History] miSOPROStoL [Misoprostol] 1 tab PO QID 05/20/21 [History] Oxygen Therapy Mode: Nasal Cannula Oxygen Flow Rate (L/min): 2 Patient Handouts: Hypoxia, Fall Prevention in the Home, Adult, [id number], COVID-19 - Discharge Summary/Plan Comment DC Time >30 min.: No Total # of Minutes for Discharge Time: 20 - Patient Data Vitals - Most Recent: Last Vital Signs Temp 95.4 F L 06/02/21 07:50 Pulse 91 06/02/21 07:50 Resp 18 06/02/21 07:50 BP 103/66 06/02/21 07:50 Pulse Ox 94 L 06/02/21 08:20 Weight - Most Recent: 161 lb I&O - Last 24 hours: Intake & Output 06/01/21 06/02/21 06/02/21 22:59 06:59 14:59 Intake Total 300 120 Output Total 200 700 200 Balance 100 -580 -200 Med Orders - Current: Current Medications Acetaminophen (Acetaminophen 325 Mg Tab) 650 mg PO Q4H PRN PRN Reason: Pain (Mild 1-3)/fever Aspirin (Aspirin 81 Mg Tab.Chew) 81 mg PO DAILY [facility] Last Admin: 06/02/21 07:59 Dose: 81 mg Documented by: Benzonatate (Benzonatate 100 Mg Cap) 100 mg PO Q8H PRN PRN Reason: Cough Calcium Carbonate/Glycine (Calcium Carbonate 500 Mg Tab.Chew) 1,000 mg PO Q2H PRN PRN Reason: Indigestion Last Admin: 06/02/21 06:24 Dose: 1,000 mg Documented by: Enoxaparin Sodium (Enoxaparin 40 Mg/0.4 Ml Syringe) 40 mg SUBCUT Q24H [facility] Last Admin: 06/01/21 15:14 Dose: 40 mg Documented by: Guaifenesin/Dextromethorphan (Guaifenesin/Dextromethorphan 100-10 Mg/5 Ml Soln 10 Ml Cup) 10 ml PO Q4H PRN PRN Reason: Cough Hydromorphone HCl (Hydromorphone 1 Mg/Ml Syringe) 0.5 mg IVPUSH Q2H PRN PRN Reason: Pain (severe 7-10) Last Admin: 05/23/21 22:02 Dose: 0.5 mg Documented by: Levetiracetam (Levetiracetam 250 Mg Tab) 500 mg PO BID [facility] Last Admin: 06/02/21 07:59 Dose: 500 mg Documented by: Levothyroxine Sodium (Levothyroxine 25 Mcg Tab) 25 mcg PO ACBREAKFAST [facility] Last Admin: 06/02/21 07:59 Dose: 25 mcg Documented by: Lorazepam (Lorazepam 2 Mg/Ml Sdv) 0.5 mg IVPUSH Q4H PRN PRN Reason: Nausea/Vomiting Lovastatin (Lovastatin 20 Mg Tab) 10 mg PO BEDTIME [facility] Last Admin: 06/01/21 21:22 Dose: 10 mg Documented by: Magnesium Hydroxide (Magnesium Hydroxide 400 Mg/5 Ml Susp 30 Ml Cup) 30 ml PO Q12H PRN PRN Reason: Constipation Mirtazapine (Mirtazapine 15 Mg Tab) 60 mg PO BEDTIME [facility] Last Admin: 06/01/21 21:22 Dose: 60 mg Documented by: Misoprostol (Misoprostol 200 Mcg Tab) 200 mcg PO QID [facility] Last Admin: 06/02/21 09:53 Dose: 200 mcg Documented by: Ondansetron HCl (Ondansetron 4 Mg/2 Ml Sdv) 4 mg IV Q6H PRN PRN Reason: Nausea/Vomiting Last Admin: 05/23/21 22:00 Dose: 4 mg Documented by: Ondansetron HCl (Ondansetron 4 Mg Tab.Dis) 4 mg PO Q6H PRN PRN Reason: Nausea able to take PO Last Admin: 05/25/21 00:50 Dose: 4 mg Documented by: Oxycodone HCl (Oxycodone 5 Mg Tab) 5 - 10 mg PO Q4H PRN PRN Reason: Pain Last Admin: 05/25/21 00:50 Dose: 5 mg Documented by: Pantoprazole Sodium (Pantoprazole 40 Mg Tab.Cr) 40 mg PO ACBREAKFAST [facility] Last Admin: 06/02/21 07:59 Dose: 40 mg Documented by: Pregabalin (Pregabalin 75 Mg Cap) 150 mg PO BID [facility] Last Admin: 06/02/21 08:06 Dose: 150 mg Documented by: Senna/Docusate Sodium (Docusate Sodium/Sennosides 50-8.6 Mg Tab) 1 tab PO BID PRN PRN Reason: Constipation Last Admin: 05/29/21 06:17 Dose: 1 tab Documented by: Sodium Chloride (Sodium Chloride 0.9% 10 Ml Syringe) 30 ml FLUSH ASDIRECTED PRN PRN Reason: saline lock Discontinued Medications Aspirin (Aspirin 81 Mg Tab.Chew) 324 mg PO ONETIME ONE Stop: 05/20/21 11:14 Last Admin: 05/20/21 11:30 Dose: Not Given Documented by: Aspirin (Aspirin 300 Mg Supp) 300 mg RECTAL ONETIME ONE Stop: 05/20/21 18:01 Last Admin: 05/20/21 18:23 Dose: 300 mg Documented by: Casirivimab (Casirivimab ([id number]) 1,332 Mg/11.1 Ml Vial) 600 mg SUBCUT ONETIME ONE Stop: 05/21/21 14:01 Last Admin: 05/21/21 14:29 Dose: 600 mg Documented by: Dexamethasone (Dexamethasone 4 Mg/Ml Sdv) 6 mg IVPUSH Q24H [facility] Last Admin: 05/30/21 10:07 Dose: 6 mg Documented by: Diphenhydramine HCl (Diphenhydramine 50 Mg/Ml Sdv) 50 mg IVPUSH ASDIRECTED PRN PRN Reason: hypersensitivity reaction Stop: 05/21/21 20:00 Epinephrine HCl (Epinephrine 1 Mg/Ml Sdv) 0.3 mg IM ASDIRECTED PRN PRN Reason: hypersensitivity reaction Stop: 05/21/21 20:00 Famotidine (Famotidine 20 Mg/2 Ml Sdv) 20 mg IVPUSH ASDIRECTED PRN PRN Reason: hypersensitivity reaction Stop: 05/21/21 20:00 Furosemide (Furosemide 20 Mg/2 Ml Vial) 20 mg IVPUSH NOW ONE Stop: 05/23/21 09:01 Last Admin: 05/23/21 10:03 Dose: Not Given Documented by: Heparin Sodium (Porcine) (Heparin Sodium 5,000 Units/Ml Vial) 4,000 units IVPUSH ONETIME ONE Stop: 05/20/21 14:47 Last Admin: 05/20/21 15:00 Dose: 4,000 units Documented by: Heparin Sodium/Dextrose (Heparin 25,000 Units In D5w 500 Ml) 25,000 units in 500 mls @ 18 mls/hr IV TITRATE [facility] Last Admin: 05/20/21 15:01 Dose: 900 units/hr, 18 mls/hr Documented by: Sodium Chloride (Normal Saline) 100 mls @ 3 mls/sec IV ASDIRECTED [facility] Last Admin: 05/20/21 16:29 Dose: 3 mls/sec Documented by: Sodium Chloride (Normal Saline) 1,000 mls @ 100 mls/hr IV ASDIRECTED [facility] Stop: 05/21/21 03:01 Last Admin: 05/20/21 17:01 Dose: 100 mls/hr Documented by: Heparin Sodium/Dextrose (Heparin 25,000 Units In D5w 500 Ml) 25,000 units in 500 mls @ 20 mls/hr IV TITRATE [facility]AN; Protocol Last Admin: 05/20/21 21:35 Dose: 13.6 ml/hr, 13.6 mls/hr Documented by: Levetiracetam 500 mg/ Sodium (Chloride) 105 mls @ 400 mls/hr IV Q12H [facility] Stop: 05/21/21 12:00 Last Admin: 05/21/21 10:35 Dose: 400 mls/hr Documented by: Remdesivir 100 mg/ Sodium (Chloride) 100 mls @ 100 mls/hr IV Q24H [facility] Stop: 05/27/21 10:59 Last Admin: 05/27/21 11:35 Dose: 100 mls/hr Documented by: Remdesivir 200 mg/ Sodium (Chloride) 250 mls @ 250 mls/hr IV ONETIME ONE Stop: 05/23/21 10:59 Last Admin: 05/23/21 09:55 Dose: 250 mls/hr Documented by: Potassium Chloride 20 meq/Lidocaine HCl 2 ml/ Sodium Chloride 112 mls @ 50 mls/hr IV Q2H [facility] Stop: 05/24/21 13:14 Last Admin: 05/24/21 12:02 Dose: 50 mls/hr Documented by: Potassium Chloride 20 meq/Lidocaine HCl 2 ml/ Sodium Chloride 112 mls @ 56 mls/hr IV Q2H [facility] Stop: 05/25/21 13:59 Last Admin: 05/25/21 13:24 Dose: 56 mls/hr Documented by: Sodium Chloride (Normal Saline) 1,000 mls @ 100 mls/hr IV ASDIRECTED [facility] Last Admin: 05/28/21 03:40 Dose: 100 mls/hr Documented by: Sodium Chloride (Normal Saline) 500 mls @ 999 mls/hr IV .BOLUS ONE Stop: 05/27/21 16:54 Last Admin: 05/27/21 16:40 Dose: 999 mls/hr Documented by: Sodium Chloride (Normal Saline) 500 mls @ 500 mls/hr IV .BOLUS ONE Stop: 06/01/21 11:09 Last Admin: 06/01/21 10:15 Dose: 500 mls/hr Documented by: Imdevimab (Imdevimab ([id number]) 1,332 Mg/11.1 Ml Vial) 600 mg SUBCUT ONETIME ONE Stop: 05/21/21 14:01 Last Admin: 05/21/21 14:46 Dose: 600 mg Documented by: Iopamidol (Iopamidol 755 Mg/Ml 100 Ml Bottle) 100 ml IV . DIRECTED [facility] Last Admin: 05/20/21 16:29 Dose: 100 ml Documented by: Methylprednisolone Sodium Succinate (Methylprednisolone Sodium Succinate 125 Mg/2 Ml Sdv) 125 mg IVPUSH ASDIRECTED PRN PRN Reason: hypersensitivity reaction Stop: 05/21/21 20:00 Pantoprazole Sodium (Pantoprazole 40 Mg Vial) 40 mg IV Q24H [facility] Last Admin: 05/21/21 18:20 Dose: 40 mg Documented by: Potassium Chloride (Potassium Chloride 20 Meq Tab.Er) 40 meq PO ONETIME ONE Stop: 05/21/21 09:59 Last Admin: 05/21/21 10:59 Dose: 40 meq Documented by: Potassium Chloride (Potassium Chloride 20 Meq Tab.Er) 40 meq PO ONETIME ONE Stop: 05/22/21 09:01 Last Admin: 05/22/21 09:16 Dose: 40 meq Documented by: Potassium Chloride (Potassium Chloride 20 Meq Tab.Er) 40 meq PO BID [facility] Stop: 05/23/21 21:01 Last Admin: 05/23/21 21:20 Dose: 40 meq Documented by: Potassium Chloride (Potassium Chloride 20 Meq Tab.Er) 40 meq PO ONETIME ONE Stop: 05/26/21 09:31 Last Admin: 05/26/21 10:04 Dose: 40 meq Documented by: Potassium Chloride (Potassium Chloride 20 Meq Tab.Er) 40 meq PO ONETIME ONE Stop: 05/27/21 09:01 Last Admin: 05/27/21 08:59 Dose: 40 meq Documented by: Potassium Chloride (Potassium Chloride 20 Meq Tab.Er) 40 meq PO ONETIME ONE Stop: 05/28/21 10:31 Last Admin: 05/28/21 10:47 Dose: 40 meq Documented by: Potassium Chloride (Potassium Chloride 20 Meq Tab.Er) 40 meq PO ONETIME ONE Stop: 05/28/21 17:01 Last Admin: 05/28/21 18:29 Dose: 40 meq Documented by: Pregabalin (Pregabalin 75 Mg Cap) 150 mg PO BID [facility] Stop: 05/28/21 20:00 Last Admin: 05/27/21 21:59 Dose: 150 mg Documented by: Sodium Chloride (Sodium Chloride 0.9% 10 Ml Syringe) 30 ml FLUSH ASDIRECTED [facility] - Exam Quality Assessment: Reports: Supplemental Oxygen General: Reports: Alert, Oriented, Cooperative, Mild Distress Lungs: Reports: Clear to Auscultation, Normal Respiratory Effort, Decreased Breath Sounds Cardiovascular: Reports: Regular Rate, Regular Rhythm, No Murmurs GI/Abdominal Exam: Soft, Non-Tender, No Organomegaly, No Distention Extremities: Non-Tender, No Pedal Edema
== END 2021-06-02 14:00 | disposition home or self-care (01) | DRG 177 ==
LOC: JP.ED 10:14 → JP.ICU 16:53 → JP.MS 05-27 15:25 → JP.2SS 05-28 15:55
PROVIDERS: ADMIT Internal Medicine; ATTEND Hospitalist
PROC: 8E0ZXY6 Isolation (ICD-10-PCS; principal; 2021-05-20)
PROC: XW033G6 Introduction of REGN-COV2 Monoclonal Antibody into Peripheral Vein, Percutaneous Approach, New Technology Group 6 (ICD-10-PCS; 2021-05-21)
PROC: XW033G6 Introduction of REGN-COV2 Monoclonal Antibody into Peripheral Vein, Percutaneous Approach, New Technology Group 6 (ICD-10-PCS; 2021-05-21)
PROC: 3E0333Z Introduction of Anti-inflammatory into Peripheral Vein, Percutaneous Approach (ICD-10-PCS; 2021-05-22)
PROC: XW033E5 Introduction of Remdesivir Anti-infective into Peripheral Vein, Percutaneous Approach, New Technology Group 5 (ICD-10-PCS; 2021-05-23)
PROC: 5A0955A Assistance with Respiratory Ventilation, Greater than 96 Consecutive Hours, High Flow/Velocity Cannula (ICD-10-PCS; 2021-05-26)
DX: U07.1 COVID-19 (principal); J96.01 Acute respiratory failure with hypoxia; I40.0 Infective myocarditis; I21.4 Non-ST elevation (NSTEMI) myocardial infarction; J12.82 Pneumonia due to coronavirus disease 2019; F05 Delirium due to known physiological condition; J44.0 Chronic obstructive pulmonary disease with (acute) lower respiratory infection; H54.7 Unspecified visual loss; I25.10 Atherosclerotic heart disease of native coronary artery without angina pectoris; E78.00 Pure hypercholesterolemia, unspecified; K21.9 Gastro-esophageal reflux disease without esophagitis; F41.9 Anxiety disorder, unspecified; F32.A Depression, unspecified; E03.9 Hypothyroidism, unspecified; E66.9 Obesity, unspecified; F17.210 Nicotine dependence, cigarettes, uncomplicated; M54.9 Dorsalgia, unspecified; G89.29 Other chronic pain; I95.9 Hypotension, unspecified; Z23 Encounter for immunization; Z95.5 Presence of coronary angioplasty implant and graft; Z86.73 Personal history of transient ischemic attack (TIA), and cerebral infarction without residual deficits; Z90.49 Acquired absence of other specified parts of digestive tract; Z79.899 Other long term (current) drug therapy
CPT/HCPCS: 36415; 70450; 71045; 71045-26; 71275; 80048; 80053; 80177; 80305-QW; 83735; 84132; 84145; 84443; 84484; 85025; 85027; 85379; 85730; 86140; 86666; 93005; 93306; 93308; 94762; 96365; 96366; 97110-GP; 97140-GP; 97162-GP; 97530-GP; 99285-25; A9270-GY; C9113; J1100; J1170; J1644; J1650; J1953; J2405; J3480; J7030; J7040; J7050; M0243; Q0243; Q9967; U0002

== ENCOUNTER 2022-06-23 16:24 | Inpatient (IN) | payer MEDICARE, OTHER ==
[2022-06-23] MEDS ORDERED: HYDROmorphone 0.5 MG/0.5 ML Syringe IVPUSH ONE (17:41)
[2022-06-23] MEDS ORDERED: Sodium Chloride 0.9% 1,000 ML IV SCH ×2 (17:45→20:15)
[2022-06-23] MEDS ORDERED: Docusate Sodium 100 MG Cap PO PRN (20:15)
[2022-06-23] MEDS ORDERED: Naloxone 0.4 MG/ML SDV IVPUSH PRN ×2 (20:15)
[2022-06-23] MEDS ORDERED: hydrOXYzine HCl 25 MG Tab PO PRN (20:15)
[2022-06-23] MEDS ORDERED: diphenhydrAMINE 50 MG/ML SDV IVPUSH PRN (20:15)
[2022-06-23] MEDS ORDERED: Ondansetron 4 MG/2 ML SDV IVPUSH PRN (20:15)
[2022-06-23] MEDS ORDERED: ALPRAZolam 0.25 MG Tab PO PRN (20:15)
[2022-06-23] MEDS ORDERED: Bisacodyl 5 MG Tab PO PRN (20:15)
[2022-06-23] MEDS ORDERED: Albuterol 0.083% 2.5 MG/3 ML Neb Soln NEB PRN (20:15)
[2022-06-23] MEDS ORDERED: HYDROmorphone/Normal Saline 6 MG/30 ML PCA Vial IV PRN (20:15)
[2022-06-23] MEDS ORDERED: diphenhydrAMINE 25 MG Cap PO PRN (20:15)
[2022-06-23] MEDS: Pregabalin 75 MG Cap PO SCH (21:52)
[2022-06-23] MEDS: Amitriptyline 25 MG Tab PO SCH (21:52)
[2022-06-23] MEDS: Pantoprazole 40 MG Vial IV SCH (21:53)
[2022-06-23] MEDS: Misoprostol 200 MCG Tab PO SCH (22:07)
[2022-06-23] MEDS: levETIRAcetam 250 MG Tab PO SCH (22:49)
[2022-06-23] MEDS: Mirtazapine 15 MG Tab PO SCH (22:49)
[2022-06-24] MEDS: Misoprostol 200 MCG Tab PO SCH ×4 (06:21→21:37)
[2022-06-24] MEDS: Pregabalin 75 MG Cap PO SCH ×4 (06:21→21:36)
[2022-06-24] MEDS: Levothyroxine 25 MCG Tab PO SCH (07:51)
[2022-06-24] MEDS: levETIRAcetam 250 MG Tab PO SCH ×2 (08:56→21:37)
[2022-06-24] MEDS: Pantoprazole 40 MG Vial IV SCH ×2 (08:56→21:34)
[2022-06-24] MEDS: Ferrous Sulfate 325 MG Tab PO SCH (08:56)
[2022-06-24] MEDS: Albuterol/Ipratropium 3.0-0.5 MG/3 ML Neb Soln NEB PRN (13:04)
[2022-06-24] MEDS ORDERED: ceFAZolin 2 GM in Sodium Chloride 0.9% 50 ML IV ONE (14:30)
[2022-06-24] MEDS: Bupivacaine 0.5% 30 ML SDV ONE ×2 (15:34→18:01)
[2022-06-24] MEDS ORDERED: Propofol 200 MG/20 ML SDV ONE (16:56)
[2022-06-24] MEDS ORDERED: Sodium Chloride 0.9% 10 ML ONE (17:53)
[2022-06-24] MEDS ORDERED: Phenylephrine 1% 10 MG/ML SDV ONE (17:53)
[2022-06-24] MEDS: Mirtazapine 15 MG Tab PO SCH (21:34)
[2022-06-24] MEDS: Amitriptyline 25 MG Tab PO SCH (21:36)
[2022-06-24] MEDS: oxyCODONE 5 MG Tab PO PRN (21:36)
[2022-06-24] MEDS: Docusate Sodium 100 MG Cap PO SCH (21:39)
[2022-06-24] MEDS: Pravastatin 20 MG Tab PO SCH (21:39)
[2022-06-24] MEDS ORDERED: ceFAZolin 1 GM Vial ONE (21:50)
[2022-06-24] MEDS ORDERED: Sodium Chloride 0.9% 50 ML ONE (21:58)
[2022-06-24] MEDS: ceFAZolin 1 GM in Premix Bag 1 BAG IV SCH (22:03)
[2022-06-24] MEDS: traMADol 50 MG Tab PO PRN (23:42)
[2022-06-25] MEDS: oxyCODONE 5 MG Tab PO PRN ×4 (03:55→21:03)
[2022-06-25] MEDS: Pregabalin 75 MG Cap PO SCH ×4 (06:00→23:47)
[2022-06-25] MEDS: Misoprostol 200 MCG Tab PO SCH ×4 (06:00→23:48)
[2022-06-25] MEDS: ceFAZolin 1 GM in Premix Bag 1 BAG IV SCH (06:00)
[2022-06-25] MEDS ORDERED: ceFAZolin 1 GM Vial ONE (06:16)
[2022-06-25] MEDS ORDERED: Sodium Chloride 0.9% 50 ML ONE (06:19)
[2022-06-25] MEDS: Albuterol/Ipratropium 3.0-0.5 MG/3 ML Neb Soln NEB PRN ×2 (07:25→14:53)
[2022-06-25] MEDS: traMADol 50 MG Tab PO PRN (08:16)
[2022-06-25] MEDS: Docusate Sodium 100 MG Cap PO SCH ×2 (08:17→21:05)
[2022-06-25] MEDS: Pantoprazole 40 MG Vial IV SCH ×2 (08:17→21:05)
[2022-06-25] MEDS: Ferrous Sulfate 325 MG Tab PO SCH (08:18)
[2022-06-25] MEDS: levETIRAcetam 250 MG Tab PO SCH ×2 (08:18→21:03)
[2022-06-25] MEDS: Levothyroxine 25 MCG Tab PO SCH (08:27)
[2022-06-25] MEDS ORDERED: Sodium Chloride 0.9% 1,000 ML IV SCH (12:15)
[2022-06-25] MEDS: Amitriptyline 25 MG Tab PO SCH (21:04)
[2022-06-25] MEDS: Pravastatin 20 MG Tab PO SCH (21:04)
[2022-06-25] MEDS: Mirtazapine 15 MG Tab PO SCH (21:05)
[2022-06-26] MEDS: Pregabalin 75 MG Cap PO SCH ×5 (05:35→21:08)
[2022-06-26] MEDS: Misoprostol 200 MCG Tab PO SCH ×5 (05:35→21:08)
[2022-06-26] MEDS: oxyCODONE 5 MG Tab PO PRN ×3 (05:55→19:39)
[2022-06-26] MEDS: Levothyroxine 25 MCG Tab PO SCH (07:59)
[2022-06-26] MEDS: levETIRAcetam 250 MG Tab PO SCH ×3 (08:04→20:26)
[2022-06-26] MEDS: Ferrous Sulfate 325 MG Tab PO SCH (08:04)
[2022-06-26] MEDS: Pantoprazole 40 MG Vial IV SCH (08:04)
[2022-06-26] MEDS: Docusate Sodium 100 MG Cap PO SCH ×3 (08:04→20:26)
[2022-06-26] MEDS: Pantoprazole 40 MG Tab.CR PO SCH (15:43)
[2022-06-26] MEDS: Amitriptyline 25 MG Tab PO SCH ×2 (19:40→20:26)
[2022-06-26] MEDS: Pravastatin 20 MG Tab PO SCH ×2 (19:40→20:26)
[2022-06-26] MEDS: Mirtazapine 15 MG Tab PO SCH ×2 (19:41→20:26)
[2022-06-27] MEDS: Misoprostol 200 MCG Tab PO SCH ×4 (06:16→21:18)
[2022-06-27] MEDS: Pregabalin 75 MG Cap PO SCH ×4 (06:16→21:48)
[2022-06-27] MEDS: Levothyroxine 25 MCG Tab PO SCH (07:59)
[2022-06-27] MEDS: Pantoprazole 40 MG Tab.CR PO SCH ×2 (07:59→16:04)
[2022-06-27] MEDS: oxyCODONE 5 MG Tab PO PRN ×3 (07:59→21:18)
[2022-06-27] MEDS: Docusate Sodium 100 MG Cap PO SCH ×2 (08:05→21:18)
[2022-06-27] MEDS: levETIRAcetam 250 MG Tab PO SCH ×2 (08:05→21:18)
[2022-06-27] MEDS: Ferrous Sulfate 325 MG Tab PO SCH (08:06)
[2022-06-27] MEDS: Mirtazapine 15 MG Tab PO SCH (21:17)
[2022-06-27] MEDS: Amitriptyline 25 MG Tab PO SCH (21:18)
[2022-06-27] MEDS: Pravastatin 20 MG Tab PO SCH (21:18)
[2022-06-28] MEDS: Pregabalin 75 MG Cap PO SCH ×3 (04:46→10:52)
[2022-06-28] MEDS: Misoprostol 200 MCG Tab PO SCH ×2 (05:35→10:52)
[2022-06-28 07:12] VITALS: BP 118/74; PULSE 83
[2022-06-28] MEDS: Pantoprazole 40 MG Tab.CR PO SCH (07:59)
[2022-06-28] MEDS: Levothyroxine 25 MCG Tab PO SCH (07:59)
[2022-06-28] MEDS: oxyCODONE 5 MG Tab PO PRN (08:07)
[2022-06-28] MEDS: Docusate Sodium 100 MG Cap PO SCH (08:14)
[2022-06-28] MEDS: levETIRAcetam 250 MG Tab PO SCH (08:14)
[2022-06-28] MEDS: Ferrous Sulfate 325 MG Tab PO SCH (08:15)
[2022-06-28] MEDS: traMADol 50 MG Tab PO PRN (10:52)
== END 2022-06-28 12:05 | disposition home or self-care (01) | DRG 482 ==
LOC: JP.ED 16:24 → UNDOADMIN 19:21 → JP.MS 19:21 → JP.ICU 06-24 14:56
PROVIDERS: ADMIT Hospitalist; ATTEND Hospitalist
PROC: 5A09457 Assistance with Respiratory Ventilation, 24-96 Consecutive Hours, Continuous Positive Airway Pressure (ICD-10-PCS; principal; 2022-06-23)
PROC: 0QS636Z Reposition Right Upper Femur with Intramedullary Internal Fixation Device, Percutaneous Approach (ICD-10-PCS; 2022-06-24)
DX: S72.144A Nondisplaced intertrochanteric fracture of right femur, initial encounter for closed fracture (principal); S72.001A Fracture of unspecified part of neck of right femur, initial encounter for closed fracture; W18.30XA Fall on same level, unspecified, initial encounter; Z20.822 Contact with and (suspected) exposure to COVID-19; H54.7 Unspecified visual loss; J44.9 Chronic obstructive pulmonary disease, unspecified; R09.02 Hypoxemia; G43.909 Migraine, unspecified, not intractable, without status migrainosus; F41.9 Anxiety disorder, unspecified; F32.A Depression, unspecified; Z99.81 Dependence on supplemental oxygen; G40.909 Epilepsy, unspecified, not intractable, without status epilepticus; G89.29 Other chronic pain; E03.9 Hypothyroidism, unspecified; I25.10 Atherosclerotic heart disease of native coronary artery without angina pectoris; E66.9 Obesity, unspecified; K21.9 Gastro-esophageal reflux disease without esophagitis; F17.210 Nicotine dependence, cigarettes, uncomplicated; E78.00 Pure hypercholesterolemia, unspecified; Z86.16 Personal history of COVID-19; Z86.19 Personal history of other infectious and parasitic diseases; Z88.8 Allergy status to other drugs, medicaments and biological substances; Z79.890 Hormone replacement therapy; Z98.49 Cataract extraction status, unspecified eye; Z90.49 Acquired absence of other specified parts of digestive tract; Z79.899 Other long term (current) drug therapy; I25.2 Old myocardial infarction; Y92.009 Unspecified place in unspecified non-institutional (private) residence as the place of occurrence of the external cause; Z68.24 Body mass index [BMI] 24.0-24.9, adult; Z95.5 Presence of coronary angioplasty implant and graft; Z86.73 Personal history of transient ischemic attack (TIA), and cerebral infarction without residual deficits; Z86.14 Personal history of Methicillin resistant Staphylococcus aureus infection; Z98.84 Bariatric surgery status; W01.0XXA Fall on same level from slipping, tripping and stumbling without subsequent striking against object, initial encounter
CPT/HCPCS: 27245; 36415; 73502-RT; 76000; 80048; 80076; 81001; 82150; 83690; 83735; 84443; 85025; 85610; 85730; 93005; 93010; 94640; 94660; 96361; 96374; 97110-GP; 97162-GP; 97530-GP; 97535-GP; 99222; 99232; 99238; 99285; 99285-25; A9270-GY; C1713; C1776; C9113; J0690; J1170; J2370; J2405; J2704; J3490; J7030; J7620; U0002